=== PATIENT | female | born 1985 | race Caucasian/White ===

== ENCOUNTER 2019-11-09 12:15 | Emergency (ER) | payer OTHER, MEDICAID, SELFPAY ==
[2019-11-09 12:30] VITALS: BP 126/84; PULSE 75; RESP 14; TEMP 37.1; O2SAT 98; BMI 30.4
--- NOTE | 2019-11-09 12:49 | CT_ITS ---
WS: [id number] CT ABDOMEN AND PELVIS WITH CONTRAST HISTORY: RUQ pain TECHNIQUE: Imaging performed of the abdomen and pelvis with IV contrast. Single phase imaging of the abdomen. Coronal and sagittal reformats are submitted. All CT scans at [facility] use at least one of these dose optimization techniques: automated exposure control; mA and/or kV adjustment per patient size (includes targeted exams where dose is matched to clinical indication); or iterativ e reconstruction. IV CONTRAST: Omnipaque 300; 95 mL IV. Oral contrast: No DLP: 1150.49 mGy.cm COMPARISON: None available. Lower thorax: Lung bases are clear. Heart is normal size. No hiatal hernia. Liver/biliary system: Normal size with no intrahepatic dilatation. Gallbladder: Normal. No gallstones or wall thickening. No pericholecystic fluid. Pancreas: Normal. Spleen: Normal. Adrenal glands: Normal. Right kidney: Normal. Left kidney: Normal. Aorta: Normal. Lymphadenopathy: None. Free fluid: None. GI tract: Normal appendix. No GI tract obstruction. No mucosal thickening. Abdominal wall: Fat-containing umbilical hernia. Pelvis: Injection granulomas or soft tissue nodules posteriorly in the pelvis. Bones: Degenerative disc disease at L5-S1. CT/CT abdomen pelvis w con* [id number] IMPRESSION: 1. No acute abdominal or pelvic abnormalities. 2. Normal appendix.
--- NOTE | 2019-11-09 12:50 | ED_ITS ---
HPI - Abdominal Pain General: Chief Complaint: Abdominal Pain Stated Complaint: abd pain Time Seen by Provider: 11/09/19 12:46 History of Present Illness: HPI narrative: Patient complains about pain that started up right upper quadrant earlier today a significant other said that she had pain and swelling yesterday also right upper quadrant denies any nausea and vomiting has had some diarrhea denies fever chills MD elicited complaint: abdominal pain Pertinent past history: other (Epileptic) Onset (ago): hour(s) Pain Consistency: constant Location: RUQ Severity: mild Quality: cramping Radiation: none Exacerbating factors: eating Relieving factors: nothing Associated Symptoms: Reports diarrhea; Denies chills and fever(s) Review of Systems Const: Denies: fever(s), chills or body aches Eyes: Denies: change in vision or blurry vision ENMT: Denies: throat pain or nasal congestion Card: Denies: chest pain or dyspnea on exertion Resp: Denies: dyspnea, productive cough or non-productive cough GI: Reports: abdominal pain and diarrhea Musc: Denies: extremity pain Skin/Breast: Denies: rash Neuro: Denies: headache(s) Psych: Denies: anxiety or depression Caleb/Lymph: Denies: easy bruising PFSH ED PFSH: Social History (Updated 11/09/19 @ 11:55 by Dilia Saeed LPN) Smoking and tobacco status: current every day smoker smokeless tobacco Alcohol intake: never Physical Exam Const: COMMON NORMALS: no acute distress, average body habitus and patient oriented x3 HENMT: COMMON NORMALS: normocephalic HEAD & SCALP: normal to inspection and normocephalic FACE & SINUS: normal facial exam Eye: COMMON NORMALS: conjunctivae normal GENERAL EYE: appearance normal, both eyes and all related structures CONJUNCTIVA: Yes conjunctivae normal Neck/C-Spine: COMMON NORMALS: no JVD Chest: COMMONS NORMALS: normal inspection of the chest Resp: COMMON NORMALS: normal respiratory effort and clear to auscultation bilaterally AUSCULTATION: clear to auscultation bilaterally Cardio: COMMON NORMALS: no JVD, regular rate and regular rhythm RATE: regular rate RHYTHM: regular rhythm GI: COMMON NORMALS: Normal to inspection, nondistended, normoactive bowel sounds present PALPATION: Yes Tenderness to palpation present (GI) Details: RUQ Extremity: COMMON NORMALS: normal to inspection and full ROM Neuro: COMMON NORMALS: patient oriented x3 Course Vital Signs: Vital signs: Vital Signs Temperature 98.8 F 11/09/19 12:30 Pulse Rate 75 11/09/19 12:30 Respiratory Rate 14 11/09/19 12:30 Blood Pressure 126/84 11/09/19 12:30 Pulse Oximetry 98 11/09/19 12:30 Discharge Plan Discharge Condition: Good Prescriptions: No Action testosterone cypionate 200 mg/mL kit IM RF: 0 aripiprazole 9.75 mg/1.3 mL solution IM RF: 0 Vivitrol 380 mg suspension,extended rel recon IM RF: 0 Coding Level of Care Code ED Assurance Senior Manager for Taylor Saul
[2019-11-09 13:09] LABS: Add Urine Microscopic? YES; Bilirubin Urine Neg (NEGATIVE); Blood Urine Neg (Negative); Glucose Urine UA Norm (Normal); HCG Qualitative Urine. Negative (Negative); Ketones Urine Negative (Negative); Leukocyte Esterase Urine 2+ (Negative); Nitrate Urine Negative (Negative); Protein Urine Neg (Negative); Urine Appearance SL Hazy (CLEAR); Urine Color Yellow (Yellow); Urobilinogen Urine Norm (Negative)
[2019-11-09 13:13] LABS: Basophils % 0.4 %; Eosinophils # 0.1 10^3/uL (0.0-0.8); Eosinophils % 2.4 %; Hematocrit 44.3 % (37.0-47.0); Hemoglobin 14.4 g/dL (11.5-15.3); Lymphocytes # 1.5 10^3/uL (0.8-4.8); Lymphocytes % 28.1 %; Mean Corpuscular HGB Conc 32.5 g/dL (30.0-36.0); Mean Corpuscular Hemoglobin 31.6 pg (28.0-34.0); Mean Corpuscular Volume 97.1 fL (81-99); Mean Platelet Volume 10.6 fL (7.4-10.4); Monocytes # 0.3 10^3/uL (0.2-0.9); Monocytes % 5.8 %; Neutrophils # 3.37 10^3/uL (1.8-7.7); Neutrophils % 63.1 %; Nucleated Red Blood Cells % 0 %; Platelet Count 201 10^3/cmm (130-400); Red Blood Count 4.56 10^6/uL (4.1-5.3); Red Cell Distribution Width 12.6 % (12.1-15.1); White Blood Count 5.3 10^3/uL (4.0-10.0)
[2019-11-09 13:14] VITALS: BP 128/76; PULSE 77; RESP 18; O2SAT 99
[2019-11-09 13:35] LABS: Bacteria Urine 3+; RBC Urine 0-4 /hpf (0-2); Squamous Epithelial Cell Urine 0-4 (0-5); WBC Urine 40-55 /hpf (0-5)
[2019-11-09 13:36] LABS: Add Urine Culture? Yes
[2019-11-09 13:37] LABS: Alanine Aminotransferase 15 U/L (0-33); Albumin Level 4.5 g/dL (3.5-5.2); Alkaline Phosphatase 66 IU/L (35-105); Anion Gap 14.4 (5-19); Aspartate Amino Transferase 20 U/L (0-32); Blood Urea Nitrogen 13 mg/dL (6-20); Calcium 9.3 mg/dL (8.5-10.5); Carbon Dioxide 28 mmol/L (22-29); Chloride 102 mmol/L (98-107); Globulin 2.9 g/dL (1.3-4.6); Glomerular Filtration Rate 63.5 mL/min (90-130); Glucose 93 mg/dL (65-115); Lipase 44 U/L (13-60); Osmolality Calculated 286 mOsm/kg (285-295); Potassium 4.4 mmol/L (3.5-5.1); Sodium 140 mmol/L (136-145); Total Bilirubin 0.2 mg/dL (0.15-1.2); Total Protein 7.4 g/dL (6.6-8.7)
[2019-11-09] MEDS: ondansetron 2 mg/ML SDV 2 mL 4 MG IVP (13:42)
[2019-11-09] MEDS: ketorolac 30 mg/mL INJ IVP (13:49)
[2019-11-09] MEDS: cefTRIAXone 1,000 MG in sodium chloride 0.9% (plus) 50 ML 100 MG IV (14:15)
[2019-11-09 14:16] VITALS: BP 112/68; PULSE 61; RESP 18; O2SAT 98
[2019-11-09] MEDS: TRAMadol 50 mg Tablet PO (14:39)
[2019-11-09 14:52] VITALS: BP 111/81; PULSE 61; RESP 18; TEMP 36.9; O2SAT 96
== END 2019-11-09 14:52 | disposition home or self-care (01) ==
PROVIDERS: Emergency Medicine; Emergency Provider Nurse Practitioner Family
DX: R10.9 Unspecified abdominal pain (principal); F17.290 Nicotine dependence, other tobacco product, uncomplicated
CPT/HCPCS: 12345; 36415; 74177; 80053; 81001; 81003; 81025; 83690; 85025; 87086; 96365; 96375; 99283; 99284; J0696; J1885; J2405; Q9967

== ENCOUNTER 2020-01-05 20:18 | Emergency (ER) | payer OTHER, MEDICAID, SELFPAY ==
[2020-01-05 20:33] VITALS: BP 119/77; PULSE 100; RESP 18; TEMP 36.9; O2SAT 100; BMI 31.8
--- NOTE | 2020-01-05 20:50 | ED_ITS ---
HPI - Animal Bite General: Chief Complaint: Animal Bite Stated Complaint: faby silva bite Time Seen by Provider: 01/05/20 20:50 History of Present Illness: HPI narrative: Patient is a 34-year-old female that is transgender and prefers to be called male presents to the ED after having a snake bite on right foot. Patient has a history of anxiety and states that they are probably overreacting about snakebite but wanted to get it evaluated. Patient says the snake was black with some red stripe. the bite did not break the skin and there was no bleeding. Patient rates pain in right foot and 8 out of 10 currently. Associated symptoms: Deny chills, fever(s) or headache(s) Review of Systems Const: Denies: fever(s), chills or fatigue Eyes: Denies: change in vision or eye discomfort ENMT: Denies: throat pain, odynophagia, nasal discharge or nasal congestion Card: Denies: chest pain, palpitations, edema, swelling of feet/ankles, dys pnea on exertion or orthopnea Resp: Denies: dyspnea, productive cough or non-productive cough GI: Denies: abdominal pain, nausea, vomiting, diarrhea, constipation or hematochezia : Denies: flank pain, dysuria or hematuria Musc: Reports: extremity pain (Right foot pain); Denies: neck pain, back pain or extremity swelling Skin/Breast: Denies: rash or new lesions Neuro: Denies: headache(s), numbness in extremities or weakness in extremities PFS ED PFSH: Social History Smoking and tobacco status: current every day smoker smokeless tobacco Alcohol intake: never Physical Exam Const: COMMON NORMALS: no acute distress, patient oriented x3 and alert GENERAL APPEARANCE: cooperative, comfortable and anxious HENMT: COMMON NORMALS: normocephalic HEAD & SCALP: normocephalic MOUTH: Normal oral and palatal mucosa present THROAT: posterior oropharynx normal and uvula midline Neck/C-Spine: COMMON NORMALS: supple GENERAL: Yes normal visual inspection Resp: COMMON NORMALS: normal respiratory effort, No retractions, No use of accessory muscles and clear to auscultation bilaterally AUSCULTATION: clear to auscultation bilaterally Cardio: COMMON NORMALS: regular rate, regular rhythm, S1 normal heart sound present, S2 normal heart sound present, No gallops present (Cardio), No clicks present (Cardio), No murmurs present (Cardio) and Peripheral pulses 2+ throughout RATE: regular rate RHYTHM: regular rhythm HEART SOUNDS: S1 normal heart sound present and S2 normal heart sound present PERIPHERAL PULSES: Peripheral pulses 2+ throughout GI: COMMON NORMALS: Normal to inspection, nondistended, normoactive bowel sounds present, Soft to palpation, non-tender and no masses PALPATION: Yes Soft to palpation : COMMON NORMALS: Yes no CVA tenderness BLADDER/KIDNEY EXAM: Yes no CVA tenderness Back/Pelvis: COMMON NORMALS: no CVA tenderness Extremity: COMMON NORMALS: normal to inspection and no pedal edema NARRATIVE EXTREMITY EXAM: Patient's right foot showed no signs of any puncture wounds, erythema, warmth. Right foot appeared completely normal. Patient has some mild tenderness upon palpation of lateral aspect of right foot. Neuro: COMMON NORMALS: patient oriented x3 and moves all extremities SENSORIUM/ORIENTATION: Yes alert Skin: COMMON NORMALS: no rashes or lesions noted NARRATIVE SKIN EXAM: The skin on the lateral aspect of right foot where snake bite occurred showed no visible signs of any edema, abrasion, puncture wound, bleeding, erythema, warmth. Skin appeared completely normal. GENERAL SKIN EXAM: no rashes or lesions noted and dry skin Course Vital Signs: Vital signs: Vital Signs Temperature 98.5 F 01/05/20 20:33 Pulse Rate 100 01/05/20 20:33 Respiratory Rate 18 01/05/20 20:33 Blood Pressure 119/77 01/05/20 20:33 Pulse Oximetry 100 01/05/20 20:33 MDM - Animal Bite MDM Narrative: Medical decision making narrative: Patient is a 34-year-old female comes to the ED with right foot pain after a snakebite. Physical exam of right foot showed no visible signs of a bite, bleeding, puncture wound, erythema, warmth or edema. Right foot appeared completely normal. Patient was discharged and told to watch area where snake bit to see if it starts showing any signs of infection. Follow-up with PCP in 7 to 10 days for reevaluation. Patient understood and agreed with plan. Discharge Plan Discharge Patient Disposition: Home Clinical Impression: Snake bite Qualifiers: Encounter type: initial encounter Qualified Code(s): W59.11XA - Bitten by nonvenomous snake, initial encounter Condition: Stable Prescriptions: No Action Vivitrol 380 mg suspension,extended rel recon 380 mg IM Q30D RF: 0 sulfamethoxazole-trimethoprim [Bactrim DS] 800-160 mg tablet 1 tab PO Q12H 7 Days Qty: 14 RF: 0 mupirocin 2 % ointment 1 applic TOPICAL BID Qty: 22 RF: 0 ondansetron HCl [Zofran] 4 mg tablet 4 mg PO Q8H PRN (Reason: nausea and vomiting) Qty: 20 RF: 0 lisinopril 20 mg tablet 20 mg PO DAILY RF: 0 amlodipine 10 mg tablet 10 mg PO DAILY RF: 0 paroxetine HCl 30 mg tablet 30 mg PO DAILY RF: 0 tizanidine 2 mg capsule 2 mg PO BID PRN (Reason: Muscle Pain) RF: 0 Aristada 882 mg/3.2 mL suspension,extended rel syring 882 mg IM Q30D RF: 0 tramadol 50 mg tablet 50 mg PO Q8H PRN (Reason: pain) Qty: 7 RF: 0 Discharge Orders: Discharge Order (Routine); Ordered 01/05/20 Ordered By: Benedicto Childs Discharge Diet: Regular Discharge Activity: Resume usual activity Patient Instructions: Snake Bite (ED) Activity Restrictions/Additional Instructions: Follow-up with medical provider as directed in 7-10 days. Watch bite area for signs of infection such as redness, increased tenderness or warmth of the skin. If you have any signs of infection return to ED or urgent care for reevaluation. Take Tylenol or ibuprofen for any pain or fevers. Return to the ER or your medical provider if condition worsens. Please read and understand discharge instructions. If any questions, please ask. Discharge Date/Time: 01/05/20 21:24 Coding Level of Care Code ED Real Estate Administrative Assistant for Taylor Fwcatherine 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
[2020-01-05] MEDS: ondansetron 4 MG Tablet PO (21:17)
[2020-01-05] MEDS: HYDROcodone-acetaminophen 5-325 mg Tablet 1 TAB PO (21:17)
== END 2020-01-05 21:24 | disposition home or self-care (01) ==
LOC: ER 21:23
PROVIDERS: Emergency Provider Physician Assistant
DX: T63.001A Toxic effect of unspecified snake venom, accidental (unintentional), initial encounter (principal); W59.11XA Bitten by nonvenomous snake, initial encounter; F17.210 Nicotine dependence, cigarettes, uncomplicated
CPT/HCPCS: 12345; 99281; 99283; Q0162

== ENCOUNTER 2020-01-16 23:35 | Emergency (ER) | payer OTHER, BC, MEDICAID, SELFPAY ==
[2020-01-16 23:43] VITALS: BP 124/85; PULSE 113; RESP 18; TEMP 37.3; O2SAT 95; BMI 32.3
--- NOTE | 2020-01-16 23:51 | XRR_ITS ---
PROCEDURE INFORMATION: Exam: XR Chest, 1 View Exam date and time: 01/17/2020 12:49 AM Age: 34 years old Clinical indication: Cough and fever; Prior surgery; Surgery type: Mastectomy TECHNIQUE: Imaging protocol: XR of the chest Views: 1 view. COMPARISON: No relevant prior studies available. FINDINGS: Lungs: COPD and interstitial prominence. Pleural space: No pleural effusion. Heart/Mediastinum: Epicardial fat, without cardiomegaly. Bones/joints: Unremarkable. Other: Left-sided surgical clips. XR/XR chest 1V portable [id number] IMPRESSION: COPD and interstitial prominence.
--- NOTE | 2020-01-17 00:04 | ED_ITS ---
HPI - SOB/Dyspnea General: Chief Complaint: Shortness of Breath/Dyspnea Stated Complaint: not feeling well,covid exposure Time Seen by Provider: 01/16/20 23:51 History of Present Illness: HPI Narrative: Patient is a 34-year-old male who comes to the ED with cough, sore throat, fever, nasal drainage and congestion and ear pain. Patient says symptoms started today. She admits to having contact with known positive COVID patient. She states that her cough is productive and she mostly gets up clear phlegm. Denies any chest pain, wheezing or shortness of breath. Patient says she developed some nausea today and had one episode of emesis. Associated symptoms: Reports diaphoresis and fever(s); Deny abdominal pain, chest pain, nausea, orthopnea, palpitations or vomiting Review of Systems Const: Reports: fever(s) and diaphoresis; Denies: chills or fatigue Eyes: Denies: change in vision or eye discomfort ENMT: Reports: throat pain, ear or mastoid pain, nasal discharge and nasal congestion; Denies: odynophagia Card: Denies: chest pain, palpitations, edema, swelling of feet/ankles, dyspnea on exertion or orthopnea Resp: Reports: productive cough and change in phlegm color (Clear); Denies: dyspnea, non-productive cough or wheezing GI: Denies: abdominal pain, nausea, vomiting, diarrhea, constipation or hematochezia : Denies: flank pain, dysuria or hematuria Musc: Denies: neck pain, back pain or extremity swelling Skin/Breast: Denies: rash or new lesions Neuro: Reports: headache(s); Denies: numbness in extremities or weakness in extremities [facility] ED PFSH: Social History Smoking and tobacco status: current every day smoker smokeless tobacco Alcohol intake: never Physical Exam Const: COMMON NORMALS: no acute distress, patient oriented x3 and alert GENERAL APPEARANCE: cooperative, comfortable and diaphoretic (Diaphoresis on face and head.) HENMT: COMMON NORMALS: normocephalic, external ears normal and EAC's normal HEAD & SCALP: normocephalic EXTERNAL EAR: Yes external ears normal EXTERNAL AUDITORY CANAL: EAC's normal TYMPANIC MEMBRANE: TM abnormal TM laterality: bilateral erythematous (right ear has some mild erythema) and with fluid behind the TM ( behind both right and left); not perforated MOUTH: Normal oral and palatal mucosa present THROAT: uvula midline and posterior oropharynx abnormal cobblestoning and erythema Eye: COMMON NORMALS: Equal, round and reactive pupils present PUPIL: Yes Equal, round and reactive pupils present Neck/C-Spine: COMMON NORMALS: supple GENERAL: Yes normal visual inspection Resp: COMMON NORMALS: normal respiratory effort, No retractions, No use of accessory muscles and clear to auscultation bilaterally EFFORT & INSPECTION: Yes able to speak in complete sentences, No tachypneic, No respiratory distress and Yes Actively coughing moist AUSCULTATION: clear to auscultation bilaterally Cardio: COMMON NORMALS: regular rhythm, S1 normal heart sound present, S2 normal heart sound present, No gallops present (Cardio), No clicks present (Cardio), No murmurs present (Cardio) and Peripheral pulses 2+ throughout RATE: tachycardic RHYTHM: regular rhythm HEART SOUNDS: S1 normal heart sound present and S2 normal heart sound present PERIPHERAL PULSES: Peripheral pulses 2+ throughout GI: COMMON NORMALS: Normal to inspection, nondistended, normoactive bowel sounds present, Soft to palpation, non-tender and no masses PALPATION: Yes Soft to palpation : COMMON NORMALS: Yes no CVA tenderness BLADDER/KIDNEY EXAM: Yes no CVA tenderness Back/Pelvis: COMMON NORMALS: no CVA tenderness Extremity: COMMON NORMALS: normal to inspection Neuro: COMMON NORMALS: patient oriented x3 and moves all extremities SENSORIUM/ORIENTATION: Yes alert Skin: COMMON NORMALS: no rashes or lesions noted GENERAL SKIN EXAM: no rashes or lesions noted and dry skin Course Vital Signs: Vital signs: Vital Signs Temperature 99.2 F 01/16/20 23:43 Pulse Rate 72 01/17/20 01:49 Respiratory Rate 16 01/17/20 01:49 Blood Pressure 136/84 01/17/20 01:49 Pulse Oximetry 99 01/17/20 01:49 MDM - SOB/Dyspnea MDM Narrative: Medical decision making narrative: Patient is a 34-year-old female who comes to the ED with fever, cough, nasal congestion, sore throat and ear pain. Patient has known COVID-19 positive patient contact. Patient has some nausea as well. Patient appears in no acute respiratory distress. Physical exam did show some erythema of posterior oropharynx. TMs bilaterally had some fluid behind them with some erythema. O2 saturation 99% on room air. Temp 99.2, pulse 72 and respirations 16. Strep negative and chest x-ray showed no acute findings or infiltrates. COVID 19 testing performed and pending. Patient discharged with upper respiratory infection and told to self quarantine for the next 3 or up to 12 days pending on COVID 19 testing results. She was given a prescription for amoxicillin-clavulanate to treat otitis media. Patient was also sent home with a prescription for Zofran to help with any nausea. Patient told to drink plenty of fluids and stay hydrated. Take Tylenol or ibuprofen for fevers. Return to ED precautions given. Follow-up with PCP in 7 to 10 days. Patient understood and agreed with plan. Lab Data: Attestation: I reviewed the patient's lab results. Labs: Lab Results 01/17/20 Range/Units 00:35 Group A Strep Rapi d Negative (Negative) Imaging Data^: CXR: Attestation: I personally reviewed and interpreted this imaging study as follows: My impression: Chest x-ray showed no acute findings or lung infiltrates seen. Pending final radiology report. Discharge Plan Discharge Patient Disposition: Home Clinical Impression: Upper respiratory infection with cough and congestion, Encounter for screening laboratory testing for COVID-19 virus Otitis media Qualifiers: Otitis media type: serous Chronicity: acute Laterality: bilateral Recurrence: non-recurrent Qualified Code(s): H65.03 - Acute serous otitis media, bilateral Condition: Stable Prescriptions: New ondansetron 4 mg tablet,disintegrating 4 mg PO Q8H Qty: 15 RF: 0 amoxicillin-pot clavulanate 500-125 mg tablet 1 tab PO BID 10 Days Qty: 20 RF: 0 No Action Vivitrol 380 mg suspension,extended rel recon 380 mg IM Q30D RF: 0 sulfamethoxazole-trimethoprim [Bactrim DS] 800-160 mg tablet 1 tab PO Q12H 7 Days Qty: 14 RF: 0 mupirocin 2 % ointment 1 applic TOPICAL BID Qty: 22 RF: 0 ondansetron HCl [Zofran] 4 mg tablet 4 mg PO Q8H PRN (Reason: nausea and vomiting) Qty: 20 RF: 0 lisinopril 20 mg tablet 20 mg PO DAILY RF: 0 amlodipine 10 mg tablet 10 mg PO DAILY RF: 0 paroxetine HCl 30 mg tablet 30 mg PO DAILY RF: 0 tizanidine 2 mg capsule 2 mg PO BID PRN (Reason: Muscle Pain) RF: 0 Aristada 882 mg/3.2 mL suspension,extended rel syring 882 mg IM Q30D RF: 0 tramadol 50 mg tablet 50 mg PO Q8H PRN (Reason: pain) Qty: 7 RF: 0 Discharge Orders: Discharge Order (Routine); Ordered 01/17/20 Ordered By: Benedicto Childs Discharge Diet: Regular Discharge Activity: Limit activity as instructed Patient Instructions: Otitis Media - Adult, Upper Respiratory Infection (ED), Viral Syndrome (ED) Activity Restrictions/Additional Instructions: Follow-up with medical provider as directed in 7-10 days. COVID testing was performed and sent to lab and results will be back in 2 to 3 days. Self quarantine for the next 3 days or up to 12 days pending on COVID testing results. Take ibuprofen or Tylenol for fevers. Drink plenty of fluids and stay hydrated. Symptom management with [id number] cough and nasal decongestant meds. Return to the ER or your medical provider if condition worsens. Please read and understand discharge instructions. If any questions, please ask. Stand Alone Forms: Work/School Release Discharge Date/Time: 01/17/20 01:50 Coding Level of Care Code ED Hr Director for Taylor Saul 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
[2020-01-17] MEDS: ondansetron 4 MG Tablet PO (00:40)
[2020-01-17] MEDS: ondansetron 2 mg/ML SDV 2 mL 4 MG IM (00:41)
[2020-01-17 01:26] LABS: Rapid Strep A Test Negative (Negative)
[2020-01-17] MEDS: promethazine 25 mg/mL SDV 1 mL IM (01:26)
[2020-01-17 01:49] VITALS: BP 136/84; PULSE 72; RESP 16; O2SAT 99
[2020-01-18 16:32] LABS: Quest SARS-CoV-2 RNA DETECTED (NOT DETECTED)
== END 2020-01-17 01:50 | disposition home or self-care (01) ==
PROVIDERS: Emergency Provider Physician Assistant
DX: U07.1 COVID-19 (principal); H65.03 Acute serous otitis media, bilateral; F17.220 Nicotine dependence, chewing tobacco, uncomplicated
CPT/HCPCS: 12345; 71045; 87081; 87635; 87880; 96372; 99281; 99283; J2405; J2550; Q0162

== ENCOUNTER 2020-01-20 14:27 | Emergency (ER) | payer OTHER, MEDICAID, SELFPAY ==
--- NOTE | 2020-01-20 14:33 | XRR_ITS ---
PROCEDURE INFORMATION: Exam: XR Chest, 1 View Exam date and time: 01/20/2020 3:29 PM Age: 34 years old Clinical indication: Shortness of breath; Additional info: SOB TECHNIQUE: Imaging protocol: XR of the chest Views: 1 view. COMPARISON: CR XR chest 1V portable [id number] 01/17/2020 12:31 AM FINDINGS: Lungs: Unremarkable. No consolidation. Pleural space: Unremarkable. No pleural effusion. No pneumothorax. Heart/Mediastinum: Unremarkable. No cardiomegaly. Bones/joints: Unremarkable. Soft tissues: Bilateral mastectomies. Bilateral surgical clips. XR/XR chest 1V portable [id number] IMPRESSION: No acute findings.
--- NOTE | 2020-01-20 14:41 | PC.NURSE ---
provider temitope vo to hold until evaluated by him and then begin interventions. provider temitope in room.
--- NOTE | 2020-01-20 14:46 | ED_ITS ---
HPI - SOB/Dyspnea General: Chief Complaint: Shortness of Breath/Dyspnea Stated Complaint: sob/covid+ Time Seen by Provider: 01/20/20 14:30 History of Present Illness: HPI Narrative: Patient is a 34-year-old female that comes to the ED with shortness of breath and chest tightness. Patient was seen here for upper respiratory symptoms on January 15 and COVID testing was performed. COVID tests came back positive. Patient says she is now developing chest tightness and shortness of breath. She also has some fever, nausea and vomiting, and cough. Patient describes chest pain as pressure tightness on chest and feels like cannot get a good good deep breath. Associated symptoms: Reports chest pain, fever(s), nausea and vomiting; Deny abdominal pain, orthopnea or palpitations Review of Systems Const: Reports: fever(s); Denies: chills or fatigue Eyes: Denies: change in vision or eye discomfort ENMT: Denies: throat pain, odynophagia, nasal discharge or nasal congestion Card: Reports: chest pain; Denies: palpitations, edema, swelling of feet/ankles, dyspnea on exertion or orthopnea Resp: Reports: dyspnea and non-productive cough; Denies: productive cough GI: Reports: nausea, vomiting and diarrhea; Denies: abdominal pain, constipation or hematochezia : Denies: flank pain, dysuria or hematuria Musc: Denies: neck pain, back pain or extremity swelling Skin/Breast: Denies: rash or new lesions Neuro: Denies: headache(s), numbness in extremities or weakness in extremities PFS ED PFSH: Social History Smoking and tobacco status: current every day smoker smokeless tobacco Alcohol intake: never Physical Exam Const: COMMON NORMALS: patient oriented x3 and alert GENERAL APPEARANCE: cooperative and comfortable HENMT: COMMON NORMALS: normocephalic HEAD & SCALP: normocephalic MOUTH: Normal oral and palatal mucosa present THROAT: posterior oropharynx normal and uvula midline Eye: COMMON NORMALS: Equal, round and reactive pupils present PUPIL: Yes Equal, round and reactive pupils present Neck/C-Spine: COMMON NORMALS: supple GENERAL: Yes normal visual inspection Resp: COMMON NORMALS: normal respiratory effort, No retractions, No use of accessory muscles and clear to auscultation bilaterally AUSCULTATION: clear to auscultation bilaterally Cardio: COMMON NORMALS: regular rate, regular rhythm, S1 normal heart sound present, S2 normal heart sound present, No gallops present (Cardio), No clicks present (Cardio), No murmurs present (Cardio) and Peripheral pulses 2+ throughout RATE: regular rate RHYTHM: regular rhythm HEART SOUNDS: S1 normal heart sound present and S2 normal heart sound present PERIPHERAL PULSES: Peripheral pulses 2+ throughout GI: COMMON NORMALS: Normal to inspection, nondistended, normoactive bowel sounds present, Soft to palpation, non-tender and no masses PALPATION: Yes Soft to palpation : COMMON NORMALS: Yes no CVA tenderness BLADDER/KIDNEY EXAM: Yes no CVA tenderness Back/Pelvis: COMMON NORMALS: no CVA tenderness Extremity: COMMON NORMALS: normal to inspection and no pedal edema Neuro: COMMON NORMALS: patient oriented x3 and moves all extremities SENSORIUM/ORIENTATION: Yes alert Skin: COMMON NORMALS: no rashes or lesions noted GENERAL SKIN EXAM: no rashes or lesions noted and dry skin Course Reevaluation(s): Reevaluation #1: Patient says her shortness of breath did improve after albuterol inhaler. Patient sitting comfortably on the bed and says she is ready to be discharged. Time: 16:25 Vital Signs: Vital signs: Vital Signs Temperature 99.3 F 01/20/20 15:08 Pulse Rate 101 H 01/20/20 16:57 Respiratory Rate 20 H 01/20/20 16:57 Blood Pressure 122/75 01/20/20 16:57 Pulse Oximetry 94 01/20/20 16:57 MDM - SOB/Dyspnea MDM Narrative: Medical decision making narrative: Patient is a 34-year-old female that was tested for COVID-19 on January 15 results came back positive. Patient says her symptoms are about the same and she feels like her shortness of breath is increasing. She described having some chest tightness as well. Physical exam showed a patient sitting up on exam bed in no acute distress or pain. Vitals blood pressure 130/79, pulse 99, respirations 20, temp 99.3, O2 sat 99 on room air. Lungs were clear to auscultation bilaterally. CBC and CMP were unremarkable. Patient's creatinine was slightly elevated at 1.1. She was given IV fluids and IV Zofran to help with nausea. Patient was also given an albuterol breathing treatment and she says her shortness of breath symptoms did improve. EKG showed normal sinus rhythm with no ST segment elevation or depression seen. Troponins were negative ruling out cardiac cause. Chest x-ray showed no acute findings or infiltrates seen. Patient was discharged with upper respiratory infection and COVID-19 virus detected. She was told to continue self quarantine and to take ibuprofen or Tylenol for any fevers. I sent her home with a prescription for an albuterol inhaler to help with any shortness of breath and wheezing symptoms. Told her to drink plenty of fluids and to return here to the ED if symptoms worsen. Follow-up with PCP in 7 to 10 days for reevaluation. Patient understood agree with plan. Lab Data: Attestation: I reviewed the patient's lab results. Labs: Lab Results 01/20/20 01/20/20 01/20/20 Range/Units 14:53 15:05 15:05 WBC 5.2 (4.0-10.0) 10^3/ uL RBC 4.29 (4.1-5.3) 10^6/u L Hgb 13.7 (11.5-15.3) g/dL Hct 41.1 (37.0-47.0) % MCV 95.8 (81-99) fL MCH 31.9 (28.0-34.0) pg MCHC 33.3 (30.0-36.0) g/dL RDW 12.9 (12.1-15.1) % Plt Count 128 L (130-400) 10^3/c mm MPV 10.8 H (7.4-10.4) fL Neut % (Auto) 66.6 % Lymph % (Auto) 25.2 % Bennett % (Auto) 6.8 % Eos % (Auto) 1.2 % Baso % (Auto) 0.2 % Neut # (Auto) 3.44 (1.8-7.7) 10^3/u L Lymph # (Auto) 1.3 (0.8-4.8) 10^3/u L Bennett # (Auto) 0.4 (0.2-0.9) 10^3/u L Eos # (Auto) 0.1 (0.0-0.8) 10^3/u L Baso # (Auto) 0.0 (0.0-0.1) 10^3/u L Nucleated RBC % (a uto) 0 % Nucleated RBCs # 0.0 /100WBC Sodium 137 (136-145) mmol/L Potassium 4.1 (3.5-5.1) mmol/L Chloride 102 (98-107) mmol/L Carbon Dioxide 24 (22-29) mmol/L Anion Gap 15.1 (5-19) BUN 7 (6-20) mg/dL Creatinine 1.1 H (0.5-0.9) mg/dL GFR Calculation 56.5 L (90-130) mL/min Glucose 92 (65-115) mg/dL Calculated Osmolal ity 282 L (285-295) mOsm/k g Calcium 8.5 (8.5-10.5) mg/dL Total Bilirubin 0.2 (0.15-1.2) mg/dL AST 24 (0-32) U/L ALT 19 (0-33) U/L Alkaline Phosphata se 67 (35-105) IU/L Troponin T Baselin e (0-10) ng/L Total Protein 6.4 L (6.6-8.7) g/dL Albumin 3.7 (3.5-5.2) g/dL Globulin 2.7 (1.3-4.6) g/dL HCG, Qual (Negative) Urine Color Yellow (Yellow) Urine Appearance Clear (CLEAR) Urine pH 8 H (5-7) Ur Specific Gravit y 1.005 (1.005-1.030) Urine Protein Neg (Negative) Urine Glucose (UA) Norm (Normal) Urine Ketones Negative (Negative) Urine Blood Neg (Negative) Urine Nitrate Negative (Negative) Urine Bilirubin Neg (Negative) Prot Sulfosalicyli c Acd Negative (Negative) Urine Urobilinogen Norm (Negative) mg/dL Ur Leukocyte Dolores ase Negative (Negative) Urine RBC None (0-2) /hpf Urine WBC 0-4 H (0-5) /hpf Ur Squamous Epith Cells Rare (0-5) /hpf Amorphous Sediment Not Reportable Urine Bacteria Trace (NONE) /hpf 01/20/20 01/20/20 Range/Units 15:05 15:05 WBC (4.0-10.0) 10^3/ uL RBC (4.1-5.3) 10^6/u L Hgb (11.5-15.3) g/dL Hct (37.0-47.0) % MCV (81-99) fL MCH (28.0-34.0) pg MCHC (30.0-36.0) g/dL RDW (12.1-15.1) % Plt Count (130-400) 10^3/c mm MPV (7.4-10.4) fL Neut % (Auto) % Lymph % (Auto) % Bennett % (Auto) % Eos % (Auto) % Baso % (Auto) % Neut # (Auto) (1.8-7.7) 10^3/u L Lymph # (Auto) (0.8-4.8) 10^3/u L Bennett # (Auto) (0.2-0.9) 10^3/u L Eos # (Auto) (0.0-0.8) 10^3/u L Baso # (Auto) (0.0-0.1) 10^3/u L Nucleated RBC % (a uto) % Nucleated RBCs # /100WBC Sodium (136-145) mmol/L Potassium (3.5-5.1) mmol/L Chloride (98-107) mmol/L Carbon Dioxide (22-29) mmol/L Anion Gap (5-19) BUN (6-20) mg/dL Creatinine (0.5-0.9) mg/dL GFR Calculation (90-130) mL/min Glucose (65-115) mg/dL Calculated Osmolal ity (285-295) mOsm/k g Calcium (8.5-10.5) mg/dL Total Bilirubin (0.15-1.2) mg/dL AST (0-32) U/L ALT (0-33) U/L Alkaline Phosphata se (35-105) IU/L Troponin T Baselin e 6 (0-10) ng/L Total Protein (6.6-8.7) g/dL Albumin (3.5-5.2) g/dL Globulin (1.3-4.6) g/dL HCG, Qual Negative (Negative) Urine Color (Yellow) Urine Appearance (CLEAR) Urine pH (5-7) Ur Specific Gravit y (1.005-1.030) Urine Protein (Negative) Urine Glucose (UA) (Normal) Urine Ketones (Negative) Urine Blood (Negative) Urine Nitrate (Negative) Urine Bilirubin (Negative) Prot Sulfosalicyli c Acd (Negative) Urine Urobilinogen (Negative) mg/dL Ur Leukocyte Dolores ase (Negative) Urine RBC (0-2) /hpf Urine WBC (0-5) /hpf Ur Squamous Epith Cells (0-5) /hpf Amorphous Sediment Urine Bacteria (NONE) /hpf Imaging Data^: CXR: Attestation: I personally reviewed and interpreted this imaging study as follows: Radiologist's impression: [address] [address] XRay Report Signed Patient: Dorothy Jurado Unit #: [id number] : 1985 Age/Sex: 34 / F ADM Date: 01/20/20 Loc: ER Room/Bed: Attending Dr: Ordering Provider/Ordering MD: Benedicto Childs Date of Service: 01/20/20 Procedure(s): XR chest 1V portable [id number] Accession Number(s): [id number] Report Number: [id number] PROCEDURE INFORMATION: Exam: XR Chest, 1 View Exam date and time: 01/20/2020 3:29 PM Age: 34 years old Clinical indication: Shortness of breath; Additional info: SOB TECHNIQUE: Imaging protocol: XR of the chest Views: 1 view. COMPARISON: CR XR chest 1V portable [id number] 01/17/2020 12:31 AM FINDINGS: Lungs: Unremarkable. No consolidation. Pleural space: Unremarkable. No pleural effusion. No pneumothorax. Heart/Mediastinum: Unremarkable. No cardiomegaly. Bones/joints: Unremarkable. Soft tissues: Bilateral mastectomies. Bilateral surgical clips. XR/XR chest 1V portable [id number] IMPRESSION: No acute findings. Dictated By: Myles Haines Signed By: Myles Haines Signed Date/Time: 01/20/20 1601 DD/ 1600 EKG Data^: EKG 1: Attestation: I personally reviewed and interpreted this EKG as follows: EKG Interpretation Date: 01/20/20 Interpretation: Sinus rhythm, 77 bpm, no ST segment elevation or depression seen. Discharge Plan Discharge Patient Disposition: Home Clinical Impression: Upper respiratory infection with cough and congestion, COVID-19 virus detected Condition: Stable Prescriptions: New albuterol sulfate 90 mcg/actuation aerosol powdr breath activated 2 inh INHALATION Q6H PRN (Reason: shortness of breath or wheezing) Qty: 1 RF: 0 No Action Vivitrol 380 mg suspension,extended rel recon 380 mg IM Q30D RF: 0 ondansetron HCl [Zofran] 4 mg tablet 4 mg PO Q8H PRN (Reason: nausea and vomiting) Qty: 20 RF: 0 lisinopril 20 mg tablet 20 mg PO QPM RF: 0 amlodipine 10 mg tablet 10 mg PO DAILY RF: 0 paroxetine HCl 30 mg tablet 30 mg PO DAILY RF: 0 Aristada 882 mg/3.2 mL suspension,extended rel syring 882 mg IM Q30D RF: 0 tramadol 50 mg tablet 50 mg PO Q8H PRN (Reason: pain) Qty: 7 RF: 0 amoxicillin-pot clavulanate 500-125 mg tablet 1 tab PO BID 10 Days Qty: 20 RF: 0 Keflex 500 mg Capsule 500 mg PO QID RF: 0 buspirone 30 mg Tablet 30 mg PO BID RF: 0 gabapentin 300 mg Capsule 300 - 600 mg PO BEDTIME RF: 0 Trileptal 600 mg tablet 600 mg PO BID RF: 0 testosterone cypionate 200 mg/mL oil See Rx Instructions .ROUTE .COMPLEX RF: 0 Discharge Orders: Discharge Order (Routine); Ordered 01/20/20 Ordered By: Benedicto Childs Discharge Diet: Regular Discharge Activity: Increase activity as tolerated Patient Instructions: Viral Syndrome (ED), Upper Respiratory Infection - Adult Activity Restrictions/Additional Instructions: Follow-up with medical provider as directed in 7-10 days. Continue self quarantine for 12 to 14 days. Take medications as prescribed. Use inhaler as needed for any shortness of breath or wheezing. Continue taking Zofran and d rink plenty of fluids and stay hydrated. Tylenol or ibuprofen for fevers. Return to the ER or your medical provider if condition worsens. Please read and understand discharge instructions. If any questions, please ask. Discharge Date/Time: 01/20/20 16:58 Coding Level of Care Code ED Income Tax Consultant for Chg 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
--- NOTE | 2020-01-20 14:47 | ECG_ITS ---
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 Measurements Intervals [place] Rate: 77 P: 53 CA: 111 QRS: 60 QRSD: 86 T: 63 QT: 322 QTc: 365 Interpretive Statements SINUS RHYTHM WITH SHORT CA INTERVAL No previous ECG available for comparison Electronically Signed On 01-21-2020 19:11:44 CDT by Ranjeet Nowak M.D. [email or web address].[employer]/store/[id number] f
[2020-01-20 15:08] VITALS: BP 130/79; PULSE 99; RESP 20; TEMP 37.4; O2SAT 99; BMI 32.3
[2020-01-20 15:15] VITALS: PULSE 78; RESP 16; O2SAT 97
[2020-01-20] MEDS: sodium chloride 0.9% 1,000 ML 999 ML IV (15:19)
[2020-01-20] MEDS: ondansetron 2 mg/ML SDV 2 mL 4 MG IVP (15:19)
[2020-01-20 15:21] LABS: Basophils % 0.2 %; Eosinophils # 0.1 10^3/uL (0.0-0.8); Eosinophils % 1.2 %; Hematocrit 41.1 % (37.0-47.0); Hemoglobin 13.7 g/dL (11.5-15.3); Lymphocytes # 1.3 10^3/uL (0.8-4.8); Lymphocytes % 25.2 %; Mean Corpuscular HGB Conc 33.3 g/dL (30.0-36.0); Mean Corpuscular Hemoglobin 31.9 pg (28.0-34.0); Mean Corpuscular Volume 95.8 fL (81-99); Mean Platelet Volume 10.8 fL (7.4-10.4); Monocytes # 0.4 10^3/uL (0.2-0.9); Monocytes % 6.8 %; Neutrophils # 3.44 10^3/uL (1.8-7.7); Neutrophils % 66.6 %; Nucleated Red Blood Cells % 0 %; Platelet Count 128 10^3/cmm (130-400); Red Blood Count 4.29 10^6/uL (4.1-5.3); Red Cell Distribution Width 12.9 % (12.1-15.1); White Blood Count 5.2 10^3/uL (4.0-10.0)
[2020-01-20 15:32] LABS: Bacteria Urine TRACE /hpf; Bilirubin Urine Neg (Negative); Blood Urine Neg (Negative); Glucose Urine UA Norm (Normal); Ketones Urine Negative (Negative); Leukocyte Esterase Urine Negative (Negative); Nitrate Urine Negative (Negative); Protein Urine Neg (Negative); Specific Gravity, Urine 1.005 (1.005-1.030); Squamous Epithelial Cell Urine RARE /hpf (0-5); Urine Appearance Clear (CLEAR); Urine Color Yellow (Yellow); Urobilinogen Urine Norm (Negative); WBC Urine 0-4 /hpf (0-5); pH Urine 8 (5-7)
[2020-01-20 15:33] LABS: Add Urine Culture? No; Sulfosalicylic Acid Urine Negative (Negative)
[2020-01-20 15:42] LABS: HCG, Serum Qual Negative (Negative)
[2020-01-20 15:50] LABS: Troponin(5th) Baseline 6 ng/L (0-10)
[2020-01-20] MEDS: albuterol 8 gm MDI 2 PUFF INHALATION (16:10)
[2020-01-20 16:13] VITALS: PULSE 78; RESP 16; O2SAT 97
[2020-01-20 16:30] LABS: Alanine Aminotransferase 19 U/L (0-33); Albumin Level 3.7 g/dL (3.5-5.2); Alkaline Phosphatase 67 IU/L (35-105); Anion Gap 15.1 (5-19); Aspartate Amino Transferase 24 U/L (0-32); Blood Urea Nitrogen 7 mg/dL (6-20); Calcium 8.5 mg/dL (8.5-10.5); Carbon Dioxide 24 mmol/L (22-29); Chloride 102 mmol/L (98-107); Globulin 2.7 g/dL (1.3-4.6); Glomerular Filtration Rate 56.5 mL/min (90-130); Glucose 92 mg/dL (65-115); Osmolality Calculated 282 mOsm/kg (285-295); Potassium 4.1 mmol/L (3.5-5.1); Sodium 137 mmol/L (136-145); Total Bilirubin 0.2 mg/dL (0.15-1.2); Total Protein 6.4 g/dL (6.6-8.7)
[2020-01-20 16:57] VITALS: BP 122/75; PULSE 101; RESP 20; O2SAT 94
== END 2020-01-20 16:58 | disposition home or self-care (01) ==
PROVIDERS: Emergency Provider Physician Assistant
DX: U07.1 COVID-19 (principal); F17.210 Nicotine dependence, cigarettes, uncomplicated
CPT/HCPCS: 12345; 71045; 80053; 81001; 84484; 84703; 85025; 87040; 87205; 93005; 94640; 96360; 96375; 99283; 99284; J2405; J7030

== ENCOUNTER 2020-02-20 12:00 | Outpatient (CLI) | payer OTHER, MEDICAID, SELFPAY | END 2020-02-20 12:01 | disposition home or self-care (01) | LOC: SLEEP 02-21 11:34 | PROVIDERS: Visit Provider Nurse Practitioner Family | DX: G47.10 Hypersomnia, unspecified (principal) | CPT/HCPCS: G0399 ==

== ENCOUNTER 2020-03-13 11:07 | Emergency (ER) | payer OTHER, MEDICAID, SELFPAY ==
[2020-03-13 11:25] VITALS: BP 119/80; PULSE 97; RESP 18; TEMP 36.2; O2SAT 95; BMI 32.3
--- NOTE | 2020-03-13 11:37 | XR_ITS ---
WS: [id number] Portable AP upright chest, 03/13/2020 Clinical Data: cp Comparison: Portable chest, 01/20/2020. Findings: No nodules, masses or effusions are seen. The heart is normal. The pulmonary vascularity is not increased. No pneumonia or pneumothorax is seen. Bilateral axillary surgical clips are seen. Mon itor leads are on the chest wall. XR/XR chest 1V portable [id number] Impression: Negative chest.
--- NOTE | 2020-03-13 11:44 | ED_ITS ---
HPI - Chest Pain General: Chief Complaint: Chest Pain Stated Complaint: Chest Pain/Pain in Left arm Time Seen by Provider: 03/13/20 11:33 Source: patient Mode of arrival: ambulatory Limitations: no limitations History of Present Illness: HPI narrative: 34-year-old female states she started having sharp chest pain in the left side of her chest 1 to 2 hours ago. Patient states the pain is much worse with palpation. States that it seems to radiate down her left arm. She has no history of heart disease. She denies any shortness of breath. Denies any vomiting or diarrhea. Denies any recent injuries. She did have Covid back in December. MD complaint: chest pain Associated symptoms: Deny abdominal pain, dyspnea, fever(s), nausea or vomiting Review of Systems Const: Denies: fever(s), chills, body aches or change in appetite Eyes: Denies: blurry vision or eye discomfort ENMT: Denies: throat pain or dental pain Card: Reports: chest pain Resp: Denies: dyspnea GI: Denies: abdominal pain, nausea, vomiting or diarrhea : Denies: dysuria Musc: Denies: neck pain or back pain Skin/Breast: Denies: rash Neuro: Denies: headache(s) Psych: Denies: depression Caleb/Lymph: Denies: easy bruising All/Imm: Denies: urticaria PFSH ED PFSH: Medical History ADHD Bipolar 1 disorder Decreased glomerular filtration rate (GFR) Degenerative arthritis of spine Epilepsy Obesity (BMI 30.0-34.9) Pneumonitis PTSD (post-traumatic stress disorder) Pyloric stenosis Surgical History History of adenectomy Hx of tonsillectomy Family History Other Cancer Social History Smoking and tobacco status: current every day smoker smokeless tobacco Smokeless tobacco user: chewing tobacco Alcohol intake: current Alcohol intake frequency: 0-2 Drinks per Day Alcohol type: hard liquor Current occupational status: unemployed Current gender identity: Male Female Reproductive History: Date of last menstrual period: 05/02/12 Physical Exam Const: COMMON NORMALS: no acute distress, patient oriented x3 and healthy appearing HENMT: COMMON NORMALS: normocephalic and atraumatic HEAD & SCALP: normocephalic and atraumatic Eye: COMMON NORMALS: Equal, round and reactive pupils present and EOMs intact bilaterally PUPIL: Yes Equal, round and reactive pupils present Neck/C-Spine: COMMON NORMALS: full ROM and supple Chest: COMMONS NORMALS: normal inspection of the chest and normal palpation of entire chest wall Resp: COMMON NORMALS: normal respiratory effort, No retractions, No use of accessory muscles and clear to auscultation bilaterally AUSCULTATION: clear to auscultation bilaterally Cardio: COMMON NORMALS: regular rate, regular rhythm and No murmurs present (Cardio) RATE: regular rate RHYTHM: regular rhythm GI: COMMON NORMALS: Normal to inspection, nondistended, normoactive bowel sounds present, Soft to palpation, non-tender and no masses PALPATION: Yes Soft to palpation Extremity: COMMON NORMALS: normal to inspection and full ROM Neuro: COMMON NORMALS: patient oriented x3, moves all extremities and no focal motor deficits Psych: COMMON NORMALS: mental status grossly normal, Normal thought process present and cooperative THOUGHT PROCESS: Normal thought process present Skin: COMMON NORMALS: no rashes or lesions noted and no wounds GENERAL SKIN EXAM: no rashes or lesions noted Course Vital Signs: Vital signs: Vital Signs Temperature 97.2 F L 03/13/20 11:25 Pulse Rate 80 03/13/20 13:03 Respiratory Rate 17 03/13/20 13:03 Blood Pressure 106/68 03/13/20 13:03 Pulse Oximetry 93 03/13/20 13:03 MDM - Chest Pain MDM Narrative: Medical decision making narrative: Patient presents with chest pain is atypical in nature. She is point tender on exam and is likely muscular. Patient's blood work here is normal. She is stable for discharge is to follow- up PCP in 3 to 5 days return if worsening. She has no signs of pulmonary embolism or acute coronary syndrome Lab Data: Labs: Lab Results 03/13/20 03/13/20 03/13/20 Range/Units 11:55 11:55 11:55 WBC 4.9 (4.0-10.0) 10^3/ uL RBC 4.48 (4.1-5.3) 10^6/u L Hgb 14.5 (11.5-15.3) g/dL Hct 43.6 (37.0-47.0) % MCV 97.3 (81-99) fL MCH 32.4 (28.0-34.0) pg MCHC 33.3 (30.0-36.0) g/dL RDW 13.8 (12.1-15.1) % Plt Count 200 (130-400) 10^3/c mm MPV 10.4 (7.4-10.4) fL Neut % (Auto) 55.7 % Lymph % (Auto) 27.0 % [place] % (Auto) 5.7 % Eos % (Auto) 10.8 % Baso % (Auto) 0.4 % Neut # (Auto) 2.74 (1.8-7.7) 10^3/u L Lymph # (Auto) 1.3 (0.8-4.8) 10^3/u L [place] # (Auto) 0.3 (0.2-0.9) 10^3/u L Eos # (Auto) 0.5 (0.0-0.8) 10^3/u L Baso # (Auto) 0.0 (0.0-0.1) 10^3/u L Nucleated RBC % (a uto) 0 % Nucleated RBCs # 0.0 /100WBC D-Dimer 0.54 (0-0.59) ug/mIFE U Sodium 141 (136-145) mmol/L Potassium 4.2 (3.5-5.1) mmol/L Chloride 103 (98-107) mmol/L Carbon Dioxide 29 (22-29) mmol/L Anion Gap 13.2 (5-19) BUN 16 (6-20) mg/dL Creatinine 1.2 H (0.5-0.9) mg/dL GFR Calculation 51.1 L (90-130) mL/min Glucose 89 (65-115) mg/dL Calculated Osmolal ity 293 (285-295) mOsm/k g Calcium 9.4 (8.5-10.5) mg/dL Total Bilirubin 0.2 (0.15-1.2) mg/dL AST 21 (0-32) U/L ALT 16 (0-33) U/L Alkaline Phosphata se 80 (35-105) IU/L Troponin T Baselin e (0-10) ng/L Troponin T 120 Min [place] (0-10) ng/L Delta Troponin T (0-10) ABS# Total Protein 6.6 (6.6-8.7) g/dL Albumin 4.5 (3.5-5.2) g/dL Globulin 2.1 (1.3-4.6) g/dL 03/13/20 03/13/20 Range/Units 11:55 13:48 WBC (4.0-10.0) 10^3/ uL RBC (4.1-5.3) 10^6/u L Hgb (11.5-15.3) g/dL Hct (37.0-47.0) % MCV (81-99) fL MCH (28.0-34.0) pg MCHC (30.0-36.0) g/dL RDW (12.1-15.1) % Plt Count (130-400) 10^3/c mm MPV (7.4-10.4) fL Neut % (Auto) % Lymph % (Auto) % [place] % (Auto) % Eos % (Auto) % Baso % (Auto) % Neut # (Auto) (1.8-7.7) 10^3/u L Lymph # (Auto) (0.8-4.8) 10^3/u L [place] # (Auto) (0.2-0.9) 10^3/u L Eos # (Auto) (0.0-0.8) 10^3/u L Baso # (Auto) (0.0-0.1) 10^3/u L Nucleated RBC % (a uto) % Nucleated RBCs # /100WBC D-Dimer (0-0.59) ug/mIFE U Sodium (136-145) mmol/L Potassium (3.5-5.1) mmol/L Chloride (98-107) mmol/L Carbon Dioxide (22-29) mmol/L Anion Gap (5-19) BUN (6-20) mg/dL Creatinine (0.5-0.9) mg/dL GFR Calculation (90-130) mL/min Glucose (65-115) mg/dL Calculated Osmolal ity (285-295) mOsm/k g Calcium (8.5-10.5) mg/dL Total Bilirubin (0.15-1.2) mg/dL AST (0-32) U/L ALT (0-33) U/L Alkaline Phosphata se (35-105) IU/L Troponin T Baselin e 6 (0-10) ng/L Troponin T 120 Min [place] 6.00 (0-10) ng/L Delta Troponin T 0 (0-10) ABS# Total Protein (6.6-8.7) g/dL Albumin (3.5-5.2) g/dL Globulin (1.3-4.6) g/dL Imaging Data^: CXR: Radiologist's impression: Reason: [place] [address] XRay Report Signed Patient: Dorothy Jurado Unit #: [id number] : 1985 Age/Sex: 34 / F ADM Date: 03/13/20 Loc: ER Room/Bed: Attending Dr: Ordering Provider/Ordering MD: Josie Houser MD Date of Service: 03/13/20 Procedure(s): XR chest 1V portable [id number] Accession Number(s): [id number] Report Number: [id number] WS: [id number] Portable AP upright chest, 03/13/2020 Clinical Data: cp Comparison: Portable chest, 01/20/2020. Findings: No nodules, masses or effusions are seen. The heart is normal. The pulmonary vascularity is not increased. No pneumonia or pneumothorax is seen. Bilateral axillary surgical clips are seen. Monitor leads are on the chest wall. XR/XR chest 1V portable [id number] Impression: Negative chest. EKG Data^: EKG 1: Attestation: I personally reviewed and interpreted this EKG as follows: EKG interpretation date: 03/13/20 Interpretation: nsr hr [address] or t wave abnormalities qrs 121 qtc 365 Discharge Plan Discharge Patient Disposition: Home Clinical Impression: Chest pain Qualifiers: Chest pain type: unspecified Qualified Code(s): R07.9 - Chest pain, unspecified Condition: Stable Prescriptions: New Naprosyn 500 mg tablet 500 mg PO BID PRN (Reason: pain) Qty: 20 RF: 0 No Action Vivitrol 380 mg suspension,extended rel recon 380 mg IM Q30D RF: 0 ondansetron HCl [Zofran] 4 mg tablet 4 mg PO Q8H PRN (Reason: nausea and vomiting) Qty: 20 RF: 0 gabapentin 600 mg Tablet 600 - 1,200 mg PO BEDTIME RF: 0 quetiapine 100 mg tablet 100 - 200 mg PO BEDTIME RF: 0 lisinopril 20 mg tablet 10 mg PO BID RF: 0 amlodipine 10 mg tablet 10 mg PO DAILY RF: 0 paroxetine HCl 30 mg tablet 30 mg PO DAILY RF: 0 Aristada 882 mg/3.2 mL suspension,extended rel syring 882 mg IM Q30D RF: 0 buspirone 30 mg Tablet 30 mg PO BID RF: 0 oxcarbazepine [Trileptal] 600 mg tablet 600 mg PO BID RF: 0 testosterone cypionate 200 mg/mL oil See Rx Instructions .ROUTE .COMPLEX RF: 0 albuterol sulfate 90 mcg/actuation aerosol powdr breath activated 2 inh INHALATION Q6H PRN (Reason: shortness of breath or wheezing) Qty: 1 RF: 0 Discharge Orders: Discharge Order (Routine); Ordered 03/13/20 Ordered By: Josie Houser Discharge Diet: Advance as tolerated Discharge Activity: Resume usual activity Patient Instructions: Chest Pain (ED) Coding Level of Care Code ED Patcher Wood Welder for Taylor 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
[2020-03-13 11:56] VITALS: PULSE 88
[2020-03-13 12:02] VITALS: RESP 17
[2020-03-13] MEDS: morphine 4 mg/mL SDV 1 mL IVP ×2 (12:02→13:02)
[2020-03-13] MEDS: ondansetron 2 mg/ML SDV 2 mL 4 MG IVP (12:02)
[2020-03-13 12:08] LABS: Basophils % 0.4 %; Eosinophils # 0.5 10^3/uL (0.0-0.8); Eosinophils % 10.8 %; Hematocrit 43.6 % (37.0-47.0); Hemoglobin 14.5 g/dL (11.5-15.3); Lymphocytes # 1.3 10^3/uL (0.8-4.8); Mean Corpuscular HGB Conc 33.3 g/dL (30.0-36.0); Mean Corpuscular Hemoglobin 32.4 pg (28.0-34.0); Mean Corpuscular Volume 97.3 fL (81-99); Mean Platelet Volume 10.4 fL (7.4-10.4); Monocytes # 0.3 10^3/uL (0.2-0.9); Monocytes % 5.7 %; Neutrophils # 2.74 10^3/uL (1.8-7.7); Neutrophils % 55.7 %; Nucleated Red Blood Cells % 0 %; Platelet Count 200 10^3/cmm (130-400); Red Blood Count 4.48 10^6/uL (4.1-5.3); Red Cell Distribution Width 13.8 % (12.1-15.1); White Blood Count 4.9 10^3/uL (4.0-10.0)
[2020-03-13 12:23] LABS: D Dimer 0.54 ug/mIFEU (0-0.59)
[2020-03-13 12:28] LABS: Alanine Aminotransferase 16 U/L (0-33); Albumin Level 4.5 g/dL (3.5-5.2); Alkaline Phosphatase 80 IU/L (35-105); Anion Gap 13.2 (5-19); Aspartate Amino Transferase 21 U/L (0-32); Blood Urea Nitrogen 16 mg/dL (6-20); Calcium 9.4 mg/dL (8.5-10.5); Carbon Dioxide 29 mmol/L (22-29); Chloride 103 mmol/L (98-107); Globulin 2.1 g/dL (1.3-4.6); Glomerular Filtration Rate 51.1 mL/min (90-130); Glucose 89 mg/dL (65-115); Osmolality Calculated 293 mOsm/kg (285-295); Potassium 4.2 mmol/L (3.5-5.1); Sodium 141 mmol/L (136-145); Total Bilirubin 0.2 mg/dL (0.15-1.2); Total Protein 6.6 g/dL (6.6-8.7); Troponin(5th) Baseline 6 ng/L (0-10)
[2020-03-13 12:31] LABS: Creatinine Clr Calc Pharmacy 74.2378
[2020-03-13] MEDS: ketorolac 30 mg/mL INJ 15 MG IVP (12:59)
[2020-03-13 13:02] VITALS: RESP 17
[2020-03-13 13:03] VITALS: BP 106/68; PULSE 80; RESP 17; O2SAT 93
--- NOTE | 2020-03-13 13:37 | ECG_ITS ---
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 Measurements Intervals [place] Rate: 72 P: 63 VA: 121 QRS: 58 QRSD: 91 T: 59 QT: 341 QTc: 373 Interpretive Statements SINUS RHYTHM Compared to ECG 03/13/2020 11:22:25 Short VA interval no longer present Electronically Signed On 03-14-2020 20:21:41 MANAGER BEHAVIORAL by Ranjeet Nowak M.D. [email or web address] memorial hospitalBrightDoor Systemsohiohealth o'bleness hospital.[employer]/store/OM/[id number]
[2020-03-13 14:19] LABS: Troponin 5 2HR Delta 0 ABS# (0-10)
[2020-03-13 14:33] VITALS: BP 104/64; PULSE 84; RESP 16; O2SAT 95
--- NOTE | 2020-03-13 17:37 | ECG_ITS ---
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 Measurements Intervals [place] Rate: 91 P: 71 KS: 117 QRS: 81 QRSD: 86 T: 62 QT: 299 QTc: 369 Interpretive Statements SINUS RHYTHM WITH SHORT [place] INTERVAL Compared to ECG 01/20/2020 15:02:40 No significant changes Electronically Signed On 03-14-2020 20:22:19 SUPERINTENDENT [employer]CH[employer] by Ranjeet Nowak M.D. [email or web address] Mediafirelands regional medical centerHaute App/store/OM/[id number]
== END 2020-03-13 14:34 | disposition home or self-care (01) ==
PROVIDERS: Emergency Provider Emergency Medicine
DX: R07.9 Chest pain, unspecified (principal); F17.220 Nicotine dependence, chewing tobacco, uncomplicated
CPT/HCPCS: 12345; 36415; 71045; 80053; 84484; 85025; 85378; 93005; 96374; 96375; 96376; 99283; J1885; J2270; J2405

== ENCOUNTER 2020-05-07 06:00 | Outpatient (RCR) | payer OTHER, BC, MEDICAID, SELFPAY | END 2020-05-21 10:40 | disposition home or self-care (01) | LOC: TPT 06:00 | PROVIDERS: PCP Nurse Practitioner Family; Referring Provider Nurse Practitioner Family; Visit Provider Nurse Practitioner Family | DX: M54.9 Dorsalgia, unspecified (principal) | CPT/HCPCS: 97161 ==

== ENCOUNTER 2020-07-13 12:38 | Emergency (ER) | payer OTHER, BC, MEDICAID, SELFPAY ==
[2020-07-13 12:47] VITALS: BP 120/80; PULSE 103; RESP 18; TEMP 36.8; O2SAT 96; BMI 32.5
--- NOTE | 2020-07-13 13:10 | ED_ITS ---
HPI - Headache General: Chief Complaint: Headache Stated Complaint: Migraine 3days, urgent care 07/12 Time Seen by Provider: 07/13/20 13:05 History of Present Illness: HPI Narrative: This pleasant young lady complains about a migraine is been going on for 3 days. She received IM injections at the urgent care yesterday was better for a little bit that a migraine come back now she complains about photo and phonophobia. And also some vomiting. She has a history of migraines denies any other illnesses going on at this time MD elicited complaint: migraine Pertinent past history: migraines Onset (ago): day(s) Onset description: gradually Location: frontal, temporal and occipital Severity: moderate Quality & Timing: aching and throbbing Associated symptoms: Reports vomiting; Deny chest pain, fever(s) or rash Review of Systems Const: Denies: fever(s), chills or body aches Eyes: Denies: change in vision or blurry vision ENMT: Denies: throat pain or nasal congestion Card: Denies: chest pain or dyspnea on exertion Resp: Denies: dyspnea, productive cough or non-productive cough GI: Reports: vomiting Musc: Denies: extremity pain Skin/Breast: Denies: rash Neuro: Reports: headache(s) Psych: Denies: anxiety or depression Caleb/Lymph: Denies: easy bruising PFSH ED PFSH: Medical History ADHD Bipolar 1 disorder Decreased glomerular filtration rate (GFR) Degenerative arthritis of spine Epilepsy Obesity (BMI 30.0-34.9) Pneumonitis PTSD (post-traumatic stress disorder) Pyloric stenosis Surgical History History of adenectomy Hx of tonsillectomy Family History Other Cancer Social History Smoking and tobacco status: current every day smoker smokeless tobacco Smokeless tobacco user: chewing tobacco Alcohol intake: current Alcohol intake frequency: 0-2 Drinks per Day Alcohol type: hard liquor Current occupational status: unemployed Current gender identity: Male Female Reproductive History: Date of last menstrual period: 01/01/13 Physical Exam Const: COMMON NORMALS: no acute distress, average body habitus and patient oriented x3 HENMT: COMMON NORMALS: normocephalic HEAD & SCALP: normal to inspection and normocephalic FACE & SINUS: normal facial exam Eye: COMMON NORMALS: conjunctivae normal GENERAL EYE: appearance normal, both eyes and all related structures CONJUNCTIVA: Yes conjunctivae normal Neck/C-Spine: COMMON NORMALS: no JVD Chest: COMMONS NORMALS: normal inspection of the chest Resp: COMMON NORMALS: normal respiratory effort Cardio: COMMON NORMALS: no JVD, regular rate and regular rhythm RATE: regular rate RHYTHM: regular rhythm GI: COMMON NORMALS: Normal to inspection, nondistended, normoactive bowel sounds present Extremity: COMMON NORMALS: normal to inspection and full ROM Neuro: COMMON NORMALS: patient oriented x3, moves all extremities, no focal motor deficits and no sensory deficits noted Course Vital Signs: Vital signs: Vital Signs Temperature 98.2 F 07/13/20 12:47 Pulse Rate 103 H 07/13/20 12:47 Respiratory Rate 18 07/13/20 12:47 Blood Pressure 120/80 07/13/20 12:47 Pulse Oximetry 96 07/13/20 12:47 MDM - Headache MDM Narrative: Medical decision making narrative: Good relief with sumatriptan subcu Discharge Plan Discharge Patient Disposition: Home Clinical Impression: Migraine Qualifiers: Migraine type: without aura Status migrainosus presence: with status migrainosus Intractability: intractable Qualified Code(s): G43.011 - Migraine without aura, intractable, with status migrainosus Condition: Stable Prescriptions: New Imitrex 50 mg tablet See Rx Instructions .ROUTE .COMPLEX Qty: 9 RF: 0 promethazine 12.5 mg tablet 6.25 mg PO TID PRN (Reason: nausea and vomiting) Qty: 10 RF: 0 No Action Vivitrol 380 mg suspension,extended rel recon 380 mg IM Q30D RF: 0 ondansetron HCl [Zofran] 4 mg tablet 4 mg PO Q8H PRN (Reason: nausea and vomiting) Qty: 20 RF: 0 gabapentin 600 mg Tablet 600 - 1,200 mg PO BEDTIME RF: 0 quetiapine 100 mg tablet 100 - 200 mg PO BEDTIME RF: 0 Naprosyn 500 mg tablet 500 mg PO BID PRN (Reason: pain) Qty: 20 RF: 0 lisinopril 20 mg tablet 10 mg PO BID RF: 0 amlodipine 10 mg tablet 10 mg PO DAILY RF: 0 paroxetine HCl 30 mg tablet 30 mg PO DAILY RF: 0 Aristada 882 mg/3.2 mL suspension,extended rel syring 882 mg IM Q30D RF: 0 buspirone 30 mg Tablet 30 mg PO BID RF: 0 oxcarbazepine [Trileptal] 600 mg tablet 600 mg PO BID RF: 0 testosterone cypionate 200 mg/mL oil See Rx Instructions .ROUTE .COMPLEX RF: 0 albuterol sulfate 90 mcg/actuation aerosol powdr breath activated 2 inh INHALATION Q6H PRN (Reason: shortness of breath or wheezing) Qty: 1 RF: 0 Discharge Orders: Discharge ED (Routine); Ordered 07/13/20 Ordered By: Andrea Vasques Referrals: Alissa Gallego FNP [Primary Care Provider] - Discharge Diet: Usual diet Discharge Activity: Increase activity as tolerated Patient Instructions: Migraine Headache (ED) Activity Restrictions/Additional Instructions: Follow-up with medical provider as directed. Take medications as prescribed. Return to the ER or your medical provider if condition worsens. Please read and understand discharge instructions. If any questions ask please. 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
[2020-07-13] MEDS: SUMAtriptan 6 mg/0.5 mL SDV SUBCUT (13:21)
[2020-07-13] MEDS: ondansetron 2 mg/ML SDV 2 mL 4 MG IM (13:21)
[2020-07-13 14:04] VITALS: BP 122/84; PULSE 82; RESP 16; O2SAT 94
== END 2020-07-13 14:07 | disposition home or self-care (01) ==
PROVIDERS: Emergency Provider Nurse Practitioner Family; PCP Nurse Practitioner Family
DX: G43.011 Migraine without aura, intractable, with status migrainosus (principal); F17.220 Nicotine dependence, chewing tobacco, uncomplicated
CPT/HCPCS: 96372; J2405; J3030

== ENCOUNTER 2020-08-14 20:17 | Emergency (ER) | payer OTHER, SELFPAY ==
--- NOTE | 2020-08-14 20:21 | XR_ITS ---
WS: [id number] Right hand, 3 views, 08/14/2020 Clinical Data: injury Comparison: None. Findings: No fractures or dislocations are seen. The soft tissues are unremarkable. The joint space s are normal The flexion of the middle and distal phalanges in the PA and oblique views could obscure small fractu res. XR/XR hand RT min 3V* [id number] Impression: Negative right hand.
[2020-08-14 20:31] VITALS: BP 131/85; PULSE 95; RESP 18; TEMP 36.5; O2SAT 98; BMI 31.9
--- NOTE | 2020-08-14 20:45 | XR_ITS ---
WS: [id number] Left elbow, 3 views, 08/14/2020 Clinical Data: contusion, left elbow pain Comparison: None. Findings: No fractures or dislocations are seen. The radial head is normal. The soft tissues are unremarkable. XR/XR elbow LT min 3V* [id number] Impression: Negative left elbow.
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
[2020-08-14] MEDS: amoxicillin-clav 875-125 mg Tablet 1 TAB PO (21:01)
[2020-08-14] MEDS: ibuprofen 600 mg Tablet PO (21:01)
== END 2020-08-14 21:34 | disposition home or self-care (01) ==
PROVIDERS: Emergency Provider Nurse Practitioner Family; PCP Nurse Practitioner Family
DX: S50.02XA Contusion of left elbow, initial encounter (principal); S01.85XA Open bite of other part of head, initial encounter; S21.159A Open bite of unspecified front wall of thorax without penetration into thoracic cavity, initial encounter; S61.551A Open bite of right wrist, initial encounter; S66.911A Strain of unspecified muscle, fascia and tendon at wrist and hand level, right hand, initial encounter; Y04.1XXA Assault by human bite, initial encounter; Y99.0 Civilian activity done for income or pay; F17.220 Nicotine dependence, chewing tobacco, uncomplicated
CPT/HCPCS: 29125; 73080; 73130; 99283

== ENCOUNTER → 2020-10-01 09:32 | Outpatient (BNVA) | payer OTHER, BC, MEDICAID, SELFPAY | PROVIDERS: PCP Nurse Practitioner Family; Visit Provider Nurse Practitioner | DX: G40.909 Epilepsy, unspecified, not intractable, without status epilepticus (principal); F17.220 Nicotine dependence, chewing tobacco, uncomplicated | CPT/HCPCS: 99204 ==

== ENCOUNTER 2020-10-19 03:07 | Emergency (ER) | payer OTHER, BC, MEDICAID, SELFPAY ==
[2020-10-19] VITALS (8 sets, daily range): BP systolic 100–128; BP diastolic 62–75; PULSE 74–108; RESP 15–20; TEMP 36.6; O2SAT 94–99; BMI 33.9
--- NOTE | 2020-10-19 03:28 | CTR_ITS ---
PROCEDURE INFORMATION: Exam: CT Abdomen And Pelvis With Contrast Exam date and time: 10/19/2020 3:28 AM Age: 34 years old Clinical indication: Abdominal pain; Localized; Right; Additional info: Ruq pain TECHNIQUE: Imaging protocol: Computed tomography of the abdomen and pelvis with contrast. Radiation optimization: All CT scans at this facility use at least one of these dose optimization techniques: automated exposure control; mA and/or kV adjustment per patient size (includes targeted exams where dose is matched to clinical indication); or iterative reconstruction. Contrast material: OMNI 300; Contrast volume: 95 ml; Contrast route: INTRAVENOUS (IV); COMPARISON: CT abdomen pelvis w con* [id number] 11/09/2019 1:06 PM RADIATION DOSE METRICS: Total DLP (mGy-cm): 1638.18 FINDINGS: Lungs: The lung bases appear essentially clear. Mediastinal space: There may be some mucosal/wall thickening involving the lower esophagus. This is nonspecific, but could represent evidence for esophagitis. Liver: There is a very small 5 mm low attenuation area in the left lobe of the liver, unchanged. The appearance is nonspecific, but statistically this most likely represents a small cyst or cavernous hemangioma. Gallbladder and bile ducts: The gallbladder appears partially contracted. No visible gallstones or other definite gallbladder abnormality by CT. Ultrasound would be more sensitive for detecting gallstones, if clinically needed. No biliary tree dilation. Pancreas: Unremarkable. Spleen: Unremarkable. Adrenal glands: Unremarkable. Kidneys and ureters: Several small intrarenal calculi bilaterally. No hydronephrosis of either kidney. No visible ureteral calculus. No perinephric fluid. The kidneys enhance homogeneously. Stomach and bowel: There are no CT findings to strongly suggest diverticulitis. Appendix: The appendix is visualized and appears normal. Intraperitoneal space: No free air, ascites, or bowel distention. Vasculature: No evidence for abdominal aortic aneurysm. Lymph nodes: No retroperitoneal adenopathy. Urinary bladder: Unremarkable as visualized. Reproductive: Essentially unremarkable for age. Bones/joints: Moderate degenerative disc changes at L5-S1, similar to the prior exam. Soft tissues: Very small umbilical hernia, containing only fat. CT/CT abdomen pelvis w con* [id number] IMPRESSION: 1. Normal appendix. 2. Small bilateral intrarenal calculi. No hydronephrosis of either kidney. No visible ureteral calculus. 3. No visible gallstones by CT. 4. No free air or bowel distention. 5. Possibly some thickening of the lower esophagus, see above discussion. 6. Other findings discussed above. Radiation Dose CTDIVOL = (mGy): DLP = 1638.18 (mGy-cm)
[2020-10-19] MEDS: HYDROmorphone 1 mg/mL INJ 1 mL IVP ×2 (03:47→04:55)
[2020-10-19] MEDS: ondansetron 2 mg/ML SDV 2 mL 4 MG IVP (03:47)
[2020-10-19] MEDS: sodium chloride 0.9% 1,000 ML 999 ML IV ×2 (03:48→07:04)
[2020-10-19 03:55] LABS: Basophils % 0.4 %; Eosinophils # 0.1 10^3/uL (0.0-0.8); Eosinophils % 0.6 %; Hemoglobin 15.4 g/dL (11.5-15.3); Lymphocytes # 1.9 10^3/uL (0.8-4.8); Mean Corpuscular HGB Conc 34.2 g/dL (30.0-36.0); Mean Corpuscular Hemoglobin 32.8 pg (28.0-34.0); Mean Corpuscular Volume 95.9 fL (81-99); Monocytes # 0.9 10^3/uL (0.2-0.9); Monocytes % 9.9 %; Neutrophils # 6.35 10^3/uL (1.8-7.7); Neutrophils % 68.8 %; Nucleated Red Blood Cells % 0 %; Platelet Count 178 10^3/cmm (130-400); Red Blood Count 4.69 10^6/uL (4.1-5.3); Red Cell Distribution Width 12.8 % (12.1-15.1); White Blood Count 9.3 10^3/uL (4.0-10.0)
[2020-10-19 04:01] LABS: Bilirubin Urine 1+ (Negative); Blood Urine 2+ (Negative); Glucose Urine UA Norm (Normal); Ketones Urine 1+ (Negative); Nitrate Urine Negative (Negative); Protein Urine Trace (Negative); Urine Color Yellow (Yellow); pH Urine 5 (5-7)
[2020-10-19 04:02] LABS: Add Urine Microscopic? YES; Leukocyte Esterase Urine 2+ (Negative); Urobilinogen Urine Norm (Negative)
[2020-10-19 04:06] LABS: Squamous Epithelial Cell Urine 0-4 /hpf (0-5); WBC Urine >100 /hpf (0-5)
[2020-10-19 04:07] LABS: HCG, Serum Qual Negative (Negative)
[2020-10-19 04:07] LABS: Add Urine Culture? Yes; Bacteria Urine 2+ /hpf
[2020-10-19 04:15] LABS: Alanine Aminotransferase 16 U/L (0-33); Albumin Level 4.2 g/dL (3.5-5.2); Alkaline Phosphatase 68 IU/L (35-105); Anion Gap 18.1 (5-19); Aspartate Amino Transferase 17 U/L (0-32); Blood Urea Nitrogen 23 mg/dL (6-20); C Reactive Protein 1.4 mg/L (0.0-4.9); Calcium 8.9 mg/dL (8.5-10.5); Carbon Dioxide 24 mmol/L (22-29); Chloride 100 mmol/L (98-107); Globulin 2.6 g/dL (1.3-4.6); Glomerular Filtration Rate 26.8 mL/min (90-130); Glucose 103 mg/dL (65-115); Lipase 38 U/L (13-60); Osmolality Calculated 290 mOsm/kg (285-295); Potassium 4.1 mmol/L (3.5-5.1); Sodium 138 mmol/L (136-145); Total Bilirubin 0.3 mg/dL (0.15-1.2); Total Protein 6.8 g/dL (6.6-8.7)
--- NOTE | 2020-10-19 04:21 | ED_ITS ---
Documented by User: Gallo Michelle DO 10/19/20 06:07 HPI - Abdominal Pain General: Chief Complaint: Abdominal Pain Stated Complaint: RUQ ABD PAIN Time Seen by Provider: 10/19/20 03:17 History of Present Illness: HPI narrative: 34-year-old female identifying is a male. She presents with right upper quadrant pain for the past 2 days to 3 days. She is vomited several times. No fever. No diarrhea. She notes eating makes it worse. Movement also makes it worse. MD elicited complaint: abdominal pain Pertinent past history: none Onset (ago): day(s) Pain Consistency: constant Location: RUQ Severity: severe Quality: stabbing Radiation: none Migration to: no migration Exacerbating factors: movement Relieving factors: nothing Associated Symptoms: Reports chills and vomiting; Denies diarrhea, dysuria and fever(s) Related Data: Date of Last Menstrual Period: 05/02/12 Review of Systems Const: Reports: chills; Denies: fever(s) Eyes: Denies: change in vision ENMT: Denies: odynophagia or sinus pain Card: Denies: chest pain or palpitations Resp: Denies: dyspnea, productive cough, non-productive cough or wheezing GI: Reports: vomiting; Denies: diarrhea : Denies: dysuria Musc: Denies: neck pain, back pain, joint redness or joint warmth Skin/Breast: Denies: rash, pruritus or erythema Neuro: Denies: headache(s) or dizziness Psych: Denies: anxiety or auditory hallucinations PFSH ED PFSH: Medical History (Updated 10/19/20 @ 07:05 by Sandra Dias DO) ADHD Bipolar 1 disorder Decreased glomerular filtration rate (GFR) Degenerative arthritis of spine Epilepsy Obesity (BMI 30.0-34.9) Pneumonitis PTSD (post-traumatic stress disorder) Pyloric stenosis Seizure disorder Surgical History History of adenectomy Hx of tonsillectomy Family History Other Cancer Social History (Updated 10/01/20 @ 09:33 by Anneliese Murray LPN) Smoking and tobacco status: current every day smoker smokeless tobacco Smokeless tobacco user: chewing tobacco Alcohol intake: current Alcohol intake frequency: 0-2 Drinks per Day Alcohol type: hard liquor Current occupational status: unemployed History of recent travel: No Current gender identity: Male Female Reproductive History: Date of last menstrual period: 05/02/12 Physical Exam Const: GENERAL APPEARANCE: cooperative, well developed and ill appearing ORIENTATION/CONSCIOUSNESS: Yes oriented to person, Yes oriented to place and Yes oriented to time HENMT: COMMON NORMALS: normocephalic, external ears normal and Normal external nose present HEAD & SCALP: normocephalic FACE & SINUS: normal facial exam NOSE: Normal external nose present and No nasal discharge present EXTERNAL EAR: Yes external ears normal Eye: COMMON NORMALS: Equal, round and reactive pupils present, EOMs intact bilaterally and conjunctivae normal EYELID: eyelids normal CONJUNCTIVA: Yes conjunctivae normal PUPIL: Yes Equal, round and reactive pupils present Neck/C-Spine: COMMON NORMALS: full ROM GENERAL: No tracheal deviation CERVICAL SPINE: Yes normal cervical lordosis and No Cervical spine tenderness Chest: COMMONS NORMALS: normal inspection of the chest CHEST: No tenderness Resp: COMMON NORMALS: clear to auscultation bilaterally EFFORT & INSPECTION: No tachypneic, No respiratory distress, No retractions, No uses accessory muscles and No tracheal deviation AUSCULTATION: clear to auscultation bilaterally, no rhonchi, no wheezes and lung sounds not diminished Cardio: COMMON NORMALS: regular rate and regular rhythm RATE: regular rate RHYTHM: regular rhythm HEART SOUNDS: no murmurs PERIPHERAL PULSES: radial pulses present GI: COMMON NORMALS: Normal to inspection, nondistended, normoactive bowel sounds present INSPECTION: No abdominal distension AUSCULTATION: No Hyperactive bowel sounds present and No Hypoactive bowel sounds present PALPATION: Yes Tenderness to palpation present (GI) Details: RUQ, Yes Guarding due to palpation present (GI) and No Rigid due to palpation PERCUSSION: no dullness to percussion and no tympanic to percussion Neuro: SENSORIUM/ORIENTATION: Yes oriented to person, Yes oriented to place and Yes oriented to time Psych: COMMON NORMALS: mental status grossly normal Skin: COMMON NORMALS: no rashes or lesions noted GENERAL SKIN EXAM: no rashes or lesions noted Course Vital Signs: Vital signs: Vital Signs Temperature 97.9 F 10/19/20 05:54 Pulse Rate 74 10/19/20 08:28 Respiratory Rate 15 10/19/20 08:28 Blood Pressure 107/66 10/19/20 08:28 Pulse Oximetry 94 10/19/20 08:28 MDM - Abdominal Pain MDM Narrative: Medical decision making narrative: 34-year-old female with right-sided flank pain. Creatinine is elevated. No leukocytosis. She does look dehydrated. She is getting IV fluids, symptomatic treatment, urinalysis shows hematuria with urinary tract infection. Awaiting CT scan. She will be checked out to Dr. Dias at shift change Lab Data: Labs: Lab Results 10/19/20 10/19/20 10/19/20 Range/Units 03:45 03:45 03:45 WBC 9.3 (4.0-10.0) 10^3/ uL RBC 4.69 (4.1-5.3) 10^6/u L Hgb 15.4 H (11.5-15.3) g/dL Hct 45.0 (37.0-47.0) % MCV 95.9 (81-99) fL MCH 32.8 (28.0-34.0) pg MCHC 34.2 (30.0-36.0) g/dL RDW 12.8 (12.1-15.1) % Plt Count 178 (130-400) 10^3/c mm MPV 11.0 H (7.4-10.4) fL Neut % (Auto) 68.8 % Lymph % (Auto) 20.0 % [place] % (Auto) 9.9 % Eos % (Auto) 0.6 % Baso % (Auto) 0.4 % Neut # (Auto) 6.35 (1.8-7.7) 10^3/u L Lymph # (Auto) 1.9 (0.8-4.8) 10^3/u L [place] # (Auto) 0.9 (0.2-0.9) 10^3/u L Eos # (Auto) 0.1 (0.0-0.8) 10^3/u L Baso # (Auto) 0.0 (0.0-0.1) 10^3/u L Nucleated RBC % (a uto) 0 % Nucleated RBCs # 0.0 /100WBC Sodium 138 (136-145) mmol/L Potassium 4.1 (3.5-5.1) mmol/L Chloride 100 (98-107) mmol/L Carbon Dioxide 24 (22-29) mmol/L Anion Gap 18.1 (5-19) BUN 23 H (6-20) mg/dL Creatinine 2.1 H (0.5-0.9) mg/dL GFR Calculation 26.8 L (90-130) mL/min Glucose 103 (65-115) mg/dL Calculated Osmolal ity 290 (285-295) mOsm/k g Calcium 8.9 (8.5-10.5) mg/dL Total Bilirubin 0.3 (0.15-1.2) mg/dL AST 17 (0-32) U/L ALT 16 (0-33) U/L Alkaline Phosphata se 68 (35-105) IU/L C-Reactive Protein 1.4 (0.0-4.9) mg/L Total Protein 6.8 (6.6-8.7) g/dL Albumin 4.2 (3.5-5.2) g/dL Globulin 2.6 (1.3-4.6) g/dL Lipase 38 (13-60) U/L HCG, Qual Negative (Negative) Urine Color (Yellow) Urine Appearance (CLEAR) Urine pH (5-7) Ur Specific Gravit y (1.005-1.030) Urine Protein (Negative) Urine Glucose (UA) (Normal) Urine Ketones (Negative) Urine Blood (Negative) Urine Nitrate (Negative) Urine Bilirubin (Negative) Urine Urobilinogen (Negative) mg/dL Ur Leukocyte Dolores ase (Negative) Urine RBC (0-2) /hpf Urine WBC (0-5) /hpf Ur Squamous Epith Cells (0-5) /hpf Amorphous Sediment Urine Bacteria (NONE) /hpf 10/19/20 Range/Units 03:55 WBC (4.0-10.0) 10^3/ uL RBC (4.1-5.3) 10^6/u L Hgb (11.5-15.3) g/dL Hct (37.0-47.0) % MCV (81-99) fL MCH (28.0-34.0) pg MCHC (30.0-36.0) g/dL RDW (12.1-15.1) % Plt Count (130-400) 10^3/c mm MPV (7.4-10.4) fL Neut % (Auto) % Lymph % (Auto) % [place] % (Auto) % Eos % (Auto) % Baso % (Auto) % Neut # (Auto) (1.8-7.7) 10^3/u L Lymph # (Auto) (0.8-4.8) 10^3/u L [place] # (Auto) (0.2-0.9) 10^3/u L Eos # (Auto) (0.0-0.8) 10^3/u L Baso # (Auto) (0.0-0.1) 10^3/u L Nucleated RBC % (a uto) % Nucleated RBCs # /100WBC Sodium (136-145) mmol/L Potassium (3.5-5.1) mmol/L Chloride (98-107) mmol/L Carbon Dioxide (22-29) mmol/L Anion Gap (5-19) BUN (6-20) mg/dL Creatinine (0.5-0.9) mg/dL GFR Calculation (90-130) mL/min Glucose (65-115) mg/dL Calculated Osmolal ity (285-295) mOsm/k g Calcium (8.5-10.5) mg/dL Total Bilirubin (0.15-1.2) mg/dL AST (0-32) U/L ALT (0-33) U/L Alkaline Phosphata se (35-105) IU/L C-Reactive Protein (0.0-4.9) mg/L Total Protein (6.6-8.7) g/dL Albumin (3.5-5.2) g/dL Globulin (1.3-4.6) g/dL Lipase (13-60) U/L HCG, Qual (Negative) Urine Color Yellow (Yellow) Urine Appearance Sl cloudy A (CLEAR) Urine pH 5 (5-7) Ur Specific Gravit y 1.020 (1.005-1.030) Urine Protein Trace (Negative) Urine Glucose (UA) Norm (Normal) Urine Ketones 1+ H (Negative) Urine Blood 2+ H (Negative) Urine Nitrate Negative (Negative) Urine Bilirubin 1+ H (Negative) Urine Urobilinogen Norm (Negative) mg/dL Ur Leukocyte Dolores ase 2+ H (Negative) Urine RBC 10-15 H (0-2) /hpf Urine WBC >100 H (0-5) /hpf Ur Squamous Epith Cells 0-4 H (0-5) /hpf Amorphous Sediment Not Reportable Urine Bacteria 2+ H (NONE) /hpf Discharge Plan Discharge Patient Disposition: Home Clinical Impression: Acute renal insufficiency Urinary tract infection Qualifiers: Urinary tract infection type: site unspecified Hematuria presence: without hematuria Qualified Code(s): N39.0 - Urinary tract infection, site not specified Abdominal pain Qualifiers: Abdominal location: unspecified location Qualified Code(s): R10.9 - Unspecified abdominal pain Condition: Stable Prescriptions: New promethazine 25 mg tablet 25 mg PO Q6H Qty: 12 RF: 0 ciprofloxacin HCl 500 mg tablet 500 mg PO BID Qty: 14 RF: 0 dicyclomine 20 mg tablet 20 mg PO QID Qty: 10 RF: 0 No Action Vivitrol 380 mg suspension,extended rel recon 380 mg IM Q30D RF: 0 ondansetron HCl [Zofran] 4 mg tablet 4 mg PO Q8H PRN (Reason: nausea and vomiting) Qty: 20 RF: 0 divalproex [Depakote ER] 500 mg tablet extended release 24 hr 500 mg PO DAILY Qty: 60 RF: 2 gabapentin 600 mg Tablet 600 - 1,200 mg PO BEDTIME RF: 0 quetiapine 100 mg tablet 100 - 200 mg PO BEDTIME RF: 0 Naprosyn 500 mg tablet 500 mg PO BID PRN (Reason: pain) Qty: 20 RF: 0 Imitrex 50 mg tablet See Rx Instructions .ROUTE .COMPLEX Qty: 9 RF: 0 promethazine 12.5 mg tablet 6.25 mg PO TID PRN (Reason: nausea and vomiting) Qty: 10 RF: 0 Augmentin 875-125 mg tablet 1 tab PO BID Qty: 20 RF: 0 IBU 600 mg tablet 600 mg PO TID PRN (Reason: pain) Qty: 20 RF: 0 lisinopril 20 mg tablet 10 mg PO BID RF: 0 amlodipine 10 mg tablet 10 mg PO DAILY RF: 0 paroxetine HCl 30 mg tablet 30 mg PO DAILY RF: 0 Aristada 882 mg/3.2 mL suspension,extended rel syring 882 mg IM Q30D RF: 0 buspirone 30 mg Tablet 30 mg PO BID RF: 0 oxcarbazepine [Trileptal] 600 mg tablet 600 mg PO BID RF: 0 testosterone cypionate 200 mg/mL oil See Rx Instructions .ROUTE .COMPLEX RF: 0 albuterol sulfate 90 mcg/actuation aerosol powdr breath activated 2 inh INHALATION Q6H PRN (Reason: shortness of breath or wheezing) Qty: 1 RF: 0 Discharge Orders: Discharge ED (Routine); Ordered 10/19/20 Ordered By: Sandra Dias Referrals: Corin Solano FNP [Primary Care Provider] - Discharge Diet: Advance as tolerated and Clear Liquid Discharge Activity: Increase activity as tolerated Patient Instructions: Abdominal Pain (ED), Urinary Tract Infection - Women Activity Restrictions/Additional Instructions: Clear liquid diet for the next 12 to 24 hours. Monitor yourself closely if you have increased pain fevers worsening of symptoms or any further signs of dehydration or fevers return to the emergency department the next 24 hours for recheck. Increase your fluid intake you were a little dehydrated here in the ER. Use the nausea medication as needed as well as the dicyclomine may help with abdominal cramping. Start Cipro 500 mg twice a day for a week. Recommend you do follow-up and have your labs repeated to make sure everything is improving and resolving there is a urine culture pending and staff will notify you if we need to change her antibiotics. Thank you for choosing [facility] for your healthcare needs today. Please realize this is an emergency room and that we are providing you with a medical screening exam and this may not be complete and all inclusive of all the testing and or work up that you may need to determine your ailment or severity of your illness. It is very important that you follow up as instructed or that you return to the Emergency Department should you have concerns or if your condition changes or worsens in any way. Coding Level of Care Code ED Auto Carrier Driver for Chg 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 Documented by User: Sandra Dias DO 10/19/20 08:36 HPI - Abdominal Pain General: Chief Complaint: Abdominal Pain Stated Complaint: RUQ ABD PAIN Time Seen by Provider: 10/19/20 03:17 [facility] ED PFSH: Medical History (Updated 10/19/20 @ 07:05 by Sandra Dias DO) ADHD Bipolar 1 disorder Decreased glomerular filtration rate (GFR) Degenerative arthritis of spine Epilepsy Obesity (BMI 30.0-34.9) Pneumonitis PTSD (post-traumatic stress disorder) Pyloric stenosis Seizure disorder Surgical History History of adenectomy Hx of tonsillectomy Family History Other Cancer Social History (Updated 10/01/20 @ 09:33 by Anneliese Murray LPN) Smoking and tobacco status: current every day smoker smokeless tobacco Smokeless tobacco user: chewing tobacco Alcohol intake: current Alcohol intake frequency: 0-2 Drinks per Day Alcohol type: hard liquor Current occupational status: unemployed History of recent travel: No Current gender identity: Male Course Vital Signs: Vital signs: Vital Signs Temperature 97.9 F 10/19/20 05:54 Pulse Rate 74 10/19/20 08:28 Respiratory Rate 15 10/19/20 08:28 Blood Pressure 107/66 10/19/20 08:28 Pulse Oximetry 94 10/19/20 08:28 MDM - Abdominal Pain MDM Narrative: Medical decision making narrative: Patient renal insufficiency with a creatinine of 2.1 a second liter fluids was given there is a normal white count she does still have her ovaries she is transitioning to a man she denies any discharge she was given IV Rocephin and then we will go ahead and place her on Cipro 500 mg twice a day discussed with her CT was negative and the appendix was visualized and it was normal-appearing although she is tender in this area. Discussed with her to have low tolerance to return to the emergency department to monitor closely for the next 24 hours she has been having vomiting and diarrhea questionable whether she could have early mesenteric adenitis as well. She is a recovering addict therefore no other pain medicine will be prescribed we will try some dicyclomine and some Phenergan as well consider Toradol but her creatinine is elevated today Lab Data: Labs: Lab Results 10/19/20 10/19/20 10/19/20 Range/Units 03:45 03:45 03:45 WBC 9.3 (4.0-10.0) 10^3/ uL RBC 4.69 (4.1-5.3) 10^6/u L Hgb 15.4 H (11.5-15.3) g/dL Hct 45.0 (37.0-47.0) % MCV 95.9 (81-99) fL MCH 32.8 (28.0-34.0) pg MCHC 34.2 (30.0-36.0) g/dL RDW 12.8 (12.1-15.1) % Plt Count 178 (130-400) 10^3/c mm MPV 11.0 H (7.4-10.4) fL Neut % (Auto) 68.8 % Lymph % (Auto) 20.0 % [place] % (Auto) 9.9 % Eos % (Auto) 0.6 % Baso % (Auto) 0.4 % Neut # (Auto) 6.35 (1.8-7.7) 10^3/u L Lymph # (Auto) 1.9 (0.8-4.8) 10^3/u L [place] # (Auto) 0.9 (0.2-0.9) 10^3/u L Eos # (Auto) 0.1 (0.0-0.8) 10^3/u L Baso # (Auto) 0.0 (0.0-0.1) 10^3/u L Nucleated RBC % (a uto) 0 % Nucleated RBCs # 0.0 /100WBC Sodium 138 (136-145) mmol/L Potassium 4.1 (3.5-5.1) mmol/L Chloride 100 (98-107) mmol/L Carbon Dioxide 24 (22-29) mmol/L Anion Gap 18.1 (5-19) BUN 23 H (6-20) mg/dL Creatinine 2.1 H (0.5-0.9) mg/dL GFR Calculation 26.8 L (90-130) mL/min Glucose 103 (65-115) mg/dL Calculated Osmolal ity 290 (285-295) mOsm/k g Calcium 8.9 (8.5-10.5) mg/dL Total Bilirubin 0.3 (0.15-1.2) mg/dL AST 17 (0-32) U/L ALT 16 (0-33) U/L Alkaline Phosphata se 68 (35-105) IU/L C-Reactive Protein 1.4 (0.0-4.9) mg/L Total Protein 6.8 (6.6-8.7) g/dL Albumin 4.2 (3.5-5.2) g/dL Globulin 2.6 (1.3-4.6) g/dL Lipase 38 (13-60) U/L HCG, Qual Negative (Negative) Urine Color (Yellow) Urine Appearance (CLEAR) Urine pH (5-7) Ur Specific Gravit y (1.005-1.030) Urine Protein (Negative) Urine Glucose (UA) (Normal) Urine Ketones (Negative) Urine Blood (Negative) Urine Nitrate (Negative) Urine Bilirubin (Negative) Urine Urobilinogen (Negative) mg/dL Ur Leukocyte Dolores ase (Negative) Urine RBC (0-2) /hpf Urine WBC (0-5) /hpf Ur Squamous Epith Cells (0-5) /hpf Amorphous Sediment Urine Bacteria (NONE) /hpf 10/19/20 Range/Units 03:55 WBC (4.0-10.0) 10^3/ uL RBC (4.1-5.3) 10^6/u L Hgb (11.5-15.3) g/dL Hct (37.0-47.0) % MCV (81-99) fL MCH (28.0-34.0) pg MCHC (30.0-36.0) g/dL RDW (12.1-15.1) % Plt Count (130-400) 10^3/c mm MPV (7.4-10.4) fL Neut % (Auto) % Lymph % (Auto) % [place] % (Auto) % Eos % (Auto) % Baso % (Auto) % Neut # (Auto) (1.8-7.7) 10^3/u L Lymph # (Auto) (0.8-4.8) 10^3/u L [place] # (Auto) (0.2-0.9) 10^3/u L Eos # (Auto) (0.0-0.8) 10^3/u L Baso # (Auto) (0.0-0.1) 10^3/u L Nucleated RBC % (a uto) % Nucleated RBCs # /100WBC Sodium (136-145) mmol/L Potassium (3.5-5.1) mmol/L Chloride (98-107) mmol/L Carbon Dioxide (22-29) mmol/L Anion Gap (5-19) BUN (6-20) mg/dL Creatinine (0.5-0.9) mg/dL GFR Calculation (90-130) mL/min Glucose (65-115) mg/dL Calculated Osmolal ity (285-295) mOsm/k g Calcium (8.5-10.5) mg/dL Total Bilirubin (0.15-1.2) mg/dL AST (0-32) U/L ALT (0-33) U/L Alkaline Phosphata se (35-105) IU/L C-Reactive Protein (0.0-4.9) mg/L Total Protein (6.6-8.7) g/dL Albumin (3.5-5.2) g/dL Globulin (1.3-4.6) g/dL Lipase (13-60) U/L HCG, Qual (Negative) Urine Color Yellow (Yellow) Urine Appearance Sl cloudy A (CLEAR) Urine pH 5 (5-7) Ur Specific Gravit y 1.020 (1.005-1.030) Urine Protein Trace (Negative) Urine Glucose (UA) Norm (Normal) Urine Ketones 1+ H (Negative) Urine Blood 2+ H (Negative) Urine Nitrate Negative (Negative) Urine Bilirubin 1+ H (Negative) Urine Urobilinogen Norm (Negative) mg/dL Ur Leukocyte Dolores ase 2+ H (Negative) Urine RBC 10-15 H (0-2) /hpf Urine WBC >100 H (0-5) /hpf Ur Squamous Epith Cells 0-4 H (0-5) /hpf Amorphous Sediment Not Reportable Urine Bacteria 2+ H (NONE) /hpf Discharge Plan Discharge Patient Disposition: Home Clinical Impression: Acute renal insufficiency Urinary tract infection Qualifiers: Urinary tract infection type: site unspecified Hematuria presence: without hematuria Qualified Code(s): N39.0 - Urinary tract infection, site not specified Abdominal pain Qualifiers: Abdominal location: unspecified location Qualified Code(s): R10.9 - Unspecified abdominal pain Condition: Stable Prescriptions: New promethazine 25 mg tablet 25 mg PO Q6H Qty: 12 RF: 0 ciprofloxacin HCl 500 mg tablet 500 mg PO BID Qty: 14 RF: 0 dicyclomine 20 mg tablet 20 mg PO QID Qty: 10 RF: 0 No Action Vivitrol 380 mg suspension,extended rel recon 380 mg IM Q30D RF: 0 ondansetron HCl [Zofran] 4 mg tablet 4 mg PO Q8H PRN (Reason: nausea and vomiting) Qty: 20 RF: 0 divalproex [Depakote ER] 500 mg tablet extended release 24 hr 500 mg PO DAILY Qty: 60 RF: 2 gabapentin 600 mg Tablet 600 - 1,200 mg PO BEDTIME RF: 0 quetiapine 100 mg tablet 100 - 200 mg PO BEDTIME RF: 0 Naprosyn 500 mg tablet 500 mg PO BID PRN (Reason: pain) Qty: 20 RF: 0 Imitrex 50 mg tablet See Rx Instructions .ROUTE .COMPLEX Qty: 9 RF: 0 promethazine 12.5 mg tablet 6.25 mg PO TID PRN (Reason: nausea and vomiting) Qty: 10 RF: 0 Augmentin 875-125 mg tablet 1 tab PO BID Qty: 20 RF: 0 IBU 600 mg tablet 600 mg PO TID PRN (Reason: pain) Qty: 20 RF: 0 lisinopril 20 mg tablet 10 mg PO BID RF: 0 amlodipine 10 mg tablet 10 mg PO DAILY RF: 0 paroxetine HCl 30 mg tablet 30 mg PO DAILY RF: 0 Aristada 882 mg/3.2 mL suspension,extended rel syring 882 mg IM Q30D RF: 0 buspirone 30 mg Tablet 30 mg PO BID RF: 0 oxcarbazepine [Trileptal] 600 mg tablet 600 mg PO BID RF: 0 testosterone cypionate 200 mg/mL oil See Rx Instructions .ROUTE .COMPLEX RF: 0 albuterol sulfate 90 mcg/actuation aerosol powdr breath activated 2 inh INHALATION Q6H PRN (Reason: shortness of breath or wheezing) Qty: 1 RF: 0 Discharge Orders: Discharge ED (Routine); Ordered 10/19/20 Ordered By: Sandra Dias Referrals: Corin Solano, [employer] S[employer] MACHINE OPERATOR [Primary Care Provider] - Discharge Diet: Advance as tolerated and Clear Liquid Discharge Activity: Increase activity as tolerated Patient Instructions: Abdominal Pain (ED), Urinary Tract Infection - Women Activity Restrictions/Additional Instructions: Clear liquid diet for the next 12 to 24 hours. Monitor yourself closely if you have increased pain fevers worsening of symptoms or any further signs of dehydration or fevers return to the emergency department the next 24 hours for recheck. Increase your fluid intake you were a little dehydrated here in the ER. Use the nausea medication as needed as well as the dicyclomine may help with abdominal cramping. Start Cipro 500 mg twice a day for a week. Recommend you do follow-up and have your labs repeated to make sure everything is improving and resolving there is a urine culture pending and staff will notify you if we need to change her antibiotics. Thank you for choosing [facility] for your healthcare needs today. Please realize this is an emergency room and that we are providing you with a medical screening exam and this may not be complete and all inclusive of all the testing and or work up that you may need to determine your ailment or severity of your illness. It is very important that you follow up as instructed or that you return to the Emergency Department should you have concerns or if your condition changes or worsens in any way. Coding Level of Care Code ED Auto Carrier Driver for Taylor Saul 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
[2020-10-19] MEDS: ketorolac 30 mg/mL INJ IVP (04:54)
[2020-10-19] MEDS: iohexol 300 mg/mL 100 mL Btl IV (05:19)
[2020-10-19] MEDS: cefTRIAXone 1,000 MG in sodium chloride 0.9% (plus) 50 ML 100 MG IV (06:13)
[2020-10-19] MEDS: promethazine 25 mg Tablet PO (07:04)
[2020-10-19] MEDS: dicyclomine 10 mg Capsule 20 MG PO (07:50)
== END 2020-10-19 08:29 | disposition home or self-care (01) ==
PROVIDERS: Emergency Provider Emergency Medicine; PCP Nurse Practitioner Family
DX: N28.9 Disorder of kidney and ureter, unspecified (principal); N39.0 Urinary tract infection, site not specified; F17.220 Nicotine dependence, chewing tobacco, uncomplicated
CPT/HCPCS: 74177; 80053; 81001; 83690; 84703; 85025; 86140; 87086; 96361; 96365; 96375; 96376; 99284; J0696; J1170; J1885; J2405; J7030; Q0169; Q9967

== ENCOUNTER → 2020-10-20 09:45 | Outpatient (BNVA) | payer OTHER, BC, MEDICAID, SELFPAY | PROVIDERS: PCP Nurse Practitioner Family; Visit Provider Specialist | DX: G40.309 Generalized idiopathic epilepsy and epileptic syndromes, not intractable, without status epilepticus (principal); F17.220 Nicotine dependence, chewing tobacco, uncomplicated | CPT/HCPCS: 95816 ==

== ENCOUNTER 2020-10-20 23:30 | Emergency (ER) | payer OTHER, BC, MEDICAID, SELFPAY ==
[2020-10-20 23:44] VITALS: BP 115/79; PULSE 94; RESP 16; TEMP 36.7; O2SAT 94; BMI 34.2
--- NOTE | 2020-10-21 00:08 | ED_ITS ---
HPI - Abdominal Pain General: Chief Complaint: Abdominal Pain Stated Complaint: SAME STABBING PAIN IN STOMACH/HERE SAT Time Seen by Provider: 10/20/20 23:36 History of Present Illness: HPI narrative: Patient is a 34-year-old female that is a transgender male and prefers to be called Van. His main complaint is abdominal pain on the right side with nausea and vomiting. Patient was seen here in the ED for same complaint on October [address] was performed and it showed no acute findings and diagnosed with abdominal pain and a UTI. Patient is still having abdominal pain, nausea vomiting and says that the abdominal pain is gotten worse. She reports that she has not been doing a clear liquid diet as directed by ED doc at discharge 2 days ago. Pain of the abdomen is located on the right upper quadrant and pain and diarrhea worsens with greasy/fatty foods. Patient says she ate some Oreos some milk tonight and symptoms worsened. Denies any fever, chills, chest pain, shortness of breath, dysuria or hematuria. Associated Symptoms: Reports diarrhea, nausea and vomiting; Denies chills, constipation, dysuria, fever(s), hematochezia and hematuria Related Data: Date of Last Menstrual Period: 05/02/12 Review of Systems Const: Denies: fever(s), chills or fatigue Eyes: Denies: change in vision or eye discomfort ENMT: Denies: throat pain, odynophagia, nasal discharge or nasal congestion Card: Denies: chest pain, palpitations, edema, swelling of feet/ankles, dyspnea on exertion or orthopnea Resp: Denies: dyspnea, productive cough or non-productive cough GI: Reports: abdominal pain, nausea, vomiting and diarrhea; Denies: constipation or hematochezia : Denies: flank pain, dysuria or hematuria Musc: Denies: neck pain, back pain or extremity swelling Skin/Breast: Denies: rash or new lesions Neuro: Denies: headache(s), numbness in extremities or weakness in extremities [facility] ED PFSH: Medical History ADHD Bipolar 1 disorder Decreased glomerular filtration rate (GFR) Degenerative arthritis of spine Epilepsy Obesity (BMI 30.0-34.9) Pneumonitis PTSD (post-traumatic stress disorder) Pyloric stenosis Seizure disorder Surgical History History of adenectomy Hx of tonsillectomy Family History Other Cancer Social History Smoking and tobacco status: current every day smoker smokeless tobacco Smokeless tobacco user: chewing tobacco Alcohol intake: current Alcohol intake frequency: 0-2 Drinks per Day Alcohol type: hard liquor Current occupational status: unemployed History of recent travel: No Current gender identity: Male Female Reproductive History: Date of last menstrual period: 05/02/12 Physical Exam Const: COMMON NORMALS: no acute distress, patient oriented x3 and alert GENERAL APPEARANCE: cooperative and comfortable HENMT: COMMON NORMALS: normocephalic HEAD & SCALP: normocephalic MOUTH: Normal oral and palatal mucosa present THROAT: posterior oropharynx normal and uvula midline Eye: COMMON NORMALS: Equal, round and reactive pupils present PUPIL: Yes Equal, round and reactive pupils present Neck/C-Spine: COMMON NORMALS: supple GENERAL: Yes normal visual inspection Resp: COMMON NORMALS: normal respiratory effort, No retractions, No use of accessory muscles and clear to auscultation bilaterally AUSCULTATION: clear to auscultation bilaterally Cardio: COMMON NORMALS: regular rate, regular rhythm, S1 normal heart sound p resent, S2 normal heart sound present, No gallops present (Cardio), No clicks present (Cardio), No murmurs present (Cardio) and Peripheral pulses 2+ throughout RATE: regular rate RHYTHM: regular rhythm HEART SOUNDS: S1 normal heart sound present and S2 normal heart sound present PERIPHERAL PULSES: Peripheral pulses 2+ throughout GI: COMMON NORMALS: Normal to inspection, nondistended, normoactive bowel sounds present, Soft to palpation and no masses PALPATION: Yes Soft to palpation and Yes Tenderness to palpation present (GI) Details: RUQ : COMMON NORMALS: Yes no CVA tenderness BLADDER/KIDNEY EXAM: Yes no CVA tenderness Back/Pelvis: COMMON NORMALS: no CVA tenderness Extremity: COMMON NORMALS: normal to inspection Neuro: COMMON NORMALS: patient oriented x3 SENSORIUM/ORIENTATION: Yes alert Skin: GENERAL SKIN EXAM: dry skin Course Vital Signs: Vital signs: Vital Signs Temperature 98.0 F 10/20/20 23:44 Pulse Rate 94 10/20/20 23:44 Respiratory Rate 14 10/21/20 01:09 Blood Pressure 115/79 10/20/20 23:44 Pulse Oximetry 94 10/21/20 01:09 MDM - Abdominal Pain MDM Narrative: Medical decision making narrative: Patient is a 34-year-old female comes to the ED with abdominal pain nausea vomiting. She was seen here in the ED for same symptoms 2 days ago on October 19. They did a full work-up and did a CT of the abdomen pelvis showed no acute findings. Patient was diagnosed with abdominal pain and a UTI and discharged home with some dicyclomine, nausea meds. Patient was told to do a clear liquid diet and advance as tolerated but says that she has not been following the diet restrictions. She is having same symptoms of nausea and vomiting says any greasy fatty foods cause worsening symptoms. Here in the ED patient appears nontoxic in no acute distress. Vitals are stable she has some right upper quadrant tenderness. All her labs were unremarkable. Ultrasound gallbladder showed no acute findings. Patient was given IV fluids, Zofran and some Dilaudid and her symptoms improved. Patient was diagnosed with abdominal pain and discharged home. She was told to follow a strict clear liquid diet for the next 48 hours and slowly advance as tolerated. Follow-up with PCP in 5 to 7 days for reevaluation. Return to ED precautions given. Patient understood with plan. Lab Data: Attestation: I reviewed the patient's lab results. Labs: Lab Results 10/20/20 10/20/20 10/20/20 Range/Units 23:59 23:59 23:59 WBC 9.7 (4.0-10.0) 10^3/ uL RBC 4.19 (4.1-5.3) 10^6/u L Hgb 13.6 (11.5-15.3) g/dL Hct 40.6 (37.0-47.0) % MCV 96.9 (81-99) fL MCH 32.5 (28.0-34.0) pg MCHC 33.5 (30.0-36.0) g/dL RDW 12.5 (12.1-15.1) % Plt Count 149 (130-400) 10^3/c mm MPV 11.0 H (7.4-10.4) fL Neut % (Auto) 69.0 % Lymph % (Auto) 21.5 % [place] % (Auto) 7.0 % Eos % (Auto) 1.7 % Baso % (Auto) 0.5 % Neut # (Auto) 6.66 (1.8-7.7) 10^3/u L Lymph # (Auto) 2.1 (0.8-4.8) 10^3/u L [place] # (Auto) 0.7 (0.2-0.9) 10^3/u L Eos # (Auto) 0.2 (0.0-0.8) 10^3/u L Baso # (Auto) 0.1 (0.0-0.1) 10^3/u L Nucleated RBC % (a uto) 0 % Nucleated RBCs # 0.0 /100WBC Sodium 138 (136-145) mmol/L Potassium 4.2 (3.5-5.1) mmol/L Chloride 101 (98-107) mmol/L Carbon Dioxide 26 (22-29) mmol/L Anion Gap 15.2 (5-19) BUN 17 (6-20) mg/dL Creatinine 1.4 H (0.5-0.9) mg/dL GFR Calculation 42.8 L (90-130) mL/min Glucose 111 (65-115) mg/dL Calculated Osmolal ity 288 (285-295) mOsm/k g Calcium 9.2 (8.5-10.5) mg/dL Total Bilirubin 0.2 (0.15-1.2) mg/dL AST 23 (0-32) U/L ALT 18 (0-33) U/L Alkaline Phosphata se 63 (35-105) IU/L Total Protein 6.4 L (6.6-8.7) g/dL Albumin 4.2 (3.5-5.2) g/dL Globulin 2.2 (1.3-4.6) g/dL Lipase 47 (13-60) U/L HCG, Qual Negative (Negative) Urine Color (Yellow) Urine Appearance (CLEAR) Urine pH (5-7) Ur Specific Gravit y (1.005-1.030) Urine Protein (Negative) Urine Glucose (UA) (Normal) Urine Ketones (Negative) Urine Blood (Negative) Urine Nitrate (Negative) Urine Bilirubin (Negative) Urine Urobilinogen (Negative) mg/dL Ur Leukocyte Dolores ase (Negative) 10/21/20 Range/Units 00:15 WBC (4.0-10.0) 10^3/ uL RBC (4.1-5.3) 10^6/u L Hgb (11.5-15.3) g/dL Hct (37.0-47.0) % MCV (81-99) fL MCH (28.0-34.0) pg MCHC (30.0-36.0) g/dL RDW (12.1-15.1) % Plt Count (130-400) 10^3/c mm MPV (7.4-10.4) fL Neut % (Auto) % Lymph % (Auto) % [place] % (Auto) % Eos % (Auto) % Baso % (Auto) % Neut # (Auto) (1.8-7.7) 10^3/u L Lymph # (Auto) (0.8-4.8) 10^3/u L [place] # (Auto) (0.2-0.9) 10^3/u L Eos # (Auto) (0.0-0.8) 10^3/u L Baso # (Auto) (0.0-0.1) 10^3/u L Nucleated RBC % (a uto) % Nucleated RBCs # /100WBC Sodium (136-145) mmol/L Potassium (3.5-5.1) mmol/L Chloride (98-107) mmol/L Carbon Dioxide (22-29) mmol/L Anion Gap (5-19) BUN (6-20) mg/dL Creatinine (0.5-0.9) mg/dL GFR Calculation (90-130) mL/min Glucose (65-115) mg/dL Calculated Osmolal ity (285-295) mOsm/k g Calcium (8.5-10.5) mg/dL Total Bilirubin (0.15-1.2) mg/dL AST (0-32) U/L ALT (0-33) U/L Alkaline Phosphata se (35-105) IU/L Total Protein (6.6-8.7) g/dL Albumin (3.5-5.2) g/dL Globulin (1.3-4.6) g/dL Lipase (13-60) U/L HCG, Qual (Negative) Urine Color Yellow (Yellow) Urine Appearance Clear (CLEAR) Urine pH 7 (5-7) Ur Specific Gravit y 1.010 (1.005-1.030) Urine Protein Neg (Negative) Urine Glucose (UA) Norm (Normal) Urine Ketones Negative (Negative) Urine Blood Neg (Negative) Urine Nitrate Negative (Negative) Urine Bilirubin Neg (Negative) Urine Urobilinogen Norm (Negative) mg/dL Ur Leukocyte Dolores ase Negative (Negative) Imaging Data ^: US: Attestation: I personally reviewed and interpreted this imaging study as follows: Radiologist's impression: Ultrasound gallbladder?prelim report?no gallstones noted and CBD is normal. Gallbladder was contracted due to patient just eating some food prior to arrival. No acute findings. Discharge Plan Discharge Patient Disposition: Home Clinical Impression: Abdominal pain Qualifiers: Abdominal location: right upper quadrant Qualified Code(s): R10.11 - Right upper quadrant pain Condition: Stable Prescriptions: No Action Vivitrol 380 mg suspension,extended rel recon 380 mg IM Q30D RF: 0 ondansetron HCl [Zofran] 4 mg tablet 4 mg PO Q8H PRN (Reason: nausea and vomiting) Qty: 20 RF: 0 divalproex [Depakote ER] 500 mg tablet extended release 24 hr 500 mg PO DAILY Qty: 60 RF: 2 gabapentin 600 mg Tablet 600 - 1,200 mg PO BEDTIME RF: 0 quetiapine 100 mg tablet 100 - 200 mg PO BEDTIME RF: 0 Naprosyn 500 mg tablet 500 mg PO BID PRN (Reason: pain) Qty: 20 RF: 0 Imitrex 50 mg tablet See Rx Instructions .ROUTE .COMPLEX Qty: 9 RF: 0 promethazine 12.5 mg tablet 6.25 mg PO TID PRN (Reason: nausea and vomiting) Qty: 10 RF: 0 Augmentin 875-125 mg tablet 1 tab PO BID Qty: 20 RF: 0 IBU 600 mg tablet 600 mg PO TID PRN (Reason: pain) Qty: 20 RF: 0 promethazine 25 mg tablet 25 mg PO Q6H Qty: 12 RF: 0 ciprofloxacin HCl 500 mg tablet 500 mg PO BID Qty: 14 RF: 0 dicyclomine 20 mg tablet 20 mg PO QID Qty: 10 RF: 0 lisinopril 20 mg tablet 10 mg PO BID RF: 0 amlodipine 10 mg tablet 10 mg PO DAILY RF: 0 paroxetine HCl 30 mg tablet 30 mg PO DAILY RF: 0 Aristada 882 mg/3.2 mL suspension,extended rel syring 882 mg IM Q30D RF: 0 buspirone 30 mg Tablet 30 mg PO BID RF: 0 oxcarbazepine [Trileptal] 600 mg tablet 600 mg PO BID RF: 0 testosterone cypionate 200 mg/mL oil See Rx Instructions .ROUTE .COMPLEX RF: 0 albuterol sulfate 90 mcg/actuation aerosol powdr breath activated 2 inh INHALATION Q6H PRN (Reason: shortness of breath or wheezing) Qty: 1 RF: 0 Discharge Orders: Discharge ED (Routine); Ordered 10/21/20 Ordered By: Benedicto Childs Referrals: Corin Solano FNP [Primary Care Provider] - Discharge Diet: Advance as tolerated and Clear Liquid Discharge Activity: Increase activity as tolerated Patient Instructions: Clear Liquid Diet (ED), Abdominal Pain (ED) Activity Restrictions/Additional Instructions: Follow-up with medical provider as directed by the end of the week or early next week. only clear liquids for the next 48 hours then slowly advance diet as tolerated. Continue taking previously prescribed meds. Return to the ER or your medical provider if condition worsens. Please read and understand discharge instructions. Thank you for choosing [facility] for your healthcare needs today. Please realize this is an emergency room and that we are providing you with a medical screening exam and this may not be complete and all inclusive of all the testing and or work up that you may need to determine your ailment or severity of your illness. It is very important that you follow up as instructed or that you return to the Emergency Department should you have concerns or if your condition changes or worsens in any way. Coding Level of Care Code ED [employer] for Taylor Saul Exam Detailed
[2020-10-21 00:12] LABS: Basophils # 0.1 10^3/uL (0.0-0.1); Basophils % 0.5 %; Eosinophils # 0.2 10^3/uL (0.0-0.8); Eosinophils % 1.7 %; Hematocrit 40.6 % (37.0-47.0); Hemoglobin 13.6 g/dL (11.5-15.3); Lymphocytes # 2.1 10^3/uL (0.8-4.8); Lymphocytes % 21.5 %; Mean Corpuscular HGB Conc 33.5 g/dL (30.0-36.0); Mean Corpuscular Hemoglobin 32.5 pg (28.0-34.0); Mean Corpuscular Volume 96.9 fL (81-99); Monocytes # 0.7 10^3/uL (0.2-0.9); Neutrophils # 6.66 10^3/uL (1.8-7.7); Nucleated Red Blood Cells % 0 %; Platelet Count 149 10^3/cmm (130-400); Red Blood Count 4.19 10^6/uL (4.1-5.3); Red Cell Distribution Width 12.5 % (12.1-15.1); White Blood Count 9.7 10^3/uL (4.0-10.0)
[2020-10-21 00:15] LABS: HCG, Serum Qual Negative (Negative)
[2020-10-21 00:19] LABS: Alanine Aminotransferase 18 U/L (0-33); Albumin Level 4.2 g/dL (3.5-5.2); Alkaline Phosphatase 63 IU/L (35-105); Anion Gap 15.2 (5-19); Aspartate Amino Transferase 23 U/L (0-32); Blood Urea Nitrogen 17 mg/dL (6-20); Calcium 9.2 mg/dL (8.5-10.5); Carbon Dioxide 26 mmol/L (22-29); Chloride 101 mmol/L (98-107); Globulin 2.2 g/dL (1.3-4.6); Glomerular Filtration Rate 42.8 mL/min (90-130); Glucose 111 mg/dL (65-115); Lipase 47 U/L (13-60); Osmolality Calculated 288 mOsm/kg (285-295); Potassium 4.2 mmol/L (3.5-5.1); Sodium 138 mmol/L (136-145); Total Bilirubin 0.2 mg/dL (0.15-1.2); Total Protein 6.4 g/dL (6.6-8.7)
--- NOTE | 2020-10-21 00:21 | USR_ITS ---
PROCEDURE INFORMATION: Exam: US Abdomen, Limited; Right Upper Quadrant Exam date and time: 10/21/2020 12:21 AM Age: 34 years old Clinical indication: Abdominal pain; Additional info: Ruq tenderness with n/v TECHNIQUE: Imaging protocol: US abdomen. Real time ultrasound with image documentation. Limited exam focused on the right upper quadrant. COMPARISON: CT abdomen pelvis w con* [id number] 10/19/2020 5:15 AM FINDINGS: Liver: Slight increased echogenicity of the liver may indicate fatty infiltration. Otherwise unremarkable liver, no focal abnormality. Gallbladder: The gallbladder is almost completely contracted. No visible cholelithiasis. No definite gallbladder wall thickening or pericholecystic fluid. Common bile duct: No biliary dilation, common duct measures about 2 mm. Pancreas: Visible pancreas unremarkable. Some of the pancreas is likely obscured by bowel gas. Right kidney: Images of the right kidney show no hydronephrosis. A few very small echogenic areas in the right kidney may represent the intrarenal calculi visible on the recent CT scan. US/US gall bladder [id number] IMPRESSION: 1. Contracted gallbladder. 2. No cholelithiasis or biliary tree dilation. 3. Other findings discussed above.
[2020-10-21] MEDS: sodium chloride 0.9% 1,000 ML 999 ML IV (00:26)
[2020-10-21 00:27] LABS: Add Urine Microscopic? NO; Charge for UA Resulting for Rev
[2020-10-21] MEDS: ondansetron 2 mg/ML SDV 2 mL 4 MG IVP (00:27)
[2020-10-21 00:29] VITALS: RESP 16
[2020-10-21 00:29] LABS: Bilirubin Urine Neg (Negative); Blood Urine Neg (Negative); Glucose Urine UA Norm (Normal); Ketones Urine Negative (Negative); Leukocyte Esterase Urine Negative (Negative); Nitrate Urine Negative (Negative); Protein Urine Neg (Negative); Urine Appearance Clear (CLEAR); Urine Color Yellow (Yellow); Urobilinogen Urine Norm (Negative); pH Urine 7 (5-7)
[2020-10-21] MEDS: morphine 4 mg/mL SDV 1 mL IVP (00:29)
[2020-10-21 01:09] VITALS: RESP 14; O2SAT 94
[2020-10-21] MEDS: HYDROmorphone 1 mg/mL INJ 1 mL IVP (01:09)
[2020-10-21 02:01] VITALS: BP 117/73; PULSE 88; RESP 14; O2SAT 94
== END 2020-10-21 02:02 | disposition home or self-care (01) ==
PROVIDERS: Emergency Medicine; Emergency Provider Physician Assistant; PCP Nurse Practitioner Family
DX: R10.11 Right upper quadrant pain (principal); F17.220 Nicotine dependence, chewing tobacco, uncomplicated
CPT/HCPCS: 76705; 80053; 81003; 83690; 84703; 85025; 96361; 96374; 96375; 99284; J1170; J2270; J2405; J7030

== ENCOUNTER 2020-10-22 14:01 | Outpatient (CLI) | payer OTHER, BC, MEDICAID, SELFPAY ==
--- NOTE | 2020-10-22 14:13 | MR_ITS ---
WS: [id number] MRI HEAD WITH CONTRAST TECHNIQUE: Sagittal T1, T2 axial, T2 axial FLAIR, axial susceptibility weighted imaging, axial diffus ion weighted images, and coronal T2 images were obtained. Pre and post-T1 axial and post T1 coronal i mages. ADC and FSPGR images. CLINICAL INFORMATION: G40.909 - Epilepsy, unspecified, not intractable, without... COMPARISON: None. FINDINGS: No evidence of restricted diffusion to suggest acute ischemia. Ventricular system and basal cisterns are patent. No suspicious intracranial signal abnormalities. Normal saeed-white differentiation. Adri l posterior fossa. Normal vascular flow voids at the skull base. No extra-axial fluid collections. No evidence of mass or mass effect. Paranasal sinuses and mastoid air cells are well aerated. No hemosiderin on susceptibly weighted images. Normal optic chiasm and pituitary infundibulum. Tempor al lobes and hippocampal formations are normal in appearance. No evidence of mesial temporal sclerosi s. Normal cavernous sinuses and Meckel's cave. No abnormal intracranial enhancement. Normal dural venous sinuses. MR/MR head wo/w con [id number] IMPRESSION: 1. No evidence of restricted diffusion to suggest acute ischemia. 2. No suspicious intracranial signal abnormalities. Normal saeed-white differen tiation. 3. Temporal lobes and hippocampal formations are normal in appearance. No evid ence of mesial temporal sclerosis. 4. Normal optic chiasm and pituitary infundibulum. 5. No abnormal intracranial enhancement.
[2020-10-22] MEDS: gadobenate dimeglumine 20 mL vial IV (14:57)
== END 2020-10-22 14:02 | disposition home or self-care (01) ==
PROVIDERS: PCP Nurse Practitioner Family; Visit Provider Nurse Practitioner
DX: G40.909 Epilepsy, unspecified, not intractable, without status epilepticus (principal)
CPT/HCPCS: 70553; A9577

== ENCOUNTER 2020-11-28 09:29 | Outpatient (CLI) | payer BC, MEDICAID, SELFPAY ==
--- NOTE | 2020-11-28 09:40 | NM_ITS ---
WS: [id number] NUCLEAR MEDICINE HIDA SCAN CLINICAL INFORMATION: RUQ PAIN TECHNIQUE: Following intravenous administration of 4.2 mCi of technetium 99m mebrofenin, images of th e abdomen were obtained over the course of 60 minutes. Next, gallbladder ejection fraction was determ ined by obtaining preprandial and one-hour postprandial images of the gallbladder following oral jake stion of Ensure. COMPARISON: Ultrasound October 21, 2020 FINDINGS: Normal hepatic uptake at 5 minutes. No evidence of acute cholecystitis. Gallbladder is visualized by 15 minutes. Normal hepatic excretion. Normal small bowel activity. Gallbladder ejection fraction 94% within normal limits. No evidence of chronic cholecystitis. NM/NM hepatobiliary w phar* [id number] IMPRESSION: 1. No evidence of acute or chronic cholecystitis. 2. Gallbladder ejection fraction 94%.
== END 2020-11-28 09:30 | disposition home or self-care (01) ==
PROVIDERS: PCP Nurse Practitioner Family; Visit Provider Nurse Practitioner Family
DX: R10.11 Right upper quadrant pain (principal)
CPT/HCPCS: 78227; A9537

== ENCOUNTER 2021-01-18 13:43 | Emergency (ER) | payer BC, MEDICAID, SELFPAY ==
[2021-01-18 13:51] VITALS: BP 114/78; PULSE 77; RESP 16; TEMP 36.7; O2SAT 93
--- NOTE | 2021-01-18 14:07 | XRR_ITS ---
PROCEDURE INFORMATION: Exam: XR Left Knee Exam date and time: 01/18/2021 2:07 PM Age: 35 years old Clinical indication: Pain; Knee; Left; Additional info: Left knee pain after injury TECHNIQUE: Imaging protocol: XR Left knee. Views: 3 views. COMPARISON: No relevant prior studies available. FINDINGS: Bones/joints: Negative for fracture. Joint spaces are preserved. Soft tissues: Normal. XR/XR knee LT 3V* [id number] IMPRESSION: No acute findings.
--- NOTE | 2021-01-18 14:39 | ED_ITS ---
HPI - Extremity Problem General: Chief complaint: Extremity Injury, Lower Stated complaint: Pain in Lft Knee Time Seen by Provider: 01/18/21 14:17 Source: patient Mode of arrival: ambulatory Limitations: no limitations History of Present Illness: HPI Narrative: 35-year-old female presents to the ER today for left knee pain after stepping in a hole outside about 1 hour ago. Patient reports when this stepped in a hole he felt a pop and had immediate pain in the knee. Patient reports pain with weightbearing, pain with flexion or extension, and mild swelling. Patient reports this is mostly in the posterior aspect of the knee. Does report prior injury to this knee. Patient does not specify what the injury was or that they have had an MRI in the past. Patient did not take anything at home for the pain. Denies headache, fever, chills, chest pain, shortness of breath, nausea, vomiting, diarrhea, constipation. MD Complaint: extremity pain Onset (ago): hour(s) (1) Pain Consistency: constant Location: left, lower extremity and knee Severity scale (1-10): 5 Quality: aching Relieving factors: nothing Exacerbating factors: range of motion, weight bearing and walking Associated symptoms: Deny chest pain, fever(s) or rash Review of Systems Const: Denies: fever(s) or chills ENMT: Denies: throat pain, nasal discharge or nasal congestion Card: Denies: chest pain or palpitations Resp: Denies: dyspnea or wheezing GI: Denies: abdominal pain, nausea, vomiting, diarrhea or constipation Musc: Reports: extremity pain, joint swelling and limited range of motion; Denies: back pain Skin/Breast: Denies: rash Neuro: Denies: headache(s) PFSH ED PFSH: Medical History ADHD Bipolar 1 disorder Decreased glomerular filtration rate (GFR) Degenerative arthritis of spine Epilepsy Obesity (BMI 30.0-34.9) Pneumonitis PTSD (post-traumatic stress disorder) Pyloric stenosis Seizure disorder Surgical History History of adenectomy Hx of tonsillectomy Family History Other Cancer Social History Smoking and tobacco status: current every day smoker smokeless tobacco Smokeless tobacco user: chewing tobacco Alcohol intake: current Alcohol intake frequency: 0-2 Drinks per Day Alcohol type: hard liquor Current occupational status: unemployed History of recent travel: No Current gender identity: Male Female Reproductive History: Date of last menstrual period: 05/02/12 Physical Exam Const: COMMON NORMALS: average body habitus, patient oriented x3, healthy appearing and alert; apparent distress GENERAL APPEARANCE: cooperative HENMT: COMMON NORMALS: normocephalic HEAD & SCALP: normocephalic Resp: COMMON NORMALS: normal respiratory effort and No retractions EFFORT & INSPECTION: Yes able to speak in complete sentences Cardio: COMMON NORMALS: regular rate and regular rhythm RATE: regular rate RHYTHM: regular rhythm GI: COMMON NORMALS: Normal to inspection, nondistended, normoactive bowel sounds present, Soft to palpation and non-tender PALPATION: Yes Soft to palpation Back/Pelvis: COMMON NORMALS: thoracic and lumbar spine normal to inspection Extremity: GENERAL: Yes normal exam except as noted LEFT LOWER EXTREMITY: Yes knee joint Left knee: Yes inspection, Yes palpation (Patient does not have any medial joint line tenderness on exam.), No ROM (Pain with flexion or extension of the knee.), Yes neurovascular exam and Yes special tests Left knee special tests: Yu test: Negative (normal), Anterior drawer sign: Negative (normal), Valgus stress test: Negative (normal) and Varus stress test: Negative (normal) Neuro: COMMON NORMALS: patient oriented x3 and moves all extremities S ENSORIUM/ORIENTATION: Yes alert Psych: COMMON NORMALS: mental status grossly normal Skin: COMMON NORMALS: no rashes or lesions noted GENERAL SKIN EXAM: no rashes or lesions noted Course ED course: Normal normal normal we will get x-ray of the left knee given mechanism of injury. I do not suspect a fracture or bony injury, likely tendons versus ligament injury. Discussed with patient that this is something that likely needs conservative treatment including rest, ice, elevation, anti- inflammatories. If no improvement in 2 to 3 weeks would recommend follow-up with PCP discuss further imaging. Vital Signs: Vital signs: Vital Signs Temperature 98.0 F 01/18/21 13:51 Pulse Rate 77 01/18/21 13:51 Respiratory Rate 16 01/18/21 13:51 Blood Pressure 114/78 01/18/21 13:51 Pulse Oximetry 93 01/18/21 13:51 Critical Care Time Critical Care Time: Critical Care Time: No MDM - Extremity (Nontraumatic) MDM Narrative: Medical decision making narrative: Patient presents to the ER today for left knee pain that started after stepping in a hole this morning. Patient has a mostly normal exam other than some mild tenderness to palpation in the posterior knee and also pain with ambulation and range of motion. X-ray is normal as expected. Discussed conservative treatment with patient. We will give patient crutches to use until pain improves. Recommended anti-inflammatory x7 to 10 days. Rest, ice, elevation recommended. If pain persist beyond 2+ weeks follow-up with PCP to discuss further imaging. Return to the ER with any new or worsening symptoms. Patient verbalized understanding and is in agreement with this treatment plan Imaging Data^: Other Xray: Radiologist's impression: [address] [address] XRay Report Signed Patient: Dorothy Jurado Unit #: [id number] : 1985 Age/Sex: 35 / F ADM Date: 01/18/21 Loc: ER Room/Bed: Attending Dr: Ordering Provider/Ordering MD: Megha Bess Date of Service: 01/18/21 Procedure(s): XR knee LT 3V* [id number] Accession Number(s): [id number] Report Number: [id number] PROCEDURE INFORMATION: Exam: XR Left Knee Exam date and time: 01/18/2021 2:07 PM Age: 35 years old Clinical indication: Pain; Knee; Left; Additional info: Left knee pain after injury TECHNIQUE: Imaging protocol: XR Left knee. Views: 3 views. COMPARISON: No relevant prior studies available. FINDINGS: Bones/joints: Negative for fracture. Joint spaces are preserved. Soft tissues: Normal. XR/XR knee LT 3V* [id number] IMPRESSION: No acute findings. Dictated By: Tye Wagner DO Signed By: Tye Wagner DO Signed Date/Time: 01/18/21 1503 DD/ 1502 Discharge Plan Discharge Patient Disposition: Home Clinical Impression: Strain of left knee Qualifiers: Encounter type: initial encounter Qualified Code(s): S86.912A - Strain of unspecified muscle(s) and tendon(s) at lower leg level, left leg, initial encounter Condition: Stable Prescriptions: No Action Vivitrol 380 mg suspension,extended rel recon 380 mg IM Q30D RF: 0 ondansetron HCl [Zofran] 4 mg tablet 4 mg PO Q8H PRN (Reason: nausea and vomiting) Qty: 20 RF: 0 divalproex [Depakote ER] 500 mg tablet extended release 24 hr 500 mg PO DAILY Qty: 60 RF: 2 gabapentin 600 mg Tablet 600 - 1,200 mg PO BEDTIME RF: 0 quetiapine 100 mg tablet 100 - 200 mg PO BEDTIME RF: 0 Naprosyn 500 mg tablet 500 mg PO BID PRN (Reason: pain) Qty: 20 RF: 0 Imitrex 50 mg tablet See Rx Instructions .ROUTE .COMPLEX Qty: 9 RF: 0 promethazine 12.5 mg tablet 6.25 mg PO TID PRN (Reason: nausea and vomiting) Qty: 10 RF: 0 Augmentin 875-125 mg tablet 1 tab PO BID Qty: 20 RF: 0 IBU 600 mg tablet 600 mg PO TID PRN (Reason: pain) Qty: 20 RF: 0 promethazine 25 mg tablet 25 mg PO Q6H Qty: 12 RF: 0 ciprofloxacin HCl 500 mg tablet 500 mg PO BID Qty: 14 RF: 0 dicyclomine 20 mg tablet 20 mg PO QID Qty: 10 RF: 0 lisinopril 20 mg tablet 10 mg PO BID RF: 0 amlodipine 10 mg tablet 10 mg PO DAILY RF: 0 paroxetine HCl 30 mg tablet 30 mg PO DAILY RF: 0 Aristada 882 mg/3.2 mL suspension,extended rel syring 882 mg IM Q30D RF: 0 buspirone 30 mg Tablet 30 mg PO BID RF: 0 oxcarbazepine [Trileptal] 600 mg tablet 600 mg PO BID RF: 0 testosterone cypionate 200 mg/mL oil See Rx Instructions .ROUTE .COMPLEX RF: 0 albuterol sulfate 90 mcg/actuation aerosol powdr breath activated 2 inh INHALATION Q6H PRN (Reason: shortness of breath or wheezing) Qty: 1 RF: 0 Discharge Orders: Discharge ED (Routine); Ordered 01/18/21 Ordered By: Megha Bess Referrals: Corin Solano FNP [Primary Care Provider] - Discharge Diet: Usual diet Discharge Activity: Limit activity as instructed and Use walker/crutches as instructed Patient Instructions: Knee Pain (ED), Opioid Safety Activity Restrictions/Additional Instructions: Rest, ice, and elevation as discussed. Use crutches for ambulation with weightbearing as tolerated. Get an elastic knee brace as discussed. Take Aleve or naproxen x7 days. Ice 20 minutes on and 20 minutes off 3-4 times daily. Elevate need to reduce any swelling. Follow-up with PCP in 2 to 3 weeks if no improvement. Return to the ER with any new or worsening symptoms. Stand Alone Forms: Work/School Release Coding Level of Care Code ED Lodging Facilities Manager for [facility] 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
--- NOTE | 2021-01-18 15:15 | PC.NURSE ---
[pt discharge instructions given. pain remains at a 7 to the left knee. pain increases with activity. instructions given for crutch usage. discussed the discharge plan with the patient no question or concerns voice.
== END 2021-01-18 15:15 | disposition home or self-care (01) ==
PROVIDERS: Emergency Provider Physician Assistant; PCP Nurse Practitioner Family
DX: S86.912A Strain of unspecified muscle(s) and tendon(s) at lower leg level, left leg, initial encounter (principal); F17.220 Nicotine dependence, chewing tobacco, uncomplicated; X50.1XXA Overexertion from prolonged static or awkward postures, initial encounter
CPT/HCPCS: 73562; 99282; E0114

== ENCOUNTER 2021-02-05 23:10 | Emergency (ER) | payer BC, MEDICAID, SELFPAY ==
[2021-02-05 23:17] VITALS: BP 126/81; PULSE 92; RESP 19; TEMP 36.6; O2SAT 97; BMI 33.9
--- NOTE | 2021-02-05 23:33 | ED_ITS ---
HPI - Nausea/Vomiting/Diarrhea General: Chief complaint: Nausea/Vomiting/Diarrhea Stated complaint: N\V Diarheaa Time Seen by Provider: 02/05/21 23:18 History of Present Illness: HPI Narrative: Patient had diarrhea yesterday and states unable to keep anything down today has taken Zofran. Denies contact with any bites been sick denies fever chills bladder problems. Has taken Imodium. MD elicited complaint: nausea, vomiting and diarrhea Onset (ago): day(s) Description of diarrhea: semi-solid Associated nausea: Yes Associated abdominal pain: No Severity: moderate Associated symtoms: Reports no associated symptoms and nausea; Denies anxiety, change in vision, chest pain or headache(s) Review of Systems Const: Denies: fever(s), chills or body aches Eyes: Denies: change in vision or blurry vision ENMT: Denies: throat pain or nasal congestion Card: Denies: chest pain or dyspnea on exertion Resp: Denies: dyspnea, productive cough or non-productive cough GI: Reports: nausea, vomiting and diarrhea : Denies: difficulty urinating Musc: Denies: extremity pain Skin/Breast: Denies: rash Neuro: Denies: headache(s) Psych: Denies: anxiety or depression Caleb/Lymph: Denies: easy bruising PFSH ED PFSH: Medical History ADHD Bipolar 1 disorder Decreased glomerular filtration rate (GFR) Degenerative arthritis of spine Epilepsy Obesity (BMI 30.0-34.9) Pneumonitis PTSD (post-traumatic stress disorder) Pyloric stenosis Seizure disorder Surgical History History of adenectomy Hx of tonsillectomy Family History Other Cancer Social History Smoking and tobacco status: current every day smoker smokeless tobacco Smokeless tobacco user: chewing tobacco Alcohol intake: current Alcohol intake frequency: 0-2 Drinks per Day Alcohol type: hard liquor Current occupational status: unemployed History of recent travel: No Current gender identity: Male Physical Exam Narrative: EXAM NARRATIVE: Vital signs stable Const: COMMON NORMALS: no acute distress, average body habitus and patient oriented x3 HENMT: COMMON NORMALS: normocephalic HEAD & SCALP: normal to inspection and normocephalic FACE & SINUS: normal facial exam Eye: COMMON NORMALS: conjunctivae normal GENERAL EYE: appearance normal, both eyes and all related structures CONJUNCTIVA: Yes conjunctivae normal Neck/C-Spine: COMMON NORMALS: no JVD Chest: COMMONS NORMALS: normal inspection of the chest Resp: COMMON NORMALS: normal respiratory effort and clear to auscultation bilaterally AUSCULTATION: clear to auscultation bilaterally Cardio: COMMON NORMALS: no JVD, regular rate and regular rhythm RATE: regular rate RHYTHM: regular rhythm GI: COMMON NORMALS: Normal to inspection, nondistended, normoactive bowel sounds present Extremity: COMMON NORMALS: normal to inspection and full ROM Neuro: COMMON NORMALS: patient oriented x3 Course Vital Signs: Vital signs: Vital Signs Temperature 97.9 F 02/05/21 23:17 Pulse Rate 92 02/05/21 23:17 Respiratory Rate 19 H 02/05/21 23:17 Blood Pressure 126/81 02/05/21 23:17 Pulse Oximetry 97 02/05/21 23:17 MDM - Nausea/Vomiting/Diarrhea MDM Narrative: Medical decision making narrative: Patient responded to treatment very well. Tolerated oral challenge with Sprite and crackers without any more vomiting. Patient sent home with prescriptions did discuss possibility of hyperemesis cannabis syndrome. Patient will stop marijuana for next couple days. Follow-up family medical provider Discharge Plan Discharge Patient Disposition: Home Clinical Impression: Gastroenteritis, Medical marijuana use Condition: Stable Prescriptions: New promethazine 25 mg tablet 25 mg PO TID PRN (Reason: nausea and vomiting) Qty: 10 RF: 0 Lomotil 2.5-0.025 mg tablet 1 tab PO Q8H PRN (Reason: diarrhea) Qty: 6 RF: 0 No Action Vivitrol 380 mg suspension,extended rel recon 380 mg IM Q30D RF: 0 ondansetron HCl [Zofran] 4 mg tablet 4 mg PO Q8H PRN (Reason: nausea and vomiting) Qty: 20 RF: 0 divalproex [Depakote ER] 500 mg tablet extended release 24 hr 500 mg PO DAILY Qty: 60 RF: 2 gabapentin 600 mg Tablet 600 - 1,200 mg PO BEDTIME RF: 0 quetiapine 100 mg tablet 100 - 200 mg PO BEDTIME RF: 0 Naprosyn 500 mg tablet 500 mg PO BID PRN (Reason: pain) Qty: 20 RF: 0 Imitrex 50 mg tablet See Rx Instructions .ROUTE .COMPLEX Qty: 9 RF: 0 promethazine 12.5 mg tablet 6.25 mg PO TID PRN (Reason: nausea and vomiting) Qty: 10 RF: 0 Augmentin 875-125 mg tablet 1 tab PO BID Qty: 20 RF: 0 IBU 600 mg tablet 600 mg PO TID PRN (Reason: pain) Qty: 20 RF: 0 promethazine 25 mg tablet 25 mg PO Q6H Qty: 12 RF: 0 ciprofloxacin HCl 500 mg tablet 500 mg PO BID Qty: 14 RF: 0 dicyclomine 20 mg tablet 20 mg PO QID Qty: 10 RF: 0 lisinopril 20 mg tablet 10 mg PO BID RF: 0 amlodipine 10 mg tablet 10 mg PO DAILY RF: 0 paroxetine HCl 30 mg tablet 30 mg PO DAILY RF: 0 Aristada 882 mg/3.2 mL suspension,extended rel syring 882 mg IM Q30D RF: 0 buspirone 30 mg Tablet 30 mg PO BID RF: 0 oxcarbazepine [Trileptal] 600 mg tablet 600 mg PO BID RF: 0 testosterone cypionate 200 mg/mL oil See Rx Instructions .ROUTE .COMPLEX RF: 0 albuterol sulfate 90 mcg/actuation aerosol powdr breath activated 2 inh INHALATION Q6H PRN (Reason: shortness of breath or wheezing) Qty: 1 RF: 0 Discharge Orders: Discharge ED (Routine); Ordered 02/06/21 Ordered By: Andrea Vasques Referrals: Corin Solano FNP [Primary Care Provider] - Discharge Diet: Advance as tolerated Discharge Activity: Increase activity as tolerated Patient Instructions: Gastroenteritis (ED) Activity Restrictions/Additional Instructions: Follow-up with medical provider as directed. Take medications as prescribed. Return to the ER or your medical provider if condition worsens. Please read and understand discharge instructions. If any questions ask please. Coding Level of Care Code ED User Experience Analyst for 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
[2021-02-05] MEDS: sodium chloride 0.9% 1,000 ML 999 ML IV (23:42)
[2021-02-05] MEDS: promethazine 25 mg/mL SDV 1 mL IM (23:42)
--- NOTE | 2021-02-06 00:17 | PC.NURSE ---
sprite and crackers provided for PO challenge. will reevaluate pt for intake and no vomiting.
[2021-02-06] MEDS: diphenoxylate/atropine Tablet 2 TAB PO (00:34)
== END 2021-02-06 01:22 | disposition home or self-care (01) ==
PROVIDERS: Emergency Provider Nurse Practitioner Family; PCP Nurse Practitioner Family
DX: K52.9 Noninfective gastroenteritis and colitis, unspecified (principal); F12.90 Cannabis use, unspecified, uncomplicated; F17.220 Nicotine dependence, chewing tobacco, uncomplicated
CPT/HCPCS: 96360; 96372; 99283; J2550; J7030

== ENCOUNTER 2021-03-27 16:20 | Emergency (ER) | payer BC, MEDICAID, SELFPAY ==
[2021-03-27 16:22] VITALS: BP 110/75; PULSE 80; RESP 16; TEMP 36.6; O2SAT 96; BMI 32.9
--- NOTE | 2021-03-27 16:34 | ECG_ITS ---
[facility] Test Date: 2021-03-27 Pat Name: Van Mckinley Department: Room: Gender: Male Contact Centre Supervisor: : 1985 Requested By: Connie Reyes Order Number: [id number] Amado MD: JAX TURNER Measurements Intervals Weinert Rate: 76 P: 58 AZ: 111 QRS: 55 QRSD: 86 T: 68 QT: 333 QTc: 377 Interpretive Statements SINUS RHYTHM WITH SHORT [place] INTERVAL POSSIBLE LEFT ATRIAL ENLARGEMENT [-0.1mV P-WAVE IN V1/V2] No previous ECG available for comparison Electronically Signed On 03-30-2021 13:02:10 [employer] AUTOMOTIVE TECHNICIAN by JAX TURNER [id number]
== END 2021-03-27 18:04 ==
PROVIDERS: Emergency Provider Family Medicine; PCP Nurse Practitioner Family
DX: Z53.21 Procedure and treatment not carried out due to patient leaving prior to being seen by health care provider (principal)
CPT/HCPCS: 93005

== ENCOUNTER 2021-04-25 20:08 | Emergency (ER) | payer BC, MEDICAID, SELFPAY ==
[2021-04-25 20:36] VITALS: BP 113/79; PULSE 76; RESP 16; TEMP 36.7; O2SAT 98
--- NOTE | 2021-04-25 21:24 | ED_ITS ---
HPI - Male Genitourinary General: Chief complaint: Urogenital-Male Stated complaint: thinks Possible UTI Time Seen by Provider: 04/25/21 21:24 History of Present Illness: HPI Narrative: This is a transgender male with no corrective surgery only hormonal therapy. Patient comes in today with urinary difficulty. Denies any abnormal vaginal discharge. Patient reports no fever. Patient does occasionally get urinary tract infections. Associated symptoms: Reports dysuria Review of Systems General: Reports: 10 or more systems reviewed and unremarkable except in HPI and below : Reports: difficulty urinating and dysuria PFSH ED PFSH: Medical History ADHD Bipolar 1 disorder Decreased glomerular filtration rate (GFR) Degenerative arthritis of spine Epilepsy Obesity (BMI 30.0-34.9) Pneumonitis PTSD (post-traumatic stress disorder) Pyloric stenosis Seizure disorder Surgical History History of adenectomy Hx of tonsillectomy Family History Other Cancer Social History Smoking and tobacco status: current every day smoker smokeless tobacco Smokeless tobacco user: chewing tobacco Alcohol intake: current Alcohol intake frequency: 0-2 Drinks per Day Alcohol type: hard liquor Current occupational status: unemployed History of recent travel: No Current gender identity: Male Physical Exam Const: COMMON NORMALS: no acute distress and patient oriented x3 GENERAL APPEARANCE: cooperative HENMT: COMMON NORMALS: normocephalic and Normal external nose present HEAD & SCALP: normal to inspection and normocephalic NOSE: Normal external nose present Eye: GENERAL EYE: appearance normal, both eyes and all related structures Neck/C-Spine: COMMON NORMALS: full ROM Chest: COMMONS NORMALS: normal inspection of the chest Resp: COMMON NORMALS: normal respiratory effort EFFORT & INSPECTION: Yes able to speak in complete sentences Cardio: COMMON NORMALS: regular rate and regular rhythm RATE: regular rate RHYTHM: regular rhythm GI: COMMON NORMALS: Soft to palpation PALPATION: Yes Soft to palpation and Yes Tenderness to palpation present (GI) (Suprapubic) : COMMON NORMALS: Yes no CVA tenderness BLADDER/KIDNEY EXAM: Yes no CVA tenderness Back/Pelvis: COMMON NORMALS: no CVA tenderness and thoracic and lumbar spine normal to inspection Extremity: COMMON NORMALS: normal to inspection Neuro: COMMON NORMALS: patient oriented x3 and moves all extremities Psych: COMMON NORMALS: mental status grossly normal and cooperative Skin: COMMON NORMALS: no rashes or lesions noted GENERAL SKIN EXAM: no rashes or lesions noted Course Vital Signs: Vital signs: Vital Signs Temperature 98.1 F 04/25/21 20:36 Pulse Rate 76 04/25/21 20:36 Respiratory Rate 16 04/25/21 20:36 Blood Pressure 113/79 04/25/21 20:36 Pulse Oximetry 98 04/25/21 20:36 MDM - Male MDM Narrative: Medical decision making narrative: 35-year-old transgender male comes in today with complaints of painful urination. Patient denies any abnormal vaginal discharge. Patient reports no high fever. Patient denies any nausea or vomiting. On exam patient has no CVA tenderness. Some suprapubic tenderness is noted with palpation. Differential diagnosis includes but not limited to acute cystitis, renal calculi, STI. Urine showed red blood cells and white blood cells both. Patient was started on antibiotics for urinary tract infection, cystitis with hematuria. Was given 1 g of Rocephin and will be continued with Cipro 500 twice a day for 7 days. Patient reported understanding and agreed to plan. Lab Data: Labs: Lab Results 04/25/21 20:45 Urine Color Yellow (Yellow) Urine Appearance Sl hazy (CLEAR) Urine pH 5 (5-7) Ur Specific Gravit y 1.010 (1.005-1.030) Urine Protein Neg (Negative) Urine Glucose (UA) Norm (Normal) Urine Ketones Negative (Negative) Urine Blood 3+ H (Negative) Urine Nitrate Negative (Negative) Urine Bilirubin Neg (Negative) Urine Urobilinogen Norm mg/dL mg/dL (Negative) Ur Leukocyte Dolores ase 2+ H (Negative) Urine RBC 25-40 /hpf H /hpf (0-2) Urine WBC 10-15 /hpf H /hpf (0-5) Ur Squamous Epith Cells 0-4 /hpf H /hpf (0-5) Amorphous Sediment Not Reportable Urine Bacteria Trace /hpf /hpf (NONE) Urine Yeast Trace /hpf /hpf Discharge Plan Discharge Patient Disposition: Home Clinical Impression: Urinary tract infection Qualifiers: Urinary tract infection type: acute cystitis Hematuria presence: with hematuria Qualified Code(s): N30.01 - Acute cystitis with hematuria Condition: Stable Prescriptions: New Cipro 500 mg tablet 500 mg PO BID Qty: 14 RF: 0 No Action Vivitrol 380 mg suspension,extended rel recon 380 mg IM Q30D RF: 0 ondansetron HCl [Zofran] 4 mg tablet 4 mg PO Q8H PRN (Reason: nausea and vomiting) Qty: 20 RF: 0 divalproex 500 mg tablet extended release 24 hr See Rx Instructions .ROUTE .COMPLEX Qty: 60 RF: 0 gabapentin 600 mg Tablet 600 - 1,200 mg PO BEDTIME RF: 0 quetiapine 100 mg tablet 100 - 200 mg PO BEDTIME RF: 0 Naprosyn 500 mg tablet 500 mg PO BID PRN (Reason: pain) Qty: 20 RF: 0 Imitrex 50 mg tablet See Rx Instructions .ROUTE .COMPLEX Qty: 9 RF: 0 promethazine 12.5 mg tablet 6.25 mg PO TID PRN (Reason: nausea and vomiting) Qty: 10 RF: 0 Augmentin 875-125 mg tablet 1 tab PO BID Qty: 20 RF: 0 IBU 600 mg tablet 600 mg PO TID PRN (Reason: pain) Qty: 20 RF: 0 promethazine 25 mg tablet 25 mg PO Q6H Qty: 12 RF: 0 ciprofloxacin HCl 500 mg tablet 500 mg PO BID Qty: 14 RF: 0 dicyclomine 20 mg tablet 20 mg PO QID Qty: 10 RF: 0 lisinopril 20 mg tablet 10 mg PO BID RF: 0 amlodipine 10 mg tablet 10 mg PO DAILY RF: 0 paroxetine HCl 30 mg tablet 30 mg PO DAILY RF: 0 Aristada 882 mg/3.2 mL suspension,extended rel syring 882 mg IM Q30D RF: 0 buspirone 30 mg Tablet 30 mg PO BID RF: 0 oxcarbazepine [Trileptal] 600 mg tablet 600 mg PO BID RF: 0 testosterone cypionate 200 mg/mL oil See Rx Instructions .ROUTE .COMPLEX RF: 0 albuterol sulfate 90 mcg/actuation aerosol powdr breath activated 2 inh INHALATION Q6H PRN (Reason: shortness of breath or wheezing) Qty: 1 RF: 0 promethazine 25 mg tablet 25 mg PO TID PRN (Reason: nausea and vomiting) Qty: 10 RF: 0 Lomotil 2.5-0.025 mg tablet 1 tab PO Q8H PRN (Reason: diarrhea) Qty: 6 RF: 0 Discharge Orders: Discharge ED (Routine); Ordered 04/25/21 Ordered By: Angelo Kellogg Discharge Diet: Usual diet Discharge Activity: Increase activity as tolerated Patient Instructions: Dysuria (ED) Activity Restrictions/Additional Instructions: Drink plenty water. Take medication as directed. Follow-up with primary care for further instruction. Return to the ER for worsening symptoms nausea and vomiting, or fever greater than 100.4. Coding Level of Care Code ED Cleaning Manager for 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
[2021-04-25 21:56] LABS: Add Urine Microscopic? YES; Bilirubin Urine Neg (Negative); Blood Urine 3+ (Negative); Glucose Urine UA Norm (Normal); Ketones Urine Negative (Negative); Leukocyte Esterase Urine 2+ (Negative); Nitrate Urine Negative (Negative); Protein Urine Neg (Negative); Urine Appearance SL Hazy (CLEAR); Urine Color Yellow (Yellow); Urobilinogen Urine Norm (Negative); pH Urine 5 (5-7)
[2021-04-25 21:59] LABS: Add Urine Culture? Yes; Bacteria Urine TRACE /hpf; RBC Urine 25-40 /hpf (0-2); Squamous Epithelial Cell Urine 0-4 /hpf (0-5)
[2021-04-25] MEDS: cefTRIAXone 1,000 MG in lidocaine 1% 2.1 ML 999 MG IM (22:35)
== END 2021-04-25 22:43 | disposition home or self-care (01) ==
PROVIDERS: Emergency Provider Nurse Practitioner Family
DX: N30.01 Acute cystitis with hematuria (principal); F17.220 Nicotine dependence, chewing tobacco, uncomplicated
CPT/HCPCS: 81001; 87086; 96372; 99283; J0696

== ENCOUNTER 2021-07-22 17:58 | Emergency (ER) | payer BC, MEDICAID, SELFPAY ==
[2021-07-22 18:04] VITALS: BP 123/79; PULSE 82; RESP 16; TEMP 36.8; O2SAT 96; BMI 34.7
--- NOTE | 2021-07-22 18:18 | CTR_ITS ---
PROCEDURE INFORMATION: Exam: CT Abdomen And Pelvis With Contrast Exam date and time: 07/22/2021 7:05 PM Age: 35 years old Clinical indication: Abdominal pain; Localized; Right lower quadrant (rlq); Additional info: Abd pain TECHNIQUE: Imaging protocol: Computed tomography of the abdomen and pelvis with contrast. Radiation optimization: All CT scans at this facility use at least one of these dose optimization techniques: automated exposure control; mA and/or kV adjustment per patient size (includes targeted exams where dose is matched to clinical indication); or iterative reconstruction. Contrast material: OMNI; Contrast volume: 300 ml; Contrast route: INTRAVENOUS (IV); COMPARISON: CT abdomen pelvis w con* [id number] 10/19/2020 5:15 AM RADIATION DOSE METRICS: Total DLP (mGy-cm): 1765.49 FINDINGS: Liver: Normal. No mass. Gallbladder and bile ducts: Normal. No calcified stones. No ductal dilation. Pancreas: Normal. No ductal dilation. Spleen: Normal. No splenomegaly. Adrenal glands: Normal. No mass. Kidneys and ureters: Tiny renal stones are present in both kidneys. No ureteral stone or hydronephrosis. Stomach and bowel: Unremarkable. No obstruction. No mucosal thickening. Appendix: The appendix is normal. Intraperitoneal space: Unremarkable. No free air. No significant fluid collection. Vasculature: Unremarkable. No abdominal aortic aneurysm. Lymph nodes: Unremarkable. No enlarged lymph nodes. Urinary bladder: Unremarkable as visualized. Reproductive: The uterus and ovaries appear normal. Bones/joints: Unremarkable. No acute fracture. Soft tissues: Mild stranding and nodular foci and bilateral gluteal subcutaneous tissues are likely injection sites. CT/CT abdomen pelvis w con* [id number] IMPRESSION: 1. No acute abnormality is seen in the abdomen or pelvis. The appendix is normal. 2. Nephrolithiasis.
[2021-07-22 18:26] LABS: Basophils % 0.5 %; Eosinophils # 0.1 10^3/uL (0.0-0.8); Eosinophils % 1.8 %; Hematocrit 42.1 % (42.0-52.0); Hemoglobin 14.4 g/dL (11.7-16.6); Lymphocytes # 2.2 10^3/uL (0.8-4.8); Lymphocytes % 35.4 %; Mean Corpuscular HGB Conc 34.2 g/dL (30.0-36.0); Mean Corpuscular Hemoglobin 32.3 pg (28.0-34.0); Mean Corpuscular Volume 94.4 fl (80-94); Mean Platelet Volume 10.6 fL (7.4-10.4); Monocytes # 0.4 10^3/uL (0.2-0.9); Monocytes % 6.4 %; Neutrophils # 3.48 10^3/uL (1.8-7.7); Neutrophils % 55.4 %; Nucleated Red Blood Cells % 0 %; Platelet Count 207 10^3/cmm (130-400); Red Blood Count 4.46 10^6/uL (4.1-5.3); Red Cell Distribution Width 12.9 % (12.1-15.1); White Blood Count 6.3 10^3/uL (4.0-10.0)
--- NOTE | 2021-07-22 18:27 | W.ED.ABDPA2 ---
HPI - Abdominal Pain General: Chief Complaint: Abdominal Pain Stated Complaint: Lower Rt abd pain Time Seen by Provider: 07/22/21 18:17 Source: patient Mode of arrival: ambulatory Limitations: no limitations History of Present Illness: 35-year-old male states he been having diffuse abdominal pains for roughly 2 to 3 months. He states been trying to get into GI specialist but has not been able to. He states that last 1 to 2 days his pain is actually worsened. Pain is mainly in the lower abdomen today been having diarrhea vomiting rates his pain a 6 out of 10 denies any worsening proving factors. Associated Symptoms: Denies chills, diarrhea, dysuria, fever(s), nausea and vomiting Review of Systems Const: Denies: fever(s), chills, body aches or change in appetite Eyes: Denies: blurry vision or eye discomfort ENMT: Denies: throat pain or dental pain Card: Denies: chest pain Resp: Denies: dyspnea GI: Denies: abdominal pain, nausea, vomiting or diarrhea : Denies: dysuria Musc: Denies: neck pain or back pain Skin/Breast: Denies: rash Neuro: Denies: headache(s) Psych: Denies: depression Caleb/Lymph: Denies: easy bruising All/Imm: Denies: urticaria PFSH ED PFSH: Medical History ADHD Bipolar 1 disorder Decreased glomerular filtration rate (GFR) Degenerative arthritis of spine Epilepsy Obesity (BMI 30.0-34.9) Pneumonitis PTSD (post-traumatic stress disorder) Pyloric stenosis Seizure disorder Surgical History History of adenectomy Hx of tonsillectomy Family History Other Cancer Social History Smoking and tobacco status: current every day smoker smokeless tobacco Smokeless tobacco user: chewing tobacco Alcohol intake: current Alcohol intake frequency: 0-2 Drinks per Day Alcohol type: hard liquor Current occupational status: unemployed History of recent travel: No Current gender identity: Male Physical Exam Const: COMMON NORMALS: no acute distress, patient oriented x3 and healthy appearing HENMT: COMMON NORMALS: normocephalic and atraumatic HEAD & SCALP: normocephalic and atraumatic Eye: COMMON NORMALS: Equal, round and reactive pupils present and EOMs intact bilaterally PUPIL: Yes Equal, round and reactive pupils present Neck/C-Spine: COMMON NORMALS: full ROM and supple Chest: COMMONS NORMALS: normal inspection of the chest and normal palpation of entire chest wall Resp: COMMON NORMALS: normal respiratory effort, No retractions, No use of accessory muscles and clear to auscultation bilaterally AUSCULTATION: clear to auscultation bilaterally Cardio: COMMON NORMALS: regular rate, regular rhythm and No murmurs present (Cardio) RATE: regular rate RHYTHM: regular rhythm GI: COMMON NORMALS: Normal to inspection, nondistended, normoactive bowel sounds present, Soft to palpation and no masses PALPATION: Yes Soft to palpation OTHER: diffuse mild tenderness Extremity: COMMON NORMALS: normal to inspection and full ROM Neuro: COMMON NORMALS: patient oriented x3, moves all extremities and no focal motor deficits Psych: COMMON NORMALS: mental status grossly normal, Normal thought process present and cooperative THOUGHT PROCESS: Normal thought process present Skin: COMMON NORMALS: no rashes or lesions noted and no wounds GENERAL SKIN EXAM: no rashes or lesions noted Course Vital Signs: Vital signs: Vital Signs Temperature 98.3 F 07/22/21 18:04 Pulse Rate 71 07/22/21 19:49 Respiratory Rate 16 07/22/21 19:49 Blood Pressure 114/66 07/22/21 19:49 Pulse Oximetry 96 07/22/21 19:49 MDM - Abdominal Pain Medical Decision Making Patient presents with abdominal pain has been chronic in nature CT and blood work here is all normal his pain is improved. We will get him follow-up with surgery prescribe him [place] and Zofran for home he is to return if worsening. Lab Data : 07/22/21 18:14 07/22/21 18:14 Labs/Radiology: Radiology Impressions Abdomen/Pelvis CT 07/22/21 18:18 IMPRESSION: 1. No acute abnormality is seen in the abdomen or pelvis. The appendix is normal. 2. Nephrolithiasis. Laboratory Results WBC 6.3 10^3/uL (4.0-10.0) 07/22/21 18:14 RBC 4.46 10^6/uL (4.1-5.3) 07/22/21 18:14 Hgb 14.4 g/dL (11.7-16.6) 07/22/21 18:14 Hct 42.1 % (42.0-52.0) 07/22/21 18:14 MCV 94.4 fl (80-94) H 07/22/21 18:14 MCH 32.3 pg (28.0-34.0) 07/22/21 18:14 MCHC 34.2 g/dL (30.0-36.0) 07/22/21 18:14 RDW 12.9 % (12.1-15.1) 07/22/21 18:14 Plt Count 207 10^3/cmm (130-400) 07/22/21 18:14 MPV 10.6 fL (7.4-10.4) H 07/22/21 18:14 Neut % (Auto) 55.4 % 07/22/21 18:14 Lymph % (Auto) 35.4 % 07/22/21 18:14 [place] % (Auto) 6.4 % 07/22/21 18:14 Eos % (Auto) 1.8 % 07/22/21 18:14 Baso % (Auto) 0.5 % 07/22/21 18:14 Neut # (Auto) 3.48 10^3/uL (1.8-7.7) 07/22/21 18:14 Lymph # (Auto) 2.2 10^3/uL (0.8-4.8) 07/22/21 18:14 [place] # (Auto) 0.4 10^3/uL (0.2-0.9) 07/22/21 18:14 Eos # (Auto) 0.1 10^3/uL (0.0-0.8) 07/22/21 18:14 Baso # (Auto) 0.0 10^3/uL (0.0-0.1) 07/22/21 18:14 Nucleated RBC % (auto) 0 % 07/22/21 18:14 Nucleated RBCs # 0.0 /100WBC 07/22/21 18:14 Sodium 138 mmol/L (136-145) 07/22/21 18:14 Potassium 4.3 mmol/L (3.5-5.1) 07/22/21 18:14 Chloride 103 mmol/L (98-107) 07/22/21 18:14 Carbon Dioxide 26 mmol/L (22-29) 07/22/21 18:14 Anion Gap 13.3 (5-19) 07/22/21 18:14 BUN 12 mg/dL (6-20) 07/22/21 18:14 Creatinine 1.0 mg/dL (0.7-1.2) 07/22/21 18:14 GFR Calculation 84.5 mL/min (90-130) L 07/22/21 18:14 Glucose 97 mg/dL (65-115) 07/22/21 18:14 Calculated Osmolality 286 mOsm/kg (285-295) 07/22/21 18:14 Calcium 9.3 mg/dL (8.5-10.5) 07/22/21 18:14 Total Bilirubin 0.2 mg/dL (0.15-1.2) 07/22/21 18:14 AST 25 U/L (0-40) 07/22/21 18:14 ALT 25 U/L (0-41) 07/22/21 18:14 Alkaline Phosphatase 62 IU/L (40-130) 07/22/21 18:14 Total Protein 7.0 g/dL (6.6-8.7) 07/22/21 18:14 Albumin 4.2 g/dL (3.5-5.2) 07/22/21 18:14 Globulin 2.8 g/dL (1.3-4.6) 07/22/21 18:14 Lipase 52 U/L (13-60) 07/22/21 18:14 Urine Color Yellow (Yellow) 07/22/21 18:40 Urine Appearance Cloudy (CLEAR) 07/22/21 18:40 Urine pH 8 (5-7) H 07/22/21 18:40 Ur Specific [place] 1.030 (1.005-1.030) 07/22/21 18:40 Urine Protein Neg (Negative) 07/22/21 18:40 Urine Glucose (UA) Norm (Normal) 07/22/21 18:40 Urine Ketones Negative (Negative) 07/22/21 18:40 Urine Blood 2+ (Negative) H 07/22/21 18:40 Urine Nitrate Negative (Negative) 07/22/21 18:40 Urine Bilirubin Neg (Negative) 07/22/21 18:40 Urine Urobilinogen Norm mg/dL (Negative) 07/22/21 18:40 Ur Leukocyte Esterase 2+ (Negative) H 07/22/21 18:40 Urine RBC 0-4 /hpf (0-2) H 07/22/21 18:40 Urine WBC 10-15 /hpf (0-5) H 07/22/21 18:40 Ur Squamous Epith Cells 0-4 /hpf (0-5) H 07/22/21 18:40 Amorphous Sediment Not Reportable 07/22/21 18:40 Urine Bacteria Trace /hpf (NONE) 07/22/21 18:40 Discharge Plan Discharge Patient Disposition: Home Clinical Impression: Abdominal pain Qualifiers: Abdominal location: generalized Qualified Code(s): R10.84 - Generalized abdominal pain Condition: Stable Prescriptions: New hydrocodone-acetaminophen 5-325 mg tablet 1 tab PO Q6H PRN (Reason: pain) Qty: 14 0RF ondansetron 4 mg tablet,disintegrating 4 mg PO Q6H PRN (Reason: nausea and vomiting) Qty: 14 0RF No Action Vivitrol 380 mg suspension,extended rel recon 380 mg IM Q30D 0RF Rx Instructions: pt states due to get 03/25/2020 ondansetron HCl [Zofran] 4 mg tablet 4 mg PO Q8H PRN (Reason: nausea and vomiting) Qty: 20 0RF divalproex 500 mg tablet extended release 24 hr 500 mg PO BID Qty: 60 0RF Rx Instructions: Take one tablet twice daily. gabapentin 600 mg Tablet 600 - 1,200 mg PO BEDTIME 0RF quetiapine 100 mg tablet 100 - 200 mg PO BEDTIME 0RF Naprosyn 500 mg tablet 500 mg PO BID PRN (Reason: pain) Qty: 20 0RF Imitrex 50 mg tablet See Rx Instructions .ROUTE .COMPLEX Qty: 9 0RF Rx Instructions: take 1 tab at onset of headache; if no relief may repeat 1 tab after at least 2 hrs; max = 4 tabs/24 hr promethazine 12.5 mg tablet 6.25 mg PO TID PRN (Reason: nausea and vomiting) Qty: 10 0RF Rx Instructions: 3 doses during day; last dose no later than 4 hr before bedtime IBU 600 mg tablet 600 mg PO TID PRN (Reason: pain) Qty: 20 0RF Rx Instructions: take 1 PO TID PRN pain - take with food to avoid stomach upset promethazine 25 mg tablet 25 mg PO Q6H Qty: 12 0RF lisinopril 20 mg tablet 10 mg PO BID 0RF amlodipine 10 mg tablet 10 mg PO DAILY 0RF paroxetine HCl 30 mg tablet 30 mg PO DAILY 0RF Aristada 882 mg/3.2 mL suspension,extended rel syring 882 mg IM Q30D 0RF Rx Instructions: pt states due to get 03/25/2020 buspirone 30 mg Tablet 30 mg PO BID 0RF oxcarbazepine [Trileptal] 600 mg tablet 600 mg PO BID 0RF testosterone cypionate 200 mg/mL oil See Rx Instructions .ROUTE .COMPLEX 0RF Rx Instructions: 0.75ml im every other week pt states due to get tuesday03/16/2020 albuterol sulfate 90 mcg/actuation aerosol powdr breath activated 2 inh INHALATION Q6H PRN (Reason: shortness of breath or wheezing) Qty: 1 0RF promethazine 25 mg tablet 25 mg PO TID PRN (Reason: nausea and vomiting) Qty: 10 0RF Lomotil 2.5-0.025 mg tablet 1 tab PO Q8H PRN (Reason: diarrhea) Qty: 6 0RF Discharge Orders: Discharge ED (Routine); Ordered 07/22/21 Ordered By: Josie Houser Referrals: Aidan Maravilla MD [Physician] - 1-3 days Discharge Diet: Advance as tolerated Discharge Activity: Resume usual activity Patient Instructions: Abdominal Pain (ED) Coding Level of Care Code ED Chief Operator Lock Tender for Chg 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
[2021-07-22 18:35] VITALS: RESP 18
[2021-07-22] MEDS: HYDROmorphone 1 mg/mL INJ 1 mL 0.5 MG IVP (18:35)
[2021-07-22] MEDS: sodium chloride 0.9% 1,000 ML 999 ML IV (18:35)
[2021-07-22] MEDS: ondansetron 2 mg/ML SDV 2 mL 4 MG IVP (18:36)
[2021-07-22 18:53] LABS: Albumin Level 4.2 g/dL (3.5-5.2); Alkaline Phosphatase 62 IU/L (40-130); Anion Gap 13.3 (5-19); Blood Urea Nitrogen 12 mg/dL (6-20); Calcium 9.3 mg/dL (8.5-10.5); Carbon Dioxide 26 mmol/L (22-29); Chloride 103 mmol/L (98-107); Creatinine Clr Calc Pharmacy 111.6394; Globulin 2.8 g/dL (1.3-4.6); Glomerular Filtration Rate 84.5 mL/min (90-130); Glucose 97 mg/dL (65-115); Lipase 52 U/L (13-60); Osmolality Calculated 286 mOsm/kg (285-295); Potassium 4.3 mmol/L (3.5-5.1); Sodium 138 mmol/L (136-145); Total Bilirubin 0.2 mg/dL (0.15-1.2)
[2021-07-22] MEDS: iohexol 300 mg/mL 100 mL Btl IV (19:05)
[2021-07-22 19:06] LABS: Alanine Aminotransferase 25 U/L (0-41)
[2021-07-22 19:22] LABS: Aspartate Amino Transferase 25 U/L (0-40)
[2021-07-22 19:49] VITALS: BP 114/66; PULSE 71; RESP 16; O2SAT 96
[2021-07-22 19:55] LABS: Add Urine Microscopic? YES; Bilirubin Urine Neg (Negative); Blood Urine 2+ (Negative); Glucose Urine UA Norm (Normal); Ketones Urine Negative (Negative); Leukocyte Esterase Urine 2+ (Negative); Nitrate Urine Negative (Negative); Protein Urine Neg (Negative); Urine Appearance Cloudy (CLEAR); Urine Color Yellow (Yellow); Urobilinogen Urine Norm (Negative); pH Urine 8 (5-7)
[2021-07-22 19:56] LABS: Bacteria Urine TRACE /hpf; RBC Urine 0-4 /hpf (0-2); Squamous Epithelial Cell Urine 0-4 /hpf (0-5)
[2021-07-22 20:56] VITALS: BP 114/79; PULSE 71; O2SAT 96
--- NOTE | 2021-07-23 11:32 | DCPLANNER ---
Addendum entered by Ave Gilmore 08/05/21 15:22: concert manager called the office of Dr. Maravilla, spoke with Humaira, to confirm that a follow up appointment had been scheduled for patient. concert manager was told that clinic has called patient and left a voicemail for patient to call clinic to schedule a followup appointment if they would like to be seen. Clinic is waiting for patient to call clinic. Original Note: concert manager had message to schedule a follow up appointment for patient with Dr. Maravilla. concert manager faxed patients information to the office of Dr. Maravilla. Patients information will be printed and reviewed. Clinic will call patient with appointment information.
== END 2021-07-22 20:40 | disposition home or self-care (01) ==
PROVIDERS: Emergency Provider Emergency Medicine
DX: R10.84 Generalized abdominal pain (principal); F17.220 Nicotine dependence, chewing tobacco, uncomplicated
CPT/HCPCS: 74177; 80053; 81001; 83690; 85025; 96361; 96374; 96375; 99283; J1170; J2405; J7030; Q9967

== ENCOUNTER → 2021-08-17 15:35 | Outpatient (BNVA) | payer BC, MEDICAID, SELFPAY | PROVIDERS: Visit Provider Nurse Practitioner | DX: G40.309 Generalized idiopathic epilepsy and epileptic syndromes, not intractable, without status epilepticus (principal); G43.909 Migraine, unspecified, not intractable, without status migrainosus | CPT/HCPCS: 99213; 99214 ==

== ENCOUNTER 2021-08-28 15:47 | Outpatient (CLI) | payer BC, MEDICAID, SELFPAY ==
--- NOTE | 2021-08-28 16:03 | MR_ITS ---
WS: [id number] MRI HEAD WITH CONTRAST WITH ATTENTION TO THE INTERNAL AUDITORY CANALS TECHNIQUE: Sagittal T1, T2 axial, T2 axial flair, axial susceptibility weighted imaging, axial diffus ion weighted images, and coronal T2 images were obtained. Pre and post T1 axial and post T1 coronal i mages. ADC and FSPGR images. Post gadolinium images with attention to the internal auditory canals. A xial fiesta imaging. CLINICAL INFORMATION: SENSIORINEURAL HEARING LOSS, BILATERAL COMPARISON: MRI October 22, 2020 FINDINGS: No evidence of restricted diffusion to suggest acute ischemia. Ventricular system and basal cisterns are patent. Normal posterior fossa. Normal vascular flow voids at the skull base. No extra-axial flui d collections. No evidence of mass or mass effect. Paranasal sinuses and mastoid air cells are well aerated. No hemosiderin on susceptibly weighted imag es. Proximal 7th and 8th cranial nerves are normal in appearance. No evidence of enhancing IAC or CP angle mass. Normal optic chiasm and pituitary infundibulum. Normal trigeminal nerve root entry zones. Normal cavernous sinuses and Meckel's cave. Normal dural venous sinuses. No suspicious intracranial signal abnormalities. MR/MR iac's wo/w con* [id number] IMPRESSION: 1. No evidence of restricted diffusion to suggest acute ischemia. 2. No suspicious intracranial signal abnormalities. 3. Normal 7th and 8th cranial nerves. No evidence of enhancing IAC or CP angle mass. 4. Normal trigeminal nerve root entry zones. 5. No abnormal intracranial enhancement. 6. Normal optic chiasm and pituitary infundibulum. 7. No other significant findings.
[2021-08-28] MEDS: gadobenate dimeglumine 20 mL vial IV (17:07)
== END 2021-08-28 15:48 | disposition home or self-care (01) ==
LOC: RAD 15:49
PROVIDERS: Visit Provider Otolaryngology
DX: H90.3 Sensorineural hearing loss, bilateral (principal)
CPT/HCPCS: 70553

== ENCOUNTER → 2021-09-29 08:25 | Outpatient (BNVA) | payer BC, MEDICAID, SELFPAY | PROVIDERS: PCP Nurse Practitioner Family; Referring Provider Nurse Practitioner Family; Visit Provider Surgery | DX: R11.2 Nausea with vomiting, unspecified (principal); R10.11 Right upper quadrant pain | CPT/HCPCS: 99204 ==

== ENCOUNTER 2021-09-30 08:00 | Day surgery (SDC) | payer BC, MEDICAID, SELFPAY ==
[2021-09-29 14:08] VITALS: BMI 35.5
[2021-09-30 08:26] VITALS: BP 131/76; PULSE 77; RESP 18; TEMP 36.2; O2SAT 96
[2021-09-30] MEDS: sodium chloride 0.9% 1,000 ML 30 ML IV (08:38)
--- NOTE | 2021-09-30 08:45 | P.HP_ITS ---
Same Day Surgery H&P Indication for Procedure/HPI DATE OF PROCEDURE: September 30, 2021 CHIEF COMPLAINT/INDICATIONFOR SURGICAL PROCEDURE: egd PREOP DIAGNOSIS: upper gi symptoms PLANNED PROCEDURE: Operation Date: 09/30/21 09:15 Proposed Procedures p EGD 84101,R11.2(Not Applicable) - Ethan Retana MD Medications/Allergies* Home Medications Medication Instructions Recorded Confirmed Type aripiprazole lauroxil 882 mg/3.2 882 mg IM Q30D 11/09/19 09/30/21 History mL suspension, ext.rel. IM syringe ([place]) buspirone 30 mg tablet 15 mg PO TIDWMEAL tab 09/18/21 09/30/21 History diclofenac sodium 75 mg 75 mg PO BID 09/18/21 09/30/21 History tablet,delayed release divalproex 500 mg tablet,extended 750 mg .ROUTE BID tab 09/18/21 09/30/21 History release 24 hr lemborexant 10 mg tablet (Dayvigo) 10 mg PO .HS tab 09/18/21 09/30/21 History prazosin 1 mg capsule 1 mg PO .HS cap 09/18/21 09/30/21 History testosterone cypionate 200 mg/mL See Rx Instructions .ROUTE .COMPLEX 09/18/21 09/30/21 History intramuscular oil Allergies/Adverse Reactions Allergy/AdvReac Type Severity Reaction Status Date / Time carbamazepine [From Tegretol] Allergy RASH Verified 09/29/21 08:28 cyclobenzaprine Allergy RASH Verified 09/29/21 08:28 [From Flexeril] nalbuphine [From Nubain] Allergy RASH Verified 09/29/21 08:28 tizanidine Allergy Unknown Verified 09/29/21 08:28 zolpidem [From Ambien] Allergy RASH Verified 09/29/21 08:28 Current Medications: Generic Name Dose Route Start Last Admin Trade Name Freq PRN Reason Stop Dose Admin Sodium Chloride 1,000 mls @ 30 mls/hr 09/30/21 08:15 09/30/21 08:38 Sodium Chloride 0.9% IV 10/01/21 08:14 30 mls/hr .Q24H KRISHNA Administration Pertinent History/Comorbid Conditions* Medical History (Updated 09/29/21 @ 10:01 by Lore Castro) ADHD Bipolar 1 disorder Degenerative arthritis of spine Epilepsy Migraine headache Pneumonitis Psychiatric care PTSD (post-traumatic stress disorder) Pyloric stenosis Seizure disorder Surgical History (Updated 02/14/20 @ 13:33 by Eric Finch MD) History of adenectomy Hx of tonsillectomy Family History (Updated 02/14/20 @ 09:18 by Yenni Day LPN) Cancer Social History Smoking and tobacco status: current every day smoker smokeless tobacco Smokeless tobacco user: chewing tobacco Alcohol intake: current Alcohol intake frequency: 0-2 Drinks per Day Alcohol type: hard liquor Current occupational status: unemployed History of recent travel: No Current gender identity: Male Pertinent Exam Findings alert, oriented x 3 and regular rate & rhythm Recommendations Surgery/Procedure today Coding Level of Care Code Acute Regional Loss Prevention Manager for Taylor Saul
--- NOTE | 2021-09-30 08:53 | ANES.PREANE2 ---
Pre-Anesthetic Assessment Height/Weight: Height 1.68 m Weight 99.79 kg Temp Pulse Resp BP Pulse Ox 97.1 F L 77 18 131/76 96 09/30/21 08:26 09/30/21 08:26 09/30/21 08:26 09/30/21 08:26 09/30/21 08:26 Preop Diagnosis: upper gi symptoms Operation Date: 09/30/21 09:15 Proposed Procedures p EGD 67075,R11.2(Not Applicable) - Ethan Retana MD Last intake: Intake Last Liquid Date 09/29/21 Last Liquid Time 23:30 Last Solid Date 09/29/21 Last Solid Time 23:30 Social Tobacco and No alcohol Exam alert, oriented x 3, clear to auscultation bilaterally and regular rate & rhythm Airway Submandibular: within normal limits Cervical ROM: within normal limits Mallampati: Class II Dentition: chipped Comments: Comments: Front teeth ground down Pulmonary Sleep Apnea CV/HEM Hypertension and None reported reduced GFR Hepatic None reported GI Pyloric stenosis Metabolic None reported Musc/skel None reported Neuropsych Bipolar, Headache and Seizure Anesthetic Plan ASA status: 3 Anesthesia: Anesthesia Evaluation, General and MAC Other: I discussed with the patient risks, goals, and benefits of MAC and general anesthesia. We discussed spectrum of MAC anesthesia including conversion to general as well as possibility of recall of intraoperative stimuli including discomfort/pain. Patient agrees to proceed with MAC. Medications/Allergies Home Medications Medication Instructions Recorded Confirmed Last Taken Type aripiprazole lauroxil 882 mg/3.2 882 mg IM Q30D 11/09/19 09/30/21 08/31/21 History mL suspension, ext.rel. IM syringe ([place]) albuterol sulfate 90 mcg/actuation 2 inh INHALATION Q6H PRN #1 each 01/20/20 09/30/21 09/23/21 Rx breath activated powder inhaler sumatriptan succinate 50 mg tablet See Rx Instructions .ROUTE 07/13/20 09/30/21 08/31/21 Rx (Imitrex) .COMPLEX #9 tab ibuprofen 600 mg tablet (IBU) 600 mg PO TID PRN #20 tab 08/14/20 09/30/21 09/23/21 Rx amlodipine 10 mg tablet 10 mg PO DAILY 90 Days #90 tab 09/18/21 09/30/21 09/29/21 Rx buspirone 30 mg tablet 15 mg PO TIDWMEAL tab 09/18/21 09/30/21 09/29/21 History diclofenac sodium 75 mg 75 mg PO BID 09/18/21 09/30/21 09/23/21 History tablet,delayed release divalproex 500 mg tablet,extended 750 mg .ROUTE BID tab 09/18/21 09/30/21 09/29/21 History release 24 hr lemborexant 10 mg tablet (Dayvigo) 10 mg PO .HS tab 09/18/21 09/30/21 09/29/21 History lisinopril 10 mg tablet 10 mg PO DAILY 90 Days #90 tab 09/18/21 09/30/21 09/29/21 Rx paroxetine HCl 30 mg tablet 30 mg PO DAILY 90 Days #90 tab 09/18/21 09/30/21 09/29/21 Rx prazosin 1 mg capsule 1 mg PO .HS cap 09/18/21 09/30/21 09/29/21 History sertraline 25 mg tablet (Zoloft) 25 mg PO DAILY 90 Days #90 tab 09/18/21 09/30/21 09/29/21 Rx testosterone cypionate 200 mg/mL See Rx Instructions .ROUTE .COMPLEX 09/18/21 09/30/21 09/23/21 History intramuscular oil pantoprazole 40 mg tablet,delayed 40 mg PO BID #28 tab 09/30/21 Unknown Rx release (Protonix) pantoprazole 40 mg tablet,delayed 40 mg PO DAILY 42 Days #60 tab 09/30/21 Unknown Rx release (Protonix) sucralfate 1 gram tablet (Carafate) 1 gm PO Q6H 28 Days #112 tab 09/30/21 Unknown Rx Allergies Allergy/AdvReac Type Severity Reaction Status Date / Time carbamazepine [From Tegretol] Allergy RASH Verified 09/29/21 08:28 cyclobenzaprine Allergy RASH Verified 09/29/21 08:28 [From Flexeril] nalbuphine [From Nubain] Allergy RASH Verified 09/29/21 08:28 tizanidine Allergy Unknown Verified 09/29/21 08:28 zolpidem [From Ambien] Allergy RASH Verified 09/29/21 08:28 Current Medications Generic Name Dose Route Start Last Admin Trade Name Freq PRN Reason Stop Dose Admin Sodium Chloride 1,000 mls @ 30 mls/hr 09/30/21 08:15 09/30/21 08:38 Sodium Chloride 0.9% IV 10/01/21 08:14 30 mls/hr .Q24H KRISHNA Administration PFSH Anesthesia Medical History ADHD Bipolar 1 disorder Degenerative arthritis of spine Epilepsy Migraine headache Pneumonitis Psychiatric care PTSD (post-traumatic stress disorder) Pyloric stenosis Seizure disorder Surgical History (Updated 09/30/21 @ 09:43 by Ethan Retana MD) H/O esophagogastroduodenoscopy (09/30/21) History of adenectomy Hx of tonsillectomy Family History Other Cancer Social History Smoking and tobacco status: current every day smoker smokeless tobacco Smokeless tobacco user: chewing tobacco Alcohol intake: current Alcohol intake frequency: 0-2 Drinks per Day Alcohol type: hard liquor Current occupational status: unemployed History of recent travel: No Current gender identity: Male Data Anesthesia Cardiac Studies: No Data to Display
[2021-09-30 09:40] VITALS: BP 108/82; PULSE 83; RESP 14; TEMP 36.5; O2SAT 97
[2021-09-30 09:51] VITALS: BP 108/77; PULSE 89; RESP 16; O2SAT 99
--- NOTE | 2021-09-30 14:16 | ANE.PACU2 ---
Inpatient post-anesthesia follow up: Airway intact: Yes Vital signs: Temperature 97.7 F Pulse Rate 89 Respiratory Rate 16 Blood Pressure 108/77 Pulse Oximetry 99 Oxygen Delivery Me thod Room Air Oxygen Flow Rate 3 Fraction of Inspir ed Oxygen Hydration adequate: Yes Nausea and vomiting: No Pain level: 1 Mental status: Baseline
== END 2021-09-30 10:20 | disposition home or self-care (01) ==
PROVIDERS: PCP Nurse Practitioner Family; Visit Provider Surgery
PROC: 0DJ08ZZ Inspection of Upper Intestinal Tract, Via Natural or Artificial Opening Endoscopic (ICD-10-PCS; CPT 43235; principal; 2021-09-30 09:15)
DX: R11.2 Nausea with vomiting, unspecified (principal); F17.220 Nicotine dependence, chewing tobacco, uncomplicated; G47.30 Sleep apnea, unspecified; I10 Essential (primary) hypertension; K29.70 Gastritis, unspecified, without bleeding
CPT/HCPCS: 43239; 88305; 88342; J2704; J7030

== ENCOUNTER 2021-10-03 01:49 | Emergency (ER) | payer BC, MEDICAID, SELFPAY ==
[2021-10-03 02:16] VITALS: BP 117/80; PULSE 81; RESP 16; TEMP 36.6; O2SAT 97; BMI 36.1
== END 2021-10-03 05:06 | disposition left against medical advice (07) ==
PROVIDERS: Emergency Provider Family Medicine; PCP Nurse Practitioner Family
DX: Z53.21 Procedure and treatment not carried out due to patient leaving prior to being seen by health care provider (principal); M25.562 Pain in left knee

== ENCOUNTER → 2021-10-06 08:27 | Outpatient (BNVA) | payer BC, MEDICAID, SELFPAY | PROVIDERS: PCP Nurse Practitioner Family; Visit Provider Psychiatry & Neurology Psychiatry | DX: F64.9 Gender identity disorder, unspecified (principal); F60.3 Borderline personality disorder; F33.2 Major depressive disorder, recurrent severe without psychotic features; F43.12 Post-traumatic stress disorder, chronic; F12.21 Cannabis dependence, in remission | CPT/HCPCS: 99204 ==

== ENCOUNTER → 2021-10-07 07:55 | Outpatient (BNVA) | payer BC, MEDICAID, SELFPAY | PROVIDERS: PCP Nurse Practitioner Family; Visit Provider Counselor Professional | DX: F33.2 Major depressive disorder, recurrent severe without psychotic features (principal); F60.3 Borderline personality disorder | CPT/HCPCS: 90837; 90834 ==

== ENCOUNTER → 2021-10-08 11:49 | Outpatient (BNVA) | payer BC, MEDICAID, SELFPAY | PROVIDERS: PCP Nurse Practitioner Family; Visit Provider Psychiatry & Neurology Psychiatry | DX: F60.3 Borderline personality disorder (principal); F43.12 Post-traumatic stress disorder, chronic; F33.2 Major depressive disorder, recurrent severe without psychotic features; F64.9 Gender identity disorder, unspecified; F12.21 Cannabis dependence, in remission | CPT/HCPCS: 96372; 99213 ==

== ENCOUNTER → 2021-10-13 11:49 | Outpatient (BNVA) | payer BC, MEDICAID, SELFPAY | PROVIDERS: PCP Nurse Practitioner Family; Visit Provider Surgery | DX: Z09 Encounter for follow-up examination after completed treatment for conditions other than malignant neoplasm (principal) | CPT/HCPCS: 99212 ==

== ENCOUNTER → 2021-10-28 09:46 | Outpatient (BNVA) | payer BC, MEDICAID, SELFPAY | PROVIDERS: PCP Nurse Practitioner Family; Visit Provider Counselor Professional | DX: F60.3 Borderline personality disorder (principal); F33.2 Major depressive disorder, recurrent severe without psychotic features | CPT/HCPCS: 90834 ==

== ENCOUNTER → 2021-11-10 13:16 | Outpatient (BNVA) | payer BC, SELFPAY | PROVIDERS: PCP Nurse Practitioner Family; Visit Provider Surgery | DX: R10.9 Unspecified abdominal pain (principal) | CPT/HCPCS: 99214 ==

== ENCOUNTER 2021-11-11 03:50 | Emergency (ER) | payer BC, MEDICAID, SELFPAY ==
[2021-11-11 03:59] VITALS: BP 121/64; PULSE 82; RESP 18; TEMP 36.7; O2SAT 96; BMI 35.4
--- NOTE | 2021-11-11 04:00 | US_ITS ---
WS: [id number] RIGHT UPPER QUADRANT ULTRASOUND HISTORY: ruq pain COMPARISON: CT 07/22/2021 and ultrasound 10/21/2020 Liver: 16.5 cm in length. Normal size liver. No bile duct dilatation or mass. Portal Vein: Normal hepatopetal flow with monophasic waveform. Gallbladder: Diffuse contracted gallbladder with mild diffuse wall thickening measuring up to 5 mm. N o acute fluid. Similar findings were noted on the prior ultrasound and CT. No stones are identified i n the contracted gallbladder. CBD: 0.4 cm Pancreas: Partially obscured by gas. Right kidney: 10.2 cm in length. Normal size and echogenicity. No hydronephrosis or mass. Aorta and IVC: Unremarkable abdominal aorta and IVC. No ascites. US/US gall bladder [id number] IMPRESSION: 1. Diffuse contracted gallbladder with mild wall thickening. No adjacent fluid and no stones are identified within the gallbladder. Contracted gallbladder wa s noted on prior studies. Consider chronic cholecystitis as a possible etiology . Differential includes a recent meal with normal gallbladder contraction. 2. No bile duct dilatation.
--- NOTE | 2021-11-11 04:01 | ED_ITS ---
HPI - Abdominal Pain General: Chief Complaint: Abdominal Pain Stated Complaint: abd pain Time Seen by Provider: 11/11/21 03:56 Source: patient Mode of arrival: ambulatory Limitations: no limitations History of Present Illness: 35-year-old female who is transgender from male states that she has a history of gallbladder pain for quite some time she is actually scheduled to have her gallbladder removed next Tuesday states that over the last 2 days she had increasing pain especially through the night with vomiting states she is unable to sleep tonight due to the pain states her pain is currently a 8 out of 10 denies any fever denies any worsening improving factors. Associated Symptoms: Reports nausea and vomiting; Denies chills, dysuria and fever(s) Related Data: Date of Last Menstrual Period: 05/02/12 Review of Systems Const: Denies: fever(s), chills, body aches or change in appetite Eyes: Denies: blurry vision or eye discomfort ENMT: Denies: throat pain or dental pain Card: Denies: chest pain Resp: Denies: dyspnea GI: Reports: abdominal pain, nausea and vomiting : Denies: dysuria Musc: Denies: neck pain or back pain Skin/Breast: Denies: rash Neuro: Denies: headache(s) Psych: Denies: depression Caleb/Lymph: Denies: easy bruising All/Imm: Denies: urticaria PFSH ED PFSH: Medical History ADHD Bipolar 1 disorder Degenerative arthritis of spine Epilepsy History of Helicobacter pylori infection Migraine headache Pneumonitis Psychiatric care PTSD (post-traumatic stress disorder) Pyloric stenosis Seizure disorder Surgical History H/O esophagogastroduodenoscopy (09/30/21) History of adenectomy Hx of tonsillectomy Family History Other Cancer Social History Smoking and tobacco status: current every day smoker smokeless tobacco Smokeless tobacco user: chewing tobacco Smokeless tobacco details: one can in less than a day. Quit status (tobacco): has tried quititng Number of times tried to quit tobacco: 4 Second hand smoke exposure: No Alcohol intake: current Alcohol intake frequency: 0-2 Drinks per Day Alcohol type: hard liquor Current occupational status: unemployed History of recent travel: No Current gender identity: Male Female Reproductive History: Date of last menstrual period: 05/02/12 Physical Exam Const: COMMON NORMALS: no acute distress, patient oriented x3 and healthy appearing HENMT: COMMON NORMALS: normocephalic and atraumatic HEAD & SCALP: normocephalic and atraumatic Eye: COMMON NORMALS: Equal, round and reactive pupils present and EOMs intact bilaterally PUPIL: Yes Equal, round and reactive pupils present Neck/C-Spine: COMMON NORMALS: full ROM and supple Chest: COMMONS NORMALS: normal inspection of the chest and normal palpation of entire chest wall Resp: COMMON NORMALS: normal respiratory effort, No retractions, No use of accessory muscles and clear to auscultation bilaterally AUSCULTATION: clear to auscultation bilaterally Cardio: COMMON NORMALS: regular rate, regular rhythm and No murmurs present (Cardio) RATE: regular rate RHYTHM: regular rhythm GI: COMMON NORMALS: Normal to inspection, nondistended, normoactive bowel sounds present, Soft to palpation and no masses PALPATION: Yes Soft to palpation and Yes Tenderness to palpation present (GI) Extremity: COMMON NORMALS: normal to inspection and full ROM Neuro: COMMON NORMALS: patient oriented x3, moves all extremities and no focal motor deficits Psych: COMMON NORMALS: mental status grossly normal, Normal thought process present and cooperative THOUGHT PROCESS: Normal thought process present Skin: COMMON NORMALS: no rashes or lesions noted and no wounds GENERAL SKIN EXAM: no rashes or lesions noted Course Vital Signs: Vital signs: Vital Signs Temperature 98.0 F 11/11/21 03:59 Pulse Rate 72 11/11/21 04:34 Respiratory Rate 16 11/11/21 04:34 Blood Pressure 116/69 11/11/21 04:34 Pulse Oximetry 97 11/11/21 04:34 MDM - Abdominal Pain Medical Decision Making Patient presents with abdominal pain with a history of biliary colic likely causing her pain he has no signs of acute cholecystitis ultrasound blood work here are benign he has a scheduled cholecystectomy with Dr. Garcia I feel he is stable for discharge we will place him on pain meds he is return if worsening he understands agrees plan. Lab Data : 11/11/21 04:10 11/11/21 04:10 Labs/Radiology: Laboratory Results WBC 7.8 10^3/uL (4.0-10.0) 11/11/21 04:10 RBC 4.17 10^6/uL (4.1-5.3) 11/11/21 04:10 Hgb 13.5 g/dL (11.5-15.3) 11/11/21 04:10 Hct 37.8 % (37.0-47.0) 11/11/21 04:10 MCV 90.6 fl (81-99) 11/11/21 04:10 MCH 32.4 pg (28.0-34.0) 11/11/21 04:10 MCHC 35.7 g/dL (30.0-36.0) 11/11/21 04:10 RDW 13.1 % (12.1-15.1) 11/11/21 04:10 Plt Count 146 10^3/cmm (130-400) 11/11/21 04:10 MPV 10.6 fL (7.4-10.4) H 11/11/21 04:10 Neut % (Auto) 64.8 % 11/11/21 04:10 Lymph % (Auto) 26.3 % 11/11/21 04:10 [place] % (Auto) 6.6 % 11/11/21 04:10 Eos % (Auto) 1.5 % 11/11/21 04:10 Baso % (Auto) 0.4 % 11/11/21 04:10 Neut # (Auto) 5.07 10^3/uL (1.8-7.7) 11/11/21 04:10 Lymph # (Auto) 2.1 10^3/uL (0.8-4.8) 11/11/21 04:10 Gates # (Auto) 0.5 10^3/uL (0.2-0.9) 11/11/21 04:10 Eos # (Auto) 0.1 10^3/uL (0.0-0.8) 11/11/21 04:10 Baso # (Auto) 0.0 10^3/uL (0.0-0.1) 11/11/21 04:10 Nucleated RBC % (auto) 0 % 11/11/21 04:10 Nucleated RBCs # 0.0 /100WBC 11/11/21 04:10 Sodium 139 mmol/L (136-145) 11/11/21 04:10 Potassium 4.0 mmol/L (3.5-5.1) 11/11/21 04:10 Chloride 102 mmol/L (98-107) 11/11/21 04:10 Carbon Dioxide 28 mmol/L (22-29) 11/11/21 04:10 Anion Gap 13.0 (5-19) 11/11/21 04:10 BUN 25 mg/dL (6-20) H 11/11/21 04:10 Creatinine 1.1 mg/dL (0.5-0.9) H 11/11/21 04:10 GFR Calculation 56.2 mL/min (90-130) L 11/11/21 04:10 Glucose 110 mg/dL (65-115) 11/11/21 04:10 Calculated Osmolality 293 mOsm/kg (285-295) 11/11/21 04:10 Calcium 9.5 mg/dL (8.5-10.5) 11/11/21 04:10 Total Bilirubin 0.2 mg/dL (0.15-1.2) 11/11/21 04:10 AST 24 U/L (0-32) 11/11/21 04:10 ALT 28 U/L (0-33) 11/11/21 04:10 Alkaline Phosphatase 60 IU/L (35-105) 11/11/21 04:10 Total Protein 6.5 g/dL (6.6-8.7) L 11/11/21 04:10 Albumin 4.1 g/dL (3.5-5.2) 11/11/21 04:10 Globulin 2.4 g/dL (1.3-4.6) 11/11/21 04:10 Lipase 65 U/L (13-60) H 11/11/21 04:10 HCG, Qual Negative (Negative) 11/11/21 04:22 Urine Color Colorless (Yellow) 11/11/21 04:45 Urine Appearance Sl hazy (CLEAR) 11/11/21 04:45 Urine pH 6.5 (5-7) 11/11/21 04:45 Ur Specific [place] 1.010 (1.005-1.030) 11/11/21 04:45 Urine Protein Neg (Negative) 11/11/21 04:45 Urine Glucose (UA) Norm (Normal) 11/11/21 04:45 Urine Ketones Negative (Negative) 11/11/21 04:45 Urine Blood Neg (Negative) 11/11/21 04:45 Urine Nitrate Negative (Negative) 11/11/21 04:45 Urine Bilirubin Neg (Negative) 11/11/21 04:45 Urine Urobilinogen Norm mg/dL (Negative) 11/11/21 04:45 Ur Leukocyte Esterase 2+ (Negative) H 11/11/21 04:45 Urine RBC 0-4 /hpf (0-2) H 11/11/21 04:45 Urine WBC 5-10 /hpf (0-5) H 11/11/21 04:45 Ur Squamous Epith Cells 0-4 /hpf (0-5) H 11/11/21 04:45 Amorphous Sediment 1+ /hpf 11/11/21 04:45 Urine Bacteria Trace /hpf (NONE) 11/11/21 04:45 Discharge Plan Discharge Patient Disposition: Home Clinical Impression: Abdominal pain Qualifiers: Abdominal location: generalized Qualified Code(s): R10.84 - Generalized abdominal pain Condition: Stable Prescriptions: New hydrocodone-acetaminophen 5-325 mg tablet 1 tab PO Q6H PRN (Reason: pain) Qty: 14 0RF ondansetron 4 mg tablet,disintegrating 4 mg PO Q6H PRN (Reason: nausea and vomiting) Qty: 14 0RF No Action divalproex 500 mg tablet extended release 24 hr 750 mg .ROUTE BID 0RF Rx Instructions: 750 mg twice a day; diclofenac sodium 75 mg tablet,delayed release (DR/EC) 75 mg PO BID 0RF amlodipine 10 mg tablet 10 mg PO DAILY 90 Days Qty: 90 1RF lisinopril 10 mg tablet 10 mg PO DAILY 90 Days Qty: 90 1RF furosemide [Lasix] 20 mg tablet 10 mg PO QAM Qty: 7 0RF buspirone 15 mg tablet 15 mg PO TID Qty: 90 1RF sertraline [Zoloft] 100 mg tablet 100 mg PO DAILY Qty: 30 1RF aripiprazole lauroxil 662 mg/2.4 mL suspension,extended rel syring 662 mg IM PER PKG DIR Qty: 2.4 0RF sumatriptan succinate [Imitrex] 50 mg tablet See Rx Instructions .ROUTE .COMPLEX Qty: 9 0RF Rx Instructions: take 1 tab at onset of headache; if no relief may repeat 1 tab after at least 2 hrs; max = 4 tabs/24 hr ibuprofen [IBU] 600 mg tablet 600 mg PO TID PRN (Reason: pain) Qty: 20 0RF Rx Instructions: take 1 PO TID PRN pain - take with food to avoid stomach upset albuterol sulfate 90 mcg/actuation aerosol powdr breath activated 2 inh INHALATION Q6H PRN (Reason: shortness of breath or wheezing) Qty: 1 0RF testosterone cypionate 200 mg/mL oil See Rx Instructions .ROUTE .COMPLEX 0RF Rx Instructions: .5MG EVERY WEEK Protonix 40 mg tablet,delayed release (DR/EC) 40 mg PO BID Qty: 28 0RF Discharge Orders: Discharge ED (Routine); Ordered 11/11/21 Ordered By: Josie Houser Referrals: Dolly Sauceda NP [Primary Care Provider] - Discharge Diet: Advance as tolerated Discharge Activity: Resume usual activity Patient Instructions: Abdominal Pain (ED), Opioid Safety Coding Level of Care Code ED Admissions Consultant for Chg 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
[2021-11-11 04:10] VITALS: RESP 22
[2021-11-11] MEDS: HYDROmorphone 1 mg/mL INJ 1 mL IVP ×2 (04:10→04:56)
[2021-11-11] MEDS: ondansetron 2 mg/ML SDV 2 mL 4 MG IVP ×2 (04:10→04:57)
[2021-11-11] MEDS: sodium chloride 0.9% 1,000 ML 999 ML IV (04:13)
[2021-11-11 04:17] LABS: Basophils % 0.4 %; Eosinophils # 0.1 10^3/uL (0.0-0.8); Eosinophils % 1.5 %; Hematocrit 37.8 % (37.0-47.0); Hemoglobin 13.5 g/dL (11.5-15.3); Lymphocytes # 2.1 10^3/uL (0.8-4.8); Lymphocytes % 26.3 %; Mean Corpuscular HGB Conc 35.7 g/dL (30.0-36.0); Mean Corpuscular Hemoglobin 32.4 pg (28.0-34.0); Mean Corpuscular Volume 90.6 fl (81-99); Mean Platelet Volume 10.6 fL (7.4-10.4); Monocytes # 0.5 10^3/uL (0.2-0.9); Monocytes % 6.6 %; Neutrophils # 5.07 10^3/uL (1.8-7.7); Neutrophils % 64.8 %; Nucleated Red Blood Cells % 0 %; Platelet Count 146 10^3/cmm (130-400); Red Blood Count 4.17 10^6/uL (4.1-5.3); Red Cell Distribution Width 13.1 % (12.1-15.1); White Blood Count 7.8 10^3/uL (4.0-10.0)
[2021-11-11 04:34] VITALS: BP 116/69; PULSE 72; RESP 16; O2SAT 97
[2021-11-11 04:42] LABS: Albumin Level 4.1 g/dL (3.5-5.2); Alkaline Phosphatase 60 IU/L (35-105); Aspartate Amino Transferase 24 U/L (0-32); Blood Urea Nitrogen 25 mg/dL (6-20); Calcium 9.5 mg/dL (8.5-10.5); Carbon Dioxide 28 mmol/L (22-29); Chloride 102 mmol/L (98-107); Globulin 2.4 g/dL (1.3-4.6); Glomerular Filtration Rate 56.2 mL/min (90-130); Glucose 110 mg/dL (65-115); Lipase 65 U/L (13-60); Osmolality Calculated 293 mOsm/kg (285-295); Sodium 139 mmol/L (136-145); Total Bilirubin 0.2 mg/dL (0.15-1.2); Total Protein 6.5 g/dL (6.6-8.7)
[2021-11-11 04:52] LABS: Alanine Aminotransferase 28 U/L (0-33)
[2021-11-11 05:04] VITALS: BP 115/57; PULSE 88; RESP 16; O2SAT 95
[2021-11-11 05:09] LABS: Bilirubin Urine Neg (Negative); Blood Urine Neg (Negative); Glucose Urine UA Norm (Normal); Ketones Urine Negative (Negative); Leukocyte Esterase Urine 2+ (Negative); Nitrate Urine Negative (Negative); Protein Urine Neg (Negative); Urine Appearance SL Hazy (CLEAR); Urine Color Colorless (Yellow); Urobilinogen Urine Norm (Negative); pH Urine 6.5 (5-7)
[2021-11-11 05:10] LABS: HCG, Serum Qual Negative (Negative)
[2021-11-11 05:10] LABS: Add Urine Culture? No; Add Urine Microscopic? YES; Amorphous Sediment Urine 1+ /hpf; Bacteria Urine TRACE /hpf; RBC Urine 0-4 /hpf (0-2); Squamous Epithelial Cell Urine 0-4 /hpf (0-5)
[2021-11-11 05:28] VITALS: BP 115/57; PULSE 88; RESP 16; O2SAT 95
== END 2021-11-11 05:29 | disposition home or self-care (01) ==
PROVIDERS: Emergency Provider Emergency Medicine; PCP Nurse Practitioner Family
DX: R10.84 Generalized abdominal pain (principal); F17.220 Nicotine dependence, chewing tobacco, uncomplicated
CPT/HCPCS: 76705; 80053; 81001; 83690; 84703; 85025; 96374; 96375; 96376; 99284; J1170; J2405; J7030

== ENCOUNTER → 2021-11-13 11:11 | Outpatient (BNVA) | payer BC, MEDICAID, SELFPAY | PROVIDERS: PCP Nurse Practitioner Family; Visit Provider Family Medicine Adult Medicine | DX: J02.9 Acute pharyngitis, unspecified (principal); J06.9 Acute upper respiratory infection, unspecified | CPT/HCPCS: 87880 ==

== ENCOUNTER → 2021-11-16 09:15 | Outpatient (BNVA) | payer BC, MEDICAID, SELFPAY | PROVIDERS: PCP Nurse Practitioner Family; Visit Provider Nurse Practitioner Family | DX: J06.9 Acute upper respiratory infection, unspecified (principal); F32.4 Major depressive disorder, single episode, in partial remission; N18.31 Chronic kidney disease, stage 3a; Z51.81 Encounter for therapeutic drug level monitoring; Z79.899 Other long term (current) drug therapy | CPT/HCPCS: 80053; 80164 ==

== ENCOUNTER 2021-11-18 07:19 | Day surgery (SDC) | payer BC, MEDICAID, SELFPAY ==
[2021-11-17 08:47] VITALS: BMI 35.7
[2021-11-18] VITALS (9 sets, daily range): BP systolic 108–159; BP diastolic 76–95; PULSE 71–94; RESP 15–21; TEMP 36.2–36.8; O2SAT 93–100
--- NOTE | 2021-11-18 07:51 | W.PM.OPSUD ---
Surgery/Procedure H&P Update DATE OF PROCEDURE: November 18, 2021 DATE H&P PERFORMED: 11/10/21 CHANGES TO PREVIOUS DOCUMENTATION: none PREOP DIAGNOSIS: Right upper quadrant syndrome PLANNED PROCEDURE: Operation Date: 11/18/21 09:00 Proposed Procedures p Laparoscopic Cholecystectomy 06102,R10.9(Not Applicable) - Ignacio Patel DO
[2021-11-18] MEDS: sodium chloride 0.9% 1,000 ML 30 ML IV (08:03)
--- NOTE | 2021-11-18 08:09 | ANES.PREANE2 ---
Pre-Anesthetic Assessment Height/Weight: Height 1.65 m Weight 97.522 kg Temp Pulse Resp BP Pulse Ox 97.5 F L 75 18 108/79 100 11/18/21 07:42 11/18/21 07:42 11/18/21 07:42 11/18/21 07:42 11/18/21 07:42 Preop Diagnosis: Right upper quadrant syndrome Operation Date: 11/18/21 09:00 Proposed Procedures p Laparoscopic Cholecystectomy 45933,R10.9(Not Applicable) - Ignacio Patel DO Familial anesthetic complications: None Was Beta Candis taken within 24 hours: N/A Was Clonidine taken within 24 hours: N/A Last intake: Intake Last Liquid Date 11/17/21 Last Liquid Time 23:00 Last Solid Date 11/17/21 Last Solid Time 23:00 Social Tobacco (chews) Exam alert, oriented x 3, clear to auscultation bilaterally and regular rate & rhythm Airway Mallampati: Class III Dentition: full Pulmonary Sleep Apnea CV/HEM Hypertension Metabolic Morbid Obesity Neuropsych Seizure (did not take his depakote this morning - will give pre-op versed for anxiety and seizure ppx) Anesthetic Plan ASA status: 3 Anesthesia: General Risk of > 500 ml blood loss (7ml/kg in children): No Medications/Allergies Home Medications Medication Instructions Recorded Confirmed Last Taken Type albuterol sulfate 90 mcg/actuation 2 inh INHALATION Q6H PRN #1 each 01/20/20 11/18/21 11/17/21 Rx breath activated powder inhaler amlodipine 10 mg tablet 10 mg PO DAILY 90 Days #90 tab 09/18/21 11/17/21 09/29/21 Rx divalproex 500 mg tablet,extended 750 mg PO BID tab 09/18/21 11/18/21 11/17/21 History release 24 hr lisinopril 10 mg tablet 10 mg PO DAILY 90 Days #90 tab 09/18/21 11/18/21 11/17/21 Rx testosterone cypionate 200 mg/mL 200 mg IM DIRECTED 09/18/21 11/17/21 09/23/21 History intramuscular oil pantoprazole 40 mg tablet,delayed 40 mg PO BID #28 tab 09/30/21 11/18/21 11/17/21 Rx release (Protonix) furosemide 20 mg tablet (Lasix) 10 mg PO QAM #7 tab 10/03/21 11/17/21 Unknown Rx buspirone 15 mg tablet 15 mg PO TID #90 tab 10/06/21 11/18/21 11/17/21 Rx sertraline 100 mg tablet (Zoloft) 100 mg PO DAILY #30 tab 10/06/21 11/18/21 11/17/21 Rx aripiprazole lauroxil 662 mg/2.4 662 mg (2.4 mL) IM PER PKG DIR 10/08/21 11/17/21 Unknown Rx mL suspension, ext.rel. IM syringe #2.4 ml hydrocodone 5 mg-acetaminophen 325 1 tab PO Q6H PRN #14 tab 11/11/21 11/18/21 11/17/21 Rx mg tablet ondansetron 4 mg disintegrating 4 mg PO Q6H PRN #14 tab 11/11/21 11/17/21 Unknown Rx tablet amoxicillin 875 mg tablet 875 mg PO BID #14 tab 11/13/21 11/18/21 11/17/21 Rx fluticasone propionate 50 2 spray INTRANASAL BID PRN #16 g 11/13/21 11/18/21 Unknown Rx mcg/actuation nasal spray,suspension paroxetine HCl 30 mg tablet 30 mg PO DAILY #30 tab 11/16/21 11/17/21 Unknown Rx sumatriptan succinate 50 mg tablet 50 mg PO PRN PRN 11/17/21 11/17/21 Unknown History (Imitrex) Allergies Allergy/AdvReac Type Severity Reaction Status Date / Time carbamazepine [From Tegretol] Allergy RASH Verified 11/16/21 08:18 cyclobenzaprine Allergy RASH Verified 11/16/21 08:18 [From Flexeril] nalbuphine [From Nubain] Allergy RASH Verified 11/16/21 08:18 tizanidine Allergy Unknown Verified 11/16/21 08:18 zolpidem [From Ambien] Allergy RASH Verified 11/16/21 08:18 Current Medications Generic Name Dose Route Start Last Admin Trade Name Freq PRN Reason Stop Dose Admin Sodium Chloride 1,000 mls @ 30 mls/hr 11/18/21 07:30 11/18/21 08:03 Sodium Chloride 0.9% IV 11/19/21 07:29 30 mls/hr .Q24H KRISHNA Administration PFSH Anesthesia Medical History ADHD Bipolar 1 disorder Degenerative arthritis of spine Epilepsy History of Helicobacter pylori infection Migraine headache Pneumonitis Psychiatric care PTSD (post-traumatic stress disorder) Pyloric stenosis Seizure disorder URI with cough and congestion Surgical History H/O esophagogastroduodenoscopy (09/30/21) History of adenectomy Hx of tonsillectomy Family History Other Cancer Social History Smoking and tobacco status: current some day smoker smokeless tobacco Smokeless tobacco user: chewing tobacco Smokeless tobacco details: one can in less than a day. Quit status (tobacco): has tried quititng Number of times tried to quit tobacco: 4 Second hand smoke exposure: No Alcohol intake: current Alcohol intake frequency: 0-2 Drinks per Day Alcohol type: hard liquor Current occupational status: unemployed History of recent travel: No Current gender identity: Male Female Reproductive History Date of last menstrual period: 05/02/12 Data Anesthesia Cardiac Studies: No Data to Display
[2021-11-18] MEDS: midazolam 1 mg/mL INJ 2 mL 2 MG IVP (08:24)
[2021-11-18 08:37] LABS: OR HCG Qualitative Urine Negative (Negative)
[2021-11-18] MEDS: ceFAZolin 2,000 MG in sodium chloride 0.9% (plus) 50 ML 100 MG IV (08:59)
[2021-11-18] MEDS: ondansetron 2 mg/ML SDV 2 mL 4 MG IVP (10:12)
[2021-11-18] MEDS: fentaNYL 50 mcg/mL INJ 2mL IVP (10:17)
--- NOTE | 2021-11-18 10:46 | PC.NURSE ---
1037 patient declined iv pain management.
[2021-11-18] MEDS: HYDROcodone-acetaminophen 5-325 mg Tablet 1 TAB PO (11:04)
--- NOTE | 2021-11-18 12:55 | ANE.PACU2 ---
Inpatient post-anesthesia follow up: Airway intact: Yes Vital signs: Temperature 98.2 F Pulse Rate 71 Respiratory Rate 20 Blood Pressure 121/76 Pulse Oximetry 96 Oxygen Delivery Me thod Room Air Oxygen Flow Rate Fraction of Inspir ed Oxygen Hydration adequate: Yes Nausea and vomiting: No Pain level: 1 Mental status: Baseline
--- NOTE | 2021-11-25 06:34 | P.OP_ITS ---
Operative Report Date of procedure: November 18, 2021 Pre-op diagnosis: Preop Diagnosis Right upper quadrant syndrome Post-op diagnosis: same Procedure done: Laparoscopic cholecystectomy Specimens removed/disposition: Gallbladder Surgeon: Dr. Ignacio Patel DO Estimated blood loss: 10 Complications: None apparent Brief History: This is a 35-year-old female, who has transitioned to male, who presents the office with symptoms classic of gallbladder disease. A complete work-up including ultrasound, HIDA scan and EGD was performed and the diagnosis of right upper quadrant syndrome was made. Cholecystectomy was indicated. I explained to the patient that there was a 30% chance removing the gallbladder would not improve symptoms, however the patient symptoms were so severe they want to proceed. Risks and benefits were explained and documented. Procedure: Patient was wheeled into the operative room and placed on the OR table in a supine position. Abdomen was inspected prepped and draped in usual sterile fashion. Time-out was performed and all present were in agreement. A 15 blade scalp was used to make a stab incision in the left upper quadrant and intra- abdominal insufflation was achieved using a Veress needle. After localizing the tissue incisions were made and a 5 millimeter trocar was placed into the umbilicus as well as 2 in the right upper quadrant. A 12 millimeter trocar was placed in the epigastrium. Gallbladder was grasped and elevated. The triangle of Calot was carefully dissected using blunt dissection and electrocautery until the triangle of [place]ot clearly identified. The cystic duct was clipped proximally and double clipped distally. The duct was then ligated proximally. The cystic artery was doubly clipped and ligated. The gallbladder was then removed from the liver bed using electrocautery. The gallbladder was removed from the abdomen using an Endo-Catch bag through the epigastric incision. The liver bed was inspected and no bleeding was seen. The abdomen was irrigated and suctioned. All ports removed. Skin was washed and dried. Incisions were closed with 3-0 and 4-O Vicryl in a subcuticular interrupted fashion. Skin glue was applied. Patient tolerated the procedure well.
== END 2021-11-18 11:35 | disposition home or self-care (01) ==
PROVIDERS: Anesthesiology; PCP Nurse Practitioner Family; Visit Provider Surgery
PROC: 0FT44ZZ Resection of Gallbladder, Percutaneous Endoscopic Approach (ICD-10-PCS; CPT 47562; principal; 2021-11-18 09:00)
DX: K81.1 Chronic cholecystitis (principal); G47.30 Sleep apnea, unspecified; I10 Essential (primary) hypertension; E66.01 Morbid (severe) obesity due to excess calories; Z68.33 Body mass index [BMI] 33.0-33.9, adult; F90.9 Attention-deficit hyperactivity disorder, unspecified type; F17.220 Nicotine dependence, chewing tobacco, uncomplicated
CPT/HCPCS: 47562; 84703; 88304; J1100; J2250; J2405; J2704; J2710; J3010; J3490; J7030

== ENCOUNTER → 2021-11-26 12:57 | Outpatient (BNVA) | payer BC, MEDICAID, SELFPAY | PROVIDERS: PCP Nurse Practitioner Family; Visit Provider Surgery | DX: Z98.890 Other specified postprocedural states (principal); Z90.49 Acquired absence of other specified parts of digestive tract | CPT/HCPCS: 99024 ==

== ENCOUNTER 2021-12-06 22:08 | Emergency (ER) | payer OTHER, SELFPAY ==
[2021-12-06 22:24] VITALS: BP 127/85; PULSE 74; RESP 18; TEMP 36.6; O2SAT 98; BMI 34.3
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
[2021-12-06 23:09] VITALS: BP 133/74; PULSE 74; RESP 18; TEMP 36.6; O2SAT 99
== END 2021-12-06 23:12 | disposition home or self-care (01) ==
PROVIDERS: Emergency Provider Emergency Medicine; PCP Nurse Practitioner Family
DX: Z48.01 Encounter for change or removal of surgical wound dressing (principal); F17.220 Nicotine dependence, chewing tobacco, uncomplicated
CPT/HCPCS: 99282

== ENCOUNTER → 2022-02-03 10:15 | Outpatient (BNVA) | payer BC, SELFPAY | PROVIDERS: PCP Nurse Practitioner Family; Visit Provider Nurse Practitioner Family | DX: F32.4 Major depressive disorder, single episode, in partial remission (principal); N18.31 Chronic kidney disease, stage 3a; F33.2 Major depressive disorder, recurrent severe without psychotic features; I10 Essential (primary) hypertension; R94.4 Abnormal results of kidney function studies; U07.1 COVID-19 | CPT/HCPCS: 80053; 80061 ==

== ENCOUNTER 2022-03-31 15:06 | Emergency (ER) | payer BC, MEDICAID, SELFPAY ==
[2022-03-31 15:18] VITALS: BP 111/82; PULSE 98; RESP 14; TEMP 36.9; O2SAT 97; BMI 33.5
--- NOTE | 2022-03-31 15:30 | XRR_ITS ---
PROCEDURE INFORMATION: Exam: XR Chest Exam date and time: 03/31/2022 3:36 PM Age: 36 years old Clinical indication: Cough TECHNIQUE: Imaging protocol: Radiologic exam of the chest. Views: 1 view. COMPARISON: CR XR chest 1V portable [id number] 03/13/2020 11:35 AM FINDINGS: Lungs: Unremarkable. No consolidation. Pleural spaces: Unremarkable. No pleural effusion. No pneumothorax. Heart/Mediastinum: Unremarkable. No cardiomegaly. Bones/joints: Unremarkable. XR/XR chest 1V portable [id number] IMPRESSION: No acute findings.
--- NOTE | 2022-03-31 15:31 | ED_ITS ---
HPI - URI/Sore Throat General: Chief Complaint: Headache Stated Complaint: cough, headache Time Seen by Provider: 03/31/22 15:22 History of Present Illness: Patient is a 36-year-old female comes to the ED with upper respiratory symptoms. Patient says about 3 days ago she started deve loping cough and nasal congestion and drainage, chills, body aches. Denies any fevers. She saw her PCP 3 days ago and they gave her a shot of an antibiotic and a steroid and discharged home with a prescription for an antibiotic. She has been taking the antibiotic now for approximately 3 days and says her cough has not gotten any better. Endorses having a bad headache as well. She has had a couple episodes of posttussive emesis. Associated symptoms: Reports chills, headache(s) and nasal congestion; Deny abdominal pain, chest pain, diarrhea, fever(s), nausea or vomiting Review of Systems Const: Reports: chills and body aches; Denies: fever(s) or fatigue Eyes: Denies: change in vision or eye discomfort ENMT: Reports: nasal discharge and nasal congestion; Denies: throat pain or odynophagia Card: Denies: chest pain, palpitations, edema, swelling of feet/ankles, dyspnea on exertion or orthopnea Resp: Reports: non-productive cough; Denies: dyspnea or productive cough GI: Denies: abdominal pain, nausea, vomiting, diarrhea, constipation or hematochezia : Denies: flank pain, dysuria or hematuria Musc: Denies: neck pain, back pain or extremity swelling Skin/Breast: Denies: rash or new lesions Neuro: Reports: headache(s); Denies: numbness in extremities or weakness in extremities PFSH ED PFSH: Medical History Abdominal pain ADHD Bipolar 1 disorder Cough COVID-19 Degenerative arthritis of spine Epilepsy History of Helicobacter pylori infection Maxillary sinusitis Migraine headache Personal history of pyloric stenosis Pneumonitis Psychiatric care PTSD (post-traumatic stress disorder) Pyloric stenosis Seizure disorder URI with cough and congestion Surgical History H/O esophagogastroduodenoscopy (09/30/21) History of adenectomy Hx of tonsillectomy S/P cholecystectomy Family History Other Cancer Social History Smoking and tobacco status: current every day smoker smokeless tobacco Smokeless tobacco user: chewing tobacco Smokeless tobacco details: one can/day. Quit status (tobacco): has tried quititng Number of times tried to quit tobacco: 4 Second hand smoke exposure: No Smoking risk assessment/counseling performed?: No Alcohol intake: current Alcohol intake frequency: few times a week Alcohol type: beer and hard liquor Desire information about alcohol rehabilitation?: No Counseling given: No Desire information about substance/drug rehabilitation?: No Counseling given: No Current occupational status: unemployed History of recent travel: No Current gender identity: Male Female Reproductive History: Date of last menstrual period: 05/02/12 Physical Exam Const: COMMON NORMALS: patient oriented x3 HENMT: COMMON NORMALS: normocephalic HEAD & SCALP: normocephalic MOUTH: Normal oral and palatal mucosa present THROAT: posterior oropharynx normal and uvula midline Neck/C-Spine: COMMON NORMALS: supple GENERAL: Yes normal visual inspection Resp: COMMON NORMALS: normal respiratory effort, No retractions, No use of accessory muscles and clear to auscultation bilaterally EFFORT & INSPECTION: Yes Actively coughing dry AUSCULTATION: clear to auscultation bilaterally Cardio: COMMON NORMALS: regular rate, regular rhythm, S1 normal heart sound present, S2 normal heart sound present, No gallops present (Cardio), No clicks present (Cardio), No murmurs present (Cardio) and Peripheral pulses 2+ throughout RATE: regular rate RHYTHM: regular rhythm HEART SOUNDS: S1 normal heart sound present and S2 normal heart sound present PERIPHERAL PULSES: Peripheral pulses 2+ throughout GI: COMMON NORMALS: Normal to inspection, nondistended, normoactive bowel sounds present, Soft to palpation, non-tender and no masses PALPATION: Yes Soft to palpation : COMMON NORMALS: Yes no CVA tenderness BLADDER/KIDNEY EXAM: Yes no CVA tenderness Back/Pelvis: COMMON NORMALS: no CVA tenderness Extremity: COMMON NORMALS: normal to inspection Neuro: COMMON NORMALS: patient oriented x3 GAIT: Yes Normal gait present Skin: GENERAL SKIN EXAM: dry skin Course Vital Signs: Vital signs: Vital Signs Temperature 98.5 F 03/31/22 15:18 Pulse Rate 98 03/31/22 15:18 Respiratory Rate 14 03/31/22 15:18 Blood Pressure 111/82 03/31/22 15:18 Pulse Oximetry 97 03/31/22 15:18 Oxygen Delivery Me thod 03/31/22 15:18 MDM - URI/Sore Throat Medical Decision Making Patient is a 36-year-old female comes to the ED with upper respiratory symptoms. Patient says about 3 days ago she started developing cough and nasal congestion and drainage, chills, body aches. Denies any fevers. She saw her PCP 3 days ago and they gave her a shot of an antibiotic and a steroid and discharged home with a prescription for an antibiotic. She has been taking the antibiotic now for approximately 3 days and says her cough has not gotten any better. Endorses having a bad headache as well. She has had a couple episodes of posttussive emesis. Vitals are stable. Patient is actively coughing upon exam but lungs are clear to auscultation bilaterally. Rest of exam is benign. Chest x-ray shows no acute findings. Patient was given a dose of Toradol here in the ED to help with headache and body aches. Patient stable for discharge home and diagnosed with upper respiratory infection and told to continue taking previously prescribed antibiotic. I sent patient home with a prescription for Medrol Dosepak and Tessalon Perles to help with symptoms as well. Follow-up with PCP in the next week for reevaluation. Return to ED precautions given. Patient understood and agreed with plan. Lab Data Radiology Impressions Chest X-Ray 03/31/22 15:30 IMPRESSION: No acute findings. Discharge Plan Discharge Patient Disposition: Home Clinical Impression: Upper respiratory infection with cough and congestion Condition: Stable Prescriptions: New Medrol (Dre) 4 mg tablets,dose pack See Rx Instructions .ROUTE .COMPLEX Qty: 21 0RF Rx Instructions: orally per package directions benzonatate 100 mg capsule 100 mg PO TID PRN (Reason: cough) Qty: 15 0RF No Action promethazine-DM 6.25-15 mg/5 mL syrup 5 - 10 ml PO Q6H PRN (Reason: cough) Qty: 200 1RF doxycycline hyclate 100 mg tablet 100 mg PO BID 10 Days Qty: 20 0RF fluticasone propionate 50 mcg/actuation spray,suspension 2 spray intranasal BID PRN (Reason: nasal congestion) Qty: 16 0RF Rx Instructions: administer into each nostril amlodipine 10 mg tablet 10 mg PO DAILY 90 Days Qty: 90 1RF budesonide-formoterol [Symbicort] 160-4.5 mcg/actuation HFA aerosol inhaler 2 puff inhalation BID Qty: 10.2 3RF lisinopril 10 mg tablet 10 mg PO DAILY 90 Days Qty: 90 1RF albuterol sulfate [ProAir HFA] 90 mcg/actuation HFA aerosol inhaler 2 puff inhalation QID PRN (Reason: shortness of breath or wheezing) Qty: 8.5 6RF sertraline [Zoloft] 100 mg tablet 200 mg PO DAILY Qty: 60 2RF buspirone 15 mg tablet 15 mg PO TID Qty: 90 2RF aripiprazole [Abilify] 5 mg tablet 5 mg PO DAILY Qty: 30 2RF atorvastatin 20 mg tablet 20 mg PO DAILY 30 Days Qty: 30 6RF divalproex 500 mg tablet extended release 24 hr See Rx Instructions .ROUTE .COMPLEX Qty: 60 0RF Dose Instruction: Take 1 tablet by mouth twice daily Rx Instructions: Take 1 tablet by mouth twice daily testosterone cypionate 200 mg/mL oil 200 mg IM DIRECTED Rx Instructions: .5MG EVERY WEEK Imitrex 50 mg tablet 50 mg PO PRN PRN (Reason: Headache) Rx Instructions: take 1 tab at onset of headache; if no relief may repeat 1 tab after at least 2 hrs; max = 4 tabs/24 hr Discharge Orders: Discharge ED (Routine); Ordered 03/31/22 Ordered By: Benedicto Childs Referrals: Dolly Sauceda NP [Primary Care Provider] - Discharge Diet: Regular Discharge Activity: Increase activity as tolerated Patient Instructions: Upper Respiratory Infection - Adult Activity Restrictions/Additional Instructions: Follow-up with medical provider as directed in the next 5 to 7 days reevaluation. Continue taking your previously prescribed antibiotic. Take medications as prescribed. Return to the ER or your medical provider if condition worsens. Please read and understand discharge instructions. Thank you for choosing [facility] for your healthcare needs today. Lolis bernard realize this is an emergency room and that we are providing you with a medical screening exam and this may not be complete and all inclusive of all the testing and or work up that you may need to determine your ailment or severity of your illness. It is very important that you follow up as instructed or that you return to the Emergency Department should you have concerns or if your condition changes or worsens in any way. Coding Level of Care Code ED [employer] Supervisor for Taylor Saul 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
[2022-03-31] MEDS: ketorolac 60 mg/2 mL INJ IM (16:03)
== END 2022-03-31 16:45 | disposition home or self-care (01) ==
PROVIDERS: Emergency Provider Physician Assistant; PCP Nurse Practitioner Family
DX: J06.9 Acute upper respiratory infection, unspecified (principal); F17.220 Nicotine dependence, chewing tobacco, uncomplicated
CPT/HCPCS: 71045; 96372; 99284; J1885

== ENCOUNTER 2022-04-14 07:09 | Emergency (ER) | payer BC, MEDICAID, SELFPAY ==
[2022-04-14 07:17] VITALS: BP 119/83; PULSE 98; RESP 14; TEMP 36.9; O2SAT 91; BMI 33.2
--- NOTE | 2022-04-14 07:29 | XRR_ITS ---
PROCEDURE INFORMATION: Exam: XR Chest Exam date and time: 04/14/2022 7:43 AM Age: 36 years old Clinical indication: Cough and dyspnea; Additional info: Dyspnea/cough TECHNIQUE: Imaging protocol: Radiologic exam of the chest. Views: 1 view. Total images: 1 COMPARISON: CR XR chest 1V portable [id number] 03/31/2022 3:36 PM FINDINGS: Lungs: Unremarkable. No consolidation. Pleural spaces: Unremarkable. No pleural effusion. No pneumothorax. Heart/Mediastinum: Unremarkable. No cardiomegaly. Bones/joints: Unremarkable. Other findings: Stable postsurgical changes. XR/XR chest 1V portable [id number] IMPRESSION: No acute cardiopulmonary process.
--- NOTE | 2022-04-14 07:42 | ED_ITS ---
HPI - SOB/Dyspnea General: Chief Complaint: Shortness of Breath/Dyspnea Stated Complaint: cough, sob Time Seen by Provider: 04/14/22 07:11 History of Present Illness: HPI Narrative: Patient is a 36-year-old female who comes to the ED with cough and shortness of breath. past medical history of asthma. Patient was seen here in the ED back on March 31 and took a course of steroids and antibiotic at that time. Patient has been having upper respiratory symptoms of cough nasal congestion and drainage has been going on now for over 3 weeks. Symptoms have not improved. Cough is gotten worse and now with has some shortness of breath and left side pleuritic pain. Denies any fevers, nausea/vomiting, abdominal pain, bladder, bowel symptoms or Chest pain. Patient is a daily tobacco smoker. Associated symptoms: Deny abdominal pain, chest pain, fever(s), nausea, orthopnea, palpitations or vomiting Review of Systems Const: Denies: fever(s), chills or fatigue Eyes: Denies: change in vision or eye discomfort ENMT: Reports: nasal discharge and nasal congestion; Denies: throat pain or odynophagia Card: Denies: chest pain, palpitations, edema, swelling of feet/ankles, dyspnea on exertion or orthopnea Resp: Reports: dyspnea, non-productive cough, wheezing and pain on inspiration; Denies: productive cough GI: Denies: abdominal pain, nausea, vomiting, diarrhea, constipation or hematochezia : Denies: flank pain, dysuria or hematuria Musc: Denies: neck pain, back pain or extremity swelling Skin/Breast: Denies: rash or new lesions Neuro: Denies: headache(s), numbness in extremities or weakness in extremities PFSH ED PFSH: Medical History Abdominal pain ADHD Allergic rhinitis due to allergen Bipolar 1 disorder Cough COVID-19 Degenerative arthritis of spine Epilepsy History of Helicobacter pylori infection Maxillary sinusitis Migraine headache Personal history of pyloric stenosis Pneumonitis Psychiatric care PTSD (post-traumatic stress disorder) Pyloric stenosis Seizure disorder URI with cough and congestion Surgical History H/O esophagogastroduodenoscopy (09/30/21) History of adenectomy Hx of tonsillectomy S/P cholecystectomy Family History Other Cancer Social History Smoking and tobacco status: current every day smoker smokeless tobacco Smokeless tobacco user: chewing tobacco Smokeless tobacco details: one can/day. Quit status (tobacco): has tried quititng Number of times tried to quit tobacco: 4 Second hand smoke exposure: No Smoking risk assessment/counseling performed?: No Alcohol intake: current Alcohol intake frequency: few times a week Alcohol type: beer and hard liquor Desire information about alcohol rehabilitation?: No Counseling given: No Desire information about substance/drug rehabilitation?: No Counseling given: No Current occupational status: unemployed History of recent travel: No Current gender identity: Male Female Reproductive History: Date of last menstrual period: 05/02/12 Physical Exam Const: COMMON NORMALS: no acute distress, patient oriented x3 and alert HENMT: COMMON NORMALS: normocephalic HEAD & SCALP: normocephalic MOUTH: Normal oral and palatal mucosa present THROAT: posterior oropharynx normal and uvula midline Neck/C-Spine: COMMON NORMALS: supple GENERAL: Yes normal visual inspection Resp: COMMON NORMALS: normal respiratory effort, No retractions and No use of accessory muscles AUSCULTATION: wheezes expiratory wheezes and upper bilaterally and diminished lung sounds on the left in the lower lung abdullahi Cardio: COMMON NORMALS: regular rate, regular rhythm, S1 normal heart sound present, S2 normal heart sound present, No gallops present (Cardio), No clicks present (Cardio), No murmurs present (Cardio) and Peripheral pulses 2+ throughout RATE: regular rate RHYTHM: regular rhythm HEART SOUNDS: S1 normal heart sound present and S2 normal heart sound present PERIPHERAL PULSES: Peripheral pulses 2+ throughout GI: COMMON NORMALS: Normal to inspection, nondistended, normoactive bowel sounds present, Soft to palpation, non-tender and no masses PALPATION: Yes Soft to palpation : COMMON NORMALS: Yes no CVA tenderness BLADDER/KIDNEY EXAM: Yes no CVA tenderness Back/Pelvis: COMMON NORMALS: no CVA tenderness Extremity: COMMON NORMALS: normal to inspection Neuro: COMMON NORMALS: patient oriented x3 SENSORIUM/ORIENTATION: Yes alert GAIT: Yes Normal gait present Skin: GENERAL SKIN EXAM: dry skin Course Vital Signs: Vital signs: Vital Signs Temperature 98.4 F 04/14/22 07:17 Pulse Rate 82 04/14/22 08:39 Respiratory Rate 16 04/14/22 08:10 Blood Pressure 119/83 04/14/22 07:17 Pulse Oximetry 98 04/14/22 08:10 Oxygen Delivery Me thod 04/14/22 08:10 MDM - SOB/Dyspnea Medical Decision Making Patient is a 36-year-old female comes to the ED with cough and congestion. Patient's been having the symptoms for over 3 weeks. Denies any fevers or chest pain. Patient is a daily tobacco smoker. Vitals are stable. Exam shows some expiratory wheezing in the upper lungs. Rest of exam is benign and patient appears in no acute distress or pain. Chest x-ray shows no acute findings. Patient was given DuoNeb breathing treatment and lung sounds and wheezing improved. She was given a shot of Solu-Medrol. She is diagnosed with bronchitis. She is stable for discharge home and sent home with a prescription for azithromycin and prednisone. Told to follow-up with her PCP in the next week for reevaluation. Return to ED precautions given. Patient understood and agreed with plan. Lab Data Labs/Radiology: Radiology Impressions Chest X-Ray 04/14/22 07:29 IMPRESSION: No acute cardiopulmonary process. Discharge Plan Discharge Patient Disposition: Home Clinical Impression: Bronchitis Condition: Stable Prescriptions: New azithromycin 250 mg tablet See Rx Instructions .ROUTE .COMPLEX Qty: 6 0RF Rx Instructions: For 250 mg dose pack: take 500 mg today (day 1), then 250 mg for 4 days (days 2-5) prednisone 20 mg tablet 20 mg PO BID 5 Days Qty: 10 0RF benzonatate 100 mg capsule 100 mg PO Q6H PRN (Reason: cough) Qty: 20 0RF No Action aripiprazole [Abilify] 15 mg tablet 15 mg PO DAILY Qty: 30 2RF buspirone 15 mg tablet 15 mg PO TID Qty: 90 2RF sertraline [Zoloft] 100 mg tablet 200 mg PO DAILY Qty: 60 2RF trazodone 50 mg tablet 100 mg PO .HS PRN (Reason: insomnia) Qty: 60 2RF amlodipine 10 mg tablet 10 mg PO DAILY 90 Days Qty: 90 1RF budesonide-formoterol [Symbicort] 160-4.5 mcg/actuation HFA aerosol inhaler 2 puff inhalation BID Qty: 10.2 3RF lisinopril 10 mg tablet 10 mg PO DAILY 90 Days Qty: 90 1RF albuterol sulfate [ProAir HFA] 90 mcg/actuation HFA aerosol inhaler 2 puff inhalation QID PRN (Reason: shortness of breath or wheezing) Qty: 8.5 6RF fluticasone propionate 50 mcg/actuation spray,suspension 2 spray intranasal BID PRN (Reason: nasal congestion) Qty: 16 0RF Rx Instructions: administer into each nostril loratadine 10 mg tablet 10 mg PO DAILY Qty: 90 0RF montelukast [Singulair] 10 mg tablet 10 mg PO DAILY Qty: 30 3RF atorvastatin 20 mg tablet 20 mg PO DAILY 30 Days Qty: 30 6RF divalproex 500 mg tablet extended release 24 hr See Rx Instructions .ROUTE .COMPLEX Qty: 60 0RF Dose Instruction: Take 1 tablet by mouth twice daily Rx Instructions: Take 1 tablet by mouth twice daily testosterone cypionate 200 mg/mL oil 200 mg IM DIRECTED Rx Instructions: .5MG EVERY WEEK Imitrex 50 mg tablet 50 mg PO PRN PRN (Reason: Headache) Rx Instructions: take 1 tab at onset of headache; if no relief may repeat 1 tab after at least 2 hrs; max = 4 tabs/24 hr Discharge Orders: Discharge ED (Routine); Ordered 04/14/22 Ordered By: Benedicto Childs Referrals: Dolly Sauceda NP [Primary Care Provider] - Discharge Diet: Regular Discharge Activity: Increase activity as tolerated Patient Instructions: Bronchitis (Acute) - Adult Activity Restrictions/Additional Instructions: Follow-up with medical provider as directed in the next 7 to 10 days for reevaluation. Take medications as prescribed. You were given a dose of steroid here in the ED so you can start your prescription of prednisone tomorrow. The rest of year prescriptions you can start today. Return to the ER or your medical provider if condition worsens. Please read and understand discharge instructions. Thank you for choosing [facility] for your healthcare needs today. Please realize this is an emergency room and that we are providing you with a medical screening exam and this may not be complete and all inclusive of all the testing and or work up that you may need to determine your ailment or severity of your illness. It is very important that you follow up as instructed or that you return to the Emergency Department should you have concerns or if your condition changes or worsens in any way. Coding Level of Care Code ED Restaurant Service Manager for Taylor Saul 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
[2022-04-14] MEDS: ipratropium-albuterol 3 mL Neb 6 ML INHALATION (08:08)
[2022-04-14 08:10] VITALS: PULSE 83; RESP 16; O2SAT 98
[2022-04-14 08:11] VITALS: PULSE 82
[2022-04-14 08:39] VITALS: PULSE 82
== END 2022-04-14 08:38 | disposition home or self-care (01) ==
PROVIDERS: Emergency Provider Physician Assistant; PCP Nurse Practitioner Family
DX: J40 Bronchitis, not specified as acute or chronic (principal); F17.220 Nicotine dependence, chewing tobacco, uncomplicated
CPT/HCPCS: 71045; 94640; 96372; 99284; J2930

== ENCOUNTER 2022-04-24 20:22 | Emergency (ER) | payer BC, MEDICAID, SELFPAY ==
[2022-04-24 20:26] VITALS: BP 106/72; PULSE 85; RESP 20; TEMP 36.7; O2SAT 93; BMI 32.9
--- NOTE | 2022-04-24 20:33 | XRR_ITS ---
PROCEDURE INFORMATION: Exam: XR Left Ribs with PA Chest Exam date and time: 04/24/2022 8:42 PM Age: 36 years old Clinical indication: Injury or trauma; Fall; Chest wall; Blunt trauma; Additional info: Fall injury TECHNIQUE: Imaging protocol: Radiologic exam of the Left ribs with PA chest. Views: 3 views COMPARISON: CR XR chest 1V portable [id number] 04/14/2022 7:43 AM FINDINGS: Lungs: Unremarkable. No consolidation. Pleural spaces: Unremarkable. No pleural effusion. No pneumothorax. Heart/Mediastinum: Unremarkable. No cardiomegaly. Bones/joints: Unremarkable. XR/XR ribs LT mn 3V w CXR1V [id number] IMPRESSION: No acute findings.
--- NOTE | 2022-04-24 20:33 | W.ED.TRAUMA ---
HPI - Trauma General: Chief Complaint: Fall Stated Complaint: fall on bumper of car Time Seen by Provider: 04/24/22 20:30 History of Present Illness: 36-year-old transgender male comes in today for complaints of injury to the left ribs. Patient was brought in by EMS. Patient was given 200 mg of fentanyl in route for pain. Patient has a history of hypertension, and seizure disorder. Review of Systems Musc: Reports: other (Left rib pain) [facility] ED PFSH: Medical History (Updated 04/24/22 @ 21:38 by GINETET Dominguez) Abdominal pain ADHD Allergic rhinitis due to allergen Borderline personality disorder Cough COVID-19 Degenerative arthritis of spine Gender dysphoria Generalized epilepsy History of Helicobacter pylori infection Major depressive disorder, recurrent severe without psychotic features Maxillary sinusitis Migraine headache Personal history of pyloric stenosis Pneumonitis Psychiatric care PTSD (post-traumatic stress disorder) Pyloric stenosis URI with cough and congestion Surgical History H/O esophagogastroduodenoscopy (09/30/21) History of adenectomy Hx of tonsillectomy S/P cholecystectomy Family History Other Cancer Social History Smoking and tobacco status: current every day smoker smokeless tobacco Smokeless tobacco user: chewing tobacco Smokeless tobacco details: one can/day. Quit status (tobacco): has tried quititng Number of times tried to quit tobacco: 4 Second hand smoke exposure: No Smoking risk assessment/counseling performed?: No Alcohol intake: current Alcohol intake frequency: few times a week Alcohol type: beer and hard liquor Desire information about alcohol rehabilitation?: No Counseling given: No Desire information about substance/drug rehabilitation?: No Counseling given: No Current occupational status: unemployed History of recent travel: No Current gender identity: Male Female Reproductive History: Date of last menstrual period: 05/02/12 Physical Exam Const: COMMON NORMALS: alert HENMT: COMMON NORMALS: atraumatic HEAD & SCALP: atraumatic Neck/C-Spine: COMMON NORMALS: full ROM Chest: CHEST: Yes tenderness (Left anterior rib) Resp: COMMON NORMALS: normal respiratory effort Cardio: COMMON NORMALS: regular rate RATE: regular rate Extremity: COMMON NORMALS: normal to inspection Neuro: SENSORIUM/ORIENTATION: Yes alert Skin: COMMON NORMALS: turgor normal GENERAL SKIN EXAM: turgor normal Course Vital Signs: Vital signs: Vital Signs Temperature 98.1 F 04/24/22 20:26 Pulse Rate 85 04/24/22 20:26 Respiratory Rate 20 H 04/24/22 20:26 Blood Pressure 106/72 04/24/22 20:26 Pulse Oximetry 93 04/24/22 20:26 MDM - Trauma Medical Decision Making Patient comes in for evaluation of injury to the left anterior ribs. Patient slipped and fell striking the body against the bumper of the car. Patient has tenderness to palpation and significant pain. Patient was given 200 mcg of fentanyl for pain. On exam patient has left anterior rib tenderness no crepitus or subcu emphysema is noted. Differential diagnosis includes fracture, contusion, sprain. X-ray of the chest and ribs showed no signs of fracture, pneumothorax, or other abnormality. Reviewed exam with patient with recommendations for further treatment and follow-up. Patient reported understanding agreed to plan. Lab Data Radiology Impressions Ribs X-Ray 04/24/22 20:33 IMPRESSION: No acute findings. Discharge Plan Discharge Patient Disposition: Home Clinical Impression: Contusion of rib on left side Qualifiers: Encounter type: initial encounter Qualified Code(s): S20.212A - Contusion of left front wall of thorax, initial encounter Condition: Stable Prescriptions: New hydrocodone-acetaminophen 5-325 mg tablet 1 tab PO Q8H PRN (Reason: pain (scale score 7-10)) Qty: 10 0RF No Action aripiprazole [Abilify] 15 mg tablet 15 mg PO DAILY Qty: 30 2RF buspirone 15 mg tablet 15 mg PO TID Qty: 90 2RF sertraline [Zoloft] 100 mg tablet 200 mg PO DAILY Qty: 60 2RF trazodone 50 mg tablet 100 mg PO .HS PRN (Reason: insomnia) Qty: 60 2RF amlodipine 10 mg tablet 10 mg PO DAILY 90 Days Qty: 90 1RF budesonide-formoterol [Symbicort] 160-4.5 mcg/actuation HFA aerosol inhaler 2 puff inhalation BID Qty: 10.2 3RF lisinopril 10 mg tablet 10 mg PO DAILY 90 Days Qty: 90 1RF albuterol sulfate [ProAir HFA] 90 mcg/actuation HFA aerosol inhaler 2 puff inhalation QID PRN (Reason: shortness of breath or wheezing) Qty: 8.5 6RF fluticasone propionate 50 mcg/actuation spray,suspension 2 spray intranasal BID PRN (Reason: nasal congestion) Qty: 16 0RF Rx Instructions: administer into each nostril loratadine 10 mg tablet 10 mg PO DAILY Qty: 90 0RF montelukast [Singulair] 10 mg tablet 10 mg PO DAILY Qty: 30 3RF atorvastatin 20 mg tablet 20 mg PO DAILY 30 Days Qty: 30 6RF divalproex 500 mg tablet extended release 24 hr See Rx Instructions .ROUTE .COMPLEX Qty: 60 0RF Dose Instruction: Take 1 tablet by mouth twice daily Rx Instructions: Take 1 tablet by mouth twice daily testosterone cypionate 200 mg/mL oil 200 mg IM DIRECTED Rx Instructions: .5MG EVERY WEEK azithromycin 250 mg tablet See Rx Instructions .ROUTE .COMPLEX Qty: 6 0RF Rx Instructions: For 250 mg dose pack: take 500 mg today (day 1), then 250 mg for 4 days (days 2-5) benzonatate 100 mg capsule 100 mg PO Q6H PRN (Reason: cough) Qty: 20 0RF Imitrex 50 mg tablet 50 mg PO PRN PRN (Reason: Headache) Rx Instructions: take 1 tab at onset of headache; if no relief may repeat 1 tab after at least 2 hrs; max = 4 tabs/24 hr Discharge Orders: Discharge ED (Routine); Ordered 04/24/22 Ordered By: Angelo Kellogg Referrals: Dolly Sauceda NP [Primary Care Provider] - Discharge Diet: Usual diet Discharge Activity: Increase activity as tolerated Patient Instructions: Rib Contusion (ED) Activity Restrictions/Additional Instructions: Home and rest. Activity as tolerated. Use acetaminophen and ibuprofen to control pain. Use ice and heat for further pain control. Use hydrocodone for severe pain. Follow-up with primary care for further instruction. Return to ED for new concerns. 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
[2022-04-24] MEDS: ketorolac 30 mg/mL INJ 15 MG IVP (21:05)
== END 2022-04-24 21:51 | disposition home or self-care (01) ==
PROVIDERS: Emergency Provider Nurse Practitioner Family; PCP Nurse Practitioner Family
DX: S20.212A Contusion of left front wall of thorax, initial encounter (principal); F17.220 Nicotine dependence, chewing tobacco, uncomplicated; W18.39XA Other fall on same level, initial encounter
CPT/HCPCS: 71101; 96374; 99284; J1885

== ENCOUNTER → 2022-05-07 10:12 | Outpatient (BNVA) | payer BC, MEDICAID, SELFPAY | PROVIDERS: PCP Nurse Practitioner Family; Visit Provider Family Medicine | DX: J06.9 Acute upper respiratory infection, unspecified (principal) | CPT/HCPCS: 71046; 80053; 85025 ==

== ENCOUNTER 2022-05-17 01:30 | Inpatient (IN) | payer BC, SELFPAY ==
[2022-05-17] VITALS (19 sets, daily range): BP systolic 101–119; BP diastolic 57–86; PULSE 58–92; RESP 16–20; TEMP 36.4–37.1; O2SAT 90–95; BMI 32.4
--- NOTE | 2022-05-17 01:44 | ECG_ITS ---
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 Measurements Intervals [place] Rate: 67 P: 74 SC: 114 QRS: 79 QRSD: 90 T: 70 QT: 360 QTc: 380 Interpretive Statements SINUS RHYTHM WITH SHORT SC INTERVAL Compared to ECG 03/27/2021 16:26:36 No significant changes Electronically Signed On 05-17-2022 7:12:27 [employer]BESTOS ABATEMENT WORKER by Gigi Wade M.D. [email or web address] [email or web address] baptist medical centerPrimavistalake county memorial hospital - [id number] f
--- NOTE | 2022-05-17 01:49 | XRR_ITS ---
PROCEDURE INFORMATION: Exam: XR Chest Exam date and time: 05/17/2022 2:04 AM Age: 36 years old Clinical indication: Shortness of breath; Additional info: SOB TECHNIQUE: Imaging protocol: Radiologic exam of the chest. Views: 1 view. COMPARISON: CR XR chest 2V* [id number] 05/07/2022 10:18 AM FINDINGS: Lungs: Interval improvement of the previously seen streaky bilateral opacities. Minimal residual bibasilar opacities may represent atelectasis, residual inflammation or residual infection. No consolidation. Pleural spaces: Unremarkable. No pleural effusion. No pneumothorax. Heart/Mediastinum: The cardiomediastinal silhouette is stable in appearance. Bones/joints: Redemonstration of surgical clips, scattered throughout the lower chest bilaterally. XR/XR chest 1V portable [id number] IMPRESSION: No significant acute radiographic findings in the chest.
--- NOTE | 2022-05-17 01:51 | ED_ITS ---
HPI - SOB/Dyspnea General: Chief Complaint: Shortness of Breath/Dyspnea Stated Complaint: SOB Time Seen by Provider: 05/17/22 01:40 Source: patient Mode of arrival: ambulatory Limitations: no limitations History of Present Illness: HPI Narrative: 36-year-old with a history of asthma also history of vaping states that at 10:00 last night started having some shortness of breath along with wheezing patient has had a slight cough was diagnosed with pneumonia on the sixth finished Levaquin patient denies any fever currently does have audible wheezing denies any chest pain denies any worsening improving factors. Associated symptoms: Deny abdominal pain, chest pain, fever(s), nausea or vomiting Review of Systems Const: Denies: fever(s), chills, body aches or change in appetite Eyes: Denies: blurry vision or eye discomfort ENMT: Denies: throat pain or dental pain Card: Denies: chest pain Resp: Reports: dyspnea, non-productive cough and wheezing GI: Denies: abdominal pain, nausea, vomiting or diarrhea Musc: Denies: neck pain or back pain Skin/Breast: Denies: rash Neuro: Denies: headache(s) Psych: Denies: depression Caleb/Lymph: Denies: easy bruising All/Imm: Denies: urticaria PFSH ED PFSH: Medical History Abdominal pain ADHD Allergic rhinitis due to allergen Borderline personality disorder Cough COVID-19 Degenerative arthritis of spine Gender dysphoria Generalized epilepsy History of Helicobacter pylori infection Major depressive disorder, recurrent severe without psychotic features Maxillary sinusitis Migraine headache Personal history of pyloric stenosis Pneumonitis Psychiatric care PTSD (post-traumatic stress disorder) Pyloric stenosis URI with cough and congestion Surgical History H/O esophagogastroduodenoscopy (09/30/21) History of adenectomy Hx of tonsillectomy S/P cholecystectomy Family History Other Cancer Social History Smoking and tobacco status: current every day smoker smokeless tobacco Smokeless tobacco user: chewing tobacco Smokeless tobacco details: one can/day. Quit status (tobacco): has tried quititng Number of times tried to quit tobacco: 4 Second hand smoke exposure: No Smoking risk assessment/counseling performed?: No Alcohol intake: current Alcohol intake frequency: few times a week Alcohol type: beer and hard liquor Desire information about alcohol rehabilitation?: No Counseling given: No Desire information about substance/drug rehabilitation?: No Counseling given: No Current occupational status: unemployed History of recent travel: No Current gender identity: Male Physical Exam Const: COMMON NORMALS: patient oriented x3 HENMT: COMMON NORMALS: normocephalic and atraumatic HEAD & SCALP: normocephalic and atraumatic Eye: COMMON NORMALS: Equal, round and reactive pupils present and EOMs intact bilaterally PUPIL: Yes Equal, round and reactive pupils present Neck/C-Spine: COMMON NORMALS: full ROM and supple Chest: COMMONS NORMALS: normal inspection of the chest and normal palpation of entire chest wall Resp: COMMON NORMALS: normal respiratory effort, No retractions and No use of accessory muscles AUSCULTATION: wheezes Cardio: COMMON NORMALS: regular rate, regular rhythm and No murmurs present (Cardio) RATE: regular rate RHYTHM: regular rhythm GI: COMMON NORMALS: Normal to inspection, nondistended, normoactive bowel sounds present, Soft to palpation, non-tender and no masses PALPATION: Yes Soft to palpation Extremity: COMMON NORMALS: normal to inspection and full ROM Neuro: COMMON NORMALS: patient oriented x3, moves all extremities and no focal motor deficits Psych: COMMON NORMALS: mental status grossly normal, Normal thought process present and cooperative THOUGHT PROCESS: Normal thought process present Skin: COMMON NORMALS: no rashes or lesions noted and no wounds GENERAL SKIN EXAM: no rashes or lesions noted Course Vital Signs: Vital signs: Vital Signs Temperature 98.8 F 05/17/22 01:39 Pulse Rate 66 05/17/22 03:15 Respiratory Rate 18 05/17/22 03:15 Blood Pressure 119/74 05/17/22 01:39 Pulse Oximetry 92 05/17/22 03:15 Oxygen Delivery Me thod 05/17/22 03:15 MDM - SOB/Dyspnea Medical Decision Making Patient presents here with wheezing shortness of breath with asthma exacerbation patient given multiple breathing treatments here patient's continue to be hypoxic is requiring 2 to 3 L of oxygen at this time D-dimer is negative no signs of PE no signs ammonia spoke to hospitalist will admit. Lab Data 05/17/22 01:50 05/17/22 01:50 Labs/Radiology: Radiology Impressions Chest X-Ray 05/17/22 01:49 IMPRESSION: No significant acute radiographic findings in the chest. Laboratory Results WBC 7.6 10^3/uL (4.0-10.0) 05/17/22 01:50 RBC 4.43 10^6/uL (4.1-5.3) 05/17/22 01:50 Hgb 14.3 g/dL (11.5-15.3) 05/17/22 01:50 Hct 41.5 % (37.0-47.0) 05/17/22 01:50 MCV 93.7 fl (81-99) 05/17/22 01:50 MCH 32.3 pg (28.0-34.0) 05/17/22 01:50 MCHC 34.5 g/dL (30.0-36.0) 05/17/22 01:50 RDW 12.6 % (12.1-15.1) 05/17/22 01:50 Plt Count 184 10^3/cmm (130-400) 05/17/22 01:50 MPV 10.6 fL (7.4-10.4) H 05/17/22 01:50 Neut % (Auto) 55.9 % 05/17/22 01:50 Lymph % (Auto) 29.0 % 05/17/22 01:50 [place] % (Auto) 7.1 % 05/17/22 01:50 Eos % (Auto) 7.0 % 05/17/22 01:50 Baso % (Auto) 0.7 % 05/17/22 01:50 Neut # (Auto) 4.25 10^3/uL (1.8-7.7) 05/17/22 01:50 Lymph # (Auto) 2.2 10^3/uL (0.8-4.8) 05/17/22 01:50 [place] # (Auto) 0.5 10^3/uL (0.2-0.9) 05/17/22 01:50 Eos # (Auto) 0.5 10^3/uL (0.0-0.8) 05/17/22 01:50 Baso # (Auto) 0.1 10^3/uL (0.0-0.1) 05/17/22 01:50 Nucleated RBC % (auto) 0 % 05/17/22 01:50 Nucleated RBCs # 0.0 /100WBC 05/17/22 01:50 D-Dimer 0.29 ug/mIFEU (0-0.59) 05/17/22 01:50 Specimen Type Arterial 05/17/22 02:40 Sample Site Brachial, left 05/17/22 02:40 ABG pH 7.40 (7.35-7.45) 05/17/22 02:40 ABG pCO2 40.6 mmHg (35-45) 05/17/22 02:40 ABG pO2 61.0 mmHg (80.0-100.0) L 05/17/22 02:40 ABG HCO3 24.9 mmol/L (22-26) 05/17/22 02:40 ABG Base Excess 0.0 mmol/L (-2.0-2.0) 05/17/22 02:40 [place]o Test Pos 05/17/22 02:40 Hematocrit 50.6 % (42-52) 05/17/22 02:40 O2 Delivery Device None 05/17/22 02:40 FiO2 21.0 % 05/17/22 02:40 Automobile Mechanic Radiator ID [email or web address] 05/17/22 02:40 Sodium 134 mmol/L (136-145) L 05/17/22 01:50 Potassium 3.9 mmol/L (3.5-5.1) 05/17/22 01:50 Chloride 101 mmol/L (98-107) 05/17/22 01:50 Carbon Dioxide 25 mmol/L (22-29) 05/17/22 01:50 Anion Gap 11.9 (5-19) 05/17/22 01:50 BUN 20 mg/dL (6-20) 05/17/22 01:50 Creatinine 1.0 mg/dL (0.7-1.2) 05/17/22 01:50 GFR Calculation 84.1 mL/min (90-130) L 05/17/22 01:50 Glucose 85 mg/dL (65-115) 05/17/22 01:50 Calculated Osmolality 280 mOsm/kg (285-295) L 05/17/22 01:50 Calcium 8.5 mg/dL (8.5-10.5) 05/17/22 01:50 Total Bilirubin 0.3 mg/dL (0.15-1.2) 05/17/22 01:50 AST 23 U/L (0-40) 05/17/22 01:50 ALT 19 U/L (0-41) 05/17/22 01:50 Alkaline Phosphatase 76 U/L (40-130) 05/17/22 01:50 NT-Pro-B Natriuret Pep 62 pg/mL (0-125) 05/17/22 01:50 Total Protein 6.5 g/dL (6.6-8.7) L 05/17/22 01:50 Albumin 4.1 g/dL (3.5-5.2) 05/17/22 01:50 Globulin 2.4 g/dL (1.3-4.6) 05/17/22 01:50 Influenza Type A Ag negative (Negative) 05/17/22 02:07 Influenza Type B Ag negative (Negative) 05/17/22 02:07 SARS-CoV-2 Ag (Rapid) negative (Negative) 05/17/22 02:07 Discharge Plan Discharge Patient Disposition: Admitted As Inpatient Clinical Impression: Asthma with exacerbation, Acute respiratory failure with hypoxemia Condition: Stable Prescriptions: No Action aripiprazole [Abilify] 15 mg tablet 15 mg PO DAILY Qty: 30 2RF buspirone 15 mg tablet 15 mg PO TID Qty: 90 2RF sertraline [Zoloft] 100 mg tablet 200 mg PO DAILY Qty: 60 2RF trazodone 50 mg tablet 100 mg PO .HS PRN (Reason: insomnia) Qty: 60 2RF amlodipine 10 mg tablet 10 mg PO DAILY 90 Days Qty: 90 1RF budesonide-formoterol [Symbicort] 160-4.5 mcg/actuation HFA aerosol inhaler 2 puff inhalation BID Qty: 10.2 3RF lisinopril 10 mg tablet 10 mg PO DAILY 90 Days Qty: 90 1RF albuterol sulfate [ProAir HFA] 90 mcg/actuation HFA aerosol inhaler 2 puff inhalation QID PRN (Reason: shortness of breath or wheezing) Qty: 8.5 6RF fluticasone propionate 50 mcg/actuation spray,suspension 2 spray intranasal BID PRN (Reason: nasal congestion) Qty: 16 0RF Rx Instructions: administer into each nostril loratadine 10 mg tablet 10 mg PO DAILY Qty: 90 0RF montelukast [Singulair] 10 mg tablet 10 mg PO DAILY Qty: 30 3RF benzonatate 100 mg capsule 100 mg PO Q6H PRN (Reason: cough) Qty: 90 1RF levofloxacin 500 mg tablet 500 mg PO DAILY 7 Days Qty: 7 0RF atorvastatin 20 mg tablet 20 mg PO DAILY 30 Days Qty: 30 6RF divalproex 500 mg tablet extended release 24 hr See Rx Instructions .ROUTE .COMPLEX Qty: 60 3RF Dose Instruction: Take 1 tablet by mouth twice daily Rx Instructions: Take 1 tablet by mouth twice daily testosterone cypionate 200 mg/mL oil 200 mg IM DIRECTED Rx Instructions: .5MG EVERY WEEK hydrocodone-acetaminophen 5-325 mg tablet 1 tab PO Q8H PRN (Reason: pain (scale score 7-10)) Qty: 10 0RF Imitrex 50 mg tablet 50 mg PO PRN PRN (Reason: Headache) Rx Instructions: take 1 tab at onset of headache; if no relief may repeat 1 tab after at least 2 hrs; max = 4 tabs/24 hr Referrals: Dolly Sauceda NP [Primary Care Provider] - Coding Level of Care Code 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
[2022-05-17 02:06] LABS: Basophils # 0.1 10^3/uL (0.0-0.1); Basophils % 0.7 %; Eosinophils # 0.5 10^3/uL (0.0-0.8); Hematocrit 41.5 % (37.0-47.0); Hemoglobin 14.3 g/dL (11.5-15.3); Lymphocytes # 2.2 10^3/uL (0.8-4.8); Mean Corpuscular HGB Conc 34.5 g/dL (30.0-36.0); Mean Corpuscular Hemoglobin 32.3 pg (28.0-34.0); Mean Corpuscular Volume 93.7 fl (81-99); Mean Platelet Volume 10.6 fL (7.4-10.4); Monocytes # 0.5 10^3/uL (0.2-0.9); Monocytes % 7.1 %; Neutrophils # 4.25 10^3/uL (1.8-7.7); Neutrophils % 55.9 %; Nucleated Red Blood Cells % 0 %; Platelet Count 184 10^3/cmm (130-400); Red Blood Count 4.43 10^6/uL (4.1-5.3); Red Cell Distribution Width 12.6 % (12.1-15.1); White Blood Count 7.6 10^3/uL (4.0-10.0)
[2022-05-17] MEDS: albuterol 2.5 mg/3 mL Neb 5 MG INHALATION (02:17)
[2022-05-17 02:33] LABS: Influenza A by IFA negative (Negative); Influenza B by IFA negative (Negative); SARS Covid-2 Antigen negative (Negative)
[2022-05-17 02:43] LABS: Alanine Aminotransferase 19 U/L (0-41); Albumin Level 4.1 g/dL (3.5-5.2); Alkaline Phosphatase 76 U/L (40-130); Anion Gap 11.9 (5-19); Aspartate Amino Transferase 23 U/L (0-40); Blood Urea Nitrogen 20 mg/dL (6-20); Calcium 8.5 mg/dL (8.5-10.5); Carbon Dioxide 25 mmol/L (22-29); Chloride 101 mmol/L (98-107); Globulin 2.4 g/dL (1.3-4.6); Glomerular Filtration Rate 84.1 mL/min (90-130); Glucose 85 mg/dL (65-115); NT Pro B Type Natriuretic Pept 62 pg/mL (0-125); Osmolality Calculated 280 mOsm/kg (285-295); Potassium 3.9 mmol/L (3.5-5.1); Sodium 134 mmol/L (136-145); Total Bilirubin 0.3 mg/dL (0.15-1.2); Total Protein 6.5 g/dL (6.6-8.7)
[2022-05-17 02:52] LABS: ABG PCO2 40.6 mmHg (35-45); Arterial Blood Gas Hematocrit 50.6 % (42-52); Blood Gas Allen Test Pos; Blood Gas Sample Site Brachial, left; Blood Gas Sample Type Arterial; HCO3 ABG 24.9 mmol/L (22-26)
[2022-05-17] MEDS: albuterol 2.5 mg/3 mL Neb INHALATION ×5 (03:09→23:27)
[2022-05-17] MEDS: ipratropium 0.5 mg/2.5 mL Neb INHALATION (03:11)
[2022-05-17 03:33] LABS: D Dimer 0.29 ug/mIFEU (0-0.59)
[2022-05-17 03:52] LABS: Troponin(5th) Baseline 6 ng/L (0-15)
--- NOTE | 2022-05-17 04:13 | P.HP_ITS ---
Providers/Chief Complaint Admitting Physician: Don Guo MD Primary Care Provider: Dolly Sauceda NP Chief Complaint: SOB History of Present Illness Van Mckinley is a 36 year old male biological male, on hormonal replacement therapy, testosterone, hypertension, depression, history of asthma who presents to [facility] due to acute onset shortness of breath and wheezing this evening at roughly 9:40 PM p.m. he does note that he started of shortness of breath and wheezing recently diagnosed with pneumonia placed on Levaquin, no fevers, no chills, no chest pain. He does report vaping, no history of smoking Review of Systems Const: Denies: fever(s) or chills Eyes: Denies: change in vision Card: Denies: chest pain Resp: Reports: dyspnea; Denies: non-productive cough GI: Denies: abdominal pain : Denies: difficulty urinating Musc: Denies: back pain Skin/Breast: Denies: rash Medications/Allergies Home Medications Medication Instructions Recorded Confirmed Last Taken Type testosterone cypionate 200 mg/mL 200 mg IM DIRECTED 09/18/21 05/13/22 09/23/21 History intramuscular oil sumatriptan succinate 50 mg tablet 50 mg PO PRN PRN Headache 11/17/21 05/13/22 Unknown History (Imitrex) albuterol sulfate 90 mcg/actuation 2 puff inhalation QID PRN 02/03/22 05/13/22 Unknown Rx aerosol inhaler (ProAir HFA) shortness of breath or wheezing #8.5 grams amlodipine 10 mg tablet 10 mg PO DAILY 90 days #90 tabs 02/03/22 05/13/22 Unknown Rx budesonide-formoterol HFA 160 2 puff inhalation BID #10.2 grams 02/03/22 05/13/22 Unknown Rx mcg-4.5 mcg/actuation aerosol inhaler (Symbicort) lisinopril 10 mg tablet 10 mg PO DAILY 90 days #90 tabs 02/03/22 05/13/22 Unkno wn Rx atorvastatin 20 mg tablet 20 mg PO DAILY 30 days #30 tabs 02/04/22 05/13/22 Unknown Rx aripiprazole 15 mg tablet (Abilify) 15 mg PO DAILY #30 tabs 04/13/22 05/13/22 Unknown Rx buspirone 15 mg tablet 15 mg PO TID #90 tabs 04/13/22 05/13/22 Unknown Rx fluticasone propionate 50 2 spray intranasal BID PRN nasal 04/13/22 05/13/22 Unknown Rx mcg/actuation nasal congestion #16 grams spray,suspension loratadine 10 mg tablet 10 mg PO DAILY allergic symptoms 04/13/22 05/13/22 Un known Rx #90 tabs montelukast 10 mg tablet 10 mg PO DAILY cough #30 tabs 04/13/22 05/13/22 Unknown Rx (Singulair) sertraline 100 mg tablet (Zoloft) 200 mg PO DAILY #60 tabs 04/13/22 05/13/22 Unknown Rx trazodone 50 mg tablet 100 mg PO .HS PRN insomnia #60 tabs 04/13/22 05/13/22 Unk nown Rx hydrocodone 5 mg-acetaminophen 325 1 tab PO Q8H PRN pain (scale score 04/24/22 05/13/22 Unknown Rx mg tablet 7-10) #10 tabs divalproex 500 mg tablet,extended See Rx Instructions .Route 04/27/22 05/13/22 Unknown Rx release 24 hr .COMPLEX #60 tabs benzonatate 100 mg capsule 100 mg PO Q6H PRN cough #90 caps 05/07/22 05/13/22 Unknown Rx levofloxacin 500 mg tablet 500 mg PO DAILY 7 days #7 tabs 05/07/22 05/13/22 Unknown Rx Allergies Allergy/AdvReac Type Severity Reaction Status Date / Time carbamazepine [From Tegretol] Allergy RASH Verified 05/13/22 08:45 cyclobenzaprine Allergy RASH Verified 05/13/22 08:45 [From Flexeril] nalbuphine [From Nubain] Allergy RASH Verified 05/13/22 08:45 tizanidine Allergy Unknown Verified 05/13/22 08:45 zolpidem [From Ambien] Allergy RASH Verified 05/13/22 08:45 PFSH Acute PFSH: Medical History Abdominal pain ADHD Allergic rhinitis due to allergen Borderline personality disorder Cough COVID-19 Degenerative arthritis of spine Gender dysphoria Generalized epilepsy History of Helicobacter pylori infection Major depressive disorder, recurrent severe without psychotic features Maxillary sinusitis Migraine headache Personal history of pyloric stenosis Pneumonitis Psychiatric care PTSD (post-traumatic stress disorder) Pyloric stenosis URI with cough and congestion Surgical History H/O esophagogastroduodenoscopy (09/30/21) History of adenectomy Hx of tonsillectomy S/P cholecystectomy Family History Other Cancer Social History Smoking and tobacco status: current every day smoker smokeless tobacco Smokeless tobacco user: chewing tobacco Smokeless tobacco details: one can/day. Quit status (tobacco): has tried quititng Number of times tried to quit tobacc o: 4 Second hand smoke exposure: No Smoking risk assessment/counseling performed?: No Alcohol intake: current Alcohol intake frequency: few times a week Alcohol type: beer and hard liquor Desire information about alcohol rehabilitation?: No Counseling given: No Desire information about substance/drug rehabilitation?: No Counseling given: No Current occupational status: unemployed History of recent travel: No Current gender identity: Male Vitals/I&O/Wt Last Vital Signs Temp 98.8 F 05/17/22 01:39 Pulse 66 05/17/22 03:15 Resp 18 05/17/22 03:15 BP 119/74 05/17/22 01:39 Pulse Ox 92 05/17/22 03:15 O2 Del Method 05/17/22 03:15 Weight last 48 hrs Weight 91.172 kg Physical Exam Const: COMMON NORMALS: no acute distress and patient oriented x3 Eye: COMMON NORMALS: Equal, round and reactive pupils present Neck/C-Spine: COMMON NORMALS: full ROM and no lymphadenopathy Resp: COMMON NORMALS: normal respiratory effort, No retractions, No use of accessory muscles and clear to auscultation bilaterally AUSCULTATION: wheezes Cardio: COMMON NORMALS: regular rate, regular rhythm, S1 normal heart sound present and S2 normal heart sound present RATE: regular rate RHYTHM: regu lar rhythm HEART SOUNDS: S1 normal heart sound present and S2 normal heart sound present GI: COMMON NORMALS: Normal to inspection, nondistended, normoactive bowel sounds present, Soft to palpation and non-tender Extremity: COMMON NORMALS: no pedal edema Neuro: COMMON NORMALS: patient oriented x3, CN's II-XII intact bilaterally, moves all extremities and no focal motor deficits Psych: COMMON NORMALS: mental status grossly normal Data 05/17/22 01:50 05/17/22 01:50 A&P Assessment and plan (1) Asthma with exacerbation: (2) Chronic kidney disease, stage 3a: (3) Current every day vaping: (4) HTN (hypertension): (5) 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: (6) BRENDEN (obstructive sleep apnea): (7) Major depression in partial remission: Plan Acute asthma exacerbation -Currently he has clinically improved, has after treatment in the emergency room, still requiring 2 L lungs still sound tight to me Plan -Admit to general medical floors -Continue albuterol -Continue Solu-Medrol -Continue doxycycline -Certainly vape induced lung injury is a possibility, however his chest x-ray does show streaky bilateral lung opacities, will hold off on CT of the chest for now -Monitor respiratory status closely -Respiratory therapy -Full code -Lovenox for DVT prophylaxis Attestations Medical Necessity Statement*: Patient requires hospitalization, outpatient for observation, for asthma exacerbation Coding Level of Care Code Acute Code for [facility] Diagnoses Asthma with exacerbation J45.901 Chronic kidney disease, stage 3a N18.31 Current every day vaping Z72.89 HTN (hypertension) I10 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 F64.0; Z79.899 BRENDEN (obstructive sleep apnea) G47.33 Major depression in partial remission F32.4
[2022-05-17 04:48] LABS: Procalcitonin 0.03 ng/mL (0-0.5)
[2022-05-17 04:51] LABS: Troponin 5 2HR Delta 0 ABS# (0-10)
--- NOTE | 2022-05-17 05:11 | ECG_ITS ---
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 Measurements Intervals [place] Rate: 59 P: 57 NH: 119 QRS: 60 QRSD: 88 T: 70 QT: 387 QTc: 386 Interpretive Statements SINUS BRADYCARDIA WITH SINUS ARRHYTHMIA WITH SHORT NH INTERVAL Compared to ECG 05/17/2022 01:44:13 Sinus rhythm no longer present Electronically Signed On 05-17-2022 7:18:27 RETORT OPERATOR by Gigi Wade M.D. [email or web address]
[2022-05-17] MEDS: enoxaparin 40 mg/0.4 mL Syringe SUBCUT (05:12)
[2022-05-17] MEDS: doxycycline 100 MG in sodium chloride 0.9% (plus) 100 ML IV ×2 (05:12→17:33)
[2022-05-17 05:19] LABS: Thyroid Stimulating Hormone 0.55 uIU/mL (0.27-4.20)
[2022-05-17] MEDS: budesonide 0.5 mg/2 mL Neb INHALATION ×2 (07:43→20:07)
[2022-05-17 07:59] LABS: Troponin 5 6HR Delta 0 ng/L (0-12)
[2022-05-17] MEDS: ARIPiprazole 2 mg Tablet 15 MG PO (08:21)
[2022-05-17] MEDS: montelukast sodium 10 mg Tablet PO (08:22)
[2022-05-17] MEDS: sertraline 100 mg Tablet 200 MG PO (08:22)
[2022-05-17] MEDS: BuSPIRONE 10 mg Tablet 15 MG PO ×3 (08:23→20:13)
[2022-05-17] MEDS: pantoprazole DR 40 mg Tablet PO (08:30)
[2022-05-17] MEDS: atorvastatin 40 mg Tablet 20 MG PO (08:31)
[2022-05-17] MEDS: divalproex ER 500 mg Tablet (24H) PO ×2 (08:33→17:33)
--- NOTE | 2022-05-17 09:11 | ECG_ITS ---
[facility] Test Date: 2022-05-17 Pat Name: Van Mckinley Department: Room: 253 Gender: Male Behavioral Specialist: : 1985 Requested By: Josie Houser Order Number: [id number] Fischer MD: Ranjeet Nowak M.D. Measurements Intervals [place] Rate: 66 P: 32 IA: 101 QRS: 58 QRSD: 92 T: 65 QT: 384 QTc: 404 Interpretive Statements SINUS RHYTHM WITH SHORT IA INTERVAL Compared to ECG 05/17/2022 05:38:19 Sinus bradycardia no longer present Sinus arrhythmia no longer present Electronically Signed On 05-17-2022 9:58:23 MOLECULAR PATHOLOGIST by Ranjeet Nowak M.D. [email or web address]
[2022-05-17] MEDS: ondansetron 2 mg/ML SDV 2 mL 4 MG IVP (10:36)
--- NOTE | 2022-05-17 12:14 | PM.PN ---
Subjective Subjective: Seen this morning. Patient is on 2 L nasal cannula. Still feels short of breath on exertion. States his asthma is pretty well controlled on Symbicort daily and albuterol as needed. His asthma wakes him up 1-2 times a night to use his inhaler otherwise he is stable. He has not had an exacerbation before. He was diagnosed 1 year ago with this by his primary care doctor. He has not seen a health and wellness advisor and has not had any formal PFTs done. Patient does vape daily. Vitals/I&O/Wt Last Vital Signs Temp 97.5 F L 05/17/22 07:37 Pulse 71 05/17/22 07:49 Resp 16 05/17/22 07:45 BP 108/57 05/17/22 07:37 Pulse Ox 91 05/17/22 07:46 O2 Del Method 05/17/22 07:46 O2 Flow Rate 2 05/17/22 08:00 05/16/22 05/17/22 05/17/22 22:59 06:59 14:59 Intake Total 460 / 460 Balance 460 / 460 Weight last 48 hrs Weight 91.172 kg Physical Exam Narrative: General: Alert oriented x3, patient seen laying in bed at this time. at bedside. On 2 L nasal cannula. HEENT: Normocephalic, atraumatic, EOMI, breathing comfortably on 2 L nasal cannula. No acute respiratory distress present. Cardio: Regular rate rhythm, normal S1-S2 Respiratory: Decreased bilateral air entry. Mild wheezing present at bases. No rhonchi. Chest sounds a little bit tight. GI: Abdomen soft, nontender, nondistended, bowel sounds + Extremities: No bilateral lower extremity edema. 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: (9) Obesity (BMI 30.0-34.9): Plan #Acute asthma exacerbation -Currently he has clinically improved, has after treatment in the emergency room, still requiring 2 L lungs still sound tight to me Plan -Admit to general medical floors -Continue albuterol -Continue Solu-Medrol -Continue doxycycline -Certainly vape induced lung injury is a possibility, however his chest x-ray does show streaky bilateral lung opacities, will hold off on CT of the chest for now -Monitor respiratory status closely -Respiratory therapy -Full code -Lovenox for DVT prophylaxis Attestations Medical Necessity Statement*: Chest sounds quite tight today. Will need continued IV steroids at this time. We will need to stay in the hospital for another 24 to 48 hours. Still requiring 2 L nasal cannula oxygen. Not medically clear for discharge. 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
[2022-05-17] MEDS: nicotine 21 mg Patch 1 PATCH TRANSDERMA (12:42)
--- NOTE | 2022-05-17 14:10 | ECG_ITS ---
[facility] Test Date: 2022-05-17 Pat Name: Van Mckinley Department: Room: 253 Gender: Male Process Architect: : 1985 Requested By: Mckenna Ramirez Order Number: [id number] Fischer MD: Ranjeet Nowak M.D. Measurements Intervals [place] Rate: 96 P: 69 DE: 110 QRS: 67 QRSD: 91 T: 82 QT: 326 QTc: 413 Interpretive Statements SINUS RHYTHM WITH SHORT DE INTERVAL MODERATE ST DEPRESSION [0.05+ mV ST DEPRESSION] Compared to ECG 05/17/2022 09:16:48 ST (T wave) deviation now present Electronically Signed On 05-17-2022 18:42:11 CHROME PLATER by Ranjeet Nowak M.D. [id number]
[2022-05-17] MEDS: ipratropium-albuterol 3 mL Neb INHALATION (14:14)
[2022-05-17] MEDS: acetaminophen 325 mg Tablet 650 MG PO (14:44)
[2022-05-17 14:57] LABS: Troponin T (5th) Once 6 ng/L (0-15)
[2022-05-18] VITALS (11 sets, daily range): BP systolic 99–110; BP diastolic 56–71; PULSE 55–81; RESP 14–17; TEMP 36.6–36.9; O2SAT 90–97
[2022-05-18] MEDS: HYDROcodone-acetaminophen 5-325 mg Tablet 1 TAB PO ×2 (01:43→12:41)
[2022-05-18] MEDS: enoxaparin 40 mg/0.4 mL Syringe SUBCUT (04:11)
[2022-05-18] MEDS: benzonatate 100 mg Capsule PO ×2 (04:11→11:19)
[2022-05-18] MEDS: doxycycline 100 MG in sodium chloride 0.9% (plus) 100 ML IV ×2 (04:12→18:18)
[2022-05-18] MEDS: pantoprazole DR 40 mg Tablet PO (09:41)
[2022-05-18] MEDS: atorvastatin 40 mg Tablet 20 MG PO (09:41)
[2022-05-18] MEDS: nicotine 21 mg Patch 1 PATCH TRANSDERMA (09:42)
[2022-05-18] MEDS: sertraline 100 mg Tablet 200 MG PO (09:42)
[2022-05-18] MEDS: divalproex ER 500 mg Tablet (24H) PO ×2 (09:42→18:18)
[2022-05-18] MEDS: montelukast sodium 10 mg Tablet PO (09:42)
[2022-05-18] MEDS: amlodipine 10 mg Tablet PO (09:42)
[2022-05-18] MEDS: lisinopril 10 mg Tablet PO (09:42)
[2022-05-18] MEDS: ARIPiprazole 10 mg Tablet 15 MG PO (11:19)
--- NOTE | 2022-05-18 11:54 | PC.CHAP ---
Pastoral Care Encounter/Spiritual Assessment Type of Contact [] Declined disability examiner visit [] Patient/Family/Request visit [] Outpatient visit [] Follow-up visit [] Physician referral [] Code/Alert [x] Routine visit [] Staff referral [] Actively dying [] Patient sleeping [] Family support [] [] Out of room [] Palliative care [] [] Receiving care in room [] Pre-surgical visit [] Trauma [] Long length of stay [] ICU visit [] Other: Relational/Emotional Strength [x] Patient feels connected with others/family/visitors/staff [] Distress [] Loneliness/isolation [] Abandonment Spirituality of Patient [x Person of Cherri [] Attends Religion of their Cherri [x] Believes in Prayer [] Reads Bible or Gnosticist materials [x] There are Spiritual issues to be addressed Physician Office Nurse Interventions [x] Prayer [x] Active listening [x] Non-anxious presence [] Spiritual/emotional support [] Crisis/trauma care [] Spiritual counseling [] Bereavement support [] Provided bereavement packet [] Provided Bible/devotional materials [] Provided toy/stuffed animal, coloring book to patient or family member [] Provided Communion [] Anointing/[place] [] Salvation [x] Completed spiritual assessment [] Other: Impact on Illness or Injury [] Angry [] Fearful [] Anxious [] Often cries [] Exhaustion [] Unable to work [] Unable to attend pentecostal [] Unable to walk/stand [] Unable to read [] Unable to drive [] Unable to eat/drink [] Unable to sleep [] Unable to be with family [] Patient intubated [] Other: Summary Time spent with patient 10 min
--- NOTE | 2022-05-18 15:09 | PM.PN ---
Subjective Subjective: Seen this morning. Patient did not qualify for home oxygen however when he got up to go to the bathroom he got really short of breath and started wheezing. Vitals/I&O/Wt Last Vital Signs Temp 98.1 F 05/18/22 12:00 Pulse 62 05/18/22 15:07 Resp 16 05/18/22 15:07 BP 110/71 05/18/22 12:00 Pulse Ox 93 05/18/22 15:07 O2 Del Method 05/18/22 15:07 O2 Flow Rate 2 05/18/22 00:00 05/18/22 05/18/22 05/18/22 06:59 14:59 22:59 Intake Total 580 / 580 Balance 580 / 580 Weight last 48 hrs Weight 91.172 kg Physical Exam Narrative: General: Alert oriented x3, patient seen laying in bed at this time. at bedside. On room air HEENT: Normocephalic, atraumatic, EOMI, cannula. No acute respiratory distress present. Cardio: Regular rate rhythm, normal S1-S2 Respiratory: Decreased bilateral air entry. Mild wheezing present at bases. No rhonchi. Improved since yesterday. GI: Abdomen soft, nontender, nondistended, bowel sounds + Extremities: No bilateral lower extremity edema. 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 -Continue doxycycline -Certainly vape induced lung injury is a possibility, however his chest x-ray does show streaky bilateral lung opacities, check chest CT today. Patient does get very short of breath once he mobilizes. -Monitor respiratory status closely -Respiratory therapy -Full code -Lovenox for DVT prophylaxis Attestations Medical Necessity Statement*: Will need continued hospital stay today due to active shortness of breath on exertion. 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
--- NOTE | 2022-05-18 15:10 | CTR_ITS ---
PROCEDURE INFORMATION: Exam: CT Chest Without Contrast; Diagnostic Exam date and time: 05/18/2022 4:47 PM Age: 36 years old Clinical indication: Cough and shortness of breath; Prior surgery; Surgery type: Bilateral mastectomy; Additional info: Asthma flare, SOB on exertion TECHNIQUE: Imaging protocol: Diagnostic computed tomography of the chest without contrast. Radiation optimization: All CT scans at this facility use at least one of these dose optimization techniques: automated exposure control; mA and/or kV adjustment per patient size (includes targeted exams where dose is matched to clinical indication); or iterative reconstruction. COMPARISON: CR (CHEST, ) 05/17/2022 2:04 AM RADIATION DOSE METRICS: Total DLP (mGy-cm): 457.23 FINDINGS: Lungs: Bibasilar atelectasis versus minimal infiltrate. Pleural spaces: Unremarkable. No pneumothorax. No pleural effusion. Heart: Unremarkable. No cardiomegaly. No pericardial effusion. Negative for coronary artery atherosclerotic calcifications. Lymph nodes: Unremarkable. No enlarged lymph nodes. Vasculature: Unremarkable. No aortic aneurysm. Gallbladder and bile ducts: Cholecystectomy. Kidneys and ureters: Bilateral punctate nonobstructing renal calyceal stones incompletely visualized. Bones/joints: Unremarkable. No acute fracture. Soft tissues: Unremarkable. CT/CT chest wo con [id number] IMPRESSION: 1. Bibasilar atelectasis versus minimal infiltrate. 2. Cholecystectomy. 3. Bilateral punctate nonobstructing renal calyceal stones incompletely visualized.
[2022-05-18] MEDS: budesonide 0.5 mg/2 mL Neb INHALATION (19:42)
[2022-05-18] MEDS: albuterol 2.5 mg/3 mL Neb INHALATION (19:42)
[2022-05-18] MEDS: BuSPIRONE 10 mg Tablet 15 MG PO (20:11)
[2022-05-18] MEDS: trazodone 100 mg Tablet PO (20:19)
[2022-05-19] VITALS: BP 105/64; PULSE 67; RESP 14; TEMP 36.8; O2SAT 90
[2022-05-19 04:00] VITALS: BP 117/72; PULSE 57; RESP 14; TEMP 36.4; O2SAT 91
[2022-05-19] MEDS: doxycycline 100 MG in sodium chloride 0.9% (plus) 100 ML IV (04:21)
[2022-05-19] MEDS: benzonatate 100 mg Capsule PO (05:42)
[2022-05-19 07:46] VITALS: BP 100/64; PULSE 51; RESP 16; TEMP 36.3; O2SAT 91
--- NOTE | 2022-05-19 08:34 | P.DS_ITS ---
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 he does note that he started of shortness of breath and wheezing recently diagnosed with pneumonia placed on Levaquin, no fevers, no chills, no chest pain.? He does report vaping, no history of smoking Hospital Course Hospital Course Admitted for asthma exacerbation. D-dimer negative. He required higher doses of IV steroids x48 hours. Doing better today on day of discharge. Off oxygen and on room air now. Sent home on prednisone taper along with his usual inhalers. He is to follow-up with pulmonology after discharge. He already has an appointment on June 02. I asked him to return to the hospital if he worsens. Patient will be discharged home in stable condition at this time. Physical Exam Narrative: General: Alert oriented x3, patient seen laying in bed at this time. HEENT: Normocephalic, atraumatic, EOMI, cannula. No acute respiratory distress present. Cardio: Regular rate rhythm, normal S1-S2 Respiratory: Clear to auscultation bilaterally no wheezes no rhonchi. GI: Abdomen soft, nontender, nondistended, bowel sounds + Extremities: No bilateral lower extremity edema. Discharge Data Studies Completed and Pending Completed Studies During Hospitalization Category Date Time Status CT chest wo con [id number] Urgent Cat Scan 05/18/22 15:10 Completed XR chest 1V portable [id number] Stat Exams 05/17/22 01:49 Completed Radiology Impressions Chest X-Ray 05/17/22 01:49 IMPRESSION: No significant acute radiographic findings in the chest. Chest CT 05/18/22 15:10 IMPRESSION: 1. Bibasilar atelectasis versus minimal infiltrate. 2. Cholecystectomy. 3. Bilateral punctate nonobstructing renal calyceal stones incompletely visualized. Laboratory Results WBC 7.6 10^3/uL (4.0-10.0) 05/17/22 01:50 RBC 4.43 10^6/uL (4.1-5.3) 05/17/22 01:50 Hgb 14.3 g/dL (11.5-15.3) 05/17/22 01:50 Hct 41.5 % (37.0-47.0) 05/17/22 01:50 MCV 93.7 fl (81-99) 05/17/22 01:50 MCH 32.3 pg (28.0-34.0) 05/17/22 01:50 MCHC 34.5 g/dL (30.0-36.0) 05/17/22 01:50 RDW 12.6 % (12.1-15.1) 05/17/22 01:50 Plt Count 184 10^3/cmm (130-400) 05/17/22 01:50 MPV 10.6 fL (7.4-10.4) H 05/17/22 01:50 Neut % (Auto) 55.9 % 05/17/22 01:50 Lymph % (Auto) 29.0 % 05/17/22 01:50 [place] % (Auto) 7.1 % 05/17/22 01:50 Eos % (Auto) 7.0 % 05/17/22 01:50 Baso % (Auto) 0.7 % 05/17/22 01:50 Neut # (Auto) 4.25 10^3/uL (1.8-7.7) 05/17/22 01:50 Lymph # (Auto) 2.2 10^3/uL (0.8-4.8) 05/17/22 01:50 [place] # (Auto) 0.5 10^3/uL (0.2-0.9) 05/17/22 01:50 Eos # (Auto) 0.5 10^3/uL (0.0-0.8) 05/17/22 01:50 Baso # (Auto) 0.1 10^3/uL (0.0-0.1) 05/17/22 01:50 Nucleated RBC % (auto) 0 % 05/17/22 01:50 Nucleated RBCs # 0.0 /100WBC 05/17/22 01:50 D-Dimer 0.29 ug/mIFEU (0-0.59) 05/17/22 01:50 Specimen Type Arterial 05/17/22 02:40 Sample Site Brachial, left 05/17/22 02:40 ABG pH 7.40 (7.35-7.45) 05/17/22 02:40 ABG pCO2 40.6 mmHg (35-45) 05/17/22 02:40 ABG pO2 61.0 mmHg (80.0-100.0) L 05/17/22 02:40 ABG HCO3 24.9 mmol/L (22-26) 05/17/22 02:40 ABG Base Excess 0.0 mmol/L (-2.0-2.0) 05/17/22 02:40 Marcello Test Pos 05/17/22 02:40 Hematocrit 50.6 % (42-52) 05/17/22 02:40 O2 Delivery Device None 05/17/22 02:40 FiO2 21.0 % 05/17/22 02:40 Quality Process Lead ID [email or web address] 05/17/22 02:40 Sodium 134 mmol/L (136-145) L 05/17/22 01:50 Potassium 3.9 mmol/L (3.5-5.1) 05/17/22 01:50 Chloride 101 mmol/L (98-107) 05/17/22 01:50 Carbon Dioxide 25 mmol/L (22-29) 05/17/22 01:50 Anion Gap 11.9 (5-19) 05/17/22 01:50 BUN 20 mg/dL (6-20) 05/17/22 01:50 Creatinine 1.0 mg/dL (0.7-1.2) 05/17/22 01:50 GFR Calculation 84.1 mL/min (90-130) L 05/17/22 01:50 Glucose 85 mg/dL (65-115) 05/17/22 01:50 Calculated Osmolality 280 mOsm/kg (285-295) L 05/17/22 01:50 Calcium 8.5 mg/dL (8.5-10.5) 05/17/22 01:50 Total Bilirubin 0.3 mg/dL (0.15-1.2) 05/17/22 01:50 AST 23 U/L (0-40) 05/17/22 01:50 ALT 19 U/L (0-41) 05/17/22 01:50 Alkaline Phosphatase 76 U/L (40-130) 05/17/22 01:50 Troponin T Gen 5 ng/L 6 ng/L (0-15) 05/17/22 14:20 Troponin T Baseline 6 ng/L (0-15) 05/17/22 01:50 Troponin T 120 Minute 6.00 ng/L (0-15) 05/17/22 04:03 Delta Troponin T 0 ABS# (0-10) 05/17/22 04:03 Troponin T Hi Sens 6Hr 6.00 ng/L (0-15) 05/17/22 07:12 Troponin T Hi Sens 6Hr Delta 0 ng/L (0-12) 05/17/22 07:12 NT-Pro-B Natriuret Pep 62 pg/mL (0-125) 05/17/22 01:50 Total Protein 6.5 g/dL (6.6-8.7) L 05/17/22 01:50 Albumin 4.1 g/dL (3.5-5.2) 05/17/22 01:50 Globulin 2.4 g/dL (1.3-4.6) 05/17/22 01:50 Procalcitonin 0.03 ng/mL (0-0.5) 05/17/22 01:50 TSH 0.55 uIU/mL (0.27-4.20) 05/17/22 01:50 Influenza Type A Ag negative (Negative) 05/17/22 02:07 Influenza Type B Ag negative (Negative) 05/17/22 02:07 SARS-CoV-2 Ag (Rapid) negative (Negative) 05/17/22 02:07 Vitals Last Vital Signs Temp 97.3 F L 05/19/22 07:46 Pulse 51 L 05/19/22 07:46 Resp 16 05/19/22 07:46 BP 100/64 05/19/22 07:46 Pulse Ox 91 05/19/22 07:46 O2 Del Method 05/19/22 07:46 O2 Flow Rate 2 05/18/22 00:00 Discharge Plan Discharge Patient Disposition: Home Condition: Stable Prescriptions: New prednisone 10 mg tablet See Rx Instructions .ROUTE .COMPLEX Qty: 20 0RF Rx Instructions: 60 mg x1d 40 mg x2d 20 mg x2d 10 mg x2d Continued aripiprazole [Abilify] 15 mg tablet 15 mg PO DAILY Qty: 30 2RF sertraline [Zoloft] 100 mg tablet 200 mg PO DAILY Qty: 60 2RF trazodone 50 mg tablet 100 mg PO .HS PRN (Reason: insomnia) Qty: 60 2RF amlodipine 10 mg tablet 10 mg PO DAILY 90 Days Qty: 90 1RF budesonide-formoterol [Symbicort] 160-4.5 mcg/actuation HFA aerosol inhaler 2 puff inhalation BID Qty: 10.2 3RF lisinopril 10 mg tablet 10 mg PO DAILY 90 Days Qty: 90 1RF albuterol sulfate [ProAir HFA] 90 mcg/actuation HFA aerosol inhaler 2 puff inhalation QID PRN (Reason: shortness of breath or wheezing) Qty: 8.5 6RF fluticasone propionate 50 mcg/actuation spray,suspension 2 spray intranasal BID PRN (Reason: nasal congestion) Qty: 16 0RF Rx Instructions: administer into each nostril loratadine 10 mg tablet 10 mg PO DAILY Qty: 90 0RF montelukast [Singulair] 10 mg tablet 10 mg PO DAILY Qty: 30 3RF benzonatate 100 mg capsule 100 mg PO Q6H PRN (Reason: cough) Qty: 90 1RF atorvastatin 20 mg tablet 20 mg PO DAILY 30 Days Qty: 30 6RF testosterone cypionate 200 mg/mL oil 200 mg IM DIRECTED hydrocodone-acetaminophen 5-325 mg tablet 1 tab PO Q8H PRN (Reason: pain (scale score 7-10)) Qty: 10 0RF divalproex 500 mg tablet extended release 24 hr 750 mg PO BID paroxetine HCl 40 mg PO DAILY sumatriptan succinate [Imitrex] 50 mg tablet 50 mg PO PRN PRN (Reason: Headache) Rx Instructions: take 1 tab at onset of headache; if no relief may repeat 1 tab after at least 2 hrs; max = 4 tabs/24 hr Discharge Orders: Discharge Order (Routine); Ordered 05/19/22 Ordered By: Mckenna Ramirez Referrals: Dolly Sauceda NP [Primary Care Provider] - 05/26/22 9:00 am Discharge Diet: Cardiac Discharge Activity: Increase activity as tolerated Patient Instructions: Asthma - Adult, Asthma Exacerbation - Adult, Prednisone (By mouth) Activity Restrictions/Additional Instructions: Please return to ER if you have any worsening of symptoms or any new symptoms develop Discharge Attestations Time Spent in Discharge Care*: other Quality Metrics Clinical Quality Measures [ No reported AMI, CVA or VTE this stay] Coding Level of Care Code Acute Chg FW DC note Diagnoses Current every day vaping Z72.89 Asthma with exacerbation J45.901 Acute respiratory failure with hypoxemia J96.01 Chronic kidney disease, stage 3a N18.31 Generalized epilepsy G40.309 BRENDEN (obstructive sleep apnea) G47.33 HTN (hypertension) I10 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
[2022-05-19] MEDS: albuterol 2.5 mg/3 mL Neb INHALATION (08:36)
[2022-05-19] MEDS: budesonide 0.5 mg/2 mL Neb INHALATION (08:36)
[2022-05-19 08:37] VITALS: PULSE 68; RESP 16; O2SAT 92
[2022-05-19 08:42] VITALS: PULSE 53
[2022-05-19] MEDS: sertraline 100 mg Tablet 200 MG PO (09:54)
[2022-05-19] MEDS: ARIPiprazole 10 mg Tablet 15 MG PO (09:54)
[2022-05-19] MEDS: pantoprazole DR 40 mg Tablet PO (09:54)
[2022-05-19] MEDS: atorvastatin 40 mg Tablet 20 MG PO (09:55)
[2022-05-19] MEDS: nicotine 21 mg Patch 1 PATCH TRANSDERMA (09:55)
[2022-05-19] MEDS: montelukast sodium 10 mg Tablet PO (09:55)
[2022-05-19] MEDS: amlodipine 10 mg Tablet PO (09:55)
[2022-05-19] MEDS: lisinopril 10 mg Tablet PO (09:55)
[2022-05-19] MEDS: divalproex ER 500 mg Tablet (24H) PO (09:57)
[2022-05-19 11:53] VITALS: PULSE 53
== END 2022-05-19 11:54 | disposition home or self-care (01) | DRG 203 ==
LOC: ER 03:52 → MEDSURG 04:06
PROVIDERS: Admitting Provider Family Medicine; Emergency Provider Emergency Medicine; PCP Nurse Practitioner Family; Visit Provider Internal Medicine
DX: J45.901 Unspecified asthma with (acute) exacerbation (principal); U07.0 Vaping-related disorder; I12.9 Hypertensive chronic kidney disease with stage 1 through stage 4 chronic kidney disease, or unspecified chronic kidney disease; N18.31 Chronic kidney disease, stage 3a; G40.409 Other generalized epilepsy and epileptic syndromes, not intractable, without status epilepticus; G47.33 Obstructive sleep apnea (adult) (pediatric); F64.0 Transsexualism; Z79.890 Hormone replacement therapy; E66.9 Obesity, unspecified; Z68.32 Body mass index [BMI] 32.0-32.9, adult; Z79.51 Long term (current) use of inhaled steroids; Z79.891 Long term (current) use of opiate analgesic; F90.9 Attention-deficit hyperactivity disorder, unspecified type; F60.3 Borderline personality disorder; Z86.16 Personal history of COVID-19; F32.4 Major depressive disorder, single episode, in partial remission; F17.220 Nicotine dependence, chewing tobacco, uncomplicated; F43.10 Post-traumatic stress disorder, unspecified
CPT/HCPCS: 36415; 36600; 71045; 71250; 80053; 82803; 83880; 84145; 84443; 84484; 85025; 85378; 87426; 87804; 93005; 94640; 94664; 94760; 96372; 96374; 99285; G0378; J1650; J2405; J2920; J2930; J3490; J7613; J7626; J7644

== ENCOUNTER 2022-05-23 21:17 | Observation (INO) | payer BC, MEDICAID, SELFPAY ==
[2022-05-23 22:03] VITALS: BP 96/66; PULSE 73; RESP 18; TEMP 37.2; O2SAT 98; BMI 32.3
--- NOTE | 2022-05-23 22:44 | XRR_ITS ---
PROCEDURE INFORMATION: Exam: XR Chest Exam date and time: 05/23/2022 11:14 PM Age: 36 years old Clinical indication: Other: Pneumonia; Additional info: Dizzy HX of pneumonia TECHNIQUE: Imaging protocol: Radiologic exam of the chest. Views: 1 view. COMPARISON: CT chest con [id number] 18/05/2022 16:47 FINDINGS: Lungs: Lung base atelectasis or scarring. No definite consolidation. Pleural spaces: Unremarkable. No pleural effusion. No pneumothorax. Heart/Mediastinum: Heart size is stable. Bones/joints: Unremarkable. Soft tissues: Left breast area clips. Right breast area clips. XR/XR chest 1V portable [id number] IMPRESSION: 1. No definite focal pneumonia. 2. Postop changes. Lung base minimal atelectasis or scarring.
--- NOTE | 2022-05-23 22:47 | ECG_ITS ---
[facility] Test Date: 2022-05-23 Pat Name: Van Mckinley Department: Room: Gender: Male Career Developer: : 1985 Requested By: Gallo Diane Order Number: [id number] Fischer MD: Ranjeet Nowak M.D. Measurements Intervals [place] Rate: 69 P: 52 [place]: 104 QRS: 38 QRSD: 93 T: 41 QT: 366 QTc: 392 Interpretive Statements SINUS RHYTHM WITH SHORT [place] INTERVAL MODERATE ST DEPRESSION [0.05+ mV ST DEPRESSION] Compared to ECG 05/17/2022 14:10:57 No significant changes Electronically Signed On 05-25-2022 7:42:48 ADMINISTRATIVE SUPPORT COORDINATOR by Ranjeet Nowak M.D. [email or web address]
[2022-05-23] MEDS: sodium chloride 0.9% 1,000 ML 999 ML IV ×2 (22:58→23:56)
[2022-05-23] MEDS: ondansetron 2 mg/ML SDV 2 mL 8 MG IVP (22:59)
[2022-05-23 23:16] LABS: Basophils % 0.2 %; Eosinophils # 0.1 10^3/uL (0.0-0.8); Eosinophils % 0.8 %; Hematocrit 42.5 % (42.0-52.0); Hemoglobin 14.4 g/dL (11.7-16.6); Lymphocytes # 2.9 10^3/uL (0.8-4.8); Lymphocytes % 47.8 %; Mean Corpuscular HGB Conc 33.9 g/dL (30.0-36.0); Mean Corpuscular Volume 94.4 fl (80-94); Mean Platelet Volume 10.9 fL (7.4-10.4); Monocytes # 0.3 10^3/uL (0.2-0.9); Monocytes % 5.6 %; Neutrophils # 2.74 10^3/uL (1.8-7.7); Neutrophils % 45.3 %; Nucleated Red Blood Cells % 0 %; Platelet Count 120 10^3/cmm (130-400); Red Cell Distribution Width 12.6 % (12.1-15.1); White Blood Count 6.1 10^3/uL (4.0-10.0)
[2022-05-23 23:35] LABS: Alanine Aminotransferase 25 U/L (0-41); Albumin Level 3.6 g/dL (3.5-5.2); Alkaline Phosphatase 63 U/L (40-130); Anion Gap 11.1 (5-19); Aspartate Amino Transferase 21 U/L (0-40); Blood Urea Nitrogen 22 mg/dL (6-20); Calcium 8.5 mg/dL (8.5-10.5); Carbon Dioxide 29 mmol/L (22-29); Chloride 103 mmol/L (98-107); Globulin 2.1 g/dL (1.3-4.6); Glomerular Filtration Rate 68.1 mL/min (90-130); Glucose 90 mg/dL (65-115); Osmolality Calculated 291 mOsm/kg (285-295); Potassium 4.1 mmol/L (3.5-5.1); Sodium 139 mmol/L (136-145); Total Bilirubin 0.2 mg/dL (0.15-1.2); Total Protein 5.7 g/dL (6.6-8.7)
[2022-05-23] MEDS: promethazine 25 mg/mL SDV 1 mL IM (23:54)
[2022-05-23 23:56] VITALS: PULSE 64; RESP 16; O2SAT 94
[2022-05-23] MEDS: ipratropium-albuterol 3 mL Neb INHALATION (23:56)
[2022-05-24] VITALS (18 sets, daily range): BP systolic 86–113; BP diastolic 56–78; PULSE 58–102; RESP 16; TEMP 36.6–36.9; O2SAT 89–99
[2022-05-24 00:28] LABS: Add Urine Microscopic? YES; Bilirubin Urine Neg (Negative); Blood Urine Neg (Negative); Glucose Urine UA Norm (Normal); Ketones Urine Negative (Negative); Leukocyte Esterase Urine 2+ (Negative); Nitrate Urine Negative (Negative); Protein Urine Neg (Negative); Specific Gravity, Urine 1.015 (1.005-1.030); Urine Appearance Hazy (CLEAR); Urine Color Yellow (Yellow); Urobilinogen Urine Neg (Negative); pH Urine 7 (5-7)
[2022-05-24 00:37] LABS: Add Urine Culture? No; Bacteria Urine TRACE /hpf; Mucus Urine TRACE /hpf; RBC Urine 0-4 /hpf (0-2); Squamous Epithelial Cell Urine 0-4 /hpf (0-5)
--- NOTE | 2022-05-24 01:25 | CTR_ITS ---
PROCEDURE INFORMATION: Exam: CTA Chest With Contrast Exam date and time: 05/24/2022 2:06 AM Age: 36 years old Clinical indication: Shortness of breath and other: Hypoxia; Additional info: SOB, hypoxia TECHNIQUE: Imaging protocol: Computed tomographic angiography of the chest with contrast. 3D rendering (Not supervised by radiologist): MIP and/or 3D reconstructed images were created by the technologist. Radiation optimization: All CT scans at this facility use at least one of these dose optimization techniques: automated exposure control; mA and/or kV adjustment per patient size (includes targeted exams where dose is matched to clinical indication); or iterative reconstruction. Contrast material: OMNI 350; Contrast volume: 100 ml; Contrast route: INTRAVENOUS (IV); COMPARISON: CT chest wo con [id number] 18/05/2022 16:47 RADIATION DOSE METRICS: Total DLP (mGy-cm): 433.22 FINDINGS: Pulmonary arteries: No main, lobar, or segmental PE identified. Aorta: Unremarkable. No aortic aneurysm. No aortic dissection. Lungs: Bilateral perihilar and mid to lower lung atelectasis or pneumonitis. Diffuse interstitial haziness. No consolidation. No dominant lung mass or spiculated nodule. Pleural spaces: No effusion or pneumothorax. Heart: The heart is not enlarged. No pericardial effusion is noted. Small, new mediastinal fluid. This may be due to 3rd spacing of fluid. Lymph nodes: No bulky hilar or mediastinal lymphadenopathy noted. Diaphragm: Small hiatal hernia. Gallbladder and bile ducts: Absent gallbladder. Kidneys and ureters: Kidneys show contrast excretion. Bones/joints: Skeletal structures are age appropriate. No acute fracture is seen. Few nonacute left lower lateral rib deformities. Soft tissues: Soft tissue clips in the anterior chest. CT/CT angio chest PE protcl [id number] IMPRESSION: 1. No PE visualized. 2. Increasing areas of bilateral perihilar and mid to lower lung atelectasis, pneumonitis, edema, or developing airspace disease. Recommend three-month follow-up. 3. A few other chronic findings above.
[2022-05-24 02:12] LABS: Influenza A by IFA negative (Negative); Influenza B by IFA negative (Negative)
[2022-05-24 02:13] LABS: SARS Covid-2 Antigen negative (Negative)
[2022-05-24] MEDS: iohexol 350 mg/mL 500 mL Btl (per mL) IV (02:25)
[2022-05-24 03:38] LABS: ABG PH Result 7.39 (7.35-7.45); Arterial Blood Gas Hematocrit 47.2 % (42-52); Base Excess ABG 4.1 mmol/L (-2.0-2.0); Blood Gas Allen Test Pos; Blood Gas Sample Site Radial, left; Blood Gas Sample Type Arterial; HCO3 ABG 30.5 mmol/L (22-26); Oxygen Device ROOM AIR; PO2 ABG 64.4 mmHg (80.0-100.0)
--- NOTE | 2022-05-24 03:39 | P.HP_ITS ---
Providers/Chief Complaint Primary Care Provider: Dolly Sauceda NP Chief Complaint: low BP History of Present Illness Van Mckinley is a 36 year old on hormone replacement therapy, testosterone, asthma, borderline personality disorder, generalized epilepsy, major depressive disorder who presents [facility] for dizziness. 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 Denies any headache, no blurry vision, no nausea, no vomiting, abdominal pain, no chest pain, no palpitations. Denies any tinnitus,, no fevers, no chills Review of Systems Const: Denies: fever(s), chills, fatigue or malaise Resp: Denies: dyspnea, productive cough, non-productive cough or wheezing GI: Denies: abdominal pain, nausea, vomiting or melena : Denies: dysuria Musc: Denies: neck pain or back pain Neuro: Denies: headache(s) Endo: Denies: polyuria Medications/Allergies Home Medications Medication Instructions Recorded Confirmed Last Taken Type testosterone cypionate 200 mg/mL 200 mg IM DIRECTED 09/18/21 05/19/22 09/23/21 History intramuscular oil sumatriptan succinate 50 mg tablet 50 mg PO PRN PRN Headache 11/17/21 05/19/22 Unknown History (Imitrex) albuterol sulfate 90 mcg/actuation 2 puff inhalation QID PRN 02/03/22 05/19/22 Unknown Rx aerosol inhaler (ProAir HFA) shortness of breath or wheezing #8.5 grams amlodipine 10 mg tablet 10 mg PO DAILY 90 days #90 tabs 02/03/22 05/19/22 Unknown Rx budesonide-formoterol HFA 160 2 puff inhalation BID #10.2 grams 02/03/22 05/19/22 Unknown Rx mcg-4.5 mcg/actuation aerosol inhaler (Symbicort) lisinopril 10 mg tablet 10 mg PO DAILY 90 days #90 tabs 10/05/22 01/18/23 Unknown Rx atorvastatin 20 mg tablet 20 mg PO DAILY 30 days #30 tabs 02/04/22 05/19/22 Unknown Rx aripiprazole 15 mg tablet (Abilify) 15 mg PO DAILY #30 tabs 04/13/22 05/19/22 Unknown Rx fluticasone propionate 50 2 spray intranasal BID PRN nasal 04/13/22 05/19/22 Unknown Rx mcg/actuation nasal congestion #16 grams spray,suspension loratadine 10 mg tablet 10 mg PO DAILY allergic symptoms 04/13/22 05/19/22 Unknown Rx #90 tabs montelukast 10 mg tablet 10 mg PO DAILY cough #30 tabs 04/13/22 05/19/22 Unknown Rx (Singulair) sertraline 100 mg tablet (Zoloft) 200 mg PO DAILY #60 tabs 04/13/22 05/19/22 Unknown Rx trazodone 50 mg tablet 100 mg PO .HS PRN insomnia #60 tabs 04/13/22 05/19/22 Unknown Rx hydrocodone 5 mg-acetaminophen 325 1 tab PO Q8H PRN pain (scale score 04/24/22 05/19/22 Unknown Rx mg tablet 7-10) #10 tabs benzonatate 100 mg capsule 100 mg PO Q6H PRN cough #90 caps 05/07/22 05/19/22 Unknown Rx divalproex 500 mg tablet,extended 750 mg PO BID 05/17/22 05/19/22 Unknown History release 24 hr paroxetine HCl 40 mg PO DAILY 05/18/22 05/19/22 05/16/22 08:00 History prednisone 10 mg tablet See Rx Instructions .Route 05/19/22 05/19/22 Unknown Rx .COMPLEX #20 tabs Allergies Allergy/AdvReac Type Severity Reaction Status Date / Time carbamazepine [From Tegretol] Allergy RASH Verified 05/23/22 22:08 cyclobenzaprine Allergy RASH Verified 05/23/22 22:08 [From Flexeril] nalbuphine [From Nubain] Allergy RASH Verified 05/23/22 22:08 tizanidine Allergy Unknown Verified 05/23/22 22:08 zolpidem [From Ambien] Allergy RASH Verified 05/23/22 22:08 PFSH Acute PFSH: Medical History Abdominal pain ADHD Allergic rhinitis due to allergen Borderline personality disorder Cough COVID-19 Degenerative arthritis of spine Gender dysphoria Generalized epilepsy History of Helicobacter pylori infection Major depressive disorder, recurrent severe without psychotic features Maxillary sinusitis Migraine headache Personal history of pyloric stenosis Pneumonitis Psychiatric care PTSD (post-traumatic stress disorder) Pyloric stenosis URI with cough and congestion Surgical History H/O esophagogastroduodenoscopy (09/30/21) History of adenectomy Hx of tonsillectomy S/P cholecystectomy Family History Other Cancer Social History Smoking and tobacco status: current every day smoker smokeless tobacco Smokeless tobacco user: chewing tobacco Smokeless tobacco details: one can/day. Quit status (tobacco): has tried quititng Number of times tried to quit t obacco: 4 Second hand smoke exposure: No Smoking risk assessment/counseling performed?: No Alcohol intake: current Alcohol intake frequency: few times a week Alcohol type: beer and hard liquor Desire information about alcohol rehabilitation?: No Counseling given: No Desire information about substance/drug rehabilitation?: No Counseling given: No Current occupational status: unemployed History of recent travel: No Current gender identity: Male Vitals/I&O/Wt Last Vital Signs Temp 98.9 F 05/23/22 22:03 Pulse 60 05/24/22 03:05 Resp 16 05/24/22 00:53 BP 111/78 05/24/22 03:05 Pulse Ox 95 05/24/22 03:05 O2 Del Method 05/24/22 03:05 O2 Flow Rate 3 05/24/22 03:05 05/23/22 05/23/22 05/24/22 14:59 22:59 06:59 Intake Total 1000 / 1000 Balance 1000 / 1000 Weight last 48 hrs Weight 90.718 kg Physical Exam Const: COMMON NORMALS: no acute distress and patient oriented x3 HENMT: COMMON NORMALS: normocephalic HEAD & SCALP: normocephalic Eye: COMMON NORMALS: Equal, round and reactive pupils present and EOMs intact bilaterally Neck/C-Spine: COMMON NORMALS: no JVD Resp: COMMON NORMALS: normal respiratory effort, No retractions, No use of accessory muscles and clear to auscultation bilaterally AUSCULTATION: clear to auscultation bilaterally Cardio: COMMON NORMALS: regular rate, regular rhythm, S1 normal heart sound present and S2 normal heart sound present RATE: regular rate RHYTHM: regular rhythm HEART SOUNDS: S1 normal heart sound present and S2 normal heart sound present GI: COMMON NORMALS: Normal to inspection, nondistended, normoactive bowel sounds present and Soft to palpation Extremity: COMMON NORMALS: no pedal edema Neuro: COMMON NORMALS: patient oriented x3, CN's II-XII intact bilaterally, moves all extremities and no focal motor deficits Psych: COMMON NORMALS: mental status grossly normal Data 05/23/22 23:00 05/23/22 23:00 A&P Assessment and plan (1) Dizziness: (2) Current every day vaping: (3) Major depressive disorder, recurrent severe without psychotic features: (4) High triglycerides: (5) BRENDEN (obstructive sleep apnea): (6) 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 Patient is taking both sertraline 200 mg once daily, and Paxil, will hold for now -Monitor QT interval as he is on multiple psychotropic medication -Telemetry monitoring, serial EKGs serial troponins telemetry monitoring Asthma exacerbation, currently not in exacerbation continue prednisone CT showing bilateral perihilar and mid to lower lung atelectasis pneumonitis edema or developing airspace disease -Likely secondary from vaping Attestations Medical Necessity Statement*: Patient requires hospitalization for dizziness, outpatient with observation Coding Level of Care Code Acute Code for [facility] Fwd Diagnoses Dizziness R42 Current every day vaping Z72.89 Major depressive disorder, recurrent severe without psychotic features F33.2 High triglycerides E78.1 BRENDEN (obstructive sleep apnea) G47.33 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
[2022-05-24] MEDS: metoclopramide 5 mg/mL SDV 2 mL 10 MG IVP ×2 (04:25→18:27)
[2022-05-24] MEDS: pantoprazole 40 mg SDV IVP ×2 (04:28→22:06)
[2022-05-24] MEDS: enoxaparin 40 mg/0.4 mL Syringe SUBCUT (04:30)
[2022-05-24 04:53] LABS: Lactate (Lactic Acid level) 0.7 mmol/L (0.5-2.2)
[2022-05-24 04:53] LABS: Valproic Acid Level 33.7 ug/mL (50-100)
[2022-05-24] MEDS: piperacillin-tazobactam 4.5 GM in sodium chloride 0.9% (plus) 50 ML IV (04:53)
[2022-05-24] MEDS: sodium chloride 0.9% 1,000 ML 100 ML IV ×2 (04:54→22:54)
[2022-05-24 04:55] LABS: Erythrocyte Sedimentation Rate < 1 mm/hr (0-10)
[2022-05-24 04:57] LABS: Troponin(5th) Baseline 6 ng/L (0-15)
[2022-05-24 05:05] LABS: NT Pro B Type Natriuretic Pept 23 pg/mL (0-125); Procalcitonin 0.04 ng/mL (0-0.5); Thyroid Stimulating Hormone 1.64 uIU/mL (0.27-4.20)
[2022-05-24 05:19] LABS: Cholesterol 96 mg/dL (0-200); HDL Cholesterol 30 mg/dL (60-100); LDL Cholesterol Calculated 29 mg/dL (50-129); LDL HDL Ratio 0.97 RATIO (0.00-3.22); Magnesium 2.2 mg/dL (1.7-2.3); Triglycerides 184 mg/dL (0-150)
[2022-05-24] MEDS: vancomycin 1,250 MG/250 ML PIGGYBACK 250 MG IV (05:42)
[2022-05-24 06:15] LABS: Adenovirus Not Detected (NOT DETECT); Chlamydia Pneumoniae Not Detected (NOT DETECT); Coronavirus 229E,HKU1,NL63,OC4 Not Detected (NOT DETECT); Human Metapneumovirus Not Detected (NOT DETECT); Human Rhinovirus/Enterovirus Not Detected (NOT DETECT); Influenza A Not Detected (NOT DETECT); Influenza A H1 Not Detected (NOT DETECT); Influenza A H1-2009 Not Detected (NOT DETECT); Influenza A H3 Not Detected (NOT DETECT); Influenza B Not Detected (NOT DETECT); Mycoplasma Pneumoniae Not Detected (NOT DETECT); Parainfluenza Virus Type 1 Not Detected (NOT DETECT); Parainfluenza Virus Type 2 Not Detected (NOT DETECT); Parainfluenza Virus Type 3 Not Detected (NOT DETECT); Parainfluenza Virus Type 4 Not Detected (NOT DETECT); Respiratory Syncytial Virus A Not Detected (NOT DETECT); Respiratory Syncytial Virus B Not Detected (NOT DETECT); SARS-COV-2 Not Detected (NOT DETECT)
--- NOTE | 2022-05-24 07:02 | PC.NURSE ---
report given to CROW Mattson
[2022-05-24 07:37] LABS: Troponin 5 2HR Delta 0 ABS# (0-10)
--- NOTE | 2022-05-24 07:41 | PC.NURSE ---
WHILE AT DOORWAY PT IS RESTING QUIETLY IN BED ON LEFT SIDE WITH EYES CLOSED. PT HAS GOOD CHEST RISE AND FALL.
[2022-05-24 07:45] LABS: HIV 1 & 2 Antigen Non-Reactive (Non-Reactiv)
[2022-05-24 07:46] LABS: HIV 1 & 2 Antibody Non-Reactive (Non-Reactiv)
--- NOTE | 2022-05-24 08:41 | USCV_ITS ---
Elías Van Age: 36 Gender: M : 1985 Exam Date: 05/24/2022 13:28 Ordering Phys: Azar Vasquez MD Technologist: Julio Aragon Exam Location: [facility] [place] Indication: chest pain BP: 145 / 86 HR: 55 Rhythm: Sinus Technical Quality: Adequate MEASUREMENTS (Male / Female) Normal Values 2D ECHO LV Diastolic Diameter PLAX 3.9 cm 4.2 - 5.9 / 3.9 - 5.3 cm LV Systolic Diameter PLAX 2.5 cm IVS Diastolic Thickness 1.2 cm 0.6 - 1.0 / 0.6 - 0.9 cm IVS Systolic Thickness 1.5 cm LVPW Diastolic Thickness 1.0 cm 0.6 - 1.0 / 0.6 - 0.9 cm LVPW Systolic Thickness 1.3 cm LVOT Diameter 2.0 cm LV Ejection Fraction 2D Teich 65.3 % LV Ejection Fraction MOD 2C 53.7 % LV Ejection Fraction 2C AL 52.2 % LA Diameter 3.4 cm M-MODE Aortic Annulus Diameter 3.0 cm LA Ao Ratio MM 1.2 MV E Point Septal Separation 0.9 cm DOPPLER AV Peak Velocity 140.0 cm/s LVOT Peak Velocity 108.0 cm/s AV Area Cont Eq vti 1.3 cm squared AV Area Cont Eq pk 2.5 cm squared MV Area PHT 5.0 cm squared Mitral E to A Ratio 1.2 MV E' Velocity 46.5 cm/s Mitral E to MV E' Ratio 6.0 Mitral E to LV E' Lateral Ratio 6.3 Mitral E to LV E' Septal Ratio 5.8 TR Peak Velocity 161.0 cm/s TR Peak Gradient 10.4 mmHg TV Peak E Velocity 89.0 cm/s Right Atrial Pressure 3.0 mmHg Pulmonary Artery Systolic Pressu 13.4 mmHg FINDINGS Left Ventricle Left ventricle is normal in size. LV systolic function is normal with EF of 55 to 60%. No regional wall motion abnormalities are seen. Diastolic function is normal Right Ventricle Normal in size and function Right Atrium Normal in size Left Atrium Normal in size Mitral Valve Structurally normal mitral valve.Trace mitral regurgitation. Aortic Valve Structurally normal aortic valve. No significant stenosis or regurgitation is seen Tricuspid Valve Mild tricuspid regurgitation. Pulmonary artery systolic pressure is normal. Pulmonic Valve Not well-visualized. Trace pulmonic regurgitation. Pericardium Normal Aorta Normal in size IVC Appears to be normal CONCLUSIONS LV systolic function is normal with EF of 55 to 60%. Diastolic function is normal. Trace mitral regurgitation Mild tricuspid regurgitation Trace pulmonic regurgitation No comparison studies are available Ranjeet Nowak MD (Electronically Signed) Final Date: 25 May 2022 06:01 S
--- NOTE | 2022-05-24 08:42 | PM.PN ---
Subjective Subjective: History and physical reviewed. Patient reports she still feels somewhat dizzy. Blood pressure and oxygen level was still somewhat low in the ER. He denies any chest discomfort. Previous hospital course reviewed as well. He was finishing up his prednisone as instructed. Medications: Reviewed: Yes Vitals/I&O/Wt Last Vital Signs Temp 98.9 F 05/23/22 22:03 Pulse 70 05/24/22 06:39 Resp 16 05/24/22 06:39 BP 94/60 05/24/22 08:30 Pulse Ox 89 L 05/24/22 08:30 O2 Del Method 05/24/22 06:39 O2 Flow Rate 2 05/24/22 06:39 05/23/22 05/24/22 05/24/22 22:59 06:59 14:59 Intake Total 2049 Balance 2049 Weight last 48 hrs Weight 90.718 kg Physical Exam Narrative: General exam is no distress Neck is supple Cardiovascular regular rate and rhythm Lungs clear no wheezing or crackles Abdomen is soft, positive bowel sounds Extremities no cyanosis clubbing or edema Data 05/23/22 23:00 05/23/22 23:00 Micro: Microbiology 05/24/22 04:15 Blood Culture - Preliminary Blood SPECIMEN COLLECTED 05/24/22 04:15 Blood Culture - Preliminary Blood SPECIMEN COLLECTED A&P Assessment and plan (1) Dizziness: Patient presented with dizziness, and had some relative hypotension. Hold blood pressure medications Continue hydration Depakote level was checked and not elevated (2) Hypoxia: Patient presented with hypoxia ABG demonstrated some hypercarbia, compensated I do not believe he has underlying COPD/asthma exacerbation He is completing a steroid taper which I continued We will go ahead and continue DuoNeb, budesonide Encouraged no vaping or smoking COVID and influenza negative (3) Current every day vaping: This may cause some of his infiltrate on CT He did have an aunt with premature lung disease, pulmonary hypertension. Physical therapy intends to keep his follow-up with pulmonary in mid June (4) Major depressive disorder, recurrent severe without psychotic features: Discontinue Paxil. He is already on high-dose Zoloft Plan Other medical problems as outlined in past medical history Full code Lovenox for DVT prophylaxis Attestations Medical Necessity Statement*: Continue observation, this is appropriate. Hopefully discharge tomorrow. Coding Level of Care Code Acute Code for Chg Fwd Diagnoses Dizziness R42 Hypoxia R09.02 Current every day vaping Z72.89 Major depressive disorder, recurrent severe without psychotic features F33.2
[2022-05-24] MEDS: sertraline 100 mg Tablet 200 MG PO (08:54)
[2022-05-24] MEDS: montelukast sodium 10 mg Tablet PO (08:54)
[2022-05-24] MEDS: predniSONE 10 mg Tablet PO (08:54)
[2022-05-24] MEDS: divalproex ER 250 mg Tablet (24H) 750 MG PO ×2 (08:54→17:11)
[2022-05-24] MEDS: ARIPiprazole 10 mg Tablet 15 MG PO (08:54)
[2022-05-24] MEDS: atorvastatin 40 mg Tablet 20 MG PO (08:55)
[2022-05-24 11:37] LABS: Troponin 5 6HR Delta 0 ng/L (0-12)
[2022-05-24] MEDS: ondansetron 2 mg/ML SDV 2 mL 4 MG IVP (12:26)
--- NOTE | 2022-05-24 17:23 | ECG_ITS ---
[facility] Test Date: 2022-05-24 Pat Name: Van Mckinley Department: Room: 270 Gender: Male Mat Inspector: : 1985 Requested By: Don Guo Order Number: [id number] Fischer MD: Ranjeet Nowak M.D. Measurements Intervals [place] Rate: 67 P: 43 [place]: 108 QRS: 35 QRSD: 89 T: 49 QT: 347 QTc: 368 Interpretive Statements SINUS RHYTHM WITH SHORT [place] INTERVAL Compared to ECG 05/23/2022 23:05:10 ST (T wave) deviation no longer present Electronically Signed On 05-25-2022 7:48:45 INDUSTRIAL ENGINEERING MANAGER by Ranjeet Nowak M.D. [email or web address] INFRASTRUCTURE [id number]
[2022-05-24] MEDS: calcium carbonate 500 mg Chew Tablet 1000 MG PO (22:07)
--- NOTE | 2022-05-24 22:19 | ED_ITS ---
HPI - Dizziness General: Chief Complaint: ER Hold Stated Complaint: low BP Time Seen by Provider: 05/23/22 22:36 Source: patient History of Present Illness: HPI Narrative: 36 year old male admitted for pneumonia earlier this month period he presents with an episode of dizziness, generalized weakness while at work period he notes that he is nauseated and generally weak. He has continued to cough. He has a history of asthma. He checked his blood pressure at work at it was around 100 systolic MD elicited complaint: dizziness, lightheadedness and near syncope Pertinent past history: other Onset (ago): minute(s) Timing: gradual onset Context: recent illness History of similar symptoms: Yes Exacerbating factors: movement/ambulation Relieving factors: nothing Associated symptoms: Reports cough, nausea and nasal congestion; Denies fevers/chills, headache(s) or vomiting Review of Systems Const: Denies: fever(s) ENMT: Reports: nasal congestion GI: Reports: nausea; Denies: vomiting Neuro: Denies: headache(s) PFSH ED PFSH: Medical History Abdominal pain ADHD Allergic rhinitis due to allergen Borderline personality disorder Cough COVID-19 Degenerative arthritis of spine Gender dysphoria Generalized epilepsy History of Helicobacter pylori infection Major depressive disorder, recurrent severe without psychotic features Maxillary sinusitis Migraine headache Personal history of pyloric stenosis Pneumonitis Psychiatric care PTSD (post-traumatic stress disorder) Pyloric stenosis URI with cough and congestion Surgical History H/O esophagogastroduodenoscopy (09/30/21) History of adenectomy Hx of tonsillectomy S/P cholecystectomy Family History Other Cancer Social History Smoking and tobacco status: current every day smoker smokeless tobacco Smokeless tobacco user: chewing tobacco Smokeless tobacco details: one can/day. Quit status (tobacco): has tried quititng Number of times tried to quit tobacco: 4 Second hand smoke exposure: No Smoking risk assessment/counseling performed?: No Alcohol intake: current Alcohol intake frequency: few times a week Alcohol type: beer and hard liquor Desire information about alcohol rehabilitation?: No Counseling given: No Desire information about substance/drug rehabilitation?: No Counseling given: No Current occupational status: unemployed History of recent travel: No Current gender identity: Male Physical Exam Const: COMMON NORMALS: no acute distress GENERAL APPEARANCE: cooperative, well developed and ill appearing NUTRITIONAL APPEARANCE: overweight HENMT: COMMON NORMALS: normocephalic and Normal external nose present HEAD & SCALP: normocephalic FACE & SINUS: normal facial exam and face symmetric NOSE: Normal external nose present Eye: COMMON NORMALS: Equal, round and reactive pupils present and EOMs intact bilaterally PUPIL: Yes Equal, round and reactive pupils present Neck/C-Spine: GENERAL: Yes trachea midline Chest: CHEST: Yes Symmetrical chest wall rise Resp: COMMON NORMALS: clear to auscultation bilaterally EFFORT & INSPECTION: Yes tachypneic AUSCULTATION: clear to auscultation bilaterally and diminished lung sounds Cardio: COMMON NORMALS: regular rate and regular rhythm RATE: regular rate RHYTHM: regular rhythm GI: COMMON NORMALS: Normal to inspection, nondistended, normoactive bowel sounds present Extremity: COMMON NORMALS: no pedal edema Neuro: [place]ALTON COMA SCALE: document GCS findings [place] coma scale eye opening: Spontaneous [place] coma scale verbal response: Orientated [place] coma scale motor response: Obey commands [place] coma scale total score: 15 SENSORY EXAM: Yes extremities (intact) Psych: COMMON NORMALS: speech normal SPEECH: Yes normal speech Skin: COMMON NORMALS: no rashes or lesions noted GENERAL SKIN EXAM: no rashes or lesions noted Course Vital Signs: Vital signs: Vital Signs Temperature 98.3 F 05/24/22 20:00 Pulse Rate 74 05/24/22 22:00 Respiratory Rate 16 05/24/22 20:00 Blood Pressure 96/61 05/24/22 20:00 Pulse Oximetry 95 05/24/22 22:00 Oxygen Delivery Me thod 05/24/22 22:00 Oxygen Flow Rate 1.5 05/24/22 10:29 MDM - Dizziness Medical Decision Making 36 year old male who obviously does not feel well. His oxygen saturations are in the mid to high 80s on room air. His blood pressure is low. He's received fluid with some transient improvement in his blood pressure. Chest X-ray was negative, however CTA reveals bilateral perihilar infiltrates. Swabs for COVID-19 and influenza are negative. He's requiring about 3 liters of oxygen currently. Becau se of this, he'll be admitted. Lab Data 05/23/22 23:00 05/23/22 23:00 Radiology Impressions Chest X-Ray 05/23/22 22:44 IMPRESSION: 1. No definite focal pneumonia. 2. Postop changes. Lung base minimal atelectasis or scarring. Chest CTA 05/24/22 01:25 IMPRESSION: 1. No PE visualized. 2. Increasing areas of bilateral perihilar and mid to lower lung atelectasis, pneumonitis, edema, or developing airspace disease. Recommend three-month follow-up. 3. A few other chronic findings above. Laboratory Results WBC 6.1 10^3/uL (4.0-10.0) 05/23/22 23:00 RBC 4.50 10^6/uL (4.1-5.3) 05/23/22 23:00 Hgb 14.4 g/dL (11.7-16.6) 05/23/22 23:00 Hct 42.5 % (42.0-52.0) 05/23/22 23:00 MCV 94.4 fl (80-94) H 05/23/22 23:00 MCH 32.0 pg (28.0-34.0) 05/23/22 23:00 MCHC 33.9 g/dL (30.0-36.0) 05/23/22 23:00 RDW 12.6 % (12.1-15.1) 05/23/22 23:00 Plt Count 120 10^3/cmm (130-400) L 05/23/22 23:00 MPV 10.9 fL (7.4-10.4) H 05/23/22 23:00 Neut % (Auto) 45.3 % 05/23/22 23:00 Lymph % (Auto) 47.8 % 05/23/22 23:00 [place] % (Auto) 5.6 % 05/23/22 23:00 Eos % (Auto) 0.8 % 05/23/22 23:00 Baso % (Auto) 0.2 % 05/23/22 23:00 Neut # (Auto) 2.74 10^3/uL (1.8-7.7) 05/23/22 23:00 Lymph # (Auto) 2.9 10^3/uL (0.8-4.8) 05/23/22 23:00 [place] # (Auto) 0.3 10^3/uL (0.2-0.9) 05/23/22 23:00 Eos # (Auto) 0.1 10^3/uL (0.0-0.8) 05/23/22 23:00 Baso # (Auto) 0.0 10^3/uL (0.0-0.1) 05/23/22 23:00 Nucleated RBC % (auto) 0 % 05/23/22 23:00 Nucleated RBCs # 0.0 /100WBC 05/23/22 23:00 Specimen Type Arterial 05/24/22 03:17 Sample Site Radial, left 05/24/22 03:17 ABG pH 7.39 (7.35-7.45) 05/24/22 03:17 ABG pCO2 51.0 mmHg (35-45) H 05/24/22 03:17 ABG pO2 64.4 mmHg (80.0-100.0) L 05/24/22 03:17 ABG HCO3 30.5 mmol/L (22-26) H 05/24/22 03:17 ABG Base Excess 4.1 mmol/L (-2.0-2.0) H 05/24/22 03:17 Marcello Test Pos 05/24/22 03:17 Hematocrit 47.2 % (42-52) 05/24/22 03:17 O2 Delivery Device Room air 05/24/22 03:17 Coal Feeder Operator ID [email or web address] 05/24/22 03:17 Sodium 139 mmol/L (136-145) 05/23/22 23:00 Potassium 4.1 mmol/L (3.5-5.1) 05/23/22 23:00 Chloride 103 mmol/L (98-107) 05/23/22 23:00 Carbon Dioxide 29 mmol/L (22-29) 05/23/22 23:00 Anion Gap 11.1 (5-19) 05/23/22 23:00 BUN 22 mg/dL (6-20) H 05/23/22 23:00 Creatinine 1.2 mg/dL (0.7-1.2) 05/23/22 23:00 GFR Calculation 68.1 mL/min (90-130) L 05/23/22 23:00 Glucose 90 mg/dL (65-115) 05/23/22 23:00 Calculated Osmolality 291 mOsm/kg (285-295) 05/23/22 23:00 Lactate 0.7 mmol/L (0.5-2.2) 05/23/22 04:20 Calcium 8.5 mg/dL (8.5-10.5) 05/23/22 23:00 Total Bilirubin 0.2 mg/dL (0.15-1.2) 05/23/22 23:00 AST 21 U/L (0-40) 05/23/22 23:00 ALT 25 U/L (0-41) 05/23/22 23:00 Alkaline Phosphatase 63 U/L (40-130) 05/23/22 23:00 C-Reactive Protein 3.0 mg/L (0.0-4.9) 05/23/22 23:00 Total Protein 5.7 g/dL (6.6-8.7) L 05/23/22 23:00 Albumin 3.6 g/dL (3.5-5.2) 05/23/22 23:00 Globulin 2.1 g/dL (1.3-4.6) 05/23/22 23:00 Urine Color Yellow (Yellow) 05/23/22 23:53 Urine Appearance Hazy (CLEAR) A 05/23/22 23:53 Urine pH 7 (5-7) 05/23/22 23:53 Ur Specific [place] 1.015 (1.005-1.030) 05/23/22 23:53 Urine Protein Neg (Negative) 05/23/22 23:53 Urine Glucose (UA) Norm (Normal) 05/23/22 23:53 Urine Ketones Negative (Negative) 05/23/22 23:53 Urine Blood Neg (Negative) 05/23/22 23:53 Urine Nitrate Negative (Negative) 05/23/22 23:53 Urine Bilirubin Neg (Negative) 05/23/22 23:53 Urine Urobilinogen Neg mg/dL (Negative) 05/23/22 23:53 Ur Leukocyte Esterase 2+ (Negative) H 05/23/22 23:53 Urine RBC 0-4 /hpf (0-2) H 05/23/22 23:53 Urine WBC 5-10 /hpf (0-5) H 05/23/22 23:53 Ur Squamous Epith Cells 0-4 /hpf (0-5) H 05/23/22 23:53 Amorphous Sediment Not Reportable 05/23/22 23:53 Urine Bacteria Trace /hpf (NONE) 05/23/22 23:53 Urine Mucus Trace /hpf 05/23/22 23:53 Influenza Type A Ag negative (Negative) 05/24/22 01:42 Influenza Type B Ag negative (Negative) 05/24/22 01:42 SARS-CoV-2 Ag (Rapid) negative (Negative) 05/24/22 01:42 Discharge Plan Discharge Patient Disposition: Admitted As Inpatient Admit Provider: Don Guo Clinical Impression: Pneumonia, Hypoxia Condition: Stable Coding Level of Care Code ED Casing Grader for Taylor Saul
[2022-05-25] MEDS: ondansetron 2 mg/ML SDV 2 mL 4 MG IVP (00:01)
[2022-05-25 04:00] VITALS: BP 107/72; PULSE 62; RESP 17; TEMP 36.4; O2SAT 93
[2022-05-25] MEDS: pantoprazole 40 mg SDV IVP (04:54)
[2022-05-25] MEDS: enoxaparin 40 mg/0.4 mL Syringe SUBCUT (04:54)
[2022-05-25 05:47] LABS: Basophils % 0.2 %; Eosinophils % 0.5 %; Hematocrit 40.3 % (42.0-52.0); Hemoglobin 13.8 g/dL (11.7-16.6); Lymphocytes # 2.5 10^3/uL (0.8-4.8); Lymphocytes % 38.7 %; Mean Corpuscular HGB Conc 34.2 g/dL (30.0-36.0); Mean Corpuscular Hemoglobin 32.4 pg (28.0-34.0); Mean Corpuscular Volume 94.6 fl (80-94); Mean Platelet Volume 11.1 fL (7.4-10.4); Monocytes # 0.3 10^3/uL (0.2-0.9); Monocytes % 5.2 %; Neutrophils % 55.1 %; Nucleated Red Blood Cells % 0 %; Platelet Count 93 10^3/cmm (130-400); Red Blood Count 4.26 10^6/uL (4.1-5.3); Red Cell Distribution Width 12.6 % (12.1-15.1); White Blood Count 6.5 10^3/uL (4.0-10.0)
[2022-05-25 08:00] VITALS: BP 118/77; PULSE 57; PULSE 71; TEMP 36.4; O2SAT 95
[2022-05-25] MEDS: montelukast sodium 10 mg Tablet PO (08:42)
[2022-05-25] MEDS: sertraline 100 mg Tablet 200 MG PO (08:42)
[2022-05-25] MEDS: divalproex ER 250 mg Tablet (24H) 750 MG PO (08:42)
[2022-05-25] MEDS: atorvastatin 40 mg Tablet 20 MG PO (08:43)
[2022-05-25] MEDS: predniSONE 10 mg Tablet PO (08:43)
[2022-05-25] MEDS: famotidine 20 mg Tablet PO (10:08)
[2022-05-25] MEDS: sodium chloride 0.9% 1,000 ML 100 ML IV (10:09)
[2022-05-25 11:04] VITALS: BP 103/69; BP 109/67; BP 119/77
--- NOTE | 2022-05-25 11:13 | PM.DCS ---
Discharge Providers Date of Admission: 05/24/22 03:48 Date of Discharge: May 25, 2022 Attending Provider at Admission: Don Guo MD Attending Provider at Discharge: Azar Vasquez MD Primary Care Provider: Dolly Sauceda NP Diagnoses at Discharge Discharge Diagnosis (1) Dizziness: Status: Acute (2) Hypoxia: Status: Acute (3) Current every day vaping: Status: Acute (4) Major depressive disorder, recurrent severe without psychotic features: Status: Acute Reason for Visit Reason for Visit: low BP Hospital Course Hospital Course Van is a 36-year-old white male who presented to the hospital with low blood pressure, and borderline hypoxia. He had had no fevers. He had recently been in the hospital for concern of asthma exacerbation as well as vaping. On arrival he he was tested for COVID and flu which was negative. CTA of chest demonstrated no pulmonary embolism, and some bilateral perihilar changes that may have been secondary to vaping. Was also on multiple psychiatric medications, with Paxil and viloxazine recently added. He was hydrated, echocardiogram was obtained which was largely normal, and many of his medications were held. With these actions it was found by the next day he did not require oxygen. Blood pressure had improved. It was thought he could discharge to home, with significant changes in his medication. His lisinopril and amlodipine were discontinued. Paxil was discontinued as he was already on high-dose Zoloft. Viloxazine was discontinued. Abilify was decreased to 10 mg daily. Platelet count was slightly low on day of discharge and should be rechecked in 3 to 5 days. He already has follow-up with pulmonary regarding abnormal CT in mid June. He will not need to take anymore prednisone as he completed his taper here in the hospital. Trazodone was also discontinued as he was on many types of medications that could predispose to serotonin syndrome. At discharge both he and his were given the opportunity to ask questions, and agreed with the above plan. Depakote was continued, and levels of Depakote were not elevated. Besides following up with his primary care provider he will also follow-up with behavioral health care. Physical Exam Narrative: General exam is no distress Neck is supple Cardiovascular regular rate and rhythm without murmur Lungs clear Abdomen is soft, positive bowel sounds Extremities no cyanosis clubbing or edema Skin no rash Discharge Data Studies Completed and Pending Completed Studies During Hospitalization Category Date Time Status CTA chest [CT angio chest PE protcl [id number]] Stat Cat Scan 05/24/22 01:25 Completed XR chest 1V portable [id number] Stat Exams 05/23/22 22:44 Completed CV. echo complete* [id number] Routine Ultrasound 05/24/22 08:41 Completed Pending at discharge Category Date Time Status PADMINI Profile Rheumatology Stat Lab 05/24/22 06:37 Received Blood Culture Stat Lab 05/24/22 04:15 Results Urine Culture Stat Lab 05/24/22 03:47 Results Radiology Impressions Chest X-Ray 05/23/22 22:44 IMPRESSION: 1. No definite focal pneumonia. 2. Postop changes. Lung base minimal atelectasis or scarring. Chest CTA 05/24/22 01:25 IMPRESSION: 1. No PE visualized. 2. Increasing areas of bilateral perihilar and mid to lower lung atelectasis, pneumonitis, edema, or developing airspace disease. Recommend three-month follow-up. 3. A few other chronic findings above. Laboratory Results WBC 6.5 10^3/uL (4.0-10.0) 05/25/22 05:20 RBC 4.26 10^6/uL (4.1-5.3) 05/25/22 05:20 Hgb 13.8 g/dL (11.7-16.6) 05/25/22 05:20 Hct 40.3 % (42.0-52.0) L 05/25/22 05:20 MCV 94.6 fl (80-94) H 05/25/22 05:20 MCH 32.4 pg (28.0-34.0) 05/25/22 05:20 MCHC 34.2 g/dL (30.0-36.0) 05/25/22 05:20 RDW 12.6 % (12.1-15.1) 05/25/22 05:20 Plt Count 93 10^3/cmm (130-400) L 05/25/22 05:20 MPV 11.1 fL (7.4-10.4) H 05/25/22 05:20 Neut % (Auto) 55.1 % 05/25/22 05:20 Lymph % (Auto) 38.7 % 05/25/22 05:20 [place] % (Auto) 5.2 % 05/25/22 05:20 Eos % (Auto) 0.5 % 05/25/22 05:20 Baso % (Auto) 0.2 % 05/25/22 05:20 Neut # (Auto) 3.60 10^3/uL (1.8-7.7) 05/25/22 05:20 Lymph # (Auto) 2.5 10^3/uL (0.8-4.8) 05/25/22 05:20 [place] # (Auto) 0.3 10^3/uL (0.2-0.9) 05/25/22 05:20 Eos # (Auto) 0.0 10^3/uL (0.0-0.8) 05/25/22 05:20 Baso # (Auto) 0.0 10^3/uL (0.0-0.1) 05/25/22 05:20 Nucleated RBC % (auto) 0 % 05/25/22 05:20 Nucleated RBCs # 0.0 /100WBC 05/25/22 05:20 ESR < 1 mm/hr (0-10) 05/24/22 04:20 Specimen Type Arterial 05/24/22 03:17 Sample Site Radial, left 05/24/22 03:17 ABG pH 7.39 (7.35-7.45) 05/24/22 03:17 ABG pCO2 51.0 mmHg (35-45) H 05/24/22 03:17 ABG pO2 64.4 mmHg (80.0-100.0) L 05/24/22 03:17 ABG HCO3 30.5 mmol/L (22-26) H 05/24/22 03:17 ABG Base Excess 4.1 mmol/L (-2.0-2.0) H 05/24/22 03:17 Marcello Test Pos 05/24/22 03:17 Hematocrit 47.2 % (42-52) 05/24/22 03:17 O2 Delivery Device Room air 05/24/22 03:17 Telemarketer Supervisor ID [email or web address] 05/24/22 03:17 Sodium Cancelled 05/25/22 08:06 Potassium Cancelled 05/25/22 08:06 Chloride Cancelled 05/25/22 08:06 Carbon Dioxide Cancelled 05/25/22 08:06 Anion Gap Cancelled 05/25/22 08:06 BUN Cancelled 05/25/22 08:06 Creatinine Cancelled 05/25/22 08:06 GFR Calculation Cancelled 05/25/22 08:06 Glucose Cancelled 05/25/22 08:06 Calculated Osmolality Cancelled 05/25/22 08:06 Lactate 0.7 mmol/L (0.5-2.2) 05/23/22 04:20 Calcium Cancelled 05/25/22 08:06 Magnesium 2.2 mg/dL (1.7-2.3) 05/24/22 04:20 Total Bilirubin 0.2 mg/dL (0.15-1.2) 05/23/22 23:00 AST 21 U/L (0-40) 05/23/22 23:00 ALT 25 U/L (0-41) 05/23/22 23:00 Alkaline Phosphatase 63 U/L (40-130) 05/23/22 23:00 Troponin T Baseline 6 ng/L (0-15) 05/24/22 04:20 Troponin T 120 Minute 6.00 ng/L (0-15) 05/24/22 06:37 Delta Troponin T 0 ABS# (0-10) 05/24/22 06:37 Troponin T Hi Sens 6Hr 6.00 ng/L (0-15) 05/24/22 10:32 Troponin T Hi Sens 6Hr Delta 0 ng/L (0-12) 05/24/22 10:32 C-Reactive Protein 3.0 mg/L (0.0-4.9) 05/24/22 04:20 NT-Pro-B Natriuret Pep 23 pg/mL (0-125) 05/24/22 04:20 Total Protein 5.7 g/dL (6.6-8.7) L 05/23/22 23:00 Albumin 3.6 g/dL (3.5-5.2) 05/23/22 23:00 Globulin 2.1 g/dL (1.3-4.6) 05/23/22 23:00 Triglycerides 184 mg/dL (0-150) H 05/24/22 04:20 Cholesterol 96 mg/dL (0-200) 05/24/22 04:20 LDL Cholesterol, Calc 29 mg/dL (50-129) L 05/24/22 04:20 HDL Cholesterol 30 mg/dL (60-100) L 05/24/22 04:20 LDL/HDL Ratio 0.97 RATIO (0.00-3.22) 05/24/22 04:20 Cholesterol/HDL Ratio 3.20 mg/dL (1.0-5.00) 05/24/22 04:20 Procalcitonin 0.04 ng/mL (0-0.5) 05/24/22 04:20 TSH 1.64 uIU/mL (0.27-4.20) 05/24/22 04:20 Urine Color Yellow (Yellow) 05/23/22 23:53 Urine Appearance Hazy (CLEAR) A 05/23/22 23:53 Urine pH 7 (5-7) 05/23/22 23:53 Ur Specific [place] 1.015 (1.005-1.030) 05/23/22 23:53 Urine Protein Neg (Negative) 05/23/22 23:53 Urine Glucose (UA) Norm (Normal) 05/23/22 23:53 Urine Ketones Negative (Negative) 05/23/22 23:53 Urine Blood Neg (Negative) 05/23/22 23:53 Urine Nitrate Negative (Negative) 05/23/22 23:53 Urine Bilirubin Neg (Negative) 05/23/22 23:53 Urine Urobilinogen Neg mg/dL (Negative) 05/23/22 23:53 Ur Leukocyte Esterase 2+ (Negative) H 05/23/22 23:53 Urine RBC 0-4 /hpf (0-2) H 05/23/22 23:53 Urine WBC 5-10 /hpf (0-5) H 05/23/22 23:53 Ur Squamous Epith Cells 0-4 /hpf (0-5) H 05/23/22 23:53 Amorphous Sediment Not Reportable 05/23/22 23:53 Urine Bacteria Trace /hpf (NONE) 05/23/22 23:53 Urine Mucus Trace /hpf 05/23/22 23:53 Valproic Acid 33.7 ug/mL (50-100) L 05/24/22 04:20 Coronavirus 229E (PCR) Not detected (NOT DETECT) 05/24/22 04:20 HIV 1&2 Ab & HIV 1 Ag Non-reactive (Non-Reactiv) 05/24/22 06:37 HIV 1&2 Antibody Non-reactive (Non-Reactiv) 05/24/22 06:37 Influenza Type A Ag negative (Negative) 05/24/22 01:42 Influenza Type B Ag negative (Negative) 05/24/22 01:42 SARS-CoV-2 (PCR) Not detected (NOT DETECT) 05/24/22 04:20 SARS-CoV-2 Ag (Rapid) negative (Negative) 05/24/22 01:42 Vitals Last Vital Signs Temp 97.6 F 05/25/22 08:00 Pulse 71 05/25/22 08:00 Resp 17 05/25/22 04:00 BP 109/67 05/25/22 11:04 Pulse Ox 95 05/25/22 08:00 O2 Del Method 05/25/22 08:00 O2 Flow Rate 1.5 05/24/22 10:29 Discharge Plan Discharge Patient Disposition: Home Condition: Stable Prescriptions: New aripiprazole [Abilify] 10 mg tablet 10 mg PO DAILY Qty: 30 0RF famotidine [Pepcid] 20 mg tablet 20 mg PO BID Qty: 60 0RF Continued sertraline [Zoloft] 100 mg tablet 200 mg PO DAILY Qty: 60 2RF budesonide-formoterol [Symbicort] 160-4.5 mcg/actuation HFA aerosol inhaler 2 puff inhalation BID Qty: 10.2 3RF albuterol sulfate [ProAir HFA] 90 mcg/actuation HFA aerosol inhaler 2 puff inhalation QID PRN (Reason: shortness of breath or wheezing) Qty: 8.5 6RF fluticasone propionate 50 mcg/actuation spray,suspension 2 spray intranasal BID PRN (Reason: nasal congestion) Qty: 16 0RF Rx Instructions: administer into each nostril loratadine 10 mg tablet 10 mg PO DAILY Qty: 90 0RF montelukast [Singulair] 10 mg tablet 10 mg PO DAILY Qty: 30 3RF atorvastatin 20 mg tablet 20 mg PO DAILY 30 Days Qty: 30 6RF testosterone cypionate 200 mg/mL oil 200 mg IM Q7D Rx Instructions: on Fridays hydrocodone-acetaminophen 5-325 mg tablet 1 tab PO Q8H PRN (Reason: pain (scale score 7-10)) Qty: 10 0RF divalproex 500 mg tablet extended release 24 hr 750 mg PO BID sumatriptan succinate [Imitrex] 50 mg tablet 50 mg PO PRN PRN (Reason: Headache) Rx Instructions: take 1 tab at onset of headache; if no relief may repeat 1 tab after at least 2 hrs; max = 4 tabs/24 hr Discontinued aripiprazole [Abilify] 15 mg tablet 15 mg PO DAILY Qty: 30 2RF trazodone 50 mg tablet 100 mg PO .HS PRN (Reason: insomnia) Qty: 60 2RF amlodipine 10 mg tablet 10 mg PO DAILY 90 Days Qty: 90 1RF lisinopril 10 mg tablet 10 mg PO DAILY 90 Days Qty: 90 1RF benzonatate 100 mg capsule 100 mg PO Q6H PRN (Reason: cough) Qty: 90 1RF paroxetine HCl [Paxil] 40 mg Tablet 40 mg PO DAILY Qty: 0 prednisone 10 mg tablet See Rx Instructions .ROUTE .COMPLEX Qty: 20 0RF Rx Instructions: 60 mg x1d 40 mg x2d 20 mg x2d 10 mg x2d Discharge Orders: Discharge Order (Routine); Ordered 05/25/22 Ordered By: Azar Vasquez Referrals: [facility] [Provider Group] [facility] [Provider Group] Dolly Sauceda NP [Primary Care Provider] - 06/03/22 9:00 am (CBC on follow-up) Discharge Diet: Cardiac Discharge Activity: Increase activity as tolerated Patient Instructions: Opioid Safety Activity Restrictions/Additional Instructions: Take all medicine as prescribed. Do not resume your Paxil. Do not resume your Viloxazine Do not resume your Trazodone. Do not resume your blood pressure medication. Reduce Abilify to 10 mg daily. You have completed your course of prednisone, no further prednisone is needed at discharge. Follow-up with your primary care provider in 4 to 7 days with CBC Follow-up with your mental health provider Return for any concerns Keep follow-up with pulmonary which is already scheduled No vaping or smoking Patient's Health Concerns: Dizziness, low blood pressure Assessment: Low blood pressure noted Plan of Treatment: Discontinue antihypertensives Adjustment of medications for mental health Goals: No recurrent hypotension Discharge Attestations Time Spent in Discharge Care*: greater than 30 min Quality Metrics Clinical Quality Measures [ No reported AMI, CVA or VTE this stay] Coding Level of Care Code Acute Chg FW DC note Diagnoses Dizziness R42 Hypoxia R09.02 Current every day vaping Z72.89 Major depressive disorder, recurrent severe without psychotic features F33.2
[2022-05-25 11:46] VITALS: BP 118/77; PULSE 71; TEMP 36.4; O2SAT 95
[2022-05-25 13:04] LABS: COMPLEMENT COMPONENT C3C 94 mg/dL (82-185); COMPLEMENT COMPONENT C4C 13 mg/dL (15-53)
[2022-05-25 17:50] LABS: CENTROMERE B ANTIBODY <1.0 NEG AI (<1.0 NEG); JO-1 ANTIBODY <1.0 NEG AI (<1.0 NEG); RNP ANTIBODY <1.0 NEG AI (<1.0 NEG); SCL-70 ANTIBODY <1.0 NEG AI (<1.0 NEG); SJOGREN'S ANTIBODY (SS-A) <1.0 NEG AI (<1.0 NEG); SM ANTIBODY <1.0 NEG AI (<1.0 NEG); SS-B <1.0 NEG AI (<1.0 NEG)
[2022-05-25 18:09] LABS: THYROID PEROXIDASE ANTIBODIES 2 IU/mL (<9)
[2022-05-26 05:25] LABS: ANA SCREEN, IFA NEGATIVE (NEGATIVE)
[2022-05-26 13:45] LABS: COMPLEMENT, TOTAL (CH50) 47 U/mL (31-60)
[2022-05-27 11:05] LABS: DNA AB (DS) CRITHIDIA,IFA NEGATIVE (NEGATIVE)
== END 2022-05-25 11:45 | disposition home or self-care (01) ==
LOC: ER 22:36 → ER IP 05-24 04:01 → MEDSURG 05-24 12:10
PROVIDERS: Admitting Provider Family Medicine; Emergency Provider Emergency Medicine; PCP Nurse Practitioner Family; Visit Provider Internal Medicine
DX: R42 Dizziness and giddiness (principal); R09.02 Hypoxemia; Z72.89 Other problems related to lifestyle; F33.2 Major depressive disorder, recurrent severe without psychotic features; I10 Essential (primary) hypertension; F90.9 Attention-deficit hyperactivity disorder, unspecified type; Z86.16 Personal history of COVID-19; F17.220 Nicotine dependence, chewing tobacco, uncomplicated; E66.9 Obesity, unspecified; Z68.32 Body mass index [BMI] 32.0-32.9, adult; F64.0 Transsexualism; Z79.899 Other long term (current) drug therapy
CPT/HCPCS: 36415; 36600; 71045; 71275; 80053; 80061; 80164; 81001; 82803; 83605; 83735; 83880; 84145; 84443; 84484; 85025; 85651; 86140; 86160; 86162; 86235; 86255; 86376; 87040; 87086; 87426; 87635; 87804; 87806; 93005; 93306; 94640; 94664; 96365; 96367; 96372; 96375; 99285; C9113; G0378; J1650; J2405; J2543; J2550; J2765; J3370; J7030; J7512; Q9967

== ENCOUNTER 2022-06-05 12:04 | Emergency (ER) | payer BC, MEDICAID, SELFPAY ==
[2022-06-05 12:25] VITALS: BP 138/91; PULSE 100; RESP 18; TEMP 36.6; O2SAT 97; BMI 31.6
--- NOTE | 2022-06-05 12:59 | XRR_ITS ---
PROCEDURE INFORMATION: Exam: XR Chest Exam date and time: 06/05/2022 1:02 PM Age: 36 years old Clinical indication: Cough and shortness of breath TECHNIQUE: Imaging protocol: Radiologic exam of the chest. Views: 1 view. COMPARISON: CR (CHEST, ) 05/23/2022 11:14 PM FINDINGS: Lungs: Unremarkable. No consolidation. Pleural spaces: Unremarkable. No pleural effusion. No pneumothorax. Heart/Mediastinum: Unremarkable. No cardiomegaly. Bones/joints: Unremarkable. No interval changes seen comparing to prior examination XR/XR chest 1V portable [id number] IMPRESSION: No acute findings.
[2022-06-05 13:21] LABS: Basophils % 0.6 %; Eosinophils # 0.3 10^3/uL (0.0-0.8); Eosinophils % 5.4 %; Hematocrit 46.6 % (42.0-52.0); Hemoglobin 15.6 g/dL (11.7-16.6); Lymphocytes # 0.7 10^3/uL (0.8-4.8); Lymphocytes % 13.8 %; Mean Corpuscular HGB Conc 33.5 g/dL (30.0-36.0); Mean Corpuscular Hemoglobin 32.1 pg (28.0-34.0); Mean Corpuscular Volume 95.9 fl (80-94); Mean Platelet Volume 10.7 fL (7.4-10.4); Monocytes # 0.7 10^3/uL (0.2-0.9); Monocytes % 13.6 %; Neutrophils # 3.21 10^3/uL (1.8-7.7); Neutrophils % 66.4 %; Nucleated Red Blood Cells % 0 %; Platelet Count 146 10^3/cmm (130-400); Red Blood Count 4.86 10^6/uL (4.1-5.3); Red Cell Distribution Width 12.9 % (12.1-15.1); White Blood Count 4.8 10^3/uL (4.0-10.0)
--- NOTE | 2022-06-05 13:32 | ED_ITS ---
HPI - URI/Sore Throat General: Chief Complaint: Upper Respiratory Infection Stated Complaint: SOB, V/D not getting better Time Seen by Provider: 06/05/22 12:42 Source: patient Mode of arrival: ambulatory Limitations: no limitations History of Present Illness: This 36-year-old male presents to the ER with cough, congestion and intermittent shortness of breath. The shortness of breath has been going on for quite a while but the rest of the symptoms started 3 days ago. Patient also has headache and diarrhea. He denies fever but has nausea and vomiting. He believes the vomiting is due to her repeated coughing. He is clinically stable. Associated symptoms: Reports headache(s), nasal congestion, nausea and vomiting; Deny chills or chest pain Review of Systems Const: Denies: chills, body aches or change in appetite Eyes: Denies: change in vision or eye discharge ENMT: Reports: nasal congestion; Denies: throat pain or dental pain Card: Denies: chest pain or lightheadedness Resp: Reports: dyspnea (Intermittent) GI: Reports: nausea and vomiting : Denies: dysuria Musc: Denies: neck pain or back pain Neuro: Reports: headache(s); Denies: weakness in extremities Psych: Denies: depression Caleb/Lymph: Denies: easy bruising All/Imm: Denies: urticaria, tongue swelling or facial swelling PFSH ED PFSH: Medical History Abdominal pain ADHD Allergic rhinitis due to allergen Borderline personality disorder Cough COVID-19 Degenerative arthritis of spine Gender dysphoria Generalized epilepsy History of Helicobacter pylori infection Major depressive disorder, recurrent severe without psychotic features Maxillary sinusitis Migraine headache Personal history of pyloric stenosis Pneumonitis Psychiatric care PTSD (post-traumatic stress disorder) Pyloric stenosis URI with cough and congestion Surgical History H/O esophagogastroduodenoscopy (09/30/21) History of adenectomy Hx of tonsillectomy S/P cholecystectomy Family History Other Cancer Social History Smoking and tobacco status: current every day smoker smokeless tobacco Smokeless tobacco user: chewing tobacco Smokeless tobacco details: one can/day. Quit status (tobacco): has tried quititng Number of times tried to quit tobacco: 4 Second hand smoke exposure: No Smoking risk assessment/counseling performed?: No Alcohol intake: current Alcohol intake frequency: few times a week Alcohol type: beer and hard liquor Desire information about alcohol rehabilitation?: No Counseling given: No Desire information about substance/drug rehabilitation?: No Counseling given: No Current occupational status: unemployed History of recent travel: No Current gender identity: Male Physical Exam Const: COMMON NORMALS: no acute distress, patient oriented x3, no limitations and alert HENMT: COMMON NORMALS: normocephalic HEAD & SCALP: normocephalic Eye: COMMON NORMALS: EOMs intact bilaterally Neck/C-Spine: COMMON NORMALS: full ROM and supple Chest: COMMONS NORMALS: normal inspection of the chest Resp: COMMON NORMALS: normal respiratory effort, No retractions, No use of accessory muscles and clear to auscultation bilaterally AUSCULTATION: clear to auscultation bilaterally Cardio: COMMON NORMALS: regular rate, regular rhythm and No murmurs present (Cardio) RATE: regular rate RHYTHM: regular rhythm GI: COMMON NORMALS: Normal to inspection, nondistended, normoactive bowel sounds present and non-tender : COMMON NORMALS: Yes no CVA tenderness BLADDER/KIDNEY EXAM: Yes no CVA tenderness Back/Pelvis: COMMON NORMALS: no CVA tenderness and no thoracic nor lumbar tenderness Extremity: GENERAL: Yes normal exam except as noted Neuro: COMMON NORMALS: patient oriented x3 and no focal motor deficits SENSORIUM/ORIENTATION: Yes alert Psych: COMMON NORMALS: mental status grossly normal and cooperative Course Vital Signs: Vital signs: Vital Signs Temperature 97.9 F 06/05/22 12:25 Pulse Rate 60 06/05/22 14:54 Respiratory Rate 17 06/05/22 14:54 Blood Pressure 111/82 06/05/22 14:54 Pulse Oximetry 92 06/05/22 14:54 Oxygen Delivery Me thod 06/05/22 13:47 MDM - URI/Sore Throat Medical Decision Making Medical decision making: Patient's symptoms and findings are most consistent with viral upper respiratory tract infection. He will be treated symptomatically. He will follow-up with his primary care physician for reevaluation. Reasons to return were discussed. Lab Data 06/05/22 13:00 06/05/22 13:00 Radiology Impressions Chest X-Ray 06/05/22 12:59 IMPRESSION: No acute findings. Laboratory Results WBC 4.8 10^3/uL (4.0-10.0) 06/05/22 13:00 RBC 4.86 10^6/uL (4.1-5.3) 06/05/22 13:00 Hgb 15.6 g/dL (11.7-16.6) 06/05/22 13:00 Hct 46.6 % (42.0-52.0) 06/05/22 13:00 MCV 95.9 fl (80-94) H 06/05/22 13:00 MCH 32.1 pg (28.0-34.0) 06/05/22 13:00 MCHC 33.5 g/dL (30.0-36.0) 06/05/22 13:00 RDW 12.9 % (12.1-15.1) 06/05/22 13:00 Plt Count 146 10^3/cmm (130-400) 06/05/22 13:00 MPV 10.7 fL (7.4-10.4) H 06/05/22 13:00 Neut % (Auto) 66.4 % 06/05/22 13:00 Lymph % (Auto) 13.8 % 06/05/22 13:00 [place] % (Auto) 13.6 % 06/05/22 13:00 Eos % (Auto) 5.4 % 06/05/22 13:00 Baso % (Auto) 0.6 % 06/05/22 13:00 Neut # (Auto) 3.21 10^3/uL (1.8-7.7) 06/05/22 13:00 Lymph # (Auto) 0.7 10^3/uL (0.8-4.8) L 06/05/22 13:00 [place] # (Auto) 0.7 10^3/uL (0.2-0.9) 06/05/22 13:00 Eos # (Auto) 0.3 10^3/uL (0.0-0.8) 06/05/22 13:00 Baso # (Auto) 0.0 10^3/uL (0.0-0.1) 06/05/22 13:00 Nucleated RBC % (auto) 0 % 06/05/22 13:00 Nucleated RBCs # 0.0 /100WBC 06/05/22 13:00 Sodium 140 mmol/L (136-145) 06/05/22 13:00 Potassium 4.3 mmol/L (3.5-5.1) 06/05/22 13:00 Chloride 103 mmol/L (98-107) 06/05/22 13:00 Carbon Dioxide 27 mmol/L (22-29) 06/05/22 13:00 Anion Gap 14.3 (5-19) 06/05/22 13:00 BUN 15 mg/dL (6-20) 06/05/22 13:00 Creatinine 1.0 mg/dL (0.7-1.2) 06/05/22 13:00 GFR Calculation 84.1 mL/min (90-130) L 06/05/22 13:00 Glucose 99 mg/dL (65-115) 06/05/22 13:00 Calculated Osmolality 291 mOsm/kg (285-295) 06/05/22 13:00 Calcium 9.7 mg/dL (8.5-10.5) 06/05/22 13:00 Total Bilirubin 0.3 mg/dL (0.15-1.2) 06/05/22 13:00 AST 21 U/L (0-40) 06/05/22 13:00 ALT 27 U/L (0-41) 06/05/22 13:00 Alkaline Phosphatase 89 U/L (40-130) 06/05/22 13:00 Total Protein 7.0 g/dL (6.6-8.7) 06/05/22 13:00 Albumin 4.2 g/dL (3.5-5.2) 06/05/22 13:00 Globulin 2.8 g/dL (1.3-4.6) 06/05/22 13:00 Influenza Type A Ag Negative (Negative) 06/05/22 13:08 Influenza Type B Ag Negative (Negative) 06/05/22 13:08 SARS-CoV-2 Ag (Rapid) negative (Negative) 06/05/22 13:08 Discharge Plan Discharge Patient Disposition: Home Clinical Impression: Viral upper respiratory tract infection Condition: Stable Prescriptions: New benzonatate 100 mg capsule 100 mg PO TID Qty: 15 0RF No Action sertraline [Zoloft] 100 mg tablet 200 mg PO DAILY Qty: 60 2RF budesonide-formoterol [Symbicort] 160-4.5 mcg/actuation HFA aerosol inhaler 2 puff inhalation BID Qty: 10.2 3RF albuterol sulfate [ProAir HFA] 90 mcg/actuation HFA aerosol inhaler 2 puff inhalation QID PRN (Reason: shortness of breath or wheezing) Qty: 8.5 6RF fluticasone propionate 50 mcg/actuation spray,suspension 2 spray intranasal BID PRN (Reason: nasal congestion) Qty: 16 0RF Rx Instructions: administer into each nostril loratadine 10 mg tablet 10 mg PO DAILY Qty: 90 0RF montelukast [Singulair] 10 mg tablet 10 mg PO DAILY Qty: 30 3RF atorvastatin 20 mg tablet 20 mg PO DAILY 30 Days Qty: 30 6RF testosterone cypionate 200 mg/mL oil 200 mg IM Q7D Rx Instructions: on Fridays hydrocodone-acetaminophen 5-325 mg tablet 1 tab PO Q8H PRN (Reason: pain (scale score 7-10)) Qty: 10 0RF divalproex 500 mg tablet extended release 24 hr 750 mg PO BID sumatriptan succinate [Imitrex] 50 mg tablet 50 mg PO PRN PRN (Reason: Headache) Rx Instructions: take 1 tab at onset of headache; if no relief may repeat 1 tab after at least 2 hrs; max = 4 tabs/24 hr Abilify 10 mg tablet 10 mg PO DAILY Qty: 30 0RF Pepcid 20 mg tablet 20 mg PO BID Qty: 60 0RF Discharge Orders: Discharge ED (Routine); Ordered 06/05/22 Ordered By: Dallas Bowens Referrals: Dolly Sauceda NP [Primary Care Provider] - Discharge Diet: Usual diet Discharge Activity: Resume usual activity Patient Instructions: Opioid Safety, Pain Management Activity Restrictions/Additional Instructions: Take Tessalon Perles as prescribed. Continue taking your usual home medications. Maintain adequate fluid intake. Follow-up with your primary care physician in 3 to 5 days for reevaluation. Return with new or worsening symptoms. Coding Level of Care Code ED Community Program Assistant for Chg 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
[2022-06-05 13:39] LABS: Alanine Aminotransferase 27 U/L (0-41); Albumin Level 4.2 g/dL (3.5-5.2); Alkaline Phosphatase 89 U/L (40-130); Anion Gap 14.3 (5-19); Aspartate Amino Transferase 21 U/L (0-40); Blood Urea Nitrogen 15 mg/dL (6-20); Calcium 9.7 mg/dL (8.5-10.5); Carbon Dioxide 27 mmol/L (22-29); Chloride 103 mmol/L (98-107); Globulin 2.8 g/dL (1.3-4.6); Glomerular Filtration Rate 84.1 mL/min (90-130); Glucose 99 mg/dL (65-115); Osmolality Calculated 291 mOsm/kg (285-295); Potassium 4.3 mmol/L (3.5-5.1); Sodium 140 mmol/L (136-145); Total Bilirubin 0.3 mg/dL (0.15-1.2)
[2022-06-05 13:47] VITALS: BP 111/82; PULSE 60; RESP 17; O2SAT 92
[2022-06-05 14:04] LABS: SARS Covid-2 Antigen negative (Negative)
[2022-06-05 14:13] LABS: Influenza A by IFA Negative (Negative); Influenza B by IFA Negative (Negative)
[2022-06-05 14:54] VITALS: BP 111/82; PULSE 60; RESP 17; O2SAT 92
== END 2022-06-05 15:04 | disposition home or self-care (01) ==
PROVIDERS: Emergency Provider Family Medicine; PCP Nurse Practitioner Family
DX: J06.9 Acute upper respiratory infection, unspecified (principal); Z20.822 Contact with and (suspected) exposure to COVID-19; F17.220 Nicotine dependence, chewing tobacco, uncomplicated
CPT/HCPCS: 71045; 80053; 85025; 87426; 87804; 99284

== ENCOUNTER → 2022-06-09 11:34 | Outpatient (BNVA) | payer BC, MEDICAID, SELFPAY | PROVIDERS: PCP Nurse Practitioner Family; Visit Provider Nurse Practitioner Family | DX: J01.00 Acute maxillary sinusitis, unspecified (principal); J06.9 Acute upper respiratory infection, unspecified | CPT/HCPCS: 80053 ==

== ENCOUNTER 2022-08-04 21:12 | Emergency (ER) | payer BC, MEDICAID, SELFPAY ==
[2022-08-04] VITALS (7 sets, daily range): BP systolic 118–133; BP diastolic 55–73; PULSE 60–111; RESP 16–24; TEMP 36.6; O2SAT 92–99
--- NOTE | 2022-08-04 21:15 | XRR_ITS ---
PROCEDURE INFORMATION: Exam: XR Chest Exam date and time: 08/04/2022 9:18 PM Age: 36 years old Clinical indication: Pain; Chest pressure; Additional info: SOB TECHNIQUE: Imaging protocol: Radiologic exam of the chest. Views: 1 view. COMPARISON: CR XR chest 1V portable [id number] 06/05/2022 1:02 PM FINDINGS: Lungs: Unremarkable. No consolidation. Pleural spaces: Unremarkable. No pleural effusion. No pneumothorax. Heart/Mediastinum: Unremarkable. No cardiomegaly. Bones/joints: Unremarkable. XR/XR chest 1V portable [id number] IMPRESSION: No acute findings.
--- NOTE | 2022-08-04 21:20 | ECG_ITS ---
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 Measurements Intervals [place] Rate: 94 P: 77 [place]: 114 QRS: 71 QRSD: 88 T: 67 QT: 339 QTc: 425 Interpretive Statements SINUS RHYTHM WITH SHORT [place] INTERVAL MODERATE ST DEPRESSION [0.05+ mV ST DEPRESSION] Compared to ECG 05/24/2022 17:23:42 ST (T wave) deviation now present Electronically Signed On 08-05-2022 0:16:35 CDT by Angelica Campos M.D. [id number]
--- NOTE | 2022-08-04 22:04 | W.ED.CHESTPA ---
HPI - Chest Pain General: Chief Complaint: Chest Pain Stated Complaint: sob Time Seen by Provider: 08/04/22 21:54 History of Present Illness: Patient presents to the ER with complaints of left-sided chest pain radiating down his left arm. Patient states his pain is only there when he takes a big deep breath or pushes on his chest. Patient rates it an 8 out of 10. Patient appears to have labored respirations with obvious we have these wheezing with inspiration and expiration. Patient verbalizes he has asthma and has used inhalers but he does not think they are working. MD complaint: chest pain (Pain wheezing) Pertinent past history: asthma Onset (ago): hour(s) Timing of current episode: constant Prior episodes: Yes Pain location: left chest Pain radiation: left arm Severity: mild Quality: sharp and shooting Relieving factors: nothing Exacerbating factors: inspiration and palpation Associated symptoms: Reports dyspnea and other (Wheezing); Deny abdominal pain, fever(s), nausea or vomiting Review of Systems General: Reports: 10 or more systems reviewed and unremarkable except in HPI and below Const: Denies: fever(s) or chills Eyes: Denies: change in vision ENMT: Denies: throat pain or odynophagia Card: Reports: chest pain Resp: Reports: dyspnea and wheezing GI: Denies: abdominal pain, nausea, vomiting or diarrhea : Denies: flank pain Musc: Denies: neck pain or back pain Skin/Breast: Denies: rash or pruritus Neuro: Denies: headache(s), numbness in extremities or weakness in extremities Psych: Denies: anxiety or depression Endo: Denies: polyuria Caleb/Lymph: Denies: easy bruising or easy bleeding All/Imm: Denies: urticaria or throat swelling PFS ED PFSH: Medical History Abdominal pain ADHD Allergic rhinitis due to allergen Borderline personality disorder Cough COVID-19 Degenerative arthritis of spine Gender dysphoria Generalized epilepsy History of Helicobacter pylori infection Major depressive disorder, recurrent severe without psychotic features Maxillary sinusitis Migraine headache Personal history of pyloric stenosis Pneumonitis Psychiatric care PTSD (post-traumatic stress disorder) Pyloric stenosis URI with cough and congestion Surgical History H/O esophagogastroduodenoscopy (09/30/21) History of adenectomy Hx of tonsillectomy S/P cholecystectomy Family History Other Cancer Social History Smoking and tobacco status: current every day smoker smokeless tobacco Smokeless tobacco user: chewing tobacco Smokeless tobacco details: one can/day. Quit status (tobacco): has tried quititng Number of times tried to quit tobacco: 4 Second hand smoke exposure: No Smoking risk assessment/counseling performed?: No Alcohol intake: current Alcohol intake frequency: few times a week Alcohol type: beer and hard liquor Desire information about alcohol rehabilitation?: No Counseling given: No Desire information about substance/drug rehabilitation?: No Counseling given: No Current occupational status: unemployed Current gender identity: Male Physical Exam Const: COMMON NORMALS: average body habitus, patient oriented x3, no limitations, healthy appearing, alert and well nourished HENMT: COMMON NORMALS: normocephalic, atraumatic, hearing grossly normal bilaterally, external ears normal, Normal external nose present and moist oral mucous membranes HEAD & SCALP: normocephalic and atraumatic NOSE: Normal external nose present EXTERNAL EAR: Yes external ears normal Neck/C-Spine: COMMON NORMALS: full ROM, no lymphadenopathy, supple, no meningeal signs, no JVD and Thyroid normal THYROID: Thyroid normal Chest: CHEST: Yes tenderness rib (Left side) Resp: EFFORT & INSPECTION: Yes able to speak in complete sentences AUSCULTATION: wheezes expiratory wheezes, inspiratory wheezes and scattered wheezes and diminished lung sounds bilateral Cardio: COMMON NORMALS: no JVD, regular rate, regular rhythm, S1 normal heart sound present and S2 normal heart sound present RATE: regular rate RHYTHM: regular rhythm HEART SOUNDS: S1 normal heart sound present and S2 normal heart sound present GI: COMMON NORMALS: Normal to inspection, nondistended, normoactive bowel sounds present, Soft to palpation, non-tender, No hepatosplenomegaly present and no masses PALPATION: Yes Soft to palpation and Yes No hepatosplenomegaly present : COMMON NORMALS: Yes no CVA tenderness BLADDER/KIDNEY EXAM: Yes no CVA tenderness Back/Pelvis: COMMON NORMALS: no CVA tenderness Neuro: COMMON NORMALS: patient oriented x3, CN's II-XII intact bilaterally, moves all extremities, no focal motor deficits and no sensory deficits noted SENSORIUM/ORIENTATION: Yes alert MENINGEAL SIGNS: Yes no meningeal signs Psych: COMMON NORMALS: mental status grossly normal, Normal thought process present, cooperative, normal affect and speech normal SPEECH: Yes normal speech THOUGHT PROCESS: Normal thought process present Course Vital Signs: Vital signs: Vital Signs Temperature 97.8 F 08/04/22 21:16 Pulse Rate 77 08/04/22 22:25 Respiratory Rate 22 H 08/04/22 22:25 Blood Pressure 118/55 08/04/22 21:56 Pulse Oximetry 96 08/04/22 22:25 Oxygen Delivery Me thod 08/04/22 22:25 MDM - Chest Pain Medical Decision Making Patient presents to the ER with complaints of left-sided chest pain worse when takes a big deep breath it shoots down his arm. Patient was having labored respirations with decreased breath sounds and increased wheezing throughout. Patient uses inhalers at home but seem that they did not work. EKG lab work and chest x-ray was obtained. Patient was given a DuoNeb breathing treatment. Toradol and Decadron IM. These did help the patient move more air and become less wheezing. Patient was then given another dose of Xopenex nebulizer. This helped even further. Lab work was discussed with the patient as well as the ability for him to go home since his breathing has and pain had improved. Patient will be discharged home and is to continue with his nebulizer treatment and follow-up with his primary care provider within the next week as needed. Differential Diagnosis Unlikely acute massive pulmonary embolism, acute respiratory failure, acute myocardial infarction, cardiac arrest or sudden cardiac Lab Data 08/04/22 21:38 08/04/22 21:38 Radiology Impressions Chest X-Ray 08/04/22 21:15 IMPRESSION: No acute findings. Laboratory Results WBC 5.4 10^3/uL (4.0-10.0) 08/04/22 21:38 RBC 4.78 10^6/uL (4.1-5.3) 08/04/22 21:38 Hgb 15.2 g/dL (11.7-16.6) 08/04/22 21:38 Hct 43.9 % (42.0-52.0) 08/04/22 21:38 MCV 91.8 fl (80-94) 08/04/22 21:38 MCH 31.8 pg (28.0-34.0) 08/04/22 21:38 MCHC 34.6 g/dL (30.0-36.0) 08/04/22 21:38 RDW 12.7 % (12.1-15.1) 08/04/22 21:38 Plt Count 189 10^3/cmm (130-400) 08/04/22 21:38 MPV 11.2 fL (7.4-10.4) H 08/04/22 21:38 Neut % (Auto) 51.9 % 08/04/22 21:38 Lymph % (Auto) 30.6 % 08/04/22 21:38 [place] % (Auto) 6.8 % 08/04/22 21:38 Eos % (Auto) 9.8 % 08/04/22 21:38 Baso % (Auto) 0.7 % 08/04/22 21:38 Neut # (Auto) 2.82 10^3/uL (1.8-7.7) 08/04/22 21:38 Lymph # (Auto) 1.7 10^3/uL (0.8-4.8) 08/04/22 21:38 [place] # (Auto) 0.4 10^3/uL (0.2-0.9) 08/04/22 21:38 Eos # (Auto) 0.5 10^3/uL (0.0-0.8) 08/04/22 21:38 Baso # (Auto) 0.0 10^3/uL (0.0-0.1) 08/04/22 21:38 Nucleated RBC % (auto) 0 % 08/04/22 21: Nucleated RBCs # 0.0 /100WBC 08/04/22 21:38 D-Dimer 0.31 ug/mIFEU (0-0.59) 08/04/22 21:38 Sodium 140 mmol/L (136-145) 08/04/22 21:38 Potassium 3.9 mmol/L (3.5-5.1) 08/04/22 21:38 Chloride 107 mmol/L (98-107) 08/04/22 21: Carbon Dioxide 23 mmol/L (22-29) 08/04/22 21:38 Anion Gap 13.9 (5-19) 08/04/22 21:38 BUN 11 mg/dL (6-20) 08/04/22 21:38 Creatinine 1.0 mg/dL (0.7-1.2) 08/04/22 21:38 GFR Calculation 84.1 mL/min (90-130) L 08/04/22 21:38 Glucose 102 mg/dL (65-115) 08/04/22 21:38 Calculated Osmolality 290 mOsm/kg (285-295) 08/04/22 21:38 Calcium 9.1 mg/dL (8.5-10.5) 08/04/22 21:38 Total Bilirubin 0.3 mg/dL (0.15-1.2) 08/04/22 21:38 AST 23 U/L (0-40) 08/04/22 21:38 ALT 28 U/L (0-41) 08/04/22 21:38 Alkaline Phosphatase 79 U/L (40-130) 08/04/22 21:38 Troponin T Baseline 6 ng/L (0-15) 08/04/22 21:38 Total Protein 6.5 g/dL (6.6-8.7) L 08/04/22 21:38 Albumin 4.0 g/dL (3.5-5.2) 08/04/22 21:38 Globulin 2.5 g/dL (1.3-4.6) 08/04/22 21:38 Discharge Plan Discharge Patient Disposition: Home Clinical Impression: Asthma attack, Acute chest wall pain Condition: Stable Prescriptions: No Action sertraline [Zoloft] 100 mg tablet 200 mg PO DAILY Qty: 60 2RF budesonide-formoterol [Symbicort] 160-4.5 mcg/actuation HFA aerosol inhaler 2 puff inhalation BID Qty: 10.2 3RF albuterol sulfate [ProAir HFA] 90 mcg/actuation HFA aerosol inhaler 2 puff inhalation QID PRN (Reason: shortness of breath or wheezing) Qty: 8.5 6RF fluticasone propionate 50 mcg/actuation spray,suspension 2 spray intranasal BID PRN (Reason: nasal congestion) Qty: 16 0RF Rx Instructions: administer into each nostril loratadine 10 mg tablet 10 mg PO DAILY Qty: 90 0RF montelukast [Singulair] 10 mg tablet 10 mg PO DAILY Qty: 30 3RF Augmentin 875-125 mg tablet 1 tab PO BID Qty: 20 0RF Rx Instructions: take 1 PO BID promethazine 25 mg tablet 25 mg PO TID PRN (Reason: nausea and vomiting) Qty: 30 0RF promethazine-DM 6.25-15 mg/5 mL syrup 5 ml PO Q6H Qty: 200 1RF atorvastatin 20 mg tablet 20 mg PO DAILY 30 Days Qty: 30 6RF sumatriptan succinate [Imitrex] 50 mg tablet 50 mg PO PRN PRN (Reason: Headache) Qty: 10 0RF testosterone cypionate 200 mg/mL oil 200 mg IM Q7D Rx Instructions: on Fridays hydrocodone-acetaminophen 5-325 mg tablet 1 tab PO Q8H PRN (Reason: pain (scale score 7-10)) Qty: 10 0RF divalproex 500 mg tablet extended release 24 hr 750 mg PO BID Abilify 10 mg tablet 10 mg PO DAILY Qty: 30 0RF Pepcid 20 mg tablet 20 mg PO BID Qty: 60 0RF benzonatate 100 mg capsule 100 mg PO TID Qty: 15 0RF Discharge Orders: Discharge ED (Routine); Ordered 08/04/22 Ordered By: Raymundo Caputo Referrals: Dolly Sauceda NP [Primary Care Provider] - Patient Instructions: Asthma (ED), Chest Pain - Chest Wall Coding Level of Care Code 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
[2022-08-04 22:06] LABS: Troponin(5th) Baseline 6 ng/L (0-15)
[2022-08-04 22:07] LABS: Alanine Aminotransferase 28 U/L (0-41); Alkaline Phosphatase 79 U/L (40-130); Anion Gap 13.9 (5-19); Aspartate Amino Transferase 23 U/L (0-40); Blood Urea Nitrogen 11 mg/dL (6-20); Calcium 9.1 mg/dL (8.5-10.5); Carbon Dioxide 23 mmol/L (22-29); Chloride 107 mmol/L (98-107); Globulin 2.5 g/dL (1.3-4.6); Glomerular Filtration Rate 84.1 mL/min (90-130); Glucose 102 mg/dL (65-115); Osmolality Calculated 290 mOsm/kg (285-295); Potassium 3.9 mmol/L (3.5-5.1); Sodium 140 mmol/L (136-145); Total Bilirubin 0.3 mg/dL (0.15-1.2); Total Protein 6.5 g/dL (6.6-8.7)
[2022-08-04] MEDS: ketorolac 60 mg/2 mL INJ IM (22:08)
[2022-08-04] MEDS: dexamethasone 10 mg/mL INJ IM (22:08)
[2022-08-04 22:09] LABS: D Dimer 0.31 ug/mIFEU (0-0.59)
[2022-08-04 22:18] LABS: Hematocrit 43.9 % (42.0-52.0); Hemoglobin 15.2 g/dL (11.7-16.6); Mean Corpuscular HGB Conc 34.6 g/dL (30.0-36.0); Mean Corpuscular Hemoglobin 31.8 pg (28.0-34.0); Mean Corpuscular Volume 91.8 fl (80-94); Platelet Count 189 10^3/cmm (130-400); Red Blood Count 4.78 10^6/uL (4.1-5.3); Red Cell Distribution Width 12.7 % (12.1-15.1); White Blood Count 5.4 10^3/uL (4.0-10.0)
[2022-08-04] MEDS: ipratropium-albuterol 3 mL Neb INHALATION (22:18)
[2022-08-04 22:19] LABS: Basophils % 0.7 %; Eosinophils % 9.8 %; Lymphocytes # 1.7 10^3/uL (0.8-4.8); Lymphocytes % 30.6 %; Mean Platelet Volume 11.2 fL (7.4-10.4); Monocytes # 0.4 10^3/uL (0.2-0.9); Monocytes % 6.8 %; Neutrophils # 2.82 10^3/uL (1.8-7.7); Neutrophils % 51.9 %
[2022-08-04 22:20] LABS: Eosinophils # 0.5 10^3/uL (0.0-0.8); Nucleated Red Blood Cells % 0 %
[2022-08-04] MEDS: levalbuterol 1.25 mg/3 mL Neb INHALATION (22:57)
== END 2022-08-04 23:21 | disposition home or self-care (01) ==
PROVIDERS: Emergency Medicine; Emergency Provider Emergency Medicine; PCP Nurse Practitioner Family
DX: R07.89 Other chest pain (principal); J45.909 Unspecified asthma, uncomplicated; F17.220 Nicotine dependence, chewing tobacco, uncomplicated
CPT/HCPCS: 36415; 71045; 80053; 84484; 85025; 85378; 93005; 94640; 96372; 99285; J1100; J1885; J7614

== ENCOUNTER 2022-08-08 16:46 | Emergency (ER) | payer BC, MEDICAID, SELFPAY ==
[2022-08-08] VITALS (18 sets, daily range): BP systolic 92–116; BP diastolic 66–81; PULSE 51–86; RESP 9–19; TEMP 36.6; O2SAT 86–97; BMI 29.9
--- NOTE | 2022-08-08 16:52 | ECG_ITS ---
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 Measurements Intervals [place] Rate: 61 P: 113 [place]: 104 QRS: 75 QRSD: 89 T: 129 QT: 388 QTc: 392 Interpretive Statements SINUS RHYTHM WITH SHORT [place] INTERVAL INTERPRETATION BASED ON A DEFAULT AGE OF 40 YEARS Compared to ECG 08/04/2022 21:20:17 ST (T wave) deviation no longer present Electronically Signed On 08-08-2022 22:11:24 CDT by Angelica Campos M.D. [id number]
--- NOTE | 2022-08-08 17:10 | W.ED.CHESTPA ---
HPI - Chest Pain General: Chief Complaint: Chest Pain Stated Complaint: CHEST PAIN Time Seen by Provider: 08/08/22 16:59 History of Present Illness: Patient presents to the ER with complaints of right chest pain. 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 Patient said he work by itself yesterday. Patient not have any distinct incident yesterday however when he got home he began having this left spastic muscular type pain that was worse with big deep breaths and movement. MD complaint: chest pain (Musculoskeletal in nature) Onset (ago): day(s) Timing of current episode: episodic Pain location: right chest Pain radiation: back Severity: moderate Quality: aching and shooting Relieving factors: nothing Exacerbating factors: exertion, inspiration, palpation and movement Associated symptoms: Deny abdominal pain, dyspnea, fever(s), nausea, palpitations or vomiting Treatment prior to arrival: aspirin Review of Systems General: Reports: 10 or more systems reviewed and unremarkable except in HPI and below Const: Denies: fever(s) or chills Eyes: Denies: change in vision ENMT: Denies: throat pain or odynophagia Card: Reports: chest pain; Denies: palpitations or irregular heart rhythm Resp: Denies: dyspnea, productive cough or non-productive cough GI: Denies: abdominal pain, nausea, vomiting or diarrhea : Denies: flank pain or difficulty urinating Musc: Reports: other (Right chest wall pain) [facility] ED PFSH: Medical History Abdominal pain ADHD Allergic rhinitis due to allergen Borderline personality disorder Cough COVID-19 Degenerative arthritis of spine Gender dysphoria Generalized epilepsy History of Helicobacter pylori infection Major depressive disorder, recurrent severe without psychotic features Maxillary sinusitis Migraine headache Personal history of pyloric stenosis Pneumonitis Psychiatric care PTSD (post-traumatic stress disorder) Pyloric stenosis URI with cough and congestion Surgical History H/O esophagogastroduodenoscopy (09/30/21) History of adenectomy Hx of tonsillectomy S/P cholecystectomy Family History Other Cancer Social History Smoking and tobacco status: current every day smoker smokeless tobacco Smokeless tobacco user: chewing tobacco Smokeless tobacco details: one can/day. Quit status (tobacco): has tried quititng Number of times tried to quit tobacco: 4 Second hand smoke exposure: No Smoking risk assessment/counseling performed?: No Alcohol intake: current Alcohol intake frequency: few times a week Alcohol type: beer and hard liquor Desire information about alcohol rehabilitation?: No Counseling given: No Desire information about substance/drug rehabilitation?: No Counseling given: No Current occupational status: unemployed Current gender identity: Male Physical Exam Const: COMMON NORMALS: no acute distress, average body habitus, patient oriented x3, no limitations, healthy appearing, alert and well nourished HENMT: COMMON NORMALS: normocephalic, atraumatic, hearing grossly normal bilaterally, external ears normal, Normal external nose present and moist oral mucous membranes HEAD & SCALP: normocephalic and atraumatic NOSE: Normal external nose present EXTERNAL EAR: Yes external ears normal Neck/C-Spine: COMMON NORMALS: full ROM, no lymphadenopathy, supple, no meningeal signs, no JVD and Thyroid normal THYROID: Thyroid normal Chest: OTHER: Tender to palpate over right chest wall anterior Resp: COMMON NORMALS: normal respiratory effort, No retractions, No use of accessory muscles and clear to auscultation bilaterally AUSCULTATION: clear to auscultation bilaterally Cardio: COMMON NORMALS: no JVD, regular rate, regular rhythm, S1 normal heart sound present, S2 normal heart sound present, No gallops present (Cardio), No clicks present (Cardio) and No murmurs present (Cardio) RATE: regular rate RHYTHM: regular rhythm HEART SOUNDS: S1 normal heart sound present and S2 normal heart sound present GI: COMMON NORMALS: Normal to inspection, nondistended, normoactive bowel sounds present, Soft to palpation, non-tender, No hepatosplenomegaly present and no masses PALPATION: Yes Soft to palpation and Yes No hepatosplenomegaly present Neuro: COMMON NORMALS: patient oriented x3 SENSORIUM/ORIENTATION: Yes alert MENINGEAL SIGNS: Yes no meningeal signs Course Vital Signs: Vital signs: Vital Signs Temperature 97.9 F 08/08/22 16:53 Pulse Rate 55 L 08/08/22 18:35 Respiratory Rate 16 08/08/22 18:50 Blood Pressure 112/77 08/08/22 18:35 Pulse Oximetry 92 08/08/22 18:50 Oxygen Delivery Me thod 08/08/22 18:09 MDM - Chest Pain Medical Decision Making Patient presents to the ER with right chest wall pain that is reproducible with palpation. 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 Patient walked by himself yesterday even a there is no incident and can factor he reported worse pain last night that worsened until today. The pain is worse with palpation, movement, inspiration, EKG was obtained and due to it was benign. Due to this as well as a repeat production of pain with palpation and probable inciting factor of patient pulling and moving patients is thought this is anterior chest wall pain and not cardiac in nature. Patient will be given pain medicine discharged home and told to follow-up with his primary care physician as needed. Differential Diagnosis Unlikely acute massive pulmonary embolism, acute respiratory failure, acute myocardial infarction, cardiac arrest or sudden cardiac EKG Data EKG 1: I personally reviewed and interpreted this EKG as follows: EKG interpretation date: 08/08/22 EKG interpretation time: 16:52 Prior EKG tracings: not available for review Interpretation: EKG showed normal sinus rhythm with a short AZ interval ventricular rate of 61 bpm AZ interval of 104, QRS duration, 89, Qtc of 391, no ST-T wave changes Discharge Plan Discharge Patient Disposition: Home Clinical Impression: Anterior chest wall pain Condition: Stable Prescriptions: New hydrocodone-acetaminophen 5-325 mg tablet 1 tab PO Q8H PRN (Reason: pain) Qty: 10 0RF No Action Trelegy Ellipta 200-62.5-25 mcg blister with device 1 inh inhalation DAILY 30 Days Qty: 28 0RF pantoprazole [Protonix] 40 mg tablet,delayed release (DR/EC) 40 mg PO DAILY 30 Days Qty: 30 0RF Qulipta 10 mg tablet 10 mg PO DAILY 30 Days Qty: 30 6RF sertraline [Zoloft] 100 mg tablet 200 mg PO DAILY Qty: 60 2RF albuterol sulfate [ProAir HFA] 90 mcg/actuation HFA aerosol inhaler 2 puff inhalation QID PRN (Reason: shortness of breath or wheezing) Qty: 8.5 6RF fluticasone propionate 50 mcg/actuation spray,suspension 2 spray intranasal BID PRN (Reason: nasal congestion) Qty: 16 0RF Rx Instructions: administer into each nostril loratadine 10 mg tablet 10 mg PO DAILY Qty: 90 0RF montelukast [Singulair] 10 mg tablet 10 mg PO DAILY Qty: 30 3RF promethazine 25 mg tablet 25 mg PO TID PRN (Reason: nausea and vomiting) Qty: 30 0RF atorvastatin 20 mg tablet 20 mg PO DAILY 30 Days Qty: 30 6RF Hold Instructions: hold to see if nausa improves sumatriptan succinate [Imitrex] 50 mg tablet 50 mg PO PRN PRN (Reason: Headache) Qty: 10 0RF testosterone cypionate 200 mg/mL oil 200 mg IM Q7D Rx Instructions: on Fridays hydrocodone-acetaminophen 5-325 mg tablet 1 tab PO Q8H PRN (Reason: pain (scale score 7-10)) Qty: 10 0RF divalproex 500 mg tablet extended release 24 hr 750 mg PO BID Abilify 10 mg tablet 10 mg PO DAILY Qty: 30 0RF benzonatate 100 mg capsule 100 mg PO TID Qty: 15 0RF Discharge Orders: Discharge ED (Routine); Ordered 08/08/22 Ordered By: Raymundo Caputo Referrals: Dolly Sauceda NP [Primary Care Provider] - 1 week Patient Instructions: Chest Wall Pain (ED), Opioid Safety, Pain Management Coding Level of Care Code 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
[2022-08-08] MEDS: oxyCODONE 5 mg IR Tab/Cap PO (18:50)
== END 2022-08-08 18:54 | disposition home or self-care (01) ==
PROVIDERS: Emergency Provider Emergency Medicine; PCP Nurse Practitioner Family
DX: R07.89 Other chest pain (principal); F17.220 Nicotine dependence, chewing tobacco, uncomplicated
CPT/HCPCS: 93005; 99283

== ENCOUNTER → 2022-08-17 14:09 | Outpatient (BNVA) | payer BC, SELFPAY | PROVIDERS: PCP Nurse Practitioner Family; Visit Provider Surgery | DX: R19.7 Diarrhea, unspecified (principal); R11.15 Cyclical vomiting syndrome unrelated to migraine; R63.4 Abnormal weight loss | CPT/HCPCS: 99213 ==

== ENCOUNTER → 2022-08-30 09:52 | Outpatient (BNVA) | payer BC, MEDICAID, SELFPAY | PROVIDERS: PCP Nurse Practitioner Family; Visit Provider Nurse Practitioner Family | DX: Z20.822 Contact with and (suspected) exposure to COVID-19 (principal) | CPT/HCPCS: 87426 ==

== ENCOUNTER → 2022-10-25 16:37 | Outpatient (BNVA) | payer BC, MEDICAID, SELFPAY | PROVIDERS: PCP Nurse Practitioner Family; Visit Provider Internal Medicine Pulmonary Disease | DX: R06.02 Shortness of breath (principal); J30.2 Other seasonal allergic rhinitis | CPT/HCPCS: 36415; 82785; 85025; 86003 ==

== ENCOUNTER → 2023-01-11 15:57 | Outpatient (BNVA) | payer BC, SELFPAY | PROVIDERS: PCP Nurse Practitioner Family; Visit Provider Nurse Practitioner Family | DX: Z20.822 Contact with and (suspected) exposure to COVID-19 | CPT/HCPCS: 87486; 87581; 87633 ==

== ENCOUNTER 2023-01-28 12:49 | Inpatient (IN) | payer BC, SELFPAY ==
[2023-01-28 12:50] VITALS: BP 120/76; PULSE 74; RESP 18; TEMP 36.8; O2SAT 97; BMI 29.3
[2023-01-28 13:26] VITALS: PULSE 73; RESP 18; O2SAT 98
--- NOTE | 2023-01-28 13:44 | W.ED.PSYCHS ---
HPI - Psych General: Chief Complaint: Psychiatric Symptoms Stated Complaint: Si Time Seen by Provider: 01/28/23 13:13 Source: patient Mode of arrival: ambulatory History of Present Illness: 37-year-old male presents emergency room with complaints of depression and suicidal ideation. He is on Abilify and Zoloft he is seen at [facility] and he tells me those are recently increased despite this he feels like they are not working well and he has had suicidal thoughts for the last several weeks. He is plans of harming himself with a firearm. His is in the emergency room with him she states she has removed his access to firearms but is still concerned about his suicidal expressions. He denies any recent illness states he did not do anything to harm himself at this point. MD complaint: suicidal ideation and feels depressed Onset (ago): day(s) Duration: constant History of same: Yes Relieving factors: none Exacerbating factors: none Associated symptoms: Reports depression and suicidal ideation; Deny auditory hallucinations, visual hallucinations, delusions, homicidal ideation, racing thoughts or other If self harm: admits thoughts of self harm and has plan Review of Systems Const: Denies: fever(s), chills, fatigue or malaise ENMT: Denies: throat pain, ear or mastoid pain, nasal discharge or nasal congestion Card: Denies: chest pain, edema, dyspnea on exertion or orthopnea Resp: Denies: dyspnea, productive cough or non-productive cough GI: Denies: abdominal pain, nausea, vomiting, hematemesis, coffee ground emesis, diarrhea, constipation, bloating, hematochezia or melena : Denies: flank pain, dysuria, urinary frequency or urinary urgency Skin/Breast: Denies: rash or pruritus Psych: Reports: depression and suicidal ideation; Denies: visual hallucinations, auditory hallucinations or homicidal ideation [facility] PFSH: Medical History Abdominal pain ADHD Allergic rhinitis due to allergen Borderline personality disorder Cough COVID-19 Degenerative arthritis of spine Gender dysphoria Generalized epilepsy History of Helicobacter pylori infection Major depressive disorder, recurrent severe without psychotic features Maxillary sinusitis Migraine headache Personal history of pyloric stenosis Pneumonitis Psychiatric care PTSD (post-traumatic stress disorder) Pyloric stenosis URI with cough and congestion Surgical History H/O esophagogastroduodenoscopy (09/30/21) History of adenectomy Hx of tonsillectomy S/P cholecystectomy Family History Other Cancer Social History Smoking and tobacco status: current every day smoker smokeless tobacco Smokeless tobacco user: chewing tobacco Smokeless tobacco details: one can/day. Quit status (tobacco): has tried quititng Number of times tried to quit tobacco: 4 Second hand smoke exposure: No Smoking risk assessment/counseling performed?: No Alcohol intake: current Alcohol intake frequency: few times a week Alcohol type: beer and hard liquor Desire information about alcohol rehabilitation?: No Counseling given: No Substance/Drug Use: former Date of last use: September 2021. Desire information about substance/drug rehabilitation?: No Counseling given: No Current occupational status: unemployed Do you think of yourself as: Lesbian/Dos Santos/Homosexual Current gender identity: Male Physical Exam Const: COMMON NORMALS: no acute distress GENERAL APPEARANCE: cooperative and comfortable ORIENTATION/CONSCIOUSNESS: Yes awake, Yes oriented to person, Yes oriented to place and Yes oriented to time HENMT: COMMON NORMALS: normocephalic, atraumatic and hearing grossly normal bilaterally HEAD & SCALP: normocephalic and atraumatic Resp: COMMON NORMALS: normal respiratory effort, No retractions, No use of accessory muscles and clear to auscultation bilaterally AUSCULTATION: clear to auscultation bilaterally Cardio: COMMON NORMALS: regular rate, regular rhythm and No murmurs present (Cardio) RATE: regular rate RHYTHM: regular rhythm GI: COMMON NORMALS: Soft to palpation and No hepatosplenomegaly present AUSCULTATION: Yes normoactive bowel sounds PALPATION: Yes Soft to palpation, No Tenderness to palpation present (GI), No Guarding due to palpation present (GI) and Yes No hepatosplenomegaly present Extremity: COMMON NORMALS: normal to inspection, capillary refill normal, no clubbing, cyanosis or edema, no calf tenderness and no pedal edema Neuro: SENSORIUM/ORIENTATION: Yes oriented to person, Yes oriented to place and Yes oriented to time Psych: THOUGHT CONTENT: No delusions Skin: COMMON NORMALS: no rashes or lesions noted GENERAL SKIN EXAM: no rashes or lesions noted Course Vital Signs: Vital signs: Vital Signs Temperature 97.8 F 02/01/23 06:00 Pulse Rate 102 H 02/01/23 06:00 Respiratory Rate 18 02/01/23 06:00 Blood Pressure 92/60 02/01/23 06:00 Pulse Oximetry 93 02/01/23 06:00 Oxygen Delivery Me thod Room Air 02/01/23 06:00 MDM - Psych Medical Decision Making Admit for suicidal ideation. Medically cleared discussed with on-call psychiatry orders written Medical Records I reviewed the patient's medical records. Lab Data I reviewed the patient's lab results. 01/28/23 13:42 01/28/23 13:42 Laboratory Results WBC 5.99 10^3/uL (3.29-11.43) 01/28/23 13:42 RBC 4.17 10^6/uL (3.85-5.65) 01/28/23 13:42 Hgb 13.50 g/dL (11.27-16.99) 01/28/23 13:42 Hct 39.0 % (37-53) 01/28/23 13:42 MCV 93.5 fl (82-101) 01/28/23 13:42 MCH 32.4 pg (27-33) 01/28/23 13:42 MCHC 34.6 g/dL (30-55) 01/28/23 13:42 RDW 12.5 % (12.1-15.1) 01/28/23 13:42 Plt Count 189 10^3/cmm (157-399) 01/28/23 13:42 MPV 10.5 fL (7.4-10.4) H 01/28/23 13:42 Neut % (Auto) 53.9 % 01/28/23 13:42 Lymph % (Auto) 35.1 % 01/28/23 13:42 [place] % (Auto) 6.3 % 01/28/23 13:42 Eos % (Auto) 3.8 % 01/28/23 13:42 Baso % (Auto) 0.7 % 01/28/23 13:42 Neut # (Auto) 3.23 10^3/uL (1.8-7.7) 01/28/23 13:42 Lymph # (Auto) 2.1 10^3/uL (0.8-4.8) 01/28/23 13:42 [place] # (Auto) 0.4 10^3/uL (0.2-0.9) 01/28/23 13:42 Eos # (Auto) 0.2 10^3/uL (0.0-0.8) 01/28/23 13:42 Baso # (Auto) 0.0 10^3/uL (0.0-0.1) 01/28/23 13:42 Nucleated RBC % (auto) 0 % 01/28/23 13:42 Nucleated RBCs # 0.0 /100WBC 01/28/23 13:42 Sodium 141 mmol/L (136-145) 01/28/23 13:42 Potassium 4.2 mmol/L (3.5-5.1) 01/28/23 13:42 Chloride 107 mmol/L (98-107) 01/28/23 13:42 Carbon Dioxide 27 mmol/L (22-29) 01/28/23 13:42 Anion Gap 11.2 (5-19) 01/28/23 13:42 BUN 10 mg/dL (6-20) 01/28/23 13:42 Creatinine 0.9 mg/dL (0.7-1.2) 01/28/23 13:42 GFR Calculation 94.4 mL/min (90-130) 01/28/23 13:42 Glucose 86 mg/dL (65-115) 01/28/23 13:42 Calculated Osmolality 290 mOsm/kg (285-295) 01/28/23 13:42 Calcium 9.0 mg/dL (8.5-10.5) 01/28/23 13:42 Total Bilirubin 0.3 mg/dL (0.15-1.2) 01/28/23 13:42 AST 16 U/L (0-40) 01/28/23 13:42 ALT 11 U/L (0-41) 01/28/23 13:42 Alkaline Phosphatase 59 U/L (40-130) 01/28/23 13:42 Total Protein 6.4 g/dL (6.6-8.7) L 01/28/23 13:42 Albumin 4.2 g/dL (3.5-5.2) 01/28/23 13:42 Globulin 2.2 g/dL (1.3-4.6) 01/28/23 13:42 Salicylates < 0.3 mg/dL (3-10) L 01/28/23 13:42 Acetaminophen < 5.0 ug/mL (10-30) L 01/28/23 13:42 No radiology studies performed this visit Discharge Plan Discharge Patient Disposition: Admitted As Inpatient Admit Provider: Joni Acosta Clinical Impression: Suicidal ideation Condition: Stable Coding Level of Care Code ED Pheresis Nurse for Taylor Saul
[2023-01-28 13:49] LABS: Basophils % 0.7 %; Eosinophils # 0.2 10^3/uL (0.0-0.8); Eosinophils % 3.8 %; Lymphocytes # 2.1 10^3/uL (0.8-4.8); Lymphocytes % 35.1 %; Mean Corpuscular HGB Conc 34.6 g/dL (30-55); Mean Corpuscular Hemoglobin 32.4 pg (27-33); Mean Corpuscular Volume 93.5 fl (82-101); Mean Platelet Volume 10.5 fL (7.4-10.4); Monocytes # 0.4 10^3/uL (0.2-0.9); Monocytes % 6.3 %; Neutrophils # 3.23 10^3/uL (1.8-7.7); Neutrophils % 53.9 %; Nucleated Red Blood Cells % 0 %; Platelet Count 189 10^3/cmm (157-399); Red Blood Count 4.17 10^6/uL (3.85-5.65); Red Cell Distribution Width 12.5 % (12.1-15.1); White Blood Count 5.99 10^3/uL (3.29-11.43)
[2023-01-28 14:11] LABS: Alanine Aminotransferase 11 U/L (0-41); Albumin Level 4.2 g/dL (3.5-5.2); Alkaline Phosphatase 59 U/L (40-130); Anion Gap 11.2 (5-19); Aspartate Amino Transferase 16 U/L (0-40); Blood Urea Nitrogen 10 mg/dL (6-20); Carbon Dioxide 27 mmol/L (22-29); Chloride 107 mmol/L (98-107); Globulin 2.2 g/dL (1.3-4.6); Glomerular Filtration Rate 94.4 mL/min (90-130); Glucose 86 mg/dL (65-115); Osmolality Calculated 290 mOsm/kg (285-295); Potassium 4.2 mmol/L (3.5-5.1); Sodium 141 mmol/L (136-145); Total Bilirubin 0.3 mg/dL (0.15-1.2); Total Protein 6.4 g/dL (6.6-8.7)
[2023-01-28 14:15] LABS: Acetaminophen < 5.0 ug/mL (10-30); Salicylate < 0.3 mg/dL (3-10)
[2023-01-28 15:01] VITALS: BP 128/84; PULSE 84; RESP 15; TEMP 36.8; O2SAT 96
[2023-01-28] MEDS: hyDROXYzine 25 mg Capsule 50 MG PO (15:56)
[2023-01-28] MEDS: ibuprofen 600 mg Tablet PO (15:58)
--- NOTE | 2023-01-28 15:58 | PC.NURSE ---
Reviewed 96 hr rights with patient and with assistance of [employer] at 1430. No questions or needs were verbalized at this time. Patient copy left with patient @ bedside.
[2023-01-28] MEDS: OLANZapine 5 mg ODT PO (16:38)
--- NOTE | 2023-01-28 16:39 | PC.NURSE ---
Patient anxious, unable to tell me cause. Trembling. Administered 50mg Vistaril PO.
--- NOTE | 2023-01-28 16:39 | PC.NURSE ---
Patient reports that he feels like he is going to have a panic attack. Administered Zyprexa 5mg ODT. Will continue to monitor patient
[2023-01-28] MEDS: haloperidol 5 mg Tablet PO (17:55)
--- NOTE | 2023-01-28 18:05 | PC.NURSE ---
at window, stated that he is having urge to hurt himself, started digging into his arm in his room and decided to tell staff of this. administered 5mg haldol to patient. will continue to closely monitor
[2023-01-28] MEDS: propranolol 20 mg Tablet 10 MG PO (18:55)
--- NOTE | 2023-01-28 19:55 | PC.NURSE ---
Administered testosterone cypionate 200mg/mL to patient in right ventrogluteal. No adverse reactions. lot:[id number] EXP:08/2023
[2023-01-28] MEDS: prazosin 1 mg Capsule PO (20:05)
[2023-01-28 20:25] VITALS: BP 98/64; PULSE 54; RESP 16; TEMP 36.4; O2SAT 94
--- NOTE | 2023-01-28 20:32 | PC.NURSE ---
IN ROOM RESTING, CAME UP TO NURSES STATION TO TAKE PM MEDICATIONS WITHOUT DIFFICULTY. PT DENIES PAIN, SI/HI AND AVH AT THIS TIME. REPORTS HE IS TIRED AND WOULD LIKE TO SLEEP. ASSURED PT THAT WHEN HE WAS DONE WITH MEDICATIONS HE COULD REST. CALLED SHORTLY AFTER, SHE WAS NOTIFIED HE WAS SLEEPING BUT THIS RN WOULD LET HIM KNOW SHE CALLED WHEN HE GETS UP. SUPPORT VOICDED.
[2023-01-29 06:00] VITALS: BP 110/75; PULSE 124; RESP 18; TEMP 36.4; O2SAT 93
[2023-01-29] MEDS: propranolol 20 mg Tablet 10 MG PO ×2 (08:07→20:11)
[2023-01-29] MEDS: multivitamin therapeutic Tablet 1 TAB PO (08:07)
[2023-01-29] MEDS: ARIPiprazole 30 mg Tablet 15 MG PO (08:07)
[2023-01-29] MEDS: thiamine 100 mg Tablet PO (08:07)
[2023-01-29] MEDS: folic acid 1 mg Tablet PO (08:07)
[2023-01-29] MEDS: pantoprazole DR 40 mg Tablet PO (08:07)
[2023-01-29] MEDS: divalproex DR 250 mg Tablet 750 MG PO ×2 (08:07→17:50)
[2023-01-29] MEDS: sertraline 100 mg Tablet 200 MG PO (08:08)
[2023-01-29] MEDS: lisinopril 10 mg Tablet PO (08:08)
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
[2023-01-29 13:25] VITALS: BP 107/75; PULSE 79; RESP 17; TEMP 36.8; O2SAT 98
[2023-01-29] MEDS: montelukast sodium 10 mg Tablet PO (17:50)
[2023-01-29] MEDS: hyDROXYzine 25 mg Capsule 50 MG PO (18:02)
[2023-01-29] MEDS: prazosin 1 mg Capsule 2 MG PO (20:11)
[2023-01-29] MEDS: trazodone 50 mg Tablet PO (20:11)
[2023-01-29 20:15] VITALS: BP 110/65; PULSE 88; RESP 16; TEMP 36.7; O2SAT 96
--- NOTE | 2023-01-29 21:14 | PC.NURSE ---
Addendum entered and electronically signed by Radha Stubbs RN 01/30/23 06:43: PT HAS SLEPT ALL NIGHT SINCE 1999 UNTIL 600 AM MEDICATIONS DEEMED EFFECTIVE. Original Note: IN DAY ROOM COLORING. PT DENIES PAIN. DENIES SI/HI AND AVH AT THIS TIME. PT WAS GIVEN TRAZODONE 50 MG FOR SLEEP WITH HIS NIGHT TIME MEDICATIONS REQUESTED. SUPPORT WAS VOICED.
[2023-01-30] MEDS: ibuprofen 600 mg Tablet PO (04:11)
[2023-01-30 06:00] VITALS: BP 124/88; PULSE 94; RESP 14; TEMP 36.9; O2SAT 96; BMI 29.2
[2023-01-30] MEDS: acetaminophen 325 mg Tablet 650 MG PO (06:41)
[2023-01-30] MEDS: multivitamin therapeutic Tablet 1 TAB PO (08:08)
[2023-01-30] MEDS: sertraline 100 mg Tablet 150 MG PO (08:08)
[2023-01-30] MEDS: divalproex DR 250 mg Tablet 750 MG PO ×2 (08:08→17:26)
[2023-01-30] MEDS: ARIPiprazole 10 mg Tablet 5 MG PO (08:08)
[2023-01-30] MEDS: lisinopril 10 mg Tablet PO (08:09)
[2023-01-30] MEDS: pantoprazole DR 40 mg Tablet PO (08:09)
[2023-01-30] MEDS: folic acid 1 mg Tablet PO (08:09)
[2023-01-30] MEDS: thiamine 100 mg Tablet PO (08:09)
[2023-01-30] MEDS: propranolol 20 mg Tablet 10 MG PO ×2 (08:11→20:08)
[2023-01-30] MEDS: hyDROXYzine 25 mg Capsule 50 MG PO (09:55)
[2023-01-30] MEDS: haloperidol 5 mg Tablet PO (10:29)
[2023-01-30] MEDS: OLANZapine 5 mg ODT PO (12:10)
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
[2023-01-30 14:00] VITALS: BP 105/74; PULSE 88; RESP 18; TEMP 36.5; O2SAT 96
--- NOTE | 2023-01-30 17:12 | P.NPUPN_ITS ---
Subjective NPU Subjective: 37-year-old white male with a history of PTSD and depression admitted with suicidal ideation and worsening depression along with exacerbation of PTSD symptoms. The patient did not report any side effects from the reduction in Abilify. His Zoloft continued to remain at a lower dose and patient was agreeable to considering a new antidepressant. He had also reported frequent nightmares and was reporting having frequent reexperiencing phenomenon including triggers for his PTSD. He reported occasional feelings of hopelessness. He had reported multiple medical concerns. He had reported to good control of his seizures with Depakote. He had reported that he would like to continue psych otherapy. Mental Status Exam MSE Comments: Patient is a somewhat effeminate trans male who was friendly and cooperative on interview who appeared in moderate distress. His gait appeared normal. His hyg iene was fair. There was no evidence of any abnormal involuntary motor movements tics or tremors appreciated. There was evidence of mild to moderate psychomotor retardation. His speech was normal in regards to rate rhythm and prosody. His mood was depressed. His affect was flat. His thought process was linear logical and goal-directed. His thought content showed evidence of suicidal ideation with a plan to shoot himself with a gun. He denied any homicidal ideation. He did not appear to be responding to internal stimuli. There was no evidence of delusional thinking. His attention span appeared variable. His insight was poor. His judgment is poor. His impulse control appeared limited. Vitals/I&O/Wt Last Vital Signs Temp 97.7 F 01/30/23 14:00 Pulse 88 01/30/23 14:00 Resp 18 01/30/23 14:00 BP 105/74 01/30/23 14:00 Pulse Ox 96 01/30/23 14:00 O2 Del Method Room Air 01/30/23 14:00 Weight last 48 hrs Weight 82.1 kg Weight 82.1 kg Data NPU 01/28/23 13:42 01/28/23 13:42 A&P Assessment and plan (1) PTSD (post-traumatic stress disorder): (2) Major depressive disorder, recurrent severe without psychotic features: (3) Generalized epilepsy: Plan 37-year-old white male with PTSD, major depressive disorder and borderline personality traits admitted with suicidal ideation with a plan to use a firearm with worsening depression and increased stressors in the home environment. 1. ?Encourage individual, group and milieu therapy. 2. Recommend sober living treatment at the highest level of care to which the patient is willing to commit. 3. Decreased zoloft to 50mg in am with plan to discontinue and begin low dose of cymbalta at 30mg in am. Discontinue abilify due to lack of efficacy with patient and begin trial of seroquel at 100mg at night adjunctively to treat depression. Prazosin will be increased to 4mg to target nightmares associated with his PTSD. Involuntary Hold Information 96 Hour Hold: 96 Hour Involuntary Admission: Yes 96 Hour Hold Ending Date: 02/03/23 96 Hour Hold Ending Time: 13:59 Attestations NPU Medical Necessity Statement*: Inpatient hospitalization is medically necessary and deemed to be the ?clinically appropriate intervention ?at this time.? We will monitor/initiate medications and make changes as indicated.? The patient's likely length of stay 5-7 days. Coding Level of Care Code Acute Code for [facility] Diagnoses PTSD (post-traumatic stress disorder) F43.10 Major depressive disorder, recurrent severe without psychotic features F33.2 Generalized epilepsy G40.309
[2023-01-30] MEDS: montelukast sodium 10 mg Tablet PO (17:26)
[2023-01-30 19:47] VITALS: BP 113/79; PULSE 101; RESP 15; TEMP 36.9; O2SAT 94
[2023-01-30] MEDS: prazosin 1 mg Capsule 4 MG PO (20:06)
[2023-01-30] MEDS: quetiapine 100 mg Tablet PO (20:08)
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
[2023-01-31 06:00] VITALS: BP 100/67; PULSE 97; RESP 16; TEMP 36.8; O2SAT 95
[2023-01-31] MEDS: divalproex DR 250 mg Tablet 750 MG PO ×2 (08:06→17:54)
[2023-01-31] MEDS: duloxetine 30 mg Capsule PO (08:07)
[2023-01-31] MEDS: sertraline 50 mg Tablet PO (08:07)
[2023-01-31] MEDS: multivitamin therapeutic Tablet 1 TAB PO (08:07)
[2023-01-31] MEDS: folic acid 1 mg Tablet PO (08:07)
[2023-01-31] MEDS: pantoprazole DR 40 mg Tablet PO (08:07)
[2023-01-31] MEDS: thiamine 100 mg Tablet PO (08:07)
[2023-01-31] MEDS: propranolol 20 mg Tablet 10 MG PO ×2 (08:07→20:04)
[2023-01-31] MEDS: nicotine 2 mg Gum BUCCAL (09:06)
[2023-01-31] MEDS: hyDROXYzine 25 mg Capsule 50 MG PO ×2 (09:37→15:37)
[2023-01-31] MEDS: OLANZapine 5 mg ODT PO (12:22)
[2023-01-31] MEDS: acetaminophen 325 mg Tablet 650 MG PO ×2 (12:40→20:04)
[2023-01-31 13:42] VITALS: BP 106/73; PULSE 74; RESP 16; TEMP 36.5; O2SAT 98
[2023-01-31] MEDS: montelukast sodium 10 mg Tablet PO (17:54)
--- NOTE | 2023-01-31 18:40 | W.PM.NPUPNS ---
Subjective NPU Subjective: 37-year-old white male with a history of PTSD and depression admitted with suicidal ideation and worsening depression along with exacerbation of PTSD symptoms. the patient reported improved sleep with the Seroquel. He had reported that he was feeling better. He had been more anxious about needing to go home as he states that his son had recently been charged with possession of an illicit substance and he needed to get help. He had reported that his suicidal thoughts were less frequent. He had reported no feelings of hopelessness. He had reported improved motivation and reported a decrease in anhedonia. He reported no side effects from the reduction in Zoloft and the initiation of side Cymbalta. Mental Status Exam MSE Comments: Patient is a somewhat effeminate trans male who was friendly and cooperative on interview who appeared in mild distress. His gait appeared normal. His hygiene was fair. There was no evidence of any abnormal involuntary motor movements tics or tremors appreciated. There was mild psychomotor retardation appreciated. His speech was normal in regards to rate rhythm and prosody. His mood was better. His affect was slightly restricted. His thought process was linear logical and goal-directed. His thought content showed no evidence of suicidal ideation with no plan. He denied any homicidal ideation. He did not appear to be responding to internal stimuli. There was no evidence of delusional thinking. His attention span appeared better. His insight was improving. His judgment is fair. His impulse control appeared to be improving as well. Vitals/I&O/Wt Last Vital Signs Temp 97.7 F 01/31/23 13:42 Pulse 74 01/31/23 13:42 Resp 16 01/31/23 13:42 BP 106/73 01/31/23 13:42 Pulse Ox 98 01/31/23 13:42 O2 Del Method Room Air 01/31/23 06:00 Weight last 48 hrs Weight 82.1 kg Weight 82.1 kg Data NPU 01/28/23 13:42 01/28/23 13:42 A&P Assessment and plan (1) PTSD (post-traumatic stress disorder): (2) Major depressive disorder, recurrent severe without psychotic features: (3) Generalized epilepsy: Plan 37-year-old white male with PTSD, major depressive disorder and borderline personality traits admitted with suicidal ideation with a plan to use a firearm with worsening depression and increased stressors in the home environment. 1. ?Encourage individual, group and milieu therapy. 2. Recommend sober living treatment at the highest level of care to which the patient is willing to commit. 3. Decreased zoloft to 25mg in am with plan to discontinue and increase cymbalta to 60mg at discharge.. Continue seroquel 100mg at night. Continue Prazosin at 4mg at night. Involuntary Hold Information 96 Hour Hold: 96 Hour Involuntary Admission: Yes 96 Hour Hold Ending Date: 02/03/23 96 Hour Hold Ending Time: 13:59 Attestations NPU Medical Necessity Statement*: Inpatient hospitalization is medically necessary and deemed to be the ?clinically appropriate intervention ?at this time.? We will monitor/initiate medications and make changes as indicated.? The patient's likely length of stay 1-2 days. Coding Level of Care Code Acute Code for g Fwd Diagnoses PTSD (post-traumatic stress disorder) F43.10 Major depressive disorder, recurrent severe without psychotic features F33.2 Generalized epilepsy G40.309
[2023-01-31] MEDS: prazosin 1 mg Capsule 4 MG PO (20:04)
[2023-01-31] MEDS: quetiapine 100 mg Tablet PO (20:04)
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
[2023-01-31 20:37] VITALS: BP 129/85; PULSE 93; RESP 16; TEMP 36.4; O2SAT 97
[2023-02-01] MEDS: haloperidol 5 mg Tablet PO (01:38)
--- NOTE | 2023-02-01 01:40 | PC.NURSE ---
PT UP TO NURSES STATION, STATES HE IS UNABLE TO SLEEP AND HE IS ANXIOUS. HALDOL 5 MG GIVEN ORDERED FOR ANXIETY. PT WENT BACK TO ROOM TO TRY AND REST.
--- NOTE | 2023-02-01 03:32 | PC.NURSE ---
PT REPORTS ONLY SLEEPING 2 HOURS SINCE I TOOK THAT HALDOL. I JUST CAN'T SLEEP. STATED TO PT HE MAY BE UNABLE TO SLEEP DUE TO HIS SON BEING IN HALFWAY AND WORRYING ABOUT DEALING WITH THAT WHEN HE GETS HOME, WELL BEING DISCHARGED TOMORROW. PT STATES YEAH THAT COULD BE IT. PT OFFERED MEDICATIONS TO ASSIST WITH ANXIETY BUT PT DECLINED STATING HE WOULD JUST GO TO HIS ROOM AND LAY DOWN AND SEE IF MAYBE HE COULD FALL ASLEEP. SUPPORT VOICED.
[2023-02-01] MEDS: OLANZapine 5 mg ODT PO ×2 (04:17→11:30)
[2023-02-01 06:00] VITALS: BP 92/60; PULSE 102; RESP 18; TEMP 36.6; O2SAT 93
[2023-02-01] MEDS: propranolol 20 mg Tablet 10 MG PO (08:05)
[2023-02-01] MEDS: duloxetine 30 mg Capsule PO (08:05)
[2023-02-01] MEDS: multivitamin therapeutic Tablet 1 TAB PO (08:05)
[2023-02-01] MEDS: sertraline 50 mg Tablet 25 MG PO (08:05)
[2023-02-01] MEDS: thiamine 100 mg Tablet PO (08:05)
[2023-02-01] MEDS: folic acid 1 mg Tablet PO (08:05)
[2023-02-01] MEDS: pantoprazole DR 40 mg Tablet PO (08:05)
[2023-02-01] MEDS: divalproex DR 250 mg Tablet 750 MG PO (08:06)
[2023-02-01] MEDS: nicotine 2 mg Gum BUCCAL (08:35)
[2023-02-01] MEDS: hyDROXYzine 25 mg Capsule 50 MG PO (08:56)
--- NOTE | 2023-02-01 08:59 | PC.NURSE ---
Patient reports anxiety and depression related to being discharged and his son being arrested yesterday. Administered 50mg Vistaril to patient. Patient told to notify nurse if medication not helpful in 45 mintues to one hour. Understanding verbalized.
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
[2023-02-01 14:22] VITALS: BP 92/60; PULSE 102; RESP 18; TEMP 36.6; O2SAT 93
== END 2023-02-01 15:09 | disposition home or self-care (01) | DRG 885 ==
LOC: ER 13:46 → NP 14:35
PROVIDERS: Admitting Provider Psychiatry & Neurology Psychiatry; Emergency Provider Family Medicine; PCP Nurse Practitioner Family; Visit Provider Psychiatry & Neurology Psychiatry
DX: F33.2 Major depressive disorder, recurrent severe without psychotic features (principal); R45.851 Suicidal ideations; Z62.810 Personal history of physical and sexual abuse in childhood; F17.220 Nicotine dependence, chewing tobacco, uncomplicated; F43.10 Post-traumatic stress disorder, unspecified; G40.309 Generalized idiopathic epilepsy and epileptic syndromes, not intractable, without status epilepticus; R45.84 Anhedonia; Z81.8 Family history of other mental and behavioral disorders
CPT/HCPCS: 36415; 80053; 80307; 85025; 96372; 97150; 97165; 99285; J1071

== ENCOUNTER 2023-03-09 06:22 | Outpatient (CLI) | payer BC, MEDICAID, SELFPAY ==
--- NOTE | 2023-03-09 06:30 | CT_ITS ---
WS: [id number] CT PARANASAL SINUSES HISTORY: Pain and pressure, runny nose. TECHNIQUE: Contiguous 2.5 mm axial images obtained through the sinuses. Images are reconstructed in s agittal and coronal planes. All CT scans at [facility] use at least one of these dose optimiz ation techniques: automated exposure control; mA and/or kV adjustment per patient size (includes targ eted exams where dose is matched to clinical indication); or iterative reconstruction. DLP: 860.95 mGy.cm COMPARISON: None available. Frontal sinuses: Normal. Sphenoid sinus: Normal. Ethmoid sinuses: Normal. Maxillary sinus: Normal. No air-fluid levels or mucoperiosteal thickening. Ostiomeatal unit: Normal. Likely patent ostiomeatal units. Very minimal RIGHT deviation of the septum with a tiny bony spur to the RIGHT. Soft tissues are normal. Normal orbits and globes. Visualized br ain is negative. IMPRESSION: 1. No air-fluid levels or sinus disease. 2. Widely patent ostiomeatal unit.
== END 2023-03-09 06:23 | disposition home or self-care (01) ==
LOC: RAD 06:22
PROVIDERS: PCP Nurse Practitioner Family; Visit Provider Otolaryngology
DX: J32.9 Chronic sinusitis, unspecified (principal)
CPT/HCPCS: 70486

== ENCOUNTER → 2023-04-04 16:51 | Outpatient (BNVA) | payer BC, SELFPAY | PROVIDERS: PCP Nurse Practitioner Family; Visit Provider Nurse Practitioner Family | DX: I10 Essential (primary) hypertension (principal); J01.00 Acute maxillary sinusitis, unspecified; F64.0 Transsexualism; Z79.899 Other long term (current) drug therapy; T78.40XA Allergy, unspecified, initial encounter; T78.40XD Allergy, unspecified, subsequent encounter | CPT/HCPCS: 80053 ==

== ENCOUNTER → 2023-05-04 07:50 | Outpatient (BNVA) | payer BC, SELFPAY | PROVIDERS: PCP Nurse Practitioner Family; Visit Provider Obstetrics & Gynecology | DX: N93.9 Abnormal uterine and vaginal bleeding, unspecified (principal) | CPT/HCPCS: 76830 ==

== ENCOUNTER → 2023-05-20 10:41 | Outpatient (BNVA) | payer BC, MEDICAID, SELFPAY | PROVIDERS: PCP Nurse Practitioner Family; Referring Provider Nurse Practitioner Family; Visit Provider Nurse Practitioner | DX: M17.11 Unilateral primary osteoarthritis, right knee (principal); S83.206A Unspecified tear of unspecified meniscus, current injury, right knee, initial encounter; X58.XXXA Exposure to other specified factors, initial encounter | CPT/HCPCS: 73560; 73565 ==

== ENCOUNTER 2023-06-02 10:07 | Day surgery (SDC) | payer BC, MEDICAID, SELFPAY ==
[2023-06-02] VITALS (11 sets, daily range): BP systolic 115–138; BP diastolic 82–111; PULSE 75–94; RESP 16–24; TEMP 36.3–36.8; O2SAT 93–100; BMI 30.2
--- NOTE | 2023-06-02 05:25 | P.HP_ITS ---
Same Day Surgery H&P Indication for Procedure/HPI DATE OF PROCEDURE: June 02, 2023 CHIEF COMPLAINT/INDICATIONFOR SURGICAL PROCEDURE: abnormal uterine bleeding PREOP DIAGNOSIS: abnormal uterine bleeding PLANNED PROCEDURE: Operation Date: 06/02/23 12:25 Proposed Procedures p Hysteroscopy, endometrial sampling, possible endometrial polypectomy 97313, Pap [id number],N93.9,Z12.4(Not Applicable) - Kwasi Ramirez MD s Poss Poylpectomy(Not Applicable) - Kwasi Ramirez MD s Exam Under Anesthesia(Not Applicable) - Kwasi Ramirez MD 37 y.o. transgender man on testosterone therapy x ten years began to have abnormal uterine bleeding recently now scheduled for hysteroscopy, endometrial sampling, possible endometrial polypectomy Medications/Allergies* Home Medications Medication Instructions Recorded Confirmed Type montelukast 10 mg tablet 10 mg PO QAM cough 01/28/23 06/01/23 History (Singulair) Allergies/Adverse Reactions Allergy/AdvReac Type Severity Reaction Status Date / Time clindamycin Allergy Mild ADR-Gastrointestinal Verified 06/01/23 13:50 Upset carbamazepine [From Tegretol] Allergy RASH Verified 06/01/23 13:50 cyclobenzaprine Allergy RASH Verified 06/01/23 13:50 [From Flexeril] nalbuphine [From Nubain] Allergy RASH Verified 06/01/23 13:50 tizanidine Allergy Unknown Verified 06/01/23 13:50 zolpidem [From Ambien] Allergy RASH Verified 06/01/23 13:50 Pertinent History/Comorbid Conditions* Medical History (Updated 05/20/23 @ 17:42 by FANNY Pascual) Positive Yu test of right knee Generalized anxiety disorder with panic attacks Bipolar II disorder hypomanic with mixed features Post-traumatic stress disorder, chronic Nicotine dependence, other tobacco product, with other nicotine-induced dis orders Cannabis use disorder, severe, dependence Allergic rhinitis due to allergen Maxillary sinusitis Cough COVID-19 URI with cough and congestion Abdominal pain History of Helicobacter pylori infection Borderline personality disorder Gender dysphoria Psychiatric care Personal history of pyloric stenosis Migraine headache Generalized epilepsy Degenerative arthritis of spine Pyloric stenosis Pneumonitis Surgical History (Updated 04/13/22 @ 09:00 by Eric Finch MD) S/P cholecystectomy H/O esophagogastroduodenoscopy (09/30/21) History of adenectomy Hx of tonsillectomy Family History (Updated 02/14/20 @ 09:18 by Yenni Day LPN) Cancer Social History Smoking and tobacco/nicotine status: current every day tobacco/nicotine user smokeless tobacco Smokeless tobacco user: chewing tobacco Smokeless tobacco details: one can/day. Quit status (tobacco/nicotine): has tried quititng Number of times tried to quit tobacco: 4 Second hand smoke exposure: No Alcohol intake: current Alcohol intake frequency: few times a week Alcohol type: beer and hard liquor Substance/Drug Use: former Date of last use: September 2021. Current occupational status: unemployed Do you think of yourself as: Lesbian/Dos Santos/Homosexual Current gender identity: Male Pertinent Exam Findings alert, oriented x 3, clear to auscultation bilaterally and regular rate & rhythm Recommendations Surgery/Procedure today Coding Level of Care Code Acute Code for Chg Fwd Time Spent (min) 10
[2023-06-02] MEDS: sodium chloride 0.9% 1,000 ML 30 ML IV (11:22)
--- NOTE | 2023-06-02 11:46 | ANES.PREANE2 ---
Pre-Anesthetic Assessment Height/Weight: Height 1.68 m Weight 84.822 kg Temp Pulse Resp BP Pulse Ox O2 Del Method 97.3 F L 75 18 115/82 95 Room Air 06/02/23 11:06 06/02/23 11:06 06/02/23 11:06 06/02/23 11:06 06/02/23 11:06 06/02/23 11:07 Preop Diagnosis: abnormal uterine bleeding Operation Date: 06/02/23 12:25 Proposed Procedures p Hysteroscopy, endometrial sampling, possible endometrial polypectomy 98640, Pap [id number],N93.9,Z12.4(Not Applicable) - Kwasi Ramirez MD s Poss Poylpectomy(Not Applicable) - Kwasi Ramirez MD s Exam Under Anesthesia(Not Applicable) - Kwasi Ramirez MD Familial anesthetic complications: none Was Beta Candis taken within 24 hours: N/A Was Clonidine taken within 24 hours: N/A Last intake: Intake Last Liquid Date 06/01/23 Last Liquid Time 10:45 Last Solid Date 06/01/23 Last Solid Time 10:45 Social Tobacco (chews) and No alcohol Exam alert, oriented x 3, clear to auscultation bilaterally and regular rate & rhythm Airway Mallampati: Class II Dentition: chipped Neuropsych Seizure Anesthetic Plan ASA status: 2 Anesthesia: General Risk of > 500 ml blood loss (7ml/kg in children): No Medications/Allergies Home Medications Medication Instructions Recorded Confirmed Last Taken Type albuterol sulfate 90 mcg/actuation 2 puff inhalation QID PRN 02/03/22 06/01/23 05/25/23 Rx aerosol inhaler (ProAir HFA) shortness of breath or wheezing #8.5 grams divalproex 500 mg tablet,extended 500 mg PO BID #60 tabs 09/16/22 06/01/23 05/31/23 Rx release 24 hr (Depakote ER) ondansetron 8 mg disintegrating 8 mg PO Q8H PRN nausea and 10/19/22 06/01/23 04/26/23 Rx tablet vomiting #90 tabs cyclobenzaprine 10 mg tablet 10 mg PO TID PRN muscle spasm #30 12/24/22 06/01/23 04/20/23 Rx tabs testosterone cypionate 200 mg/mL 200 mg IM Q7D #10 mL 01/24/23 06/01/23 05/27/23 Rx intramuscular oil montelukast 10 mg tablet 10 mg PO QAM cough 01/28/23 06/01/23 05/31/23 History (Singulair) levocetirizine 5 mg tablet (Xyzal) 5 mg PO DAILY 90 days #90 tabs 02/15/23 06/01/23 05/31/23 Rx divalproex 250 mg tablet,delayed See Rx Instructions .Route 02/28/23 06/01/23 05/31/23 Rx release .COMPLEX #60 tabs lisinopril 10 mg tablet See Rx Instructions .Route 02/28/23 06/01/23 05/31/23 Rx .COMPLEX #30 tabs propranolol 10 mg tablet See Rx Instructions .Route 02/28/23 06/01/23 05/31/23 Rx .COMPLEX #60 tabs sumatriptan succinate 50 mg tablet See Rx Instructions .Route 02/28/23 06/01/23 05/31/23 Rx .COMPLEX #9 tabs needle (disp) 20 G 20 gauge x 1 #100 ea 03/07/23 05/20/23 Unknown Rx (BD Regular Bevel [place]) needle (disp) 22 G 22 gauge x 1 #100 ea 03/07/23 05/20/23 Unknown Rx (CareTouch Hypodermic Needle) syringe (disposable) 3 mL (BD Slip #200 ea 03/07/23 05/20/23 Unknown Rx Tip Syringe) prazosin 2 mg capsule 4 mg (2 x 2 mg) PO BEDTIME #60 caps 04/07/23 06/01/23 05/31/23 Rx diclofenac sodium 50 mg 50 mg PO BID 30 days #60 tabs 04/21/23 06/01/23 05/31/23 Rx tablet,delayed release aripiprazole 15 mg tablet (Abilify) 15 mg PO .morning #30 tabs 05/09/23 06/01/23 05/31/23 Rx Allergies Allergy/AdvReac Type Severity Reaction Status Date / Time clindamycin Allergy Mild ADR-Gastrointestinal Verified 06/02/23 10:58 Upset carbamazepine [From Tegretol] Allergy RASH Verified 06/02/23 10:58 cyclobenzaprine Allergy RASH Verified 06/02/23 10:58 [From Flexeril] nalbuphine [From Nubain] Allergy RASH Verified 06/02/23 10:58 tizanidine Allergy Unknown Verified 06/02/23 10:58 zolpidem [From Ambien] Allergy RASH Verified 06/02/23 10:58 Current Medications Generic Name Dose Route Start Last Admin Trade Name Freq PRN Reason Stop Dose Admin Sodium Chloride 1,000 mls @ 30 mls/hr 06/02/23 11:00 06/02/23 11:22 Sodium Chloride 0.9% IV 06/03/23 10:59 30 mls/hr .Q24H KRISHNA Administration PFSH Anesthesia Medical History (Updated 05/20/23 @ 17:42 by RACH Pascual) Positive Yu test of right knee Generalized anxiety disorder with panic attacks Bipolar II disorder hypomanic with mixed features Post-traumatic stress disorder, chronic Nicotine dependence, other tobacco product, with other nicotine-induced disorders Cannabis use disorder, severe, dependence Allergic rhinitis due to allergen Maxillary sinusitis Cough COVID-19 URI with cough and congestion Abdominal pain History of Helicobacter pylori infection Borderline personality disorder Gender dysphoria Psychiatric care Personal history of pyloric stenosis Migraine headache Generalized epilepsy Degenerative arthritis of spine Pyloric stenosis Pneumonitis Surgical History S/P cholecystectomy H/O esophagogastroduodenoscopy (09/30/21) History of adenectomy Hx of tonsillectomy Family History Other Cancer Social History Smoking and tobacco/nicotine status: current every day tobacco/nicotine user smokeless tobacco Smokeless tobacco user: chewing tobacco Smokeless tobacco details: one can/day. Quit status (tobacco/nicotine): has tried quititng Number of times tried to quit tobacco: 4 Second hand smoke exposure: No Alcohol intake: current Alcohol intake frequency: few times a week Alcohol type: beer and hard liquor Substance/Drug Use: former Date of last use: September 2021. Current occupational status: unemployed Do you think of yourself as: Lesbian/Dos Santos/Homosexual Current gender identity: Male Data Anesthesia Cardiac Studies: Echocardiogram 05/24/22
--- NOTE | 2023-06-02 11:50 | W.PM.OPSUD ---
Surgery/Procedure H&P Update DATE OF PROCEDURE: June 02, 2023 DATE H&P PERFORMED: 06/02/23 H&P UPDATE INFORMATION: I have reviewed H&P completed within last 30 days and I have examined patient prior to procedure PREOP DIAGNOSIS: abnormal uterine bleeding PLANNED PROCEDURE: Operation Date: 06/02/23 12:25 Proposed Procedures p Hysteroscopy, endometrial sampling, possible endometrial polypectomy 22378, Pap [id number],N93.9,Z12.4(Not Applicable) - Kwasi Ramirez MD s Poss Poylpectomy(Not Applicable) - Kwasi Ramirez MD s Exam Under Anesthesia(Not Applicable) - Kwasi Ramirez MD
--- NOTE | 2023-06-02 15:35 | PM.OP ---
Operative Report Date of procedure: June 02, 2023 Pre-op diagnosis: abnormal uterine bleeding Post-op diagnosis: same Post-op findings: normal endometrial cavity No polyps / fibroids Minimal endometrial tissue Procedure done: hysteroscopy curettage of uterus Specimens removed/disposition: endometrial curettings pap smear Surgeon: Kwasi Ramirez MD Anesthesia: MAC Estimated blood loss (mL): 0 Complications: none Condition: stable Disposition: PACU Brief History: 37 y.o. with abnormal uterine bleeding, daily spotting, after 10 years of no bleeding Procedure: Informed consent signed. Patient was taken to the operating room. Anesthesia was induced. Patient was placed in dorsolithotomy position, Pap smear was done, then was prepped and draped for hysteroscopy. A bivalve speculum was placed in the vagina. The anterior lip of the cervix was grasped with a sharp-toothed tenaculum. The cervix was serially dilated with Hegar dilators. . A hysteroscope was placed into the endometrial cavity. The endometrial cavity was seen to be normal. There were no polyps or fibroids. There was a minimal amount of endometrial tissue. The hysteroscope was then removed. Endometrial curettage was done with a sharp curette. Endometrial tissue was sent to pathology. The sharp-toothed tenaculum was removed. There was no bleeding from the endometrial cavity or cervix. The patient was then placed supine and awakened and taken to the PACU. Postop condition: stable EBL: none Sponge and instruments counts were normal x 2 Complications: none
[2023-06-02] MEDS: ondansetron 2 mg/ML SDV 2 mL 4 MG IVP ×2 (16:00→16:27)
[2023-06-02] MEDS: diphenhydrAMINE 50 mg/mL SDV 1mL 12.5 MG IVP (16:43)
[2023-06-02] MEDS: morphine 4 mg/mL SDV 1 mL IVP (16:45)
--- NOTE | 2023-06-02 17:15 | ANE.PACU2 ---
Inpatient post-anesthesia follow up: Airway intact: Yes Vital signs: Temperature 98.3 F Pulse Rate 84 Respiratory Rate 18 Blood Pressure 124/96 Pulse Oximetry 95 Oxygen Delivery Me thod Room Air Oxygen Flow Rate 8 Fraction of Inspir ed Oxygen Hydration adequate: Yes Nausea and vomiting: No Pain level: 1 Mental status: Baseline
[2023-06-15 11:58] LABS: Lmp: NONE GIVEN; Prev. Pap: NONE GIVEN; Source: Cervix
[2023-06-15 11:59] LABS: Report Status: FINAL
== END 2023-06-02 17:13 | disposition home or self-care (01) ==
PROVIDERS: PCP Nurse Practitioner Family; Visit Provider Obstetrics & Gynecology
PROC: 0UJD8ZZ Inspection of Uterus and Cervix, Via Natural or Artificial Opening Endoscopic (ICD-10-PCS; CPT 58555; principal; 2023-06-02 12:15)
PROC: (CPT 58558; 2023-06-02 12:15)
PROC: (CPT 58558; 2023-06-02 12:15)
DX: N93.9 Abnormal uterine and vaginal bleeding, unspecified (principal); F64.8 Other gender identity disorders; F17.220 Nicotine dependence, chewing tobacco, uncomplicated
CPT/HCPCS: 58558; 81025; 88175; 88305; J1100; J1200; J1885; J2250; J2270; J2405; J2704; J3010; J7030

== ENCOUNTER 2023-06-14 09:06 | Outpatient (CLI) | payer BC, MEDICAID, SELFPAY ==
--- NOTE | 2023-06-14 09:30 | MR_ITS ---
WS: [id number] MRI RIGHT KNEE NONCONTRAST TECHNIQUE: Axial PD, coronal PD fat sat, coronal PD, sagittal PD, and sagittal PD fat-sat images obta ined. CLINICAL INFORMATION: right knee pain. positive meniscal exam. COMPARISON: None. FINDINGS: Distal quadriceps and patella tendons are intact. Hypertrophic patella. Normal ACL and PCL. Normal sita ne marrow signal in the femoral condyles and tibial plateau. Normal bone marrow signal in the fibular head. Mild chronic thinning of the medial and lateral meniscus. No acute appearing meniscal tears. A dvanced chondromalacia for a patient this age. Grade III chondromalacia patella. No subchondral edema. Medial and lateral patellar retinaculum appear intact. Normal popliteal fossa. Normal medial and lateral collateral ligaments. Normal popliteus. IMPRESSION: 1. Normal ACL and PCL. 2. Mild chronic thinning of the medial and lateral meniscus. No acute appearing meniscal tears. 3. Grade III chondromalacia patella advanced for patient this age. 4. Medial and lateral collateral ligaments are intact. 5. Normal popliteal fossa. Outbridge grading: grade III: partial-thickness cartilage loss with focal ulceration
== END 2023-06-14 09:07 | disposition home or self-care (01) ==
LOC: RAD 09:07
PROVIDERS: PCP Nurse Practitioner Family; Visit Provider Nurse Practitioner
DX: S83.206A Unspecified tear of unspecified meniscus, current injury, right knee, initial encounter (principal); X58.XXXA Exposure to other specified factors, initial encounter; M17.11 Unilateral primary osteoarthritis, right knee; M22.41 Chondromalacia patellae, right knee
CPT/HCPCS: 73721

== ENCOUNTER → 2023-06-23 13:03 | Outpatient (BNVA) | payer SELFPAY | PROVIDERS: PCP Nurse Practitioner Family; Visit Provider Nurse Practitioner Family | DX: N18.31 Chronic kidney disease, stage 3a (principal) | CPT/HCPCS: 80053; 85025 ==

== ENCOUNTER 2023-07-31 16:33 | Emergency (ER) | payer BC, MEDICAID, SELFPAY ==
[2023-07-31 16:40] VITALS: BP 110/77; PULSE 95; RESP 18; TEMP 36.6; O2SAT 97; BMI 29.0
[2023-07-31 17:34] LABS: Basophils % 0.6 %; Eosinophils # 0.1 10^3/uL (0.0-0.8); Hematocrit 40.9 % (36-47); Lymphocytes # 2.2 10^3/uL (0.8-4.8); Mean Corpuscular HGB Conc 35.9 g/dL (30-55); Mean Corpuscular Hemoglobin 33.9 pg (27-33); Mean Corpuscular Volume 94.5 fl (85-98); Mean Platelet Volume 10.8 fL (7.4-10.4); Monocytes # 0.4 10^3/uL (0.2-0.9); Monocytes % 6.1 %; Nucleated Red Blood Cells % 0 %; Platelet Count 116 10^3/cmm (157-399); Red Blood Count 4.33 10^6/uL (3.85-5.65); White Blood Count 6.94 10^3/uL (3.29-11.43)
[2023-07-31 17:46] LABS: HCG, Serum Qual Negative (Negative)
[2023-07-31 17:48] LABS: Albumin Level 3.9 g/dL (3.5-5.2); Alkaline Phosphatase 49 U/L (35-105); Blood Urea Nitrogen 24 mg/dL (6-20); Calcium 8.9 mg/dL (8.5-10.5); Carbon Dioxide 30 mmol/L (22-29); Chloride 102 mmol/L (98-107); Globulin 2.5 g/dL (1.3-4.6); Glomerular Filtration Rate 62.1 mL/min (90-130); Glucose 95 mg/dL (65-115); Lipase 52 U/L (13-60); Osmolality Calculated 294 mOsm/kg (285-295); Sodium 140 mmol/L (136-145); Total Bilirubin 0.2 mg/dL (0.15-1.2); Total Protein 6.4 g/dL (6.6-8.7)
[2023-07-31 17:49] LABS: Creatinine Clr Calc Pharmacy 82.1709
[2023-07-31 17:50] LABS: Anion Gap 12.6 (5-19); Potassium 4.6 mmol/L (3.5-5.1)
[2023-07-31 17:59] LABS: Alanine Aminotransferase < 5 U/L (0-33); Aspartate Amino Transferase 5 U/L (0-32)
== END 2023-07-31 18:40 | disposition left against medical advice (07) ==
PROVIDERS: Emergency Medicine; Emergency Provider Family Medicine; PCP Nurse Practitioner Family
DX: Z53.21 Procedure and treatment not carried out due to patient leaving prior to being seen by health care provider (principal)
CPT/HCPCS: 36415; 80053; 83690; 84703; 85025

== ENCOUNTER 2023-08-25 09:30 | Observation (INO) | payer BC, MEDICAID, SELFPAY ==
[2023-08-25] VITALS (16 sets, daily range): BP systolic 99–124; BP diastolic 65–85; PULSE 71–93; RESP 12–18; TEMP 36.1–36.9; O2SAT 95–100; BMI 30.2
--- NOTE | 2023-08-25 00:05 | P.HP_ITS ---
Same Day Surgery H&P Indication for Procedure/HPI DATE OF PROCEDURE: August 25, 2023 CHIEF COMPLAINT/INDICATIONFOR SURGICAL PROCEDURE: abnormal uterine bleeding PREOP DIAGNOSIS: abnormal uterine bleeding PLANNED PROCEDURE: Operation Date: 08/25/23 07:00 Proposed Procedures p Laparoscopic Assist Vaginal Hysterectomy/with bilateral salpingo-oophorectom y(Not Applicable) - Kwasi Ramirez MD s Possible Total Vaginal Hysterectomy with bilateral salpingo-oophorectomy(Not Applicable) - Kwasi Ramirez MD s Possible Total Abdominal Hysterectomy with bilateral salpingo-oophorectomy(Not Applicable) - Kwasi Ramirez MD 37 y.o. 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 Has uterus and ovaries On testosterone since 2012 h/o bilateral mastectomy no bleeding or spotting since 2012 until December 2022 when patient began to have irregular spotting and bleeding h/o hysteroscopy, endometrial sampling June 02, 2023 Findings: normal endometrial cavity Minimal endometrial tissue Pathology: benign endocervical tissue No endometrium present Returns for followup Still having occasional spotting Now wants hysterectomy and removal of ovaries due to bleeding and patient?s transition to male gender Medications/Allergies* Home Medications Medication Instructions Recorded Confirmed Type montelukast 10 mg tablet 10 mg PO QAM cough 01/28/23 08/24/23 History (Singulair) diclofenac sodium 1 % topical gel 2 g topical QID 08/02/23 08/24/23 History diphenhydramine HCl 25 mg capsule 25 mg PO BEDTIME PRN sleep 08/02/23 08/24/23 History (Benadryl) aripiprazole 15 mg tablet 15 mg PO DAILY 08/24/23 08/24/23 History fluticasone fur. 100 mcg-umeclid 1 inh inhalation DAILY 08/24/23 08/24/23 History 62.5 mcg-vilant 25 mcg inhalat.powder (Trelegy Ellipta) levocetirizine 5 mg tablet 5 mg PO DAILY 08/24/23 08/24/23 History Allergies/Adverse Reactions Allergy/AdvReac Type Severity Reaction Status Date / Time clindamycin Allergy Mild ADR-Gastrointestinal Verified 08/24/23 08:46 Upset carbamazepine [From Tegretol] Allergy RASH Verified 08/24/23 08:46 cyclobenzaprine Allergy RASH Verified 08/24/23 08:46 [From Flexeril] nalbuphine [From Nubain] Allergy RASH Verified 08/24/23 08:46 tizanidine Allergy Unknown Verified 08/24/23 08:46 zolpidem [From Ambien] Allergy RASH Verified 08/24/23 08:46 Pertinent History/Comorbid Conditions* Medical History (Updated 08/25/23 @ 00:03 by Kwasi Ramirez MD) Maxillary sinusitis Recurrent right knee instability Intolerance of drug 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 Positive Yu test of right knee Generalized anxiety disorder with panic attacks Bipolar II disorder hypomanic with mixed features Post-traumatic stress disorder, chronic Nicotine dependence, other tobacco product, with other nicotine-induced disorders Cannabis use disorder, severe, dependence Allergic rhinitis due to allergen Cough COVID-19 URI with cough and congestion Abdominal pain History of Helicobacter pylori infection Borderline personality disorder Psychiatric care Personal history of pyloric stenosis Migraine headache Generalized epilepsy Degenerative arthritis of spine Pyloric stenosis Pneumonitis Surgical History (Updated 04/13/22 @ 09:00 by Eric Finch MD) S/P cholecystectomy H/O esophagogastroduodenoscopy (09/30/21) History of adenectomy Hx of tonsillectomy Family History (Updated 02/14/20 @ 09:18 by Yenni Day LPN) Cancer Social History Smoking and tobacco/nicotine status: current every day tobacco/nicotine user smokeless tobacco Smokeless tobacco user: chewing tobacco Smokeless tobacco details: one can/day. Quit status (tobacco/nicotine): has tried quititng Number of times tried to quit tobacco: 4 Second hand smoke exposure: No Alcohol intake: current Alcohol intake frequency: few times a week Alcohol type: beer and hard liquor Substance/Drug Use: former Date of last use: September 2021. Current occupational status: unemployed Do you think of yourself as: Lesbian/Dos Santos/Homosexual Current gender identity: Male Pertinent Exam Findings alert, oriented x 3, clear to auscultation bilaterally and regular rate & rhythm Recommendations Surgery/Procedure today Coding Level of Care Code Acute Code for Chg Fwd Time Spent (min) 20
[2023-08-25] MEDS: sodium chloride 0.9% 1,000 ML 30 ML IV (06:28)
[2023-08-25] MEDS: scopolamine 1.5 Patch 1 PATCH TRANSDERMA (06:29)
[2023-08-25 06:41] LABS: OR HCG Qualitative Urine Negative (Negative)
--- NOTE | 2023-08-25 06:41 | ANES.PREANE2 ---
Pre-Anesthetic Assessment Height/Weight: Height 1.68 m Weight 85.049 kg Temp Pulse Resp BP Pulse Ox O2 Del Method 97.0 F L 71 17 124/65 97 Room Air 08/25/23 06:07 08/25/23 06:07 08/25/23 06:07 08/25/23 06:07 08/25/23 06:07 08/25/23 06:23 Preop Diagnosis: abnormal uterine bleeding Operation Date: 08/25/23 07:00 Proposed Procedures p Laparoscopic Assist Vaginal Hysterectomy/with bilateral salpingo-oophorectomy(Not Applicable) - Kwasi Ramirez MD s Possible Total Vaginal Hysterectomy with bilateral salpingo-oophorectomy(Not Applicable) - Kwasi Ramirez MD s Possible Total Abdominal Hysterectomy with bilateral salpingo-oophorectomy(Not Applicable) - Kwasi Ramirez MD Familial anesthetic complications: None Was Beta Candis taken within 24 hours: N/A Was Clonidine taken within 24 hours: N/A Last intake: Intake Last Liquid Date 08/24/23 Last Liquid Time 22:30 Last Solid Date 08/24/23 Last Solid Time 22:30 Social Tobacco (chews) and No alcohol Exam alert, oriented x 3, clear to auscultation bilaterally and regular rate & rhythm Airway Mallampati: Class I Dentition: chipped Pulmonary Chronic Obstructive Pulmonary Disease and Sleep Apnea CV/HEM Hypertension GI Gastroesophageal Reflux Disease Neuropsych Seizure Anesthetic Plan ASA status: 3 Anesthesia: General Risk of > 500 ml blood loss (7ml/kg in children): No Medications/Allergies Home Medications Medication Instructions Recorded Confirmed Last Taken Type ondansetron 8 mg disintegrating 8 mg PO Q8H PRN nausea and 10/19/22 08/24/23 04/26/23 Rx tablet vomiting #90 tabs testosterone cypionate 200 mg/mL 200 mg IM Q7D #10 mL 01/24/23 08/25/23 05/27/23 Rx intramuscular oil montelukast 10 mg tablet 10 mg PO QAM cough 01/28/23 08/25/23 08/24/23 08:00 History (Singulair) needle (disp) 20 G 20 gauge x 1 #100 ea 03/07/23 08/02/23 Unknown Rx (BD Regular Bevel [place]) needle (disp) 22 G 22 gauge x 1 #100 ea 03/07/23 08/02/23 Unknown Rx (CareTouch Hypodermic Needle) syringe (disposable) 3 mL (BD Slip #200 ea 03/07/23 08/02/23 Unknown Rx Tip Syringe) Hinged knee brace, RIGHT #1 ea 06/29/23 08/02/23 Unknown Rx loratadine 10 mg tablet (Claritin) 10 mg PO DAILY 90 days #90 tabs 07/13/23 08/25/23 08/24/23 08:00 Rx diclofenac sodium 1 % topical gel 2 g topical QID 08/02/23 08/24/23 Unknown History paliperidone 6 mg tablet,extended 12 mg (2 x 6 mg) PO QAM #60 tabs 08/02/23 08/25/23 08/24/23 08:00 Rx release 24 hr (Invega) prazosin 2 mg capsule 4 mg (2 x 2 mg) PO BEDTIME #60 caps 08/02/23 08/25/23 08/24/23 21:00 Rx propranolol 10 mg tablet 10 mg PO TID #90 tabs 08/02/23 08/25/23 08/24/23 08:00 Rx aripiprazole 15 mg tablet 15 mg PO DAILY 08/24/23 08/25/23 08/24/23 08:00 History fluticasone fur. 100 mcg-umeclid 1 inh inhalation DAILY 08/24/23 08/25/23 Unknown History 62.5 mcg-vilant 25 mcg inhalat.powder (Trelegy Ellipta) levocetirizine 5 mg tablet 5 mg PO DAILY 08/24/23 08/25/23 08/24/23 History divalproex 250 mg tablet,delayed 250 mg PO BID 08/25/23 08/25/23 08/24/23 22:00 History release divalproex 500 mg tablet,extended 500 mg PO BID 08/25/23 08/25/23 08/24/23 22:30 History release 24 hr lisinopril 10 mg tablet 10 mg PO DAILY 08/25/23 08/25/23 08/24/23 08:00 History sumatriptan succinate 50 mg tablet 50 mg PO PRN PRN Headache 08/25/23 08/25/23 08/18/23 History Allergies Allergy/AdvReac Type Severity Reaction Status Date / Time clindamycin Allergy Mild ADR-Gastrointestinal Verified 08/25/23 06:11 Upset carbamazepine [From Tegretol] Allergy RASH Verified 08/25/23 06:11 cyclobenzaprine Allergy RASH Verified 08/25/23 06:11 [From Flexeril] nalbuphine [From Nubain] Allergy RASH Verified 08/25/23 06:11 tizanidine Allergy Unknown Verified 08/25/23 06:11 zolpidem [From Ambien] Allergy RASH Verified 08/25/23 06:11 Current Medications Generic Name Dose Route Start Last Admin Trade Name Freq PRN Reason Stop Dose Admin Sodium Chloride 1,000 mls @ 30 mls/hr 08/25/23 06:00 08/25/23 06:28 Sodium Chloride 0.9% IV 08/26/23 05:59 30 mls/hr .Q24H KRISHNA Administration PFSH Anesthesia Medical History (Updated 08/25/23 @ 00:03 by Kwasi Ramirez MD) Maxillary sinusitis Recurrent right knee instability Intolerance of drug 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 Positive Yu test of right knee Generalized anxiety disorder with panic attacks Bipolar II disorder hypomanic with mixed features Post-traumatic stress disorder, chronic Nicotine dependence, other tobacco product, with other nicotine-induced disorders Cannabis use disorder, severe, dependence Allergic rhinitis due to allergen Cough COVID-19 URI with cough and congestion Abdominal pain History of Helicobacter pylori infection Borderline personality disorder Psychiatric care Personal history of pyloric stenosis Migraine headache Generalized epilepsy Degenerative arthritis of spine Pyloric stenosis Pneumonitis Surgical History S/P cholecystectomy H/O esophagogastroduodenoscopy (09/30/21) History of adenectomy Hx of tonsillectomy Family History Other Cancer Social History Smoking and tobacco/nicotine status: current every day tobacco/nicotine user smokeless tobacco Smokeless tobacco user: chewing tobacco Smokeless tobacco details: one can/day. Quit status (tobacco/nicotine): has tried quititng Number of times tried to quit tobacco: 4 Second hand smoke exposure: No Alcohol intake: current Alcohol intake frequency: few times a week Alcohol type: beer and hard liquor Substance/Drug Use: former Date of last use: September 2021. Current occupational status: unemployed Do you think of yourself as: Lesbian/Dos Santos/Homosexual Current gender identity: Male Data Anesthesia Cardiac Studies: Echocardiogram 05/24/22
--- NOTE | 2023-08-25 06:52 | P.HPUD_ITS ---
Surgery/Procedure H&P Update DATE OF PROCEDURE: August 25, 2023 DATE H&P PERFORMED: 08/25/23 H&P UPDATE INFORMATION: I have reviewed H&P completed within last 30 days, I have examined patient prior to procedure and No changes to prior documentation PREOP DIAGNOSIS: abnormal uterine bleeding PLANNED PROCEDURE: Operation Date: 08/25/23 07:00 Proposed Procedures p Laparoscopic Assist Vaginal Hysterectomy/with bilateral salpingo- oophorectomy(Not Applicable) - Kwasi Ramirez MD s Possible Total Vaginal Hysterectomy with bilateral salpingo-oophorectomy(Not Applicable) - Kwasi Ramirez MD s Possible Total Abdominal Hysterectomy with bilateral salpingo-oophorectomy(Not Applicable) - Kwasi Ramirez MD
[2023-08-25] MEDS: ceFAZolin 2,000 MG in sodium chloride 0.9% (plus) 50 ML 100 MG IV (07:02)
[2023-08-25] MEDS: BUPivacaine 0.5% INJ 30 mL XX (07:49)
[2023-08-25] MEDS: BUPivacaine liposome 13.3 mg/mL SDV 10 mL 266 MG INFILTRATI (07:50)
--- NOTE | 2023-08-25 10:05 | PM.OP ---
Operative Report Date of procedure: August 25, 2023 Pre-op diagnosis: abnormal uterine bleeding Post-op diagnosis: same Post-op findings: normal uterus, tubes, and ovaries Procedure done: Laparoscopic assisted vaginal hysterectomy Bilateral salpingo-oophorectomy Implants: none Specimens removed/disposition: uterus, tubes, and ovaries Surgeon: Denny Guidry MD Performance Reporter: Kwasi Ramirez MD Anesthesia: General Estimated blood loss (mL): 600 Complications: none Condition: stable Disposition: floor Brief History: 37 y.o. 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 Has uterus and ovaries On testosterone since 2012 no bleeding or spotting since 2012 until December 2022 when patient began to have irregular spotting and bleeding h/o hysteroscopy, endometrial sampling June 02, 2023 Findings: normal endometrial cavity Minimal endometrial tissue Pathology: benign endocervical tissue No endometrium present has continued to have daily spotting now scheduled for hysterectomy and removal of ovaries due to bleeding Procedure: Informed consent was obtained, confirming the procedures with the patient prior to surgery. The patient was taken to the operating room, placed supine on the table. General endotracheal anesthesia was induced. Time-out review, including the procedures, was carried out and agreed to. The patient was placed in dorsolithotomy position for laparoscopic surgery. The abdomen and perineum were prepped and draped in the usual sterile fashion. A estevez catheter was placed which drained clear urine. A Zumi uterine elevator was placed via the cervix for manipulation of the uterus. An umbilical skin incision was made measuring approximately 1 cm. A Veress needle was inserted. After confirming intraperitoneal entry, a pneumoperitoneum was achieved. The Veress needle was removed. A trocar with sheath was placed. A laparoscope was inserted and used to visualize the pelvic organs. Normal uterus, tubes, and ovaries were seen. Two additional skin incisions were made measuring 0.5 cm each in the suprapubic and left lower quadrant. 5 mm trocars with sheaths were inserted via these incisions under laparoscopic visualization. A Ligasure device and endograsper were placed. The Ligasure device was used to divide the round ligaments on both sides followed by the uteroovarian ligaments slightly lateral to the ovaries. The left and right suspensory ligaments attaching the ovaries to the pelvic sidewall were then coagulated and divided, removing the bilateral ovaries and tubes. No bleeding was seen. It was then decided to proceed vaginally to complete the vaginal hysterectomy portion of the procedure. The pneumoperitoneum was allowed to escape. The Zumi was removed. A vaginal Bookwalter retractor was placed. The cervicovaginal junction was incised and the anterior and posterior cul-de-sacs were entered without any injury to the underlying organs including the bowel and the bladder. The uterine vessels on both sides were then divided and coagulated without any difficulties. The uterus, tubes, and ovaries were removed. Additional stitches of O-Vicryl were used to control bleeding from the vascular stumps. The vaginal cuff was then closed using a running suture of O-Vicryl. The uterosacral ligaments were suspended. The pneumoperitoneum was re-instituted and the pelvis was examined using the laparoscope to confirm good hemostasis. Following this, all instruments were removed from the abdomen after the pneumoperitoneum was allowed to escape. The laparoscopic skin incisions were then closed using 4-O skin sutures. The patient was placed supine and taken to the recovery room. Postoperative condition stable EBL: 600 cc Complications: none To PACU in good condition
--- NOTE | 2023-08-25 10:10 | ANE.PACU2 ---
Inpatient post-anesthesia follow up: Airway intact: Yes Vital signs: Temperature 97.8 F Pulse Rate 81 Respiratory Rate 16 Blood Pressure 103/78 Pulse Oximetry 95 Oxygen Delivery Me thod Room Air Oxygen Flow Rate 6 Fraction of Inspir ed Oxygen Hydration adequate: Yes Nausea and vomiting: No Pain level: 1 Mental status: Baseline
[2023-08-25] MEDS: ketorolac 30 mg/mL INJ IVP ×3 (10:34→22:27)
[2023-08-25] MEDS: HYDROcodone-acetaminophen 5-325 mg Tablet PO ×2 (13:09→19:40)
[2023-08-25] MEDS: ondansetron 2 mg/ML SDV 2 mL 4 MG IVP (14:02)
[2023-08-25] MEDS: morphine 4 mg/mL SDV 1 mL IVP (17:59)
[2023-08-25] MEDS: docusate sodium 100 mg Capsule PO (18:00)
[2023-08-25] MEDS: dextrose 5%-lactated ringers 1,000 ML 125 ML IV (19:43)
[2023-08-26] MEDS: simethicone 80 mg Chew PO (00:45)
[2023-08-26] MEDS: HYDROcodone-acetaminophen 5-325 mg Tablet PO ×2 (01:56→08:11)
[2023-08-26 05:00] VITALS: BP 105/69; PULSE 80; RESP 18; O2SAT 98
[2023-08-26 05:24] LABS: Mean Corpuscular HGB Conc 33.9 g/dL (30-55); Mean Corpuscular Hemoglobin 32.9 pg (27-33); Mean Corpuscular Volume 96.9 fl (85-98); Platelet Count 95 10^3/cmm (157-399); Red Blood Count 2.89 10^6/uL (3.85-5.65); Red Cell Distribution Width 12.7 % (12.1-15.1); White Blood Count 7.86 10^3/uL (3.29-11.43)
[2023-08-26] MEDS: docusate sodium 100 mg Capsule PO (08:11)
[2023-08-26] MEDS: ibuprofen 800 mg tablet PO (10:04)
[2023-08-26 11:25] VITALS: BP 107/72; PULSE 74; TEMP 36.9; O2SAT 97
[2023-08-26 13:10] VITALS: BP 114/75; PULSE 82; RESP 16; TEMP 36.6; O2SAT 96
--- NOTE | 2023-08-26 13:10 | P.PN_ITS ---
TELECOMMUNICATIONS ANALYST Subjective 2 Subjective: Interval history: c/o mild abdominal pain, relieved with pain medications eating, voiding, ambulating well no bleeding / discharge Vitals/I&O/Wt Last Vital Signs Temp 98 F 08/26/23 13:10 Pulse 82 08/26/23 13:10 Resp 16 08/26/23 13:10 BP 114/75 08/26/23 13:10 Pulse Ox 96 08/26/23 13:10 O2 Del Method Room Air 08/26/23 11:25 O2 Flow Rate 6 08/25/23 09:32 Physical Exam 2 Narrative: Comfortable, in no distress Awake, alert Afebrile, VS normal Lungs: clear Cor: RRR Abd: soft, nondistended, nontender Laparoscopic incisions clean and dry Ext: normal Urinary Catheter Management: Palumbo: Cath Placed During This Visit: yes, but has since been removed by the nurse Reason for Continuing Indwelling Catheter: Decision to DC Catheter Urinary Catheter Date of Insertion: 08/25/23 Urinary Catheter Time of Insertion: 07:38 Date Urinary Catheter Removed: 08/26/23 Time Urinary Catheter Discontinued: 05:00 Data 08/26/23 05:17 A&P Assessment and plan (1) Status post hysterectomy with oophorectomy: s/p laparoscopic-assisted vaginal hysterectomy, bilateral salpingo-oophorectomy POD #1 Doing well Plan discharge to home Call / return if fever, chills, abdominal pain, bleeding f/u in one week Attestations 2 Medical Necessity Statement*: patient s/p laparoscopic-assisted vaginal hysterectomy, bilateral salpingo- oophorectomy; plan discharge to home today Coding Level of Care Code Acute Code for Chg Fwd Diagnoses Status post hysterectomy with oophorectomy Z90.710; Z90.721 Time Spent (min) 20
--- NOTE | 2023-08-26 13:15 | P.DS_ITS ---
Discharge Providers SIMPLEX PRINTER INSTALLER Date of Admission: 08/25/23 09:30 Date of Discharge: 08/26/23 Attending Provider at Admission: Kwasi Ramirez MD Attending Provider at Discharge: Kwasi Ramirez MD Consults: none Primary SIMPLEX PRINTER INSTALLER: Kwasi Ramirez MD Primary Care Provider: Dolly Sauceda NP Diagnoses at Discharge Discharge Diagnosis (1) Status post hysterectomy with oophorectomy: Details from hospital stay: patient underwent laparoscopic-assisted vaginal hysterectomy, bilateral salpingo-oophorectomy without any complications did well postop was discharged to home on first post-operative day Status: Acute Reason for Visit Reason for Visit: N93.9 Hospital Course Hospital Course patient underwent laparoscopic-assisted vaginal hysterectomy, bilateral salpingo-oophorectomy without any complications did well postop Physical Exam Narrative: Comfortable, in no distress Awake, alert Afebrile, VS normal Lungs: clear Cor: RRR Abd: soft, nondistended, nontender Laparoscopic incisions clean and dry Ext: normal Urinary Catheter Management: Palumbo: Cath Placed During This Visit: yes, but has since been removed by the nurse Reason for Continuing Indwelling Catheter: Decision to DC Catheter Urinary Catheter Date of Insertion: 08/25/23 Urinary Catheter Time of Insertion: 07:38 Date Urinary Catheter Removed: 08/26/23 Time Urinary Catheter Discontinued: 05:00 History History History 2 Term 1 1 Miscarriages/Ectopic 0 Living Children 2 Discharge Data Studies Completed and Pending Completed Studies During Hospitalization Category Date Time Status Pathology: Surgical [PTH] Routine Pth 08/25/23 08:50 Completed Laboratory Results WBC 7.86 10^3/uL (3.29-11.43) 08/26/23 05:17 RBC 2.89 10^6/uL (3.85-5.65) L 08/26/23 05:17 Hgb 9.50 g/dL (11.27-16.99) L 08/26/23 05:17 Hct 28.0 % (36-47) L 08/26/23 05:17 MCV 96.9 fl (85-98) 08/26/23 05:17 MCH 32.9 pg (27-33) 08/26/23 05:17 MCHC 33.9 g/dL (30-55) 08/26/23 05:17 RDW 12.7 % (12.1-15.1) 08/26/23 05:17 Plt Count 95 10^3/cmm (157-399) L 08/26/23 05:17 MPV 11.0 fL (7.4-10.4) H 08/26/23 05:17 Urine HCG, Qual Negative (Negative) 08/25/23 06:40 Blood Type A Positive 08/25/23 06:20 Rho(D) Type Rh positive 08/25/23 06:20 Antibody Screen Negative 08/25/23 06:20 Procedures Performed laparoscopic-assisted vaginal hysterectomy, bilateral salpingo-oophorectomy Vitals Last Vital Signs Temp 98 F 08/26/23 13:10 Pulse 82 08/26/23 13:10 Resp 16 08/26/23 13:10 BP 114/75 08/26/23 13:10 Pulse Ox 96 08/26/23 13:10 O2 Del Method Room Air 08/26/23 11:25 O2 Flow Rate 6 08/25/23 09:32 Results Labs OB ([facility]): Blood Type A Positive 08/25/23 Antibody Screen Negative 08/25/23 Hct 29.8 % (36-47) L 08/27/23 Hgb 10.10 g/dL (11.27-16.99) L 08/27/23 Rho(D) Type Rh positive 08/25/23 Plt Count 99 10^3/cmm (157-399) L 08/27/23 HIV 1&2 Ab & HIV 1 Ag Non-reactive (Non-Reactiv) 05/24/22 TSH 1.64 uIU/mL (0.27-4.20) 05/24/22 Hemoglobin A1c 5.4 % (4.0-6.0) 06/20/23 HCG, Qual Negative (Negative) 07/31/23 Micro Urine Specimen 05/23/22 Pap Smear Interpret See comment 06/02/23 Discharge Plan Discharge Patient Disposition: Home Condition: Stable Prescriptions: Continued loratadine [Claritin] 10 mg tablet 10 mg PO DAILY 90 Days Qty: 90 1RF (DME) Hinged knee brace, RIGHT See Rx Instructions .Route .MEDSUPPLY Qty: 1 0RF Rx Instructions: As directed diclofenac sodium 1 % gel 2 g topical QID Rx Instructions: apply to single elbow, wrist or hand; for hand includes palm/fingers/back of hand prazosin 2 mg capsule 4 mg PO BEDTIME Qty: 60 3RF Rx Instructions: Take two capsules at bedtime propranolol 10 mg tablet 10 mg PO TID Qty: 90 2RF Rx Instructions: Take one tablet at 6 am, noon, and 6 pm testosterone cypionate 200 mg/mL oil 200 mg IM Q7D Qty: 10 0RF Patient Comments: On Hold september Rx Instructions: on Fridays (DME) CareTouch Hypodermic Needle 22 gauge x 1 needle See Rx Instructions .Route Qty: 100 2RF Rx Instructions: As directed (DME) BD Regular Bevel [place] 20 gauge x 1 needle See Rx Instructions .Route Qty: 100 2RF Rx Instructions: As directed (DME) syringe (disposable) [BD Slip Tip Syringe] 3 mL syringe See Rx Instructions .Route Qty: 200 3RF Rx Instructions: As directed montelukast [Singulair] 10 mg tablet 10 mg PO QAM levocetirizine 5 mg Tablet 5 mg PO DAILY Trelegy Ellipta 100-62.5-25 mcg Blister With Device 1 inh INHALATION DAILY sumatriptan succinate 50 mg tablet 50 mg PO PRN PRN (Reason: Headache) Rx Instructions: TAKE 1 TABLET BY MOUTH ONCE DAILY NEEDED FOR HEADACHE lisinopril 10 mg tablet 10 mg PO DAILY Rx Instructions: Take 1 tablet by mouth once daily No Action divalproex 250 mg tablet,delayed release (DR/EC) 250 mg PO BID Qty: 60 5RF Rx Instructions: Take one tablet twice per day with 500 mg tablets, total dose 750 mg BID divalproex 500 mg tablet extended release 24 hr 500 mg PO BID Qty: 60 5RF Rx Instructions: Take one tablet twice per day with 250 mg tablet, total dose 750 mg BID paliperidone [Invega] 3 mg tablet extended release 24hr 3 mg PO QAM Qty: 30 3RF Rx Instructions: Take one tablet every morning with 6 mg tab, total dose 9 mg paliperidone [Invega] 6 mg tablet extended release 24hr 6 mg PO QAM Qty: 30 3RF Rx Instructions: Take one tablet every morning with 3 mg tablet, total dose 9 mg nystatin-triamcinolone 100,000-0.1 unit/g-% cream 1 applic topical TID Qty: 60 0RF Discharge Orders: Discharge Order (Routine); Ordered 08/26/23 Ordered By: Kwasi Ramirez Discharge Diet: Usual diet Discharge Activity: Increase activity as tolerated Patient Instructions: Opioid Safety (DC), Hysterectomy (DC), Laparoscopic Hysterectomy (DC), OB Discharge Report, OB Laproscopic Surgery - [facility], OB Food/Drug Interaction Guide, Opioid Safety Discharge Attestations SIMPLEX PRINTER INSTALLER Time Spent in Discharge Care*: less than 30 min Coding Level of Care Code Acute Code for Chg Fwd Diagnoses Status post hysterectomy with oophorectomy Z90.710; Z90.721 Time Spent (min) 20
== END 2023-08-26 13:15 | disposition home or self-care (01) ==
LOC: OBGYN 09:32
PROVIDERS: Anesthesiology; Admitting Provider Obstetrics & Gynecology; PCP Nurse Practitioner Family; Visit Provider Obstetrics & Gynecology
PROC: 0UT9FZZ Resection of Uterus, Via Natural or Artificial Opening With Percutaneous Endoscopic Assistance (ICD-10-PCS; CPT 58552; principal; 2023-08-25 07:00)
DX: N93.9 Abnormal uterine and vaginal bleeding, unspecified (principal); J44.9 Chronic obstructive pulmonary disease, unspecified; I10 Essential (primary) hypertension; K21.9 Gastro-esophageal reflux disease without esophagitis; F64.0 Transsexualism; F17.220 Nicotine dependence, chewing tobacco, uncomplicated
CPT/HCPCS: 58552; 36415; 81025; 85027; 86850; 86900; 88307; C9290; G0378; J0690; J1885; J2270; J2405; J2704; J3010; J3490; J7030; J7121

== ENCOUNTER 2023-08-27 18:26 | Emergency (ER) | payer BC, MEDICAID, SELFPAY ==
[2023-08-27 18:34] VITALS: BP 110/72; PULSE 83; RESP 17; TEMP 36.7; O2SAT 97; BMI 30.2
[2023-08-27 19:36] LABS: Bilirubin Urine Neg (Negative); Blood Urine 2+ (Negative); Glucose Urine UA Norm (Normal); Ketones Urine Negative (Negative); Leukocyte Esterase Urine Negative (Negative); Nitrate Urine Negative (Negative); Protein Urine Neg (Negative); Specific Gravity, Urine 1.005 (1.005-1.030); Urine Appearance Hazy (CLEAR); Urine Color Dark Yellow (Yellow); Urobilinogen Urine 1 mg/dL (Negative); pH Urine 7 (5-7)
[2023-08-27 19:37] LABS: Add Urine Microscopic? YES; Bacteria Urine TRACE /hpf; WBC Urine 0-4 /hpf (0-5)
--- NOTE | 2023-08-27 19:39 | CTR_ITS ---
PROCEDURE INFORMATION: Exam: CT Abdomen And Pelvis With Contrast Exam date and time: 08/27/2023 8:02 PM Age: 37 years old Clinical indication: Abdominal pain; Localized; Prior surgery; Surgery date: Post-operative (0-2 days); Surgery type: Hysterectomy two days ago. Gb; Patient HX: C/O lower abd/pelvic pain. TECHNIQUE: Imaging protocol: Computed tomography of the abdomen and pelvis with contrast. Radiation optimization: All CT scans at this facility use at least one of these dose optimization techniques: automated exposure control; mA and/or kV adjustment per patient size (includes targeted exams where dose is matched to clinical indication); or iterative reconstruction. Contrast material: OMNI 350; Contrast volume: 100 ml; Contrast route: INTRAVENOUS (IV); COMPARISON: CT abdomen pelvis w con* [id number] 07/22/2021 7:05 PM RADIATION DOSE METRICS: Total DLP (mGy-cm): 880.95 FINDINGS: Liver: Normal. No mass. Gallbladder and bile ducts: The gallbladder has been removed. Pancreas: Normal. No ductal dilation. Spleen: Normal. No splenomegaly. Adrenal glands: Normal. No mass. Kidneys and ureters: Normal. No hydronephrosis. Stomach and bowel: Unremarkable. No obstruction. No mucosal thickening. Appendix: A normal appendix is identified. Intraperitoneal space: There is a small amount of free fluid in the pelvis with minimal internal complexity. The free fluid collection measures 7.1 x 3.9 cm in the transverse/AP dimensions. Vasculature: Unremarkable. No abdominal aortic aneurysm. Lymph nodes: There are multiple nonspecific lymph nodes in the mesentery. There are no mesenteric lymph nodes of pathologic dimensions. There is a diffuse inflammatory stranding throughout the central mesentery as well. Urinary bladder: Unremarkable as visualized. Reproductive: Status post hysterectomy. There is minimal hazy stranding in the hysterectomy operative bed. Bones/joints: There are degenerative changes across the L5-S1 level. Soft tissues: Unremarkable. CT/CT abdomen pelvis w con* [id number] IMPRESSION: 1. There is a small amount of free fluid in the pelvis with minimal internal complexity. This may be postoperative in nature with the internal complexity representing chronic hemorrhagic products. Infection/developing abscess cannot be excluded. Please correlate clinically. 2. There are multiple nonspecific lymph nodes in the mesentery. There are no mesenteric lymph nodes of pathologic dimensions. There is a diffuse inflammatory stranding throughout the central mesentery as well. These findings are nonspecific, and most likely represent an adenitis/mesenteritis.
--- NOTE | 2023-08-27 19:41 | ED_ITS ---
HPI - Abdominal Pain 2 General: Chief Complaint: Abdominal Pain Stated Complaint: Light Headed\N Time Seen by Provider: 08/27/23 19:31 History of Present Illness: 37-year-old born female presents 2 days after hysterectomy surgery with oophorectomy on . The patient was doing well until having a bowel movement this evening, and when straining developed significant suprapubic and left lower quadrant pain. The patient vomited once. No diarrhea. No vaginal or rectal bleeding. No fever. 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 Positive Yu test of right knee Generalized anxiety disorder with panic attacks Bipolar II disorder hypomanic with mixed features Post-traumatic stress disorder, chronic Nicotine dependence, other tobacco product, with other nicotine-induced disorders Cannabis use disorder, severe, dependence Allergic rhinitis due to allergen Cough COVID-19 URI with cough and congestion Abdominal pain History of Helicobacter pylori infection Borderline personality disorder Psychiatric care Personal history of pyloric stenosis Migraine headache Generalized epilepsy Degenerative arthritis of spine Pyloric stenosis Pneumonitis Surgical History S/P cholecystectomy H/O esophagogastroduodenoscopy (09/30/21) History of adenectomy Hx of tonsillectomy Family History Other Cancer Social History Smoking and tobacco/nicotine status: current every day tobacco/nicotine user smokeless tobacco Smokeless tobacco user: chewing tobacco Smokeless tobacco details: one can/day. Quit status (tobacco/nicotine): has tried quititng Number of times tried to quit tobacco: 4 Second hand smoke exposure: No Alcohol intake: current Alcohol intake frequency: few times a week Alcohol type: beer and hard liquor Substance/Drug Use: former Date of last use: September 2021. Current occupational status: unemployed Do you think of yourself as: Lesbian/Dos Santos/Homosexual Current gender identity: Male Physical Exam 2 Const: COMMON NORMALS: no acute distress GENERAL APPEARANCE: cooperative; not ill appearing and not frail appearing HENMT: COMMON NORMALS: normocephalic, atraumatic and Normal external nose present HEAD & SCALP: normocephalic and atraumatic FACE & SINUS: normal facial exam and face symmetric NOSE: Normal external nose present Eye: COMMON NORMALS: Equal, round and reactive pupils present and EOMs intact bilaterally PUPIL: Yes Equal, round and reactive pupils present Neck/C-Spine: GENERAL: Yes trachea midline Chest: CHEST: Yes Symmetrical chest wall rise Resp: COMMON NORMALS: normal respiratory effort, No retractions, No use of accessory muscles and clear to auscultation bilaterally AUSCULTATION: clear to auscultation bilaterally Cardio: COMMON NORMALS: regular rate and regular rhythm RATE: regular rate RHYTHM: regular rhythm GI: COMMON NORMALS: Normal to inspection, nondistended, normoactive bowel sounds present and Soft to palpation PALPATION: Yes Soft to palpation, Yes Tenderness to palpation present (GI) Details: LLQ and Yes Guarding due to palpation present (GI) Extremity: COMMON NORMALS: no pedal edema Neuro: [place] COMA SCALE: document GCS findings [place] coma scale eye opening: Spontaneous [place] coma scale verbal response: Orientated [place] coma scale motor response: Obey commands [place] coma scale total score: 15 S ENSORY EXAM: Yes extremities (intact) Psych: COMMON NORMALS: speech normal SPEECH: Yes normal speech Skin: COMMON NORMALS: no rashes or lesions noted GENERAL SKIN EXAM: no rashes or lesions noted Course 2 Vital Signs: Vital signs: Vital Signs Temperature 98.1 F 08/27/23 18:34 Pulse Rate 83 08/27/23 18:34 Respiratory Rate 17 08/27/23 18:34 Blood Pressure 110/72 08/27/23 18:34 Pulse Oximetry 97 08/27/23 18:34 Oxygen Delivery Me thod Room Air 08/27/23 18:34 MDM - Abdominal Pain Medical Decision Making 37-year-old born female patient is status post hysterectomy. Abdominal pain at 2 days. Hemoglobin is 10 which is stable from yesterday. White blood cell count is 4.5. CRP is 3. Urinalysis is negative. CT shows a small amount of free fluid likely postoperative with some lymph nodes. Pain control, close outpatient follow-up. Return for worsening. Lab Data 08/27/23 19:55 08/27/23 19:55 Labs/Radiology: Radiology Impressions Abdomen/Pelvis CT 08/27/23 19:39 IMPRESSION: 1. There is a small amount of free fluid in the pelvis with minimal internal complexity. This may be postoperative in nature with the internal complexity representing chronic hemorrhagic products. Infection/developing abscess cannot be excluded. Please correlate clinically. 2. There are multiple nonspecific lymph nodes in the mesentery. There are no mesenteric lymph nodes of pathologic dimensions. There is a diffuse inflammatory stranding throughout the central mesentery as well. These findings are nonspecific, and most likely represent an adenitis/mesenteritis. Laboratory Results WBC 4.55 10^3/uL (3.29-11.43) 08/27/23 19:55 RBC 3.05 10^6/uL (3.85-5.65) L 08/27/23 19:55 Hgb 10.10 g/dL (11.27-16.99) L 08/27/23 19:55 Hct 29.8 % (36-47) L 08/27/23 19:55 MCV 97.7 fl (85-98) 08/27/23 19:55 MCH 33.1 pg (27-33) H 08/27/23 19:55 MCHC 33.9 g/dL (30-55) 08/27/23 19:55 RDW 12.7 % (12.1-15.1) 08/27/23 19:55 Plt Count 99 10^3/cmm (157-399) L 08/27/23 19:55 MPV 10.9 fL (7.4-10.4) H 08/27/23 19:55 Neut % (Auto) 46.0 % 08/27/23 19:55 Lymph % (Auto) 38.9 % 08/27/23 19:55 [place] % (Auto) 8.8 % 08/27/23 19:55 Eos % (Auto) 5.5 % 08/27/23 19:55 Baso % (Auto) 0.4 % 08/27/23 19:55 Neut # (Auto) 2.09 10^3/uL (1.8-7.7) 08/27/23 19:55 Lymph # (Auto) 1.8 10^3/uL (0.8-4.8) 08/27/23 19:55 [place] # (Auto) 0.4 10^3/uL (0.2-0.9) 08/27/23 19:55 Eos # (Auto) 0.3 10^3/uL (0.0-0.8) 08/27/23 19:55 Baso # (Auto) 0.0 10^3/uL (0.0-0.1) 08/27/23 19:55 Nucleated RBC % (auto) 0 % 08/27/23 19:55 Nucleated RBCs # 0.0 /100WBC 08/27/23 19:55 Sodium 139 mmol/L (136-145) 08/27/23 19:55 Potassium 4.6 mmol/L (3.5-5.1) 08/27/23 19:55 Chloride 105 mmol/L (98-107) 08/27/23 19:55 Carbon Dioxide 27 mmol/L (22-29) 08/27/23 19:55 Anion Gap 11.6 (5-19) 08/27/23 19:55 BUN 19 mg/dL (6-20) 08/27/23 19:55 Creatinine 0.9 mg/dL (0.5-0.9) 08/27/23 19:55 GFR Calculation 70.1 mL/min (90-130) L 08/27/23 19:55 Glucose 91 mg/dL (65-115) 08/27/23 19:55 Calculated Osmolality 290 mOsm/kg (285-295) 08/27/23 19:55 Lactic Acid 0.7 mmol/L (0.5-2.2) 08/27/23 19:55 Calcium 7.7 mg/dL (8.5-10.5) L 08/27/23 19:55 Total Bilirubin 0.4 mg/dL (0.15-1.2) 08/27/23 19:55 AST 478 U/L (0-32) H 08/27/23 19:55 ALT 502 U/L (0-33) H 08/27/23 19:55 Alkaline Phosphatase 142 U/L (35-105) H 08/27/23 19:55 C-Reactive Protein 3.0 mg/L (0.0-4.9) 08/27/23 19:55 Total Protein 5.3 g/dL (6.6-8.7) L 08/27/23 19:55 Albumin 3.4 g/dL (3.5-5.2) L 08/27/23 19:55 Globulin 1.9 g/dL (1.3-4.6) 08/27/23 19:55 Urine Color Dark yellow (Yellow) 08/27/23 19:15 Urine Appearance Hazy (CLEAR) A 08/27/23 19:15 Urine pH 7 (5-7) 08/27/23 19:15 Ur Specific [place] 1.005 (1.005-1.030) 08/27/23 19:15 Urine Protein Neg (Negative) 08/27/23 19:15 Urine Glucose (UA) Norm (Normal) 08/27/23 19:15 Urine Ketones Negative (Negative) 08/27/23 19:15 Urine Blood 2+ (Negative) H 08/27/23 19:15 Urine Nitrate Negative (Negative) 08/27/23 19:15 Urine Bilirubin Neg (Negative) 08/27/23 19:15 Urine Urobilinogen 1 mg/dL (Negative) H 08/27/23 19:15 Ur Leukocyte Esterase Negative (Negative) 08/27/23 19:15 Urine RBC 5-10 /hpf (0-2) H 08/27/23 19:15 Urine WBC 0-4 /hpf (0-5) H 08/27/23 19:15 Ur Squamous Epith Cells 5-10 /hpf (0-5) H 08/27/23 19:15 Amorphous Sediment Not Reportable 08/27/23 19:15 Urine Bacteria Trace /hpf (NONE) 08/27/23 19:15 All radiology interpretation(s) finalized by discharge Discharge Plan Discharge Patient Disposition: Home Clinical Impression: Abdominal pain Condition: Stable Prescriptions: No Action ondansetron 8 mg tablet,disintegrating 8 mg PO Q8H PRN (Reason: nausea and vomiting) Qty: 90 0RF loratadine [Claritin] 10 mg tablet 10 mg PO DAILY 90 Days Qty: 90 1RF (DME) Hinged knee brace, RIGHT See Rx Instructions .Route .MEDSUPPLY Qty: 1 0RF Rx Instructions: As directed diclofenac sodium 1 % gel 2 g topical QID Rx Instructions: apply to single elbow, wrist or hand; for hand includes palm/fingers/back of hand paliperidone [Invega] 6 mg tablet extended release 24hr 12 mg PO QAM Qty: 60 3RF Rx Instructions: Take two tablets every morning prazosin 2 mg capsule 4 mg PO BEDTIME Qty: 60 3RF Rx Instructions: Take two capsules at bedtime propranolol 10 mg tablet 10 mg PO TID Qty: 90 2RF Rx Instructions: Take one tablet at 6 am, noon, and 6 pm testosterone cypionate 200 mg/mL oil 200 mg IM Q7D Qty: 10 0RF Rx Instructions: on Fridays (DME) CareTouch Hypodermic Needle 22 gauge x 1 needle See Rx Instructions .Route Qty: 100 2RF Rx Instructions: As directed (DME) BD Regular Bevel Red Level 20 gauge x 1 needle See Rx Instructions .Route Qty: 100 2RF Rx Instructions: As directed (DME) syringe (disposable) [BD Slip Tip Syringe] 3 mL syringe See Rx Instructions .Route Qty: 200 3RF Rx Instructions: As directed montelukast [Singulair] 10 mg tablet 10 mg PO QAM aripiprazole 15 mg Tablet 15 mg PO DAILY levocetirizine 5 mg Tablet 5 mg PO DAILY Trelegy Ellipta 100-62.5-25 mcg Blister With Device 1 inh INHALATION DAILY divalproex 250 mg tablet,delayed release (DR/EC) 250 mg PO BID Rx Instructions: TAKE 1 TABLET BY MOUTH TWICE DAILY FOR 30 DAYS TAKE WITH 500 MG TABLET TWICE DAILY TO EQUAL 750 MG DOSE sumatriptan succinate 50 mg tablet 50 mg PO PRN PRN (Reason: Headache) Rx Instructions: TAKE 1 TABLET BY MOUTH ONCE DAILY NEEDED FOR HEADACHE lisinopril 10 mg tablet 10 mg PO DAILY Rx Instructions: Take 1 tablet by mouth once daily divalproex 500 mg tablet extended release 24 hr 500 mg PO BID Rx Instructions: Take 1 tablet by mouth twice daily hydrocodone-acetaminophen 10-300 mg tablet 1 tab PO BID PRN (Reason: pain) Qty: 14 0RF Discharge Orders: Discharge ED (Routine); Ordered 08/27/23 Ordered By: Gallo Michelle Referrals: Dolly Sauceda NP [Primary Care Provider] - Kwasi Ramirez MD [Physician] - 1-3 days Patient Instructions: Abdominal Pain (ED), Opioid Safety, Pain Management Activity Restrictions/Additional Instructions: Follow a liquid diet for the next 24 hours. Use medication at home for pain control. Return for fever greater than 100, vomiting liquids or medications, other concerning symptoms. Call your doctor on Tuesday and let them know you were seen here Coding Level of Care Code ED Programming Instructor for Taylor Saul
[2023-08-27 20:01] LABS: Basophils % 0.4 %; Eosinophils # 0.3 10^3/uL (0.0-0.8); Eosinophils % 5.5 %; Hematocrit 29.8 % (36-47); Lymphocytes # 1.8 10^3/uL (0.8-4.8); Lymphocytes % 38.9 %; Mean Corpuscular HGB Conc 33.9 g/dL (30-55); Mean Corpuscular Hemoglobin 33.1 pg (27-33); Mean Corpuscular Volume 97.7 fl (85-98); Mean Platelet Volume 10.9 fL (7.4-10.4); Monocytes # 0.4 10^3/uL (0.2-0.9); Monocytes % 8.8 %; Neutrophils # 2.09 10^3/uL (1.8-7.7); Nucleated Red Blood Cells % 0 %; Platelet Count 99 10^3/cmm (157-399); Red Blood Count 3.05 10^6/uL (3.85-5.65); Red Cell Distribution Width 12.7 % (12.1-15.1); White Blood Count 4.55 10^3/uL (3.29-11.43)
[2023-08-27] MEDS: morphine 4 mg/mL SDV 1 mL IVP (20:01)
[2023-08-27] MEDS: sodium chloride 0.9% 1,000 ML 999 ML IV (20:01)
[2023-08-27] MEDS: ondansetron 2 mg/ML SDV 2 mL 4 MG IVP (20:01)
[2023-08-27] MEDS: iohexol 350 mg/mL 500 mL Btl (per mL) IV (20:02)
[2023-08-27 20:25] LABS: Alanine Aminotransferase 502 U/L (0-33); Albumin Level 3.4 g/dL (3.5-5.2); Alkaline Phosphatase 142 U/L (35-105); Anion Gap 11.6 (5-19); Aspartate Amino Transferase 478 U/L (0-32); Blood Urea Nitrogen 19 mg/dL (6-20); Calcium 7.7 mg/dL (8.5-10.5); Carbon Dioxide 27 mmol/L (22-29); Chloride 105 mmol/L (98-107); Creatinine Clr Calc Pharmacy 93.0002; Globulin 1.9 g/dL (1.3-4.6); Glomerular Filtration Rate 70.1 mL/min (90-130); Glucose 91 mg/dL (65-115); Osmolality Calculated 290 mOsm/kg (285-295); Potassium 4.6 mmol/L (3.5-5.1); Sodium 139 mmol/L (136-145); Total Bilirubin 0.4 mg/dL (0.15-1.2); Total Protein 5.3 g/dL (6.6-8.7)
[2023-08-27 20:26] LABS: Lactic Sepsis W/Reflex 0.7 mmol/L (0.5-2.2)
[2023-08-27] MEDS: ketorolac 30 mg/mL INJ IVP (21:32)
== END 2023-08-27 21:49 | disposition home or self-care (01) ==
PROVIDERS: Emergency Provider Emergency Medicine; PCP Nurse Practitioner Family
DX: R10.32 Left lower quadrant pain (principal); F17.220 Nicotine dependence, chewing tobacco, uncomplicated; Z90.710 Acquired absence of both cervix and uterus
CPT/HCPCS: 74177; 80053; 81001; 83605; 85025; 86140; 96361; 96374; 96375; 99285; J1885; J2270; J2405; J7030; Q9967

== ENCOUNTER 2023-09-14 13:30 | Outpatient (CLI) | payer BC, MEDICAID, SELFPAY ==
[2023-09-14 13:44] VITALS: PULSE 101; RESP 18; O2SAT 98
[2023-09-14] MEDS: albuterol 2.5 mg/3 mL Neb INHALATION (13:44)
[2023-09-14 13:48] VITALS: PULSE 96
== END 2023-09-14 13:31 | disposition home or self-care (01) ==
LOC: RT 13:31
PROVIDERS: PCP Nurse Practitioner Family; Visit Provider Internal Medicine Pulmonary Disease
DX: R06.02 Shortness of breath (principal)
CPT/HCPCS: 94060; 94726; 94729; J7613

== ENCOUNTER → 2023-09-15 11:35 | Outpatient (BNVA) | payer BC, MEDICAID, SELFPAY | PROVIDERS: PCP Nurse Practitioner Family; Visit Provider Nurse Practitioner Family | DX: N39.0 Urinary tract infection, site not specified (principal); I10 Essential (primary) hypertension; F41.1 Generalized anxiety disorder; F41.0 Panic disorder [episodic paroxysmal anxiety]; R74.8 Abnormal levels of other serum enzymes | CPT/HCPCS: 80053; 84443; 85025 ==

== ENCOUNTER → 2023-11-18 11:49 | Outpatient (BNVA) | payer OTHER, SELFPAY ==
[2023-11-18 11:40] VITALS: BP 124/85; BMI 31.1
== END ==
PROVIDERS: PCP Nurse Practitioner Family; Visit Provider Nurse Practitioner Family
DX: R73.9 Hyperglycemia, unspecified (principal); I10 Essential (primary) hypertension
CPT/HCPCS: 83036; 85025

== ENCOUNTER 2023-12-02 10:54 | Emergency (ER) | payer BC, MEDICAID, SELFPAY ==
[2023-11-18 11:40] VITALS: BP 124/85; BMI 31.1
[2023-12-02 10:58] VITALS: BP 128/86; PULSE 74; RESP 18; TEMP 36.4; O2SAT 99; BMI 33.2
--- NOTE | 2023-12-02 11:17 | W.ED.ABDPA2 ---
HPI - Abdominal Pain General: Chief Complaint: Abdominal Pain Stated Complaint: abd pain Time Seen by Provider: 12/02/23 10:56 History of Present Illness: 37-year-old female who identifies as male who presents emergency room with right lower quadrant abdominal pain. He says that pain started couple days ago but became very severe this morning at 3. He is had some nausea and vomiting. No fevers. No chest pain. No altered mental status. Said he had similar pain a while back and they told him his appendix was inflamed but did not have surgery at that time. Review of Systems Narrative: Constitutional symptoms: Negative except as documented in HPI. Skin symptoms: Negative except as documented in HPI. Eye symptoms: Negative except as documented in HPI. ENMT symptoms: Negative except as documented in HPI. Respiratory symptoms: Negative except as documented in HPI. Cardiovascular symptoms: Negative except as documented in HPI. Gastrointestinal symptoms: Negative except as documented in HPI. Genitourinary symptoms: Negative except as documented in HPI. Musculoskeletal symptoms: Negative except as documented in HPI. Neurologic symptoms: Negative except as documented in HPI. Psychiatric symptoms: Negative except as documented in HPI. Endocrine symptoms: Negative except as documented in HPI. 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 Positive Yu test of right knee Generalized anxiety disorder with panic attacks Bipolar II disorder hypomanic with mixed features Post-traumatic stress disorder, chronic Nicotine dependence, other tobacco product, with other nicotine-induced disorders Cannabis use disorder, severe, dependence Allergic rhinitis due to allergen Cough COVID-19 URI with cough and congestion Abdominal pain History of Helicobacter pylori infection Borderline personality disorder Psychiatric care Personal history of pyloric stenosis Migraine headache Generalized epilepsy Degenerative arthritis of spine Pyloric stenosis Pneumonitis Surgical History Status post hysterectomy with oophorectomy S/P cholecystectomy H/O esophagogastroduodenoscopy (09/30/21) History of adenectomy Hx of tonsillectomy Family History Other Cancer Social History Smoking and tobacco/nicotine status: former use of tobacco/nicotine Quit status (tobacco/nicotine): has quit using Year quit tobacco: 2023 Former quit date comment: 1 ppd X 32 years Second hand smoke exposure: Yes Alcohol intake: current Alcohol intake frequency: holidays/special occasions only Alcohol type: beer Substance/Drug Use: former Date of last use: 07.18.23 Former substance use details: marijuana Adopted: No Caregiver/support person: No Lives independently: Yes Household members: spouse, family and children Housing: House Marital status: Marital status details: 2 years Number of children: 2 Number of grandchildren: 0 Highest education level completed: Some College, No Degree service: No Current occupational status: employed 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 Skin: Warm, dry. Head: Normocephalic, atraumatic. Neck: Supple, trachea midline. Eye: Extraocular movements are intact. Ears, nose, mouth and throat: mucosa moist. Cardiovascular: Regular, Normal peripheral perfusion. Respiratory: Lungs are clear to auscultation, respirations are non-labored, breath sounds are equal, Symmetrical chest wall expansion. Gastrointestinal: Soft, moderate right lower quadrant pain to palpation, Non distended Musculoskeletal: Normal ROM, no deformity. Neurological: Alert and oriented, No focal neurological deficit observed. Psychiatric: Cooperative, appropriate mood & affect. Course Vital Signs: Vital signs: Vital Signs Temperature 97.6 F 12/02/23 10:58 Pulse Rate 74 12/02/23 10:58 Respiratory Rate 18 12/02/23 10:58 Blood Pressure 128/86 12/02/23 10:58 Pulse Oximetry 99 12/02/23 10:58 MDM - Abdominal Pain Medical Decision Making Medical decision making: Differential diagnosis for this patient with right lower quadrant abdominal pain including but not limited to and based on the above HPI, review of systems and physical exam: Ureterolithiasis. Urinary tract infection. Appendicitis. colitis. small bowel obstruction. Crohn's flare. Pancreatitis. Cholelithiasis or cholecystitis. Hepatitis. Diverticulitis. Constipation. ovarian cyst. ovarian torsion Workup: Orders were placed to evaluate differential diagnosis based on the above differential, HPI and exam: Lab Review: Laboratory results were reviewed and interpreted by myself the emergency room physician. Lab work is unremarkable. No leukocytosis. CRP is negative. Pain and creatinine are not elevated above baseline. No anemia. No urinary tract infection. CT of the abdomen pelvis with contrast: No evidence of appendicitis. Diverticulosis without diverticulitis. Some mild constipation. She has had a cholecystectomy. This was reviewed and interpreted by myself the emergency room physician. I also reviewed the radiology report. I reviewed the patient's medical record Reexamination: Patient remained stable. No change in her vitals. No increased work of breathing. No altered mental status. She still has pain in her right lower quadrant. Ordering some Toradol and some Zofran and some fluids. Also going to start with some mag citrate to see if constipation is causing her pain Assessment and plan: Abdominal pain Dehydration Nausea and vomiting Constipation ?Normal saline bolus, IV Toradol, IV Zofran and p.o. mag citrate - Discharged home - Discussed findings and plan with patient. Answered any questions. - All laboratory values were reviewed and interpreted personally by myself, the ER physician - All imaging was reviewed and interpreted personally by myself, the ER physician. - Evaluation and treatment of this problem were appropriate in the emergency setting Lab Data 12/02/23 11:25 12/02/23 11:25 Labs/Radiology: Radiology Impressions Abdomen/Pelvis CT 12/02/23 11:48 IMPRESSION: 1. Normal appendix in the RIGHT lower quadrant. No evidence of acute appendicitis. 2. Mild diffuse fatty infiltration of the liver. 3. Prior cholecystectomy. 4. Prior hysterectomy. 5. A few sigmoid diverticuli. No evidence of acute diverticulitis. 6. Mild constipation in the RIGHT colon and proximal transverse colon. 7. A few tiny nonobstructing parenchymal and calyceal tip calculi. Laboratory Results WBC 5.13 10^3/uL (3.29-11.43) 12/02/23 11:25 RBC 4.03 10^6/uL (3.85-5.65) 12/02/23 11:25 Hgb 13.00 g/dL (11.27-16.99) 12/02/23 11:25 Hct 37.9 % (36-47) 12/02/23 11:25 MCV 94.0 fl (85-98) 12/02/23 11:25 MCH 32.3 pg (27-33) 12/02/23 11:25 MCHC 34.3 g/dL (30-55) 12/02/23 11:25 RDW 12.1 % (12.1-15.1) 12/02/23 11:25 Plt Count 175 10^3/cmm (157-399) 12/02/23 11:25 MPV 10.1 fL (7.4-10.4) 12/02/23 11:25 Neut % (Auto) 49.3 % 12/02/23 11:25 Lymph % (Auto) 36.1 % 12/02/23 11:25 Lamar % (Auto) 9.7 % 12/02/23 11:25 Eos % (Auto) 4.1 % 12/02/23 11:25 Baso % (Auto) 0.4 % 12/02/23 11:25 Neut # (Auto) 2.53 10^3/uL (1.8-7.7) 12/02/23 11:25 Lymph # (Auto) 1.9 10^3/uL (0.8-4.8) 12/02/23 11:25 Lamar # (Auto) 0.5 10^3/uL (0.2-0.9) 12/02/23 11:25 Eos # (Auto) 0.2 10^3/uL (0.0-0.8) 12/02/23 11:25 Baso # (Auto) 0.0 10^3/uL (0.0-0.1) 12/02/23 11:25 Nucleated RBC % (auto) 0 % 12/02/23 11:25 Nucleated RBCs # 0.0 /100WBC 12/02/23 11:25 Sodium 144 mmol/L (136-145) 12/02/23 11:25 Potassium 4.6 mmol/L (3.5-5.1) 12/02/23 11:25 Chloride 110 mmol/L (98-107) H 12/02/23 11:25 Carbon Dioxide 23 mmol/L (22-29) 12/02/23 11:25 Anion Gap 15.6 (5-19) 12/02/23 11:25 BUN 16 mg/dL (6-20) 12/02/23 11:25 Creatinine 1.1 mg/dL (0.5-0.9) H 12/02/23 11:25 GFR Calculation 55.6 mL/min (90-130) L 12/02/23 11:25 Glucose 90 mg/dL (65-115) 12/02/23 11:25 Calculated Osmolality 299 mOsm/kg (285-295) H 12/02/23 11:25 Calcium 8.9 mg/dL (8.5-10.5) 12/02/23 11:25 Total Bilirubin 0.2 mg/dL (0.15-1.2) 12/02/23 11:25 AST 12 U/L (0-32) 12/02/23 11:25 ALT 11 U/L (0-33) 12/02/23 11:25 Alkaline Phosphatase 70 U/L (35-105) 12/02/23 11:25 C-Reactive Protein 3.0 mg/L (0.0-4.9) 12/02/23 11:25 Total Protein 6.6 g/dL (6.6-8.7) 12/02/23 11:25 Albumin 4.0 g/dL (3.5-5.2) 12/02/23 11:25 Globulin 2.6 g/dL (1.3-4.6) 12/02/23 11:25 Lipase 42 U/L (13-60) 12/02/23 11:25 Urine Color Cancelled 12/02/23 11:28 Urine Color Yellow (Yellow) 12/02/23 11:28 Urine Appearance Cancelled 12/02/23 11:28 Urine Appearance Clear (CLEAR) 12/02/23 11:28 Urine pH 6.5 (5-7) 12/02/23 11:28 Urine pH Cancelled 12/02/23 11:28 Ur Specific Lutz 1.017 (1.005-1.030) 12/02/23 11:28 Ur Specific Lutz Cancelled 12/02/23 11:28 Urine Protein Cancelled 12/02/23 11:28 Urine Protein Negative (Negative) 12/02/23 11:28 Urine Glucose (UA) Cancelled 12/02/23 11:28 Urine Glucose (UA) Negative (Normal) 12/02/23 11:28 Urine Ketones Cancelled 12/02/23 11:28 Urine Ketones Negative (Negative) 12/02/23 11:28 Urine Blood Cancelled 12/02/23 11:28 Urine Blood Negative (Negative) 12/02/23 11:28 Urine Nitrate Cancelled 12/02/23 11:28 Urine Nitrate Negative (Negative) 12/02/23 11:28 Urine Bilirubin Cancelled 12/02/23 11:28 Urine Bilirubin Negative (Negative) 12/02/23 11:28 Prot Sulfosalicylic Acd Cancelled 12/02/23 11:28 Urine Urobilinogen 1.0 mg/dL (Negative) 12/02/23 11:28 Urine Urobilinogen Cancelled 12/02/23 11:28 Ur Leukocyte Esterase Cancelled 12/02/23 11:28 Ur Leukocyte Esterase Trace (Negative) A 12/02/23 11:28 Urine RBC 0-2 /hpf (0-2) 12/02/23 11:28 Urine RBC Cancelled 12/02/23 11:28 Urine WBC 0-5 /hpf (0-5) 12/02/23 11:28 Urine WBC Cancelled 12/02/23 11:28 Ur Squamous Epith Cells 0-5 /hpf (0-5) 12/02/23 11:28 Ur Squamous Epith Cells Cancelled 12/02/23 11:28 Ur Transition Epith Cell Cancelled 12/02/23 11:28 Ur Renal Epithelial Cell Cancelled 12/02/23 11:28 Calcium Oxalate Crystal Cancelled 12/02/23 11:28 Uric Acid Crystals Cancelled 12/02/23 11:28 Triple Phos Crystals Cancelled 12/02/23 11:28 Other Crystals Cancelled 12/02/23 11:28 Amorphous Sediment Cancelled 12/02/23 11:28 Amorphous Sediment Not Reportable 12/02/23 11:28 Urine Bacteria Cancelled 12/02/23 11:28 Urine Bacteria None seen /hpf (NONE) 12/02/23 11:28 Hyaline Casts 0-4 /lpf H 12/02/23 11:28 Hyaline Casts Cancelled 12/02/23 11:28 Fine Granular Casts Cancelled 12/02/23 11:28 Coarse Granular Casts Cancelled 12/02/23 11:28 RBC Casts Cancelled 12/02/23 11:28 Other Casts Cancelled 12/02/23 11:28 Urine Mucus Cancelled 12/02/23 11:28 Urine Trichomonas Cancelled 12/02/23 11:28 Urine Yeast Cancelled 12/02/23 11:28 Urine Sperm Cancelled 12/02/23 11:28 Ur Oval Fat Bodies Cancelled 12/02/23 11:28 All radiology interpretation(s) finalized by discharge Discharge Plan Discharge Patient Disposition: Home Clinical Impression: Constipation, Gastroenteritis, Dehydration Condition: Stable Prescriptions: New ondansetron 8 mg tablet,disintegrating 8 mg PO .q6 PRN (Reason: nausea and vomiting) Qty: 14 0RF diclofenac sodium 50 mg tablet,delayed release (DR/EC) 50 mg PO BID PRN (Reason: pain) Qty: 14 0RF Miralax 17 gram/dose powder 17 g PO DAILY Qty: 510 0RF Rx Instructions: Take 1-2 scoops daily for the next 3 months to keep stools soft No Action (DME) Hinged knee brace, RIGHT See Rx Instructions .Route .MEDSUPPLY Qty: 1 0RF Rx Instructions: As directed diclofenac sodium 1 % gel 2 g topical QID PRN (Reason: JOINT PAIN) Rx Instructions: apply to single elbow, wrist or hand; for hand includes palm/fingers/back of hand paliperidone [Invega] 6 mg tablet extended release 24hr 12 mg PO QAM Qty: 60 3RF prazosin 2 mg capsule 4 mg PO BEDTIME Qty: 60 6RF acamprosate 333 mg tablet,delayed release (DR/EC) 333 mg PO BID Qty: 60 3RF Rx Instructions: Take one tablet twice per day-administer with mid-day and evening meals rizatriptan [Maxalt-[employer]INE [employer]PERATOR] 10 mg tablet,disintegrating See Rx Instructions PO .COMPLEX Qty: 10 0RF Rx Instructions: take 1 tab at onset of headache; if no relief may repeat 1 tab after at least 2 hrs; max = 3 tabs/24 hr PO Saxenda 3 mg/0.5 mL (18 mg/3 mL) pen injector See Rx Instructions SUBCUT .COMPLEX Qty: 15 0RF Rx Instructions: inject subcutaneously once daily: week 1 = 0.6 mg; week 2 = 1.2 mg; week 3 = 1.8 mg; week 4 = 2.4 mg; then 3 mg daily SUBCUT divalproex 500 mg tablet extended release 24 hr 500 mg PO BID Qty: 60 5RF montelukast [Singulair] 10 mg tablet 10 mg PO QAM levocetirizine 5 mg Tablet 5 mg PO DAILY Trelegy Ellipta 100-62.5-25 mcg Blister With Device 1 inh INHALATION DAILY lisinopril 10 mg tablet 10 mg PO DAILY Hold Instructions: decreased bp topiramate 25 mg tablet 25 mg PO DAILY propranolol 10 mg tablet 10 mg PO BID benztropine 1 mg tablet 1 mg PO QAM Discharge Orders: Discharge ED (Routine); Ordered 12/02/23 Ordered By: Yee Paredes Referrals: Dolly Sauceda NP [Primary Care Provider] - Discharge Diet: Advance as tolerated Discharge Activity: Increase activity as tolerated Patient Instructions: Abdominal Pain (ED) Activity Restrictions/Additional Instructions: Thank you for choosing [facility] for your healthcare needs today. Please realize this is an emergency room and that we are providing you with a medical screening exam and this may not be complete and all inclusive of all the testing and or work up that you may need to determine your ailment or severity of your illness. You have been screened and evaluated and felt safe for discharge. Health conditions do change or evolve sometimes and as such it is important that you follow up with your Primary Doctor to be re checked, 3-5 days is a general good time frame for follow up. You are always welcome to return to the ED for re assessment if your symptoms are worsening or you have new concerns Coding Level of Care Code ED Manager Product Management for Taylor Saul
[2023-12-02 11:30] LABS: Basophils % 0.4 %; Eosinophils # 0.2 10^3/uL (0.0-0.8); Eosinophils % 4.1 %; Hematocrit 37.9 % (36-47); Lymphocytes # 1.9 10^3/uL (0.8-4.8); Lymphocytes % 36.1 %; Mean Corpuscular HGB Conc 34.3 g/dL (30-55); Mean Corpuscular Hemoglobin 32.3 pg (27-33); Mean Platelet Volume 10.1 fL (7.4-10.4); Monocytes # 0.5 10^3/uL (0.2-0.9); Monocytes % 9.7 %; Neutrophils # 2.53 10^3/uL (1.8-7.7); Neutrophils % 49.3 %; Nucleated Red Blood Cells % 0 %; Platelet Count 175 10^3/cmm (157-399); Red Blood Count 4.03 10^6/uL (3.85-5.65); Red Cell Distribution Width 12.1 % (12.1-15.1); White Blood Count 5.13 10^3/uL (3.29-11.43)
[2023-12-02 11:48] LABS: Alanine Aminotransferase 11 U/L (0-33); Alkaline Phosphatase 70 U/L (35-105); Anion Gap 15.6 (5-19); Aspartate Amino Transferase 12 U/L (0-32); Blood Urea Nitrogen 16 mg/dL (6-20); Calcium 8.9 mg/dL (8.5-10.5); Carbon Dioxide 23 mmol/L (22-29); Chloride 110 mmol/L (98-107); Creatinine Clr Calc Pharmacy 79.8647; Globulin 2.6 g/dL (1.3-4.6); Glomerular Filtration Rate 55.6 mL/min (90-130); Glucose 90 mg/dL (65-115); Lipase 42 U/L (13-60); Osmolality Calculated 299 mOsm/kg (285-295); Potassium 4.6 mmol/L (3.5-5.1); Sodium 144 mmol/L (136-145); Total Bilirubin 0.2 mg/dL (0.15-1.2); Total Protein 6.6 g/dL (6.6-8.7)
--- NOTE | 2023-12-02 11:48 | CT_ITS ---
WS: [id number] CT ABDOMEN PELVIS TECHNIQUE: Contrast-enhanced CT of the abdomen and pelvis with coronal and sagittal reformatted image s. CLINICAL INFORMATION: RLQ abdominal pain COMPARISON: CT 08/27/2023 DLP: 932.[address] scans at [facility] use at least one of these dose optimization techniques: automated e xposure control; mA and/or kV adjustment per patient size (includes targeted exams where dose is matc hed to clinical indication); or iterative reconstruction. FINDINGS: Diffuse fatty infiltration of the liver. Prior cholecystectomy. Normal portal vein and splenic vein. Normal GE junction. Normal spleen. Lung bases are well aerated. Normal pancreatic parenchymal enhance ment. Normal caliber abdominal aorta. Celiac and SMA are patent. Adrenal glands are normal. No hydronephrosis. Tiny bilateral nonobstructing renal parenchymal and berta yceal tip calculi. Pelvic phleboliths. Tiny fat-containing umbilical hernia. Prior hysterectomy. A few sigmoid diverticu li. No evidence of acute diverticulitis. Mild RIGHT colon constipation. Normal appendix. No evidence of acute appendicitis. Disc space narrowing L5-S1. CT/CT abdomen pelvis w con* [id number] IMPRESSION: 1. Normal appendix in the RIGHT lower quadrant. No evidence of acute appendici tis. 2. Mild diffuse fatty infiltration of the liver. 3. Prior cholecystectomy. 4. Prior hysterectomy. 5. A few sigmoid diverticuli. No evidence of acute diverticulitis. 6. Mild constipation in the RIGHT colon and proximal transverse colon. 7. A few tiny nonobstructing parenchymal and calyceal tip calculi.
[2023-12-02 11:56] LABS: Bilirubin Urine Negative (Negative); Blood Urine Negative (Negative); Glucose Urine UA Negative (Normal); Ketones Urine Negative (Negative); Leukocyte Esterase Urine Trace (Negative); Nitrate Urine Negative (Negative); Protein Urine Negative (Negative); Specific Gravity, Urine 1.017 (1.005-1.030); Urine Appearance Clear (CLEAR); Urine Color Yellow (Yellow); pH Urine 6.5 (5-7)
[2023-12-02 12:00] LABS: Bacteria Urine None Seen /hpf; Hyaline Casts Urine 0-4 /lpf; RBC Urine 0-2 /hpf (0-2); Squamous Epithelial Cell Urine 0-5 /hpf (0-5); WBC Urine 0-5 /hpf (0-5)
[2023-12-02 12:03] LABS: Add Urine Culture? No
[2023-12-02] MEDS: iohexol 350 mg/mL 500 mL Btl (per mL) IV (12:21)
[2023-12-02] MEDS: ketorolac 30 mg/mL INJ IVP (13:22)
[2023-12-02] MEDS: sodium chloride 0.9% 1,000 ML 999 ML IV (13:23)
[2023-12-02] MEDS: ondansetron 2 mg/ML SDV 2 mL 4 MG IVP (13:23)
[2023-12-02] MEDS: magnesium citrate Btl 296 mL PO (13:25)
== END 2023-12-02 14:49 | disposition home or self-care (01) ==
PROVIDERS: Physician Assistant; Emergency Provider Emergency Medicine; PCP Nurse Practitioner Family
DX: K59.00 Constipation, unspecified (principal); K52.9 Noninfective gastroenteritis and colitis, unspecified; E86.0 Dehydration; Z87.891 Personal history of nicotine dependence; Z79.890 Hormone replacement therapy; F64.0 Transsexualism
CPT/HCPCS: 36415; 74177; 80053; 81001; 83690; 85025; 86140; 96361; 96374; 96375; 99285; J1885; J2405; J7030; Q9967

== ENCOUNTER → 2024-01-05 11:47 | Outpatient (BNVA) | payer BC, SELFPAY ==
[2023-11-18 11:40] VITALS: BP 124/85; BMI 31.1
== END ==
PROVIDERS: Visit Provider Psychiatry & Neurology Neurology
DX: G40.909 Epilepsy, unspecified, not intractable, without status epilepticus (principal); G40.309 Generalized idiopathic epilepsy and epileptic syndromes, not intractable, without status epilepticus
CPT/HCPCS: 80164; 82565; 82977; 83615; 84450; 84460

== ENCOUNTER → 2024-06-11 14:39 | Outpatient (BNVA) | payer BC, SELFPAY ==
[2024-02-06 08:26] VITALS: BP 124/85; BMI 31.1
== END ==
PROVIDERS: Visit Provider Nurse Practitioner Psychiatric/Mental Health
DX: Z79.899 Other long term (current) drug therapy (principal)
CPT/HCPCS: 80053; 80061; 80164; 83036; 83721

== ENCOUNTER → 2024-07-04 14:09 | Outpatient (BNVA) | payer BC, MEDICAID, SELFPAY ==
[2024-07-04 09:09] VITALS: BP 124/85; BMI 31.1
== END ==
PROVIDERS: PCP Nurse Practitioner Family; Visit Provider Nurse Practitioner Family
DX: R10.9 Unspecified abdominal pain (principal); R53.83 Other fatigue
CPT/HCPCS: 74018; 80053; 81003; 82306; 82607; 83735; 84443; 85025

== ENCOUNTER 2024-08-30 15:33 | Emergency (ER) | payer BC, MEDICAID, SELFPAY ==
[2024-07-04 09:09] VITALS: BP 124/85; BMI 31.1
[2024-08-30 15:42] VITALS: BP 126/86; PULSE 76; RESP 20; TEMP 36.7; O2SAT 94
--- NOTE | 2024-08-30 17:19 | W.ED.NAVMDI ---
HPI - Nausea/Vomiting/Diarrhea General: Chief complaint: Nausea/Vomiting/Diarrhea Stated complaint: blood in stools Time Seen by Provider: 08/30/24 17:02 Source: patient and family Mode of arrival: ambulatory Limitations: no limitations History of Present Illness: This patient made his way to the emergency department because he is concerned about possible blood in his stools. He states that approximately 2 hours of loose stools in the last of those was bloody and character. He stated was blood mixed with the stool as well as blood in the water. He states that it was painless. He states that he has had prior history of hemorrhoids but did not feel any masses or other concerns when he wiped. He states his initial stool today was not hard and he did not strain at stool. He states that he is drank monsters today which is not unusual for him and usually drinks anywhere from 2-4 or more daily. He denies any concomitant abdominal pain. He denies any fevers chills lightheadedness near syncope etc. He states that he has not been exposed to any infectious disease. There is no diarrhea related illness at home. Associated symtoms: Denies chest pain, dysuria, epistaxis, headache(s) or syncope Related Data Home Medications ?Medication ?Instructions ?Recorded ?Confirmed fluticasone fur. 100 mcg-umeclid 1 inh inhalation DAILY 08/24/23 07/25/24 62.5 mcg-vilant 25 mcg inhalat.powder (Trelegy Ellipta) levocetirizine 5 mg tablet 5 mg PO DAILY 08/24/23 07/25/24 lisinopril 10 mg tablet 10 mg PO DAILY 08/25/23 07/25/24 Held on 10/07/23. Instructions: decreased bp syringe with needle 3 mL 22 x 1 #100 ea 01/04/24 07/25/24 1/2 polyethylene glycol 3350 17 17 g PO DAILY PRN 06/08/24 07/25/24 gram/dose oral powder (Miralax) testosterone cypionate 200 mg/mL 200 mg IM ONCE 07/02/24 07/25/24 intramuscular oil Previous Rx's ?Medication ?Instructions ?Recorded Hinged knee brace, RIGHT #1 ea 06/29/23 ondansetron 8 mg disintegrating 8 mg PO .q6 PRN nausea and 12/02/23 tablet vomiting #14 tabs montelukast 10 mg tablet 10 mg PO QAM 90 days #90 tabs 12/23/23 (Singulair) rizatriptan 10 mg disintegrating See Rx Instructions PO .COMPLEX 12/23/23 tablet (Maxalt-SUPERVISOR BELT AND LINK ASSEMBLY) #30 tabs topiramate 25 mg tablet 25 mg PO DAILY 90 days #90 tabs 12/23/23 thiamine HCl (vitamin B1) 100 mg 100 mg PO DAILY #30 tabs 01/04/24 tablet propranolol 10 mg tablet 10 mg PO BID 90 days #180 tabs 06/08/24 cholecalciferol (vitamin D3) 1,250 50,000 unit PO .once weekly #12 07/09/24 mcg (50,000 unit) capsule caps acamprosate 333 mg tablet,delayed 333 mg PO BID #180 tabs 07/20/24 release benztropine 1 mg tablet 1 mg PO QAM #90 tabs 07/20/24 divalproex 500 mg tablet,extended 500 mg PO BID #180 tabs 07/20/24 release 24 hr paliperidone 6 mg tablet,extended 12 mg (2 x 6 mg) PO QAM #180 tabs 07/20/24 release 24 hr (Invega) prazosin 2 mg capsule 4 mg (2 x 2 mg) PO BEDTIME #180 07/20/24 caps Allergies Allergy/AdvReac Type Severity Reaction Status Date / Time sulfamethoxazole (From Allergy Intermediate nausea, Verified 07/20/24 09:05 Bactrim) vomiting, diarrhea trimethoprim (From Bactrim) Allergy Intermediate nausea, Verified 07/20/24 09:05 vomiting, diarrhea clindamycin Allergy Mild ADR-Gastrointestinal Verified 07/20/24 09:05 Upset carbamazepine (From Tegretol) Allergy RASH Verified 07/20/24 09:05 cyclobenzaprine (From Allergy RASH Verified 07/20/24 09:05 Flexeril) nalbuphine (From Nubain) Allergy RASH Verified 07/20/24 09:05 tizanidine Allergy Unknown Verified 07/20/24 09:05 zolpidem (From Ambien) Allergy RASH Verified 07/20/24 09:05 Review of Systems Const: Denies: fever(s) or chills ENMT: Denies: throat pain, odynophagia, bleeding gums or epistaxis Card: Denies: chest pain, syncope or pre-syncope Resp: Denies: dyspnea, productive cough or non-productive cough GI: Reports: hematochezia; Denies: abdominal pain, vomiting, hematemesis or melena : Denies: flank pain, difficulty urinating, dysuria or urinary frequency Musc: Denies: neck pain, back pain, extremity pain or extremity swelling Neuro: Denies: headache(s), numbness in extremities or weakness in extremities Caleb/Lymph: Denies: easy bruising or easy bleeding PFSH ED PFSH: Medical History Alcohol use disorder, severe, dependence Maxillary sinusitis Recurrent right knee instability Intolerance of drug 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 Positive Yu test of right knee Generalized anxiety disorder with panic attacks Bipolar II disorder hypomanic with mixed features Post-traumatic stress disorder, chronic Nicotine dependence, other tobacco product, with other nicotine-induced disorders Cannabis use disorder, severe, dependence Allergic rhinitis due to allergen Cough COVID-19 URI with cough and congestion Abdominal pain History of Helicobacter pylori infection Borderline personality disorder Psychiatric care Personal history of pyloric stenosis Migraine headache Generalized epilepsy Degenerative arthritis of spine Pyloric stenosis Pneumonitis Surgical History Status post hysterectomy with oophorectomy S/P cholecystectomy H/O esophagogastroduodenoscopy (09/30/21) History of adenectomy Hx of tonsillectomy Family History Other Cancer Social History Smoking and tobacco/nicotine status: former use of tobacco/nicotine Quit status (tobacco/nicotine): has quit using Year quit tobacco: 2023 Former quit date comment: 1 ppd X 32 years Second hand smoke exposure: Yes Alcohol intake: former Substance/Drug Use: former Date of last use: 07.18.23 Former substance use details: marijuana Adopted: No Caregiver/support person: No Lives independently: Yes Household members: spouse, family and children Housing: House Marital status: Marital status details: 2 years Number of children: 2 Number of grandchildren: 0 Highest education level completed: Some College, No Degree service: No Current occupational status: employed 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 Const: COMMON NORMALS: no acute distress and patient oriented x3 GENERAL APPEARANCE: cooperative and comfortable NUTRITIONAL APPEARANCE: overweight HENMT: COMMON NORMALS: normocephalic, Normal nasal mucous membranes and turbinates present, moist oral mucous membranes and oropharynx normal HEAD & SCALP: normocephalic NOSE: Normal nasal mucous membranes and turbinates present Eye: COMMON NORMALS: Equal, round and reactive pupils present, EOMs intact bilaterally and conjunctivae normal CONJUNCTIVA: Yes conjunctivae normal PUPIL: Yes Equal, round and reactive pupils present Neck/C-Spine: COMMON NORMALS: full ROM, no lymphadenopathy and supple Chest: COMMONS NORMALS: normal inspection of the chest Resp: COMMON NORMALS: normal respiratory effort, No retractions and clear to auscultation bilaterally AUSCULTATION: clear to auscultation bilaterally Cardio: COMMON NORMALS: regular rate, regular rhythm, No murmurs present (Cardio) and Peripheral pulses 2+ throughout RATE: regular rate RHYTHM: regular rhythm PERIPHERAL PULSES: Peripheral pulses 2+ throughout GI: COMMON NORMALS: Normal to inspection, nondistended, normoactive bowel sounds present INSPECTION: No Laceration(s) present (GI) RECTAL EXAM: Yes visual inspection normal, Yes normal sphincter tone, Yes heme negative stool, No hemorrhoids, No Laceration(s) present (GI), No Anal fissure(s) present and No mass OTHER: He has mild tenderness in the right side of his abdomen as well as mild tenderness in the epigastrium without rebound or guarding. : COMMON NORMALS: Yes no CVA tenderness BLADDER/KIDNEY EXAM: Yes no CVA tenderness Back/Pelvis: COMMON NORMALS: no CVA tenderness, thoracic and lumbar spine normal to inspection, no thoracic nor lumbar tenderness and thoraco-lumbar ROM normal Extremity: COMMON NORMALS: normal to inspection, full ROM, capillary refill normal and no calf tenderness Neuro: COMMON NORMALS: patient oriented x3, moves all extremities, no focal motor deficits and no sensory deficits noted Skin: COMMON NORMALS: no rashes or lesions noted, no wounds, turgor normal and no petechiae GENERAL SKIN EXAM: no rashes or lesions noted and turgor normal Course Reevaluation(s): Reevaluation #1: Patient was reevaluated. He states he had another stool that was loose but not runny that had red substance within the stool as well. As there was no red liquid or blood floating on the water when he had his bowel movement. Repeat examination reveals him to have palpable tenderness in his right lower quadrant. I think at this point we need to go ahead and proceed with imaging to ensure that he does not have other intra-abdominal pathology. Time: 18:28 Reevaluation #2: Discussed reassuring findings on CT scan as well as all his other ancillary studies. He remains very stable clinically without any evidence of surgical abdomen etc. I discussed the fact that we are unclear of his as to the etiology of whether he is passing blood and if he is why etc. He does not appear to be unstable with any active bleeding or any other findings on CT scan. He was guaiac negative and without any obvious findings on his rectal exam to suggest fissure external bleeding hemorrhoids etc. Discussed options and I think the reasonable thing to do is allow him to be discharged to observation at home with return precautions. Both he and family voiced understanding. He will also likely need colonoscopy in the future because he does have a family history of polyps. Time: 20:10 Vital Signs: Vital signs: Vital Signs Temperature 98.0 F 08/30/24 15:42 Pulse Rate 67 08/30/24 20:00 Respiratory Rate 16 08/30/24 20:00 Blood Pressure 143/88 08/30/24 20:00 Pulse Oximetry 96 08/30/24 20:00 Oxygen Delivery Me thod Room Air 08/30/24 20:00 MDM - Nausea/Vomiting/Diarrhea Medical Decision Making Patient presented to the emergency department as noted in the HPI. Prior history of hemorrhoids as noted but no trauma to his rectum, history of bleeding dyscrasias, no use of nonsteroidals or antiplatelet agents or anticoagulant agents. His clinical exam revealed nonspecific right abdominal tenderness but no peritoneal signs or evidence of suggest a surgical abdomen. Rectal examination revealed no fissures hemorrhoids or tears and he was guaiac negative on examination. Initially he was observed while awaiting a blood count. His blood count was reassuring but he had another episode of stool with red coloring in it which was unclear whether was blood or not. Additional testing was done including imaging which was reassuring. He remained stable while in the emergency department with normal vital signs etc. and again no evidence to suggest a surgical abdomen. Unclear as to the etiology of his presentation regarding whether he is actually having blood in his stool or some other colored substance. He is very clinically stable and no evidence at this time to suggest an ongoing emergency medical condition so we will plan on observing at home with close follow-up. He is amenable to that process and voices understanding of the return precautions. Lab Data I reviewed the patient's lab results. 08/30/24 17:37 08/30/24 17:37 Radiology Impressions Abdomen/Pelvis CT 08/30/24 18:26 IMPRESSION: 1. No acute abnormality. 2. Bilateral nonobstructing nephrolithiasis. Laboratory Results WBC 5.43 10^3/uL (3.29-11.43) 08/30/24 17:37 RBC 4.67 10^6/uL (3.85-5.65) 08/30/24 17:37 Hgb 14.90 g/dL (11.27-16.99) 08/30/24 17:37 Hct 42.4 % (37-53) 08/30/24 17:37 MCV 90.8 fl (82-101) 08/30/24 17:37 MCH 31.9 pg (27-33) 08/30/24 17:37 MCHC 35.1 g/dL (30-55) 08/30/24 17:37 RDW 13.1 % (12.1-15.1) 08/30/24 17:37 Plt Count 154 10^3/cmm (157-399) L 08/30/24 17:37 MPV 10.6 fL (7.4-10.4) H 08/30/24 17:37 Neut % (Auto) 51.4 % 08/30/24 17:37 Lymph % (Auto) 35.4 % 08/30/24 17:37 Mcculloch % (Auto) 7.0 % 08/30/24 17:37 Eos % (Auto) 5.3 % 08/30/24 17:37 Baso % (Auto) 0.7 % 08/30/24 17:37 Neut # (Auto) 2.79 10^3/uL (1.8-7.7) 08/30/24 17:37 Lymph # (Auto) 1.9 10^3/uL (0.8-4.8) 08/30/24 17:37 Mcculloch # (Auto) 0.4 10^3/uL (0.2-0.9) 08/30/24 17:37 Eos # (Auto) 0.3 10^3/uL (0.0-0.8) 08/30/24 17:37 Baso # (Auto) 0.0 10^3/uL (0.0-0.1) 08/30/24 17:37 Nucleated RBC % (auto) 0 % 08/30/24 17:37 Nucleated RBCs # 0.0 /100WBC 08/30/24 17:37 Sodium 142 mmol/L (136-145) 08/30/24 17:37 Potassium 4.2 mmol/L (3.5-5.1) 08/30/24 17:37 Chloride 108 mmol/L (98-107) H 08/30/24 17:37 Carbon Dioxide 23 mmol/L (22-29) 08/30/24 17:37 Anion Gap 15.2 (5-19) 08/30/24 17:37 BUN 12 mg/dL (6-20) 08/30/24 17:37 Creatinine 1.0 mg/dL (0.7-1.2) 08/30/24 17:37 GFR Calculation 83.2 mL/min (90-130) L 08/30/24 17:37 Glucose 89 mg/dL (65-115) 08/30/24 17:37 Calculated Osmolality 293 mOsm/kg (285-295) 08/30/24 17:37 Calcium 9.7 mg/dL (8.5-10.5) 08/30/24 17:37 Total Bilirubin 0.5 mg/dL (0.15-1.2) 08/30/24 17:37 AST 14 U/L (0-40) 08/30/24 17:37 ALT 16 U/L (0-41) 08/30/24 17:37 Alkaline Phosphatase 74 U/L (40-130) 08/30/24 17:37 Total Protein 7.1 g/dL (6.6-8.7) 08/30/24 17:37 Albumin 4.5 g/dL (3.5-5.2) 08/30/24 17:37 Globulin 2.6 g/dL (1.3-4.6) 08/30/24 17:37 All radiology interpretation(s) finalized by discharge Discharge Plan Discharge Patient Disposition: Home Clinical Impression: Hematochezia Diarrhea Qualifiers: Diarrhea type: unspecified type Qualified Code(s): R19.7 - Diarrhea, unspecified Condition: Stable Prescriptions: No Action (DME) syringe with needle 3 mL 22 x 1 1/2 syringe See Rx Instructions .ROUTE .MEDSUPPLY Qty: 100 Rx Instructions: As directed thiamine HCl (vitamin B1) 100 mg tablet 100 mg PO DAILY Qty: 30 5RF testosterone cypionate 200 mg/mL oil 200 mg IM ONCE Miralax 17 gram/dose powder 17 g PO DAILY PRN Rx Instructions: Take 1-2 scoops daily for the next 3 months to keep stools soft propranolol 10 mg tablet 10 mg PO BID 90 Days Qty: 180 2RF Rx Instructions: Take one tablet twice per day (DME) Hinged knee brace, RIGHT See Rx Instructions .Route .MEDSUPPLY Qty: 1 0RF Rx Instructions: As directed benztropine 1 mg tablet 1 mg PO QAM Qty: 90 2RF Rx Instructions: Take one tablet every morning divalproex 500 mg tablet extended release 24 hr 500 mg PO BID Qty: 180 2RF Rx Instructions: Take one tablet twice per day paliperidone [Invega] 6 mg tablet extended release 24hr 12 mg PO QAM Qty: 180 2RF Rx Instructions: Take two tablets every morning prazosin 2 mg capsule 4 mg PO BEDTIME Qty: 180 2RF Rx Instructions: Take two capsules at bedtime acamprosate 333 mg tablet,delayed release (DR/EC) 333 mg PO BID Qty: 180 2RF Rx Instructions: Take one tablet twice per day-administer with mid-day and evening meals rizatriptan [Maxalt-SUPERVISOR BELT AND LINK ASSEMBLY] 10 mg tablet,disintegrating See Rx Instructions PO .COMPLEX Qty: 30 1RF Rx Instructions: take 1 tab at onset of headache; if no relief may repeat 1 tab after at least 2 hrs; max = 3 tabs/24 hr PO topiramate 25 mg tablet 25 mg PO DAILY 90 Days Qty: 90 1RF montelukast [Singulair] 10 mg tablet 10 mg PO QAM 90 Days Qty: 90 1RF cholecalciferol (vitamin D3) 1,250 mcg (50,000 unit) capsule 50,000 unit PO .once weekly Qty: 12 0RF levocetirizine 5 mg Tablet 5 mg PO DAILY Trelegy Ellipta 100-62.5-25 mcg Blister With Device 1 inh INHALATION DAILY lisinopril 10 mg tablet 10 mg PO DAILY ondansetron 8 mg tablet,disintegrating 8 mg PO .q6 PRN (Reason: nausea and vomiting) Qty: 14 0RF Discharge Orders: Discharge ED (Routine); Ordered 08/30/24 Ordered By: Denny Dunn Referrals: Tatiana Gutiérrez FNP [Primary Care Provider, Family Practice] Discharge Diet: Usual diet Discharge Activity: Resume usual activity Patient Instructions: Opioid Safety, Pain Management Activity Restrictions/Additional Instructions: As we discussed while you are in the emergency department we do not have any findings this evening that suggest a serious condition however some disease process can continue to evolve over time so it is important that if your symptoms do not resolve, worsen or new symptoms develop of concern as we discussed you should return to the emergency department for reevaluation. We advised that you may eat and drink normally but we do advise that you do not have any thing with red food coloring, tomato sauce, or other red substances until this symptom resolves. You will need to follow-up with your doctor in the next 2 weeks if you are doing well to discuss possible additional testing such as colonoscopy etc. Print Language: Vietnamese Coding Level of Care Code ED [employer] for Taylor Saul
[2024-08-30 17:46] LABS: Basophils % 0.7 %; Eosinophils # 0.3 10^3/uL (0.0-0.8); Eosinophils % 5.3 %; Hematocrit 42.4 % (37-53); Lymphocytes # 1.9 10^3/uL (0.8-4.8); Lymphocytes % 35.4 %; Mean Corpuscular HGB Conc 35.1 g/dL (30-55); Mean Corpuscular Hemoglobin 31.9 pg (27-33); Mean Corpuscular Volume 90.8 fl (82-101); Mean Platelet Volume 10.6 fL (7.4-10.4); Monocytes # 0.4 10^3/uL (0.2-0.9); Neutrophils # 2.79 10^3/uL (1.8-7.7); Neutrophils % 51.4 %; Nucleated Red Blood Cells % 0 %; Platelet Count 154 10^3/cmm (157-399); Red Blood Count 4.67 10^6/uL (3.85-5.65); Red Cell Distribution Width 13.1 % (12.1-15.1); White Blood Count 5.43 10^3/uL (3.29-11.43)
--- NOTE | 2024-08-30 18:26 | CTR_ITS ---
PROCEDURE INFORMATION: Exam: CT Abdomen And Pelvis With Contrast Exam date and time: 08/30/2024 6:37 PM Age: 38 years old Clinical indication: Abdominal pain; Localized; Right lower quadrant (rlq); Prior surgery; Surgery date: 6+ months; Surgery type: Gb; Additional info: Right sided pain with hematochesia TECHNIQUE: Imaging protocol: Computed tomography of the abdomen and pelvis with contrast. Radiation optimization: All CT scans at this facility use at least one of these dose optimization techniques: automated exposure control; mA and/or kV adjustment per patient size (includes targeted exams where dose is matched to clinical indication); or iterative reconstruction. Contrast material: OMNIPAQUE 350; Contrast volume: 100 ml; Contrast route: INTRAVENOUS (IV); COMPARISON: CT abdomen pelvis w con* [id number] 12/02/2023 12:19 PM RADIATION DOSE METRICS: Total DLP (mGy-cm): 870.03 FINDINGS: Liver: Normal. No mass. Gallbladder and biliary ducts: The gallbladder is surgically absent. Pancreas: Normal. No ductal dilation. Spleen: Normal. No splenomegaly. Adrenal glands: Normal. No mass. Kidneys and ureters: Bilateral nonobstructing nephrolithiasis. Otherwise, the kidneys are unremarkable. Stomach and bowel: Scattered colon diverticula. No inflammatory change identified involving the GI tract. No signs of bowel obstruction. Appendix: The appendix is normal. Intraperitoneal space: Unremarkable. No free air. No significant fluid collection. Vasculature: Unremarkable. No abdominal aortic aneurysm. Lymph nodes: Unremarkable. No enlarged lymph nodes. Urinary bladder: Unremarkable as visualized. Reproductive: The uterus is surgically absent. Bones/joints: Mild degenerative changes involve the spine. No acute bony abnormality. Soft tissues: Unremarkable. CT/CT abdomen pelvis w con* [id number] IMPRESSION: 1. No acute abnormality. 2. Bilateral nonobstructing nephrolithiasis.
[2024-08-30] MEDS: iohexol 350 mg/mL 500 mL Btl (per mL) IV (18:43)
[2024-08-30 18:46] VITALS: BP 135/98; PULSE 87; O2SAT 96
[2024-08-30 18:56] LABS: Alanine Aminotransferase 16 U/L (0-41); Albumin Level 4.5 g/dL (3.5-5.2); Alkaline Phosphatase 74 U/L (40-130); Anion Gap 15.2 (5-19); Aspartate Amino Transferase 14 U/L (0-40); Blood Urea Nitrogen 12 mg/dL (6-20); Calcium 9.7 mg/dL (8.5-10.5); Carbon Dioxide 23 mmol/L (22-29); Chloride 108 mmol/L (98-107); Creatinine Clr Calc Pharmacy 105.1107; Globulin 2.6 g/dL (1.3-4.6); Glomerular Filtration Rate 83.2 mL/min (90-130); Glucose 89 mg/dL (65-115); Osmolality Calculated 293 mOsm/kg (285-295); Potassium 4.2 mmol/L (3.5-5.1); Sodium 142 mmol/L (136-145); Total Bilirubin 0.5 mg/dL (0.15-1.2); Total Protein 7.1 g/dL (6.6-8.7)
[2024-08-30 19:33] VITALS: BP 137/95; PULSE 61; RESP 16; O2SAT 96
[2024-08-30 20:00] VITALS: BP 143/88; PULSE 67; RESP 16; O2SAT 96
[2024-08-30 20:22] VITALS: BP 143/88; PULSE 57; RESP 16; O2SAT 94
== END 2024-08-30 20:21 | disposition home or self-care (01) ==
PROVIDERS: Emergency Provider Emergency Medicine; PCP Nurse Practitioner Family
DX: K92.1 Melena (principal); R19.7 Diarrhea, unspecified; Z87.891 Personal history of nicotine dependence
CPT/HCPCS: 36415; 74177; 80053; 85025; 99285

== ENCOUNTER 2024-10-09 16:24 | Emergency (ER) | payer BC, MEDICAID, SELFPAY ==
[2024-10-08 13:04] VITALS: BP 140/82; BMI 31.7
[2024-10-09 16:32] VITALS: BP 122/86; PULSE 75; RESP 17; TEMP 36.7; O2SAT 96; BMI 31.6
--- NOTE | 2024-10-09 16:56 | ECG_ITS ---
[employer] w/ Test Date: 2024-10-09 Pat Name: Van Mckinley Department: Room: Gender: Male Claim Approver: : 1985 Requested By: Brice Linder Order Number: [id number] Fischer MD: Angelica Campos M.D. Measurements Intervals [place] Rate: 52 P: 45 GA: 106 QRS: 48 QRSD: 89 T: 74 QT: 394 QTc: 368 Interpretive Statements SINUS BRADYCARDIA WITH SHORT GA INTERVAL POSSIBLE LEFT ATRIAL ENLARGEMENT [-0.1mV P-WAVE IN V1/V2] MODERATE ST DEPRESSION [0.05+ mV ST DEPRESSION] Compared to ECG 08/08/2022 16:52:19 ST (T wave) deviation now present Sinus rhythm no longer present Electronically Signed On 10-10-2024 21:49:12 CDT by Angelica Campos M.D. [email or web address]
--- NOTE | 2024-10-09 17:07 | ED_ITS ---
HPI - Headache 2 General: Chief Complaint: Headache Stated Complaint: dizzy, n/v, SALMERON Time Seen by Provider: 10/09/24 16:55 History of Present Illness: 38-year-old presents emergency room left frontal headache began yesterday tried several [id number] medications. Prescription migraine medication with no relief it caused photophobia and photophobia as well as nausea and vomiting. No recent head trauma no fever sweats or chills Associated symptoms: Deny chest pain, fever(s) or rash Related Data Home Medications ?Medication ?Instructions ?Recorded ?Confirmed fluticasone fur. 100 mcg-umeclid 1 inh inhalation MARIXA Y 08/24/23 09/03/24 62.5 mcg-vilant 25 mcg inhalat.powder (Trelegy Ellipta) levocetirizine 5 mg tablet 5 mg PO DAILY 08/24/2309/23 lisinopril 10 mg tablet 10 mg PO DAILY 08/25/2309/23 Held on 10/07/23. Instructions: decreased bp syringe with needle 3 mL 22 x 1 #100 ea 01/04/2409/03 1/2 polyethylene glycol 3350 17 17 g PO DAILY PRN 06/08/24 09/03/24 gram/dose oral powder (Miralax) testosterone cypionate 200 mg/mL 200 mg IM ONCE 09/03/24 intramuscular oil Previous Rx's ?Medication ?Instructions ?Recorded Hinged knee brace, RIGHT #1 ea 06/29/23 ondansetron 8 mg disintegrating 8 mg PO .q6 PRN nausea and 12/02/23 tablet vomiting #14 tabs montelukast 10 mg tablet 10 mg PO QAM 90 days #90 tab s 12/23/23 (Singulair) rizatriptan 10 mg disintegrating See Rx Instructions P O .COMPLEX 12/23/23 tablet (Maxalt-[employer]) #30 tabs topiramate 25 mg tablet 25 mg PO DAILY 90 days #90 t abs 12/23/23 thiamine HCl (vitamin B1) 100 mg 100 mg PO DAILY #30 t abs 01/04/24 tablet propranolol 10 mg tablet 10 mg PO BID 90 days #180 ta bs 06/08/24 acamprosate 333 mg tablet,delayed 333 mg PO BID #180 t abs 07/20/24 release benztropine 1 mg tablet 1 mg PO QAM #90 tabs 5 divalproex 500 mg tablet,extended 500 mg PO BID #180 t abs 07/20/24 release 24 hr paliperidone 6 mg tablet,extended 12 mg (2 x 6 mg) PO QAM #180 tabs 07/20/24 release 24 hr (Invega) hydroxyzine pamoate 50 mg capsule 50 mg PO BID PRN anx iety #60 caps 09/03/24 prazosin 2 mg capsule 6 mg (3 x 2 mg) PO BEDTIME # 180 09/03/24 caps cholecalciferol (vitamin D3) 1,250 See Rx Instructions .Route 09/25/24 mcg (50,000 unit) capsule .COMPLEX #12 caps promethazine 25 mg tablet 25 mg PO Q6H PRN nausea and 10/09/24 vomiting #20 tabs Allergies Allergy/AdvReac Type Severity Reaction Status Date / Time sulfamethoxazole (From Allergy Intermediate nausea, Verified 09/03/24 12:56 Bactrim) vomiting, diarrhea trimethoprim (From Bactrim) Allergy Intermediate nausea, Verified 09/03/24 12:56 vomiting, diarrhea clindamycin Allergy Mild ADR-Gastrointestinal Verified 09/03/24 12:56 Upset carbamazepine (From Tegretol) Allergy RASH Verified 09/03/24 12:56 cyclobenzaprine (From Allergy RASH Verified 09/03/24 12:56 Flexeril) nalbuphine (From Nubain) Allergy RASH Verified 09/03/24 12:56 tizanidine Allergy Unknown Verified 09/03/24 12:56 zolpidem (From Ambien) Allergy RASH Verified 09/03/24 12:56 Review of Systems 2 Const: Denies: fever(s) or chills Card: Denies: chest pain Resp: Denies: dyspnea GI: Denies: abdominal pain : Denies: dysuria, urinary frequency or urinary urgency Musc: Denies: neck pain or back pain Skin/Breast: Denies: rash PFSH ED 2 PFSH: Medical History Alcohol use disorder, severe, dependence Maxillary sinusitis Recurrent right knee instability Intolerance of drug 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 Positive Yu test of right knee Generalized anxiety disorder with panic attacks Bipolar II disorder hypomanic with mixed features Post-traumatic stress disorder, chronic Nicotine dependence, other tobacco product, with other nicotine-induced disorders Cannabis use disorder, severe, dependence Allergic rhinitis due to allergen Cough COVID-19 URI with cough and congestion Abdominal pain History of Helicobacter pylori infection Borderline personality disorder Psychiatric care Personal history of pyloric stenosis Migraine headache Generalized epilepsy Degenerative arthritis of spine Pyloric stenosis Pneumonitis Surgical History Status post hysterectomy with oophorectomy S/P cholecystectomy H/O esophagogastroduodenoscopy (09/30/21) History of adenectomy Hx of tonsillectomy Family History Other Cancer Social History Smoking and tobacco/nicotine status: former use of tobacco/nicotine Quit status (tobacco/nicotine): has quit using Year quit tobacco: 2023 Former quit date comment: 1 ppd X 32 years Second hand smoke exposure: Yes Alcohol intake: former Substance/Drug Use: former Date of last use: 07.18.23 Former substance use details: marijuana Adopted: No Caregiver/support person: No Lives independently: Yes Household members: spouse, family and children Housing: House Marital status: Marital status details: 2 years Number of children: 2 Number of grandchildren: 0 Highest education level completed: Some College, No Degree service: No Current occupational status: employed 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[employer], [employer]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 Pets and animals: Yes Pets & animals: cat(s), dog(s) and snake(s) Leisure activites: music, games, fishing and other Leisure activities details: shopping, go to the river Sexually active: Yes Current gender identity: Trans [id number] Cherri/Mu-Ism: None Special cherri needs: Yes Agree to transfusion: No Physical Exam 2 Const: GENERAL APPEARANCE: cooperative ORIENTATION/CONSCIOUSNESS: Yes awake, Yes oriented to person, Yes oriented to place and Yes oriented to time HENMT: COMMON NORMALS: normocephalic, atraumatic and hearing grossly normal bilaterally HEAD & SCALP: normocephalic and atraumatic Resp: COMMON NORMALS: normal respiratory effort, No retractions, No use of accessory muscles and clear to auscultation bilaterally AUSCULTATION: clear to auscultation bilaterally Cardio: COMMON NORMALS: regular rate, regular rhythm and No murmurs present (Cardio) RATE: regular rate RHYTHM: regular rhythm GI: COMMON NORMALS: Soft to palpation and No hepatosplenomegaly present A USCULTATION: Yes normoactive bowel sounds PALPATION: Yes Soft to palpation, No Tenderness to palpation present (GI), No Guarding due to palpation present (GI) and Yes No hepatosplenomegaly present Extremity: COMMON NORMALS: normal to inspection, capillary refill normal, no clubbing, cyanosis or edema, no calf tenderness and no pedal edema Neuro: SENSORIUM/ORIENTATION: Yes oriented to person, Yes oriented to place and Yes oriented to time Skin: COMMON NORMALS: no rashes or lesions noted GENERAL SKIN EXAM: no rashes or lesions noted Course 2 Vital Signs: Vital signs: Vital Signs Temperature 98.1 F 10/09/24 16:32 Pulse Rate 49 L 10/09/24 18:07 Respiratory Rate 16 10/09/24 18:07 Blood Pressure 150/109 10/09/24 18:07 Pulse Oximetry 96 10/09/24 18:07 Oxygen Delivery Me thod Room Air 10/09/24 16:32 MDM - Headache Medical Decision Making Headache improved with medications given will discharge home can use promethazine as needed along with Tylenol or ibuprofen. If has persistent recurrent headaches follow-up with primary care to review management of headaches consider migraine prophylaxis medications Medical Records I reviewed the patient's medical records. Lab Data I reviewed the patient's lab results. 10/09/24 17:17 10/09/24 17:17 Laboratory Results WBC 5.73 10^3/uL (3.29-11.43) 10/09/24 17:17 RBC 4.75 10^6/uL (3.85-5.65) 10/09/24 17:17 Hgb 15.10 g/dL (11.27-16.99) 10/09/24 17:17 Hct 46.2 % (37-53) 10/09/24 17:17 MCV 97.3 fl (82-101) 10/09/24 17:17 MCH 31.8 pg (27-33) 10/09/24 17:17 MCHC 32.7 g/dL (30-55) 10/09/24 17:17 RDW 12.6 % (12.1-15.1) 10/09/24 17:17 Plt Count 110 10^3/cmm (157-399) L 10/09/24 17:17 MPV 12.2 fL (7.4-10.4) H 10/09/24 17:17 Neut % (Auto) 54.8 % 10/09/24 17:17 Lymph % (Auto) 34.6 % 10/09/24 17:17 [place] % (Auto) 8.0 % 10/09/24 17:17 Eos % (Auto) 1.9 % 10/09/24 17:17 Baso % (Auto) 0.5 % 10/09/24 17:17 Neut # (Auto) 3.14 10^3/uL (1.8-7.7) 10/09/24 17:17 Lymph # (Auto) 2.0 10^3/uL (0.8-4.8) 10/09/24 17:17 [place] # (Auto) 0.5 10^3/uL (0.2-0.9) 10/09/24 17:17 Eos # (Auto) 0.1 10^3/uL (0.0-0.8) 10/09/24 17:17 Baso # (Auto) 0.0 10^3/uL (0.0-0.1) 10/09/24 17:17 Nucleated RBC % (auto) 0 % 10/09/24 17:17 Nucleated RBCs # 0.0 /100WBC 10/09/24 17:17 Sodium 140 mmol/L (136-145) 10/09/24 17:17 Potassium 4.0 mmol/L (3.5-5.1) 10/09/24 17:17 Chloride 107 mmol/L (98-107) 10/09/24 17:17 Carbon Dioxide 20 mmol/L (22-29) L 10/09/24 17:17 Anion Gap 17.0 (5-19) 10/09/24 17:17 BUN 9 mg/dL (6-20) 10/09/24 17:17 Creatinine 1.0 mg/dL (0.7-1.2) 10/09/24 17:17 GFR Calculation 83.2 mL/min (90-130) L 10/09/24 17:17 Glucose 94 mg/dL (65-115) 10/09/24 17:17 Calculated Osmolality 288 mOsm/kg (285-295) 10/09/24 17:17 Calcium 9.2 mg/dL (8.5-10.5) 10/09/24 17:17 Urine Color Yellow (Yellow) 10/09/24 17:45 Urine Appearance Cloudy (CLEAR) A 10/09/24 17:45 Urine pH 7.0 (5-7) 10/09/24 17:45 Ur Specific [place] 1.016 (1.005-1.030) 10/09/24 17:45 Urine Protein Trace (Negative) A 10/09/24 17:45 Urine Glucose (UA) Negative (Normal) 10/09/24 17:45 Urine Ketones Trace (Negative) 10/09/24 17:45 Urine Blood Negative (Negative) 10/09/24 17:45 Urine Nitrate Negative (Negative) 10/09/24 17:45 Urine Bilirubin Negative (Negative) 10/09/24 17:45 Urine Urobilinogen 1.0 mg/dL (Negative) 10/09/24 17:45 Ur Leukocyte Esterase 3+ (Negative) A 10/09/24 17:45 Urine RBC 0-2 /hpf (0-2) 10/09/24 17:45 Urine WBC >100 /hpf (0-5) H 10/09/24 17:45 Ur Squamous Epith Cells 0-5 /hpf (0-5) 10/09/24 17:45 Amorphous Sediment Not Reportable 10/09/24 17:45 Urine Bacteria None seen /hpf (NONE) 10/09/24 17:45 Hyaline Casts 0.40 /lpf 10/09/24 17:45 Influenza A (PCR) Negative (Negative) 10/09/24 17:45 Influenza Type B (PCR) Negative (Negative) 10/09/24 17:45 RSV (PCR) Negative (Negative) 10/09/24 17:45 SARS-CoV-2 (PCR) Negative (Negative) 10/09/24 17:45 No radiology studies performed this visit Discharge Plan Discharge Patient Disposition: Home Clinical Impression: Migraine headache Condition: Stable Prescriptions: New promethazine 25 mg tablet 25 mg PO Q6H PRN (Reason: nausea and vomiting) Qty: 20 0RF No Action (DME) syringe with needle 3 mL 22 x 1 1/2 syringe See Rx Instructions .ROUTE .MEDSUPPLY Qty: 100 Rx Instructions: As directed thiamine HCl (vitamin B1) 100 mg tablet 100 mg PO DAILY Qty: 30 5RF testosterone cypionate 200 mg/mL oil 200 mg IM ONCE Miralax 17 gram/dose powder 17 g PO DAILY PRN Rx Instructions: Take 1-2 scoops daily for the next 3 months to keep stools soft propranolol 10 mg tablet 10 mg PO BID 90 Days Qty: 180 2RF Rx Instructions: Take one tablet twice per day (DME) Hinged knee brace, RIGHT See Rx Instructions .Route .MEDSUPPLY Qty: 1 0RF Rx Instructions: As directed benztropine 1 mg tablet 1 mg PO QAM Qty: 90 2RF Rx Instructions: Take one tablet every morning divalproex 500 mg tablet extended release 24 hr 500 mg PO BID Qty: 180 2RF Rx Instructions: Take one tablet twice per day paliperidone [Invega] 6 mg tablet extended release 24hr 12 mg PO QAM Qty: 180 2RF Rx Instructions: Take two tablets every morning acamprosate 333 mg tablet,delayed release (DR/EC) 333 mg PO BID Qty: 180 2RF Rx Instructions: Take one tablet twice per day-administer with mid-day and evening meals prazosin 2 mg capsule 6 mg PO BEDTIME Qty: 180 2RF Rx Instructions: Take three capsules at bedtime hydroxyzine pamoate 50 mg capsule 50 mg PO BID PRN (Reason: anxiety) Qty: 60 3RF Rx Instructions: May take one capsule twice per day as needed for anxiety rizatriptan [Maxalt-[employer]] 10 mg tablet,disintegrating See Rx Instructions PO .COMPLEX Qty: 30 1RF Rx Instructions: take 1 tab at onset of headache; if no relief may repeat 1 tab after at least 2 hrs; max = 3 tabs/24 hr PO topiramate 25 mg tablet 25 mg PO DAILY 90 Days Qty: 90 1RF montelukast [Singulair] 10 mg tablet 10 mg PO QAM 90 Days Qty: 90 1RF cholecalciferol (vitamin D3) 1,250 mcg (50,000 unit) capsule See Rx Instructions .ROUTE .COMPLEX Qty: 12 0RF Dose Instruction: Take 1 capsule by mouth once a week Rx Instructions: Take 1 capsule by mouth once a week levocetirizine 5 mg Tablet 5 mg PO DAILY Avery Ellipta 100-62.5-25 mcg Blister With Device 1 inh INHALATION DAILY lisinopril 10 mg tablet 10 mg PO DAILY ondansetron 8 mg tablet,disintegrating 8 mg PO .q6 PRN (Reason: nausea and vomiting) Qty: 14 0RF Discharge Orders: Discharge ED (Routine); Ordered 10/09/24 Ordered By: Brice Nolen Referrals: Tatiana Gutiérrez FNP [Primary Care Provider, Family Practice] Discharge Diet: Usual diet Discharge Activity: Increase activity as tolerated Patient Instructions: Opioid Safety, Pain Management Activity Restrictions/Additional Instructions: Thank you for choosing [facility] for your healthcare needs today. It is very important that you follow up as instructed or that you return to the Emergency Department should you have concerns or if your condition changes or worsens in any way. Stand Alone Forms: Work/School Release Print Language: Slovenian Coding Level of Care Code ED Chief Credit Officer for Taylor Saul
[2024-10-09] MEDS: sodium chloride 0.9% 1,000 ML 999 ML IV (17:21)
[2024-10-09] MEDS: dihydroergotamine 1 mg/mL Inj IVP (17:22)
[2024-10-09 17:24] LABS: Basophils % 0.5 %; Eosinophils # 0.1 10^3/uL (0.0-0.8); Eosinophils % 1.9 %; Hematocrit 46.2 % (37-53); Lymphocytes % 34.6 %; Mean Corpuscular HGB Conc 32.7 g/dL (30-55); Mean Corpuscular Hemoglobin 31.8 pg (27-33); Mean Corpuscular Volume 97.3 fl (82-101); Mean Platelet Volume 12.2 fL (7.4-10.4); Monocytes # 0.5 10^3/uL (0.2-0.9); Neutrophils # 3.14 10^3/uL (1.8-7.7); Neutrophils % 54.8 %; Nucleated Red Blood Cells % 0 %; Platelet Count 110 10^3/cmm (157-399); Red Blood Count 4.75 10^6/uL (3.85-5.65); Red Cell Distribution Width 12.6 % (12.1-15.1); White Blood Count 5.73 10^3/uL (3.29-11.43)
[2024-10-09] MEDS: dexamethasone 10 mg/mL INJ IM (17:24)
[2024-10-09] MEDS: prochlorperazine 10 mg/2 mL Inj IVP (17:24)
[2024-10-09] MEDS: ketorolac 30 mg/mL INJ IVP (17:25)
[2024-10-09] MEDS: diphenhydrAMINE 50 mg/mL SDV 1mL IVP (17:26)
[2024-10-09 17:34] VITALS: BP 146/97; PULSE 53; RESP 16; O2SAT 98
[2024-10-09 17:36] VITALS: BP 139/101; BP 146/97; BP 153/103; PULSE 52; PULSE 54; PULSE 67
[2024-10-09 17:54] LABS: Bilirubin Urine Negative (Negative); Blood Urine Negative (Negative); Glucose Urine UA Negative (Normal); Ketones Urine Trace (Negative); Leukocyte Esterase Urine 3+ (Negative); Nitrate Urine Negative (Negative); Protein Urine Trace (Negative); Specific Gravity, Urine 1.016 (1.005-1.030); Urine Appearance Cloudy (CLEAR); Urine Color Yellow (Yellow)
[2024-10-09 17:59] LABS: Slide Review Slide Review Perform
[2024-10-09 18:00] LABS: Add Urine Microscopic? YES; Bacteria Urine None Seen /hpf; RBC Urine 0-2 /hpf (0-2); Squamous Epithelial Cell Urine 0-5 /hpf (0-5); WBC Urine >100 /hpf (0-5)
[2024-10-09 18:07] VITALS: BP 150/109; PULSE 49; RESP 16; O2SAT 96
[2024-10-09 18:26] LABS: Add Urine Culture? Yes
[2024-10-09 18:30] LABS: Influenza A NEGATIVE (Negative); Influenza B NEGATIVE (Negative); Respiratory Syncytial Virus Ce NEGATIVE (Negative); SARS-CoV-2 PCR NEGATIVE (Negative)
[2024-10-09 18:34] LABS: Blood Urea Nitrogen 9 mg/dL (6-20); Calcium 9.2 mg/dL (8.5-10.5); Carbon Dioxide 20 mmol/L (22-29); Chloride 107 mmol/L (98-107); Creatinine Clr Calc Pharmacy 103.5834; Glomerular Filtration Rate 83.2 mL/min (90-130); Glucose 94 mg/dL (65-115); Osmolality Calculated 288 mOsm/kg (285-295); Sodium 140 mmol/L (136-145)
== END 2024-10-09 18:18 | disposition home or self-care (01) ==
PROVIDERS: Emergency Provider Family Medicine; PCP Nurse Practitioner Family
DX: G43.909 Migraine, unspecified, not intractable, without status migrainosus (principal); G40.409 Other generalized epilepsy and epileptic syndromes, not intractable, without status epilepticus; R42 Dizziness and giddiness; Z79.899 Other long term (current) drug therapy; Z79.890 Hormone replacement therapy; Z87.891 Personal history of nicotine dependence; Z11.52 Encounter for screening for COVID-19
CPT/HCPCS: 36415; 80048; 81001; 85025; 87086; 87637; 93005; 96361; 96372; 96374; 96375; 99284; J0780; J1100; J1110; J1200; J1885; J7030

== ENCOUNTER → 2025-01-01 14:16 | Outpatient (BNVA) | payer BC, MEDICAID, SELFPAY ==
[2024-10-08 13:04] VITALS: BP 140/82; BMI 31.7
== END ==
PROVIDERS: PCP Nurse Practitioner Family; Visit Provider Nurse Practitioner Family
DX: I10 Essential (primary) hypertension (principal)
CPT/HCPCS: 80053; 82306; 85025

== ENCOUNTER → 2025-01-17 10:35 | Outpatient (BNVA) | payer BC, MEDICAID, SELFPAY ==
[2024-10-08 13:04] VITALS: BP 140/82; BMI 31.7
== END ==
PROVIDERS: PCP Nurse Practitioner Family; Visit Provider Nurse Practitioner Family
DX: S93.402A Sprain of unspecified ligament of left ankle, initial encounter (principal); Y99.9 Unspecified external cause status
CPT/HCPCS: 73610

== ENCOUNTER 2025-04-26 12:54 | Emergency (ER) | payer SELFPAY ==
[2024-10-08 13:04] VITALS: BP 140/82; BMI 31.7
--- OUTSIDE RECORDS SUMMARY | 2025-04-26 12:59 | XMS_ITS | Clinical Summary ---
Author Organization [facility] Facility Address [address] [place] [id number] Care Team Providers Care Raw Silk Grader Name Role Phone Yarelis Lentz MD Primary Care Provider [phone] Social History Tobacco Use Types Packs/Day Years Used Date Smoking Tobacco: Never Assessed Sex and Gender Information Value Date Recorded Sex Assigned at Not on file Legal Sex Male 10:56 AM EST Gender Identity Not on file Sexual Orientation Not on file Plan of Treatment Health Maintenance Due Date Last Done Comments Hepatitis B Vaccine (1 of 3 - 19+ 3-dose series) 12/10/2003 Influenza Vaccine (#1) 2024 Pneumococcal Vaccine: Peds ( 0 to 5 Years) and At-Risk Patients (6 to 49 Years) Aged Out No longer eligible b ased on patient's age to complete this topic Insurance [facility] ([id number]) Care Teams Raw Silk Grader Relationship Specialty Start Date End Date Yarelis Lentz MD [id number] [place] [address] PCP - General Family Medicine 1/16/23
--- OUTSIDE RECORDS SUMMARY | 2025-04-26 12:59 | XMS_ITS | Continuity of Care Document ---
Author Organization SHAKEEL Naidu [facility] [place] Jose Alejandro, Gen, [facility] ([facility]) Address [address] [place] [address] Assessment No assessment recorded. Plan of Treatment Reminders Order Date Submit Date Provider Last Modified By Organization Details Last Modified Time Details Appointments None recorded. Lab urinalysis , dipstick 2024 025 [facility] ([facility]), [address] [place], [address], 5 14:17:41 culture, urine 2024 025 [place] [facility], [address] [place] [address], [facility] [address] [place], [address], 5 00:53:28 Referral None recorded. Procedures None recorded. Surgeries None recorded. Imaging None recorded. Medication Orders baclofen 5 mg tablet 2024 025 [facility], [address] [place], [address], 5 14:27:44 Patient TargetsNo targets recorded. Patient InstructionsNo instructions recorded. Reason for Referral None Reported. Results Created Date Observation Date Name Description Value Unit Range Abnormal Flag Note LastModifiedBy Organization Detail LastModifiedTime 04/19/20 25 04/20/2025 CULTU RE, URINE , ROUTI NE culture, urine, routine SEE NOTE CULTU RE, URINE , ROUTI NE Micro Numbe r: [id number] Test Statu s: Final Speci men Sourc e: Urine , clean catch Speci men Quali ty: Adequ ate Resul t: Mixed genit al jimmie isola mathieu. These super ficia l bacte jamie are not indic ative of a urina ry tract infec tion. No furth er organ ism ident ifica tion is warra nted on this speci men. If clini tang indic ated, recol lect clean -catc h, mid-s tream urine and trans tequila immed iatel y to Urine Cultu re Trans port Tube. Not Available [facility] [address] [place], [address], 04/21/2025 00:53:28 04/19/2004/19/2025 urina lysis , dipst ick Leukocytes Large Not Available [facility] [address] [place], [address], 04/19/2025 14:09:07 04/19/20 25 04/19/2025 urina lysis , dipst ick Nitrite negati ve Not Available [facility] ([facility]) [address] [place], [address], 04/19/2025 14:09:07 04/19/20 25 04/19/2025 urina lysis , dipst ick Urobilinogen .2 Not Available [facility] ([facility]) [address] [place], [address], 04/19/2025 14:09:07 04/19/20 25 04/19/2025 urina lysis , dipst ick Protein Negati ve Not Available [facility] ([facility]) [address] [place], [address], 04/19/2025 14:09:07 04/19/20 25 04/19/2025 urina lysis , dipst ick pH 7.0 Not Available [facility] ([facility]) [address] [place], [address], 04/19/2025 14:09:07 04/19/20 25 04/19/2025 urina lysis , dipst ick Blood Hemoly zed: Trace Not Available [facility] ([facility]) [address] [place], [address], 04/19/2025 14:09:07 04/19/20 25 04/19/2025 urina lysis , dipst ick Specific [place] 1.020 Not Available [facility] ( [facility]) [address] [place], [address], 04/19/2025 14:09:07 04/19/20 25 04/19/2025 urina lysis , dipst ick Ketone Negati ve Not Available [facility] ([facility]) [address] [place], [address], 04/19/2025 14:09:07 04/19/20 25 04/19/2025 urina lysis , dipst ick Bilirubin Negati ve Not Available [facility] ([facility]) [address] [place], [address], 04/19/2025 14:09:07 04/19/20 25 04/19/2025 urina lysis , dipst ick Glucose Negati ve Not Available [facility] ([facility]) [address] [place], [address], 04/19/2025 14:09:07 04/19/20 25 04/19/2025 urina lysis , dipst ick Appearance Slight ly Cloudy Not Available [facility] ([facility]) [address] [place], [address], 04/19/2025 14:09:07 04/19/20 25 04/19/2025 urina lysis , dipst ick Color Yellow Not Available [facility] ([facility]) [address] [place], [address], 04/19/2025 14:09:07 Result Notes None recorded. Problems Name Problem SNOMED Code Status Onset Date Resolution Date Notes Provider Name and Address Organization Details Recorded Time Epilepsy 66696935 Active 2021 EPILEPSY; Recorded 06/26/2021 11:41AM by Lala Livingston CMT, Office Visit; Promoted; acuity set as *; Not Available [facility] 3 03:16:10 Pyloric stenosis 031927978 Active 2021 PYLORIC STENOSIS; 06/26/2021 11:41AM by Lala Livingston CMT, Office Visit; Promoted; acuity set as *; Not Available [facility] 3 03:16:22 Marijuana user 980256874 Active 2021 MARIJUANA USER; 06/26/2021 11:41AM by Lala Livingston CMT, Office Visit; Promoted; acuity set as *; Not Available [facility] 3 03:16:22 Post-trau matic stress disorder 94112860 Active 2021 PTSD (POST-TRAU MATIC STRESS DISORDER); 06/26/2021 11:41AM by Lala Livingston CMT, Office Visit; Promoted; acuity set as *; Not Available [facility] 3 03:16:22 Attention deficit hyperacti vity disorder 052091446 Active 2021 ADHD; 06/26/2021 11:41AM by Lala Livingston CMT, Office Visit; Promoted; acuity set as *; Not Available [facility] 3 03:16:24 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 Medical Equipment None Reported. Allergies Allergen ID Allergen Name Allergen Category Reaction Reaction Severity Criticality Documentation Date Start Date Code Code System Note Provider Name and Address Organization Details Recorded Time 81697 cyclobenz aprine hydrochlo ride medicatio n Not available Not available Not available 11/27/2022 73696 RxNorm Comme nt: Recor ded 08/19 12:19 PM by Nena leo CMT, Histo rical Summa ry; Promo mathieu; Signi mel ce: *; Reaso n: Drug aller gy; ; Not Available [facility] 3 02:23:52 49160 menthol / methyl salicylat e medicatio n Not available Not available Not available 11/27/2022 72980 7 RxNorm Comme nt: Recor ded 08/19 12:19 PM by Nena leo CMT, Histo rical Summa ry; Promo mathieu; Signi mel ce: *; Reaso n: Drug aller gy; ; Not Available [facility] 3 02:23:52 26297 Ambien medicatio n Not available Not available Not available 11/27/2022 63636 5 RxNorm Comme nt: Recor ded 08/19 12:19 PM by Nena leo CMT, Histo rical Summa ry; Promo mathieu; Signi ficjulio césar ce: *; Reaso n: Drug aller gy; ; Not Available [facility] 3 02:23:52 16958 Tegretol medicatio n Not available Not available Not available 11/27/2022 9 RxNorm Comme nt: Recor ded 08/19 12:19 PM by Nena leo CMT, Histo rical Summa ry; Promo mathieu; Signi mel ce: *; Reaso n: Drug aller gy; ; Not Available [facility] 3 02:23:52 07535 Zanaflex medicatio n Not available Not available Not available 11/27/2022 58028 6 RxNorm Comme nt: Recor ded 08/19 12:19 PM by Amand a Taylo r, CMT, Histo rical Summa ry; Promo mathieu; Sugey leal ce: *; Reaso n: Drug aller gy; ; Not Available [facility] 3 02:23:52 47813 carbamaze pine medicatio n rash Not available low 04/19/20252021 2002 RxNorm Not Available [employer] - prod 13:55:37 87611 cyclobenz aprine medicatio n rash Not available low 04/19/20252020 14119 RxNorm Other React ion(s ): Other (See Comme nts) I black out Not Available [employer] - prod 13:55:37 12447 nalbuphin e medicatio n rash Not available low 04/19/20252015 7238 RxNorm Other React ion(s ): Hallu cinat ion Not Available [employer] - prod 13:55:37 05461 sulfameth oxazole / trimethop rim medicatio n rash Not available low 04/19/20252023 37238 RxNorm Not Available [employer] - prod 13:55:37 55986 tizanidin e medicatio n anxiety Not available high 04/19/20252020 56785 RxNorm I black out Not Available [employer] - prod 13:55:37 51505 zolpidem medicatio n rash Not available high 04/19/20252018 59716 RxNorm Proje ctile vomit unrec ogniz ed react ion (text : Nause a and Vomit ing, code: 93178 [id number]) (from exter nal sourc e) Not Available [employer] - prod 13:55:37 Medications Name Sig Start Date Stop Date Status Note LastModified by Organization Details LastModified Time benzonata te 200 mg capsule TAKE 1 CAPSULE BY MOUTH THREE TIMES DAILY active Not Available Not Available No t Available meloxicam 15 mg tablet TAKE 1 TABLET BY MOUTH ONCE DAILY 04/19 completed Not Available Not Available Not Available naltrexon e 50 mg tablet TAKE 1 TABLET BY MOUTH ONCE DAILY IN THE MORNING 04/19 completed Not Available Not Available Not Available prednison e 20 mg tablet Take 2 tablets every day by oral route for 5 days. 11/21 completed Not Available Not Available Not Available hydroxyzi ne pamoate 50 mg capsule TAKE 1 CAPSULE BY MOUTH TWICE DAILY NEEDED FOR ANXIETY active Not Available Not Available No t Available topiramat e 25 mg tablet TAKE 1 TABLET BY MOUTH ONCE DAILY active Not Available Not Available No t Available hydrocodo ne 10 mg-acetam inophen 325 mg tablet TAKE ONE TABLET BY MOUTH TWICE DAILY NEEDED FOR PAIN 11/09 completed Not Available Not Available Not Available BD Regular Bevel [place] 18 gauge x 1 USE ONCE WEEKLY TO DRAW UP TESTOSTE LISBET active Not Available Not Available No t Available propranol ol 10 mg tablet TAKE 1 TABLET BY MOUTH THREE TIMES DAILY FOR 90 DAYS active Not Available Not Available No t Available amoxicill in 875 mg tablet TAKE 1 TABLET BY MOUTH TWICE DAILY FOR 7 DAYS 11/18 completed Not Available Not Available Not Available rizatript an 10 mg disintegr ating tablet TAKE 1 TABLET BY MOUTH AT ONSET OF HEADACHE ; IF NO RELIEF MAY REPEAT 1 TABLET AFTER AT LEAST 2 HOURS; MAX DOSE OF 3 TABS/24 HOURS active Not Available Not Available No t Available trazodone 150 mg tablet TAKE 1 TABLET BY MOUTH AT BEDTIME NEEDED FOR SLEEP/IN SOMNIA active Not Available Not Available No t Available lisinopri l 10 mg tablet daily 04/19 completed DOC CS/smf; 88427; Recorded 02/17/20 21 4:13PM by Chata Reyes RN (Authori zed through Fernando Hair DO), Refill Request; Refill Quantity : 0; Not Available Not Available Not Available divalproe x ER 500 mg tablet,ex tended release 24 hr TAKE 1 TABLET BY MOUTH TWICE DAILY active Not Available Not Available No t Available benztropi ne 1 mg tablet TAKE 1 TABLET BY MOUTH IN THE MORNING active Not Available Not Available No t Available BD Luer-Gwendolyn Syringe 3 mL 25 gauge x 1 USE DIRECTED active Not Available Not Available No t Available sertralin e 25 mg tablet TAKE 1 TABLET BY MOUTH ONCE DAILY IN THE MORNING active Not Available Not Available No t Available azelastin e 137 mcg (0.1 %) nasal spray USE 2 SPRAY(S) IN EACH NOSTRIL TWICE DAILY FOR 14 DAYS 11/09 completed Not Available Not Available Not Available testoster one cypionate 200 mg/mL intramusc ular oil INJECT 0.5ML (100MG) SUBCUTAN EOUSLY INSTURCT ED EVERY 14 DAYS active Not Available Not Available No t Available ondansetr on 4 mg disintegr ating tablet DISSOLVE 1 TABLET IN MOUTH EVERY 8 HOURS NEEDED FOR NAUSEA AND VOMITING active Not Available Not Available No t Available fluticaso ne propionat e 50 mcg/actua tion nasal spray,sushil pension [place] 2 sprays every day by intranas al route in the morning. 2024 active Not Available Not Available Not Avai lable prazosin 2 mg capsule TAKE 3 CAPSULES BY MOUTH AT BEDTIME active Not Available Not Available No t Available clindamyc in 1 % lotion APPLY A THIN LAYER TO AFFECTED AREA EVERY MORNING active Not Available Not Available No t Available divalproe x ER 250 mg tablet,ex tended release 24 hr TAKE 1 TABLET BY MOUTH TWICE DAILY / MUST MAKE APPOINTM ENT active Not Available Not Available No t Available acamprosa te 333 mg tablet,de layed release TAKE 2 TABLETS BY MOUTH TWICE DAILY WITH MID-DAY AND EVENING MEALS active Not Available Not Available No t Available Depakote active Not Available Not Avai lable Not Available hydroxyzi ne HCl active Not Available Not Available Not Available propranol ol 06/18 completed Not Available Not Available Not Available [facility] 11/09 completed Not Available Not Available Not Available prazosin 04/19 completed Not Available Not Available Not Available trazodone 04/19 completed Not Available Not Available Not Available buspirone two times daily 06/18 completed Recorded 06/26/19 22 12:13PM by GINETTE Buckner, Office Visit; Refill Quantity : 180; Tablet; Not Available Not Available Not Available Depo-Test osterone every week 11/09 completed [facility]; 0; Recorded 06/26/19 22 12:11PM by Corin M. Russ, PRORATION CLERK, Office Visit; Not Available Not Available Not Available topiramat e 06/18 completed Not Available Not Available Not Available acamprosa te 06/18 completed Not Available Not Available Not Available paliperid one ER 6 mg tablet,ex tended release 24 hr TAKE 2 TABLETS BY MOUTH IN THE MORNING active Not Available Not Available No t Available paliperid one 06/18 completed Not Available Not Available Not Available cholecalc iferol (vitamin D3) 1,250 mcg (50,000 unit) capsule TAKE 1 CAPSULE BY MOUTH ONCE A WEEK active Not Available Not Available No t Available amlodipin e besylate (bulk) daily 06/18 completed Recorded 06/26/19 12:13PM by GINETTE Buckner, Office Visit; Refill Quantity : 90; Tablet; Not Available Not Available Not Available azelastin e 137 mcg-fluti casone 50 mcg/spray nasal spray [place] 1 spray twice a day by intranas al route. 2024 active Not Available Not Available Not Avai lable Anoro Ellipta 62.5 mcg-25 mcg/actua tion powder for inhalatio n INHALE 1 PUFF BY MOUTH ONCE DAILY active Not Available Not Available No t Available baclofen 5 mg tablet Take 1 tablet 3 times a day by oral route as needed. 2024 active Not Available Not Available Not Avai lable Zepbound 2.5 mg/0.5 mL subcutane ous pen injector INJECT 2.5 MG (0.5 ML) SUBCUTAN EOUSLY WEEKLY 04/19 completed Not Available Not Available Not Available Vitals Date Recorded Body height Body mass index (BMI) Body weight Oxygen saturation Heart rate Respiratory rate Body temperature Systolic And Diastolic Provider Name and Address Organization Details Last Updated DateTime 5 167.64 cm 30.4 kg/m2 43173.7 7 g 96 % 76 /min 20 /min 98.6 [degF] 128/76 mm[Hg] FORTINO RUVALCABA [facility] 5 14:07:04 Social History Question Answer Notes LastModified by Organizat ion Details LastModified Time Tobacco Smoking Status Current Every Day Smoker Jo nasc[place] - [facility] 11/09/2024 12:10:56 What Was The Date Of Your Most Recent Tobacco Screening? 04/19/2025 [email or web address] Information not available 04/19/2025 Sex: Unknown Functional Status Question Answer Note LastModified by Organizat ion Details LastModified Time Do you or have you ever used any other forms of tobacco or nicotine? Yes [email or web address] Information not available 03/10/2025 Do you or have you ever used smokeless tobacco? Currently chews tobacco [email or web address] Information not available 03/10/2025 Do you or have you ever used any nicotine-free cigarettes, vape, or chewing tobacco? No [email or web address] Information not available 03/10/2025 Mental Status None recorded. Family History Nothing Reported. Medical History No medical history recorded. Past Encounters Encounter ID Performer Location Encounter Start Date Encounter Closed Date Diagnosis/Indication Diagnosis SNOMED-CT Code Diagnosis ICD10 Code Diagnosis IMO Codes Diagnosis Note [id number] GINETTE CHOWDARY [facility] ([facility]) [address] [place] [address] 04/19/2025 13:54:37 04/19/2025 17:00:22 Flank pain 279917513 R10.A3 734665 Increase po fluids. Will send culture. Spasm of back muscles 20 [id number] M62.830 078723 Pain is in the lower back with spasm noted on exam. Will give rx for baclofen. Discussed stretching the back. RTC with any new or worsening symptoms. Health Concerns Section Related Observation LastModified by Organization Detai ls LastModified Time None Recorded Concern Status LastModified by Organization Details LastModified Time None Recorded Payers None recorded. Notes Date Note Type Note Provider Name and Address Organization Details Recorded Time 04/19/2025 text/html Back PainReporte d by PatientHPIFor location, patient reportsno radiation. For quality, patient reportstender. For context, patient reportsatraumatic. For associated symptoms, patient reportsno fever(blood in urine this morning).Patient states that he has pain in the bilateral lower back. Improved with heating pad last night. Patient denies any injury or lifting prior to the back pain. Pain has been present since yesterday while driving to [facility].ROS as noted in the HPI Walk-in FRANKI THOMAS, GINETTE [address] [place], [address], [facility] [place] [facility] 04/19/2025 14:27:51
--- OUTSIDE RECORDS SUMMARY | 2025-04-26 12:59 | XMS_ITS | Clinical Summary ---
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
--- OUTSIDE RECORDS SUMMARY | 2025-04-26 12:59 | XMS_ITS | Encounter Summary ---
Author Organization [employer] [facility] Address [address] [place] [address] Phone Care Team Providers Care Termite Technician Name Role Phone Yarelis Lentz MD Primary Care Provider [phone] Encounter Details Date Type Department Care Team (Late st Contact Info) Description 05/17/2022 Orders Only [facility] [address] [place] [address] Chronic kidney disease stage 3A (HCC) Social History Tobacco Use Types Packs/Day Years Used Date Smoking Tobacco: Never Assessed Sex and Gender Information Value Date Recorded Sex Assigned at Not on file Legal Sex Male 10:56 AM EST Gender Identity Not on file Sexual Orientation Not on file documented as of this encounter Plan of Treatment Not on file documented as of this encounter Visit Diagnoses Diagnosis Chronic kidney disease stage 3A (HCC) documented in this encounter Care Teams Termite Technician Relationship Specialty Start Date End Date Yarelis Lentz MD [address] [facility] [place], [place] [id number] PCP - General Family Medicine 05/17/22 documented as of this encounter
--- OUTSIDE RECORDS SUMMARY | 2025-04-26 12:59 | XMS_ITS | Continuity of Care Document ---
Author Organization SHAKEEL Callahan [facility] [place], [facility] ([facility]) Address [address] [place] [address] Assessment No assessment recorded. Plan of Treatment Reminders Order Date Submit Date Provider Last Modified By Organization Details Last Modified Time Details Appointments None recorded. Lab respiratory pathogens DNA and RNA panel, PCR, nasopharynx 2024 [email or web address] [facility] ([facility]), [address] [place], [address], 11:55:32 Referral None recorded. Procedures None recorded. Surgeries None recorded. Imaging None recorded. Medication Orders benzonatate 200 mg capsule 2024 [facility] [place], [address], 5 11:57:10 fluticasone propionate 50 mcg/actuati on nasal spray,suspe nsion 2024 025 [facility] [address] [place], [address], 5 11:57:13 Patient TargetsNo targets recorded. Patient InstructionsNo instructions recorded. Reason for Referral None Reported. Results Created Date Observation Date Name Description Value Unit Range Abnormal Flag Note LastModifiedBy Organization Detail LastModifiedTime 03/10/2003/10/2025 respi rator y patho gens DNA and RNA panel , PCR, nasop haryn x Covid negati ve Not Available [facility] ([facility]) [address] [place], [address], 03/10/2025 11:28:46 03/10/2003/10/2025 respi rator y patho gens DNA and RNA panel , PCR, nasop haryn x Rhinovirus negati ve Not Available [facility] ([facility]) [address] [place], [address], 03/10/2025 11:28:46 03/10/2003/10/2025 respi rator y patho gens DNA and RNA panel , PCR, nasop haryn x Influenza A negati ve Not Available [facility] ([facility]) [address] [place], [address], 03/10/2025 11:28:46 03/10/2003/10/2025 respi rator y patho gens DNA and RNA panel , PCR, nasop haryn x Influenza B negati ve Not Available [facility] ([facility]) [address] [place], [address], 03/10/2025 11:28:46 03/10/2003/10/2025 respi rator y patho gens DNA and RNA panel , PCR, nasop haryn x RSV negati ve Not Available [facility] ([facility]) [address] [place] [address], [address], 03/10/2025 11:28:46 Result Notes None recorded. Problems Name Problem SNOMED Code Status Onset Date Resolution Date Notes Provider Name and Address Organization Details Recorded Time Epilepsy 26087969 Active 2021 EPILEPSY; Recorded 06/26/2021 11:41AM by Lala Livingston CMT, Office Visit; Promoted; acuity set as *; Not Available [facility] 3 03:16:10 Pyloric stenosis 049727314 Active 2021 PYLORIC STENOSIS; 06/26/2021 11:41AM by Lala Livingston CMT, Office Visit; Promoted; acuity set as *; Not Available [facility] 3 03:16:22 Marijuana user 591005831 Active 2021 MARIJUANA USER; 06/26/2021 11:41AM by Lala Livingston CMT, Office Visit; Promoted; acuity set as *; Not Available [facility] 3 03:16:22 Post-trau matic stress disorder 96790788 Active 2021 PTSD (POST-TRAU MATIC STRESS DISORDER); 06/26/2021 11:41AM by Lala Livingston CMT, Office Visit; Promoted; acuity set as *; Not Available [facility] 3 03:16:22 Attention deficit hyperacti vity disorder 659072142 Active 2021 ADHD; 06/26/2021 11:41AM by Lala Livingston CMT, Office Visit; Promoted; acuity set as *; Not Available [facility] 3 03:16:24 Disorder of endocrine system 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 Medical Equipment None Reported. Allergies Allergen ID Allergen Name Allergen Category Reaction Reaction Severity Criticality Documentation Date Start Date Code Code System Note Provider Name and Address Organization Details Recorded Time 81417 cyclobenz aprine hydrochlo ride medicatio n Not available Not available Not available 11/27/2022 58605 RxNorm Comme nt: Recor ded 08/19 12:19 PM by Nena leo CMT, Histo rical Summa ry; Promo mathieu; Signi mel ce: *; Reaso n: Drug aller gy; ; Not Available [facility] 3 02:23:52 43913 menthol / methyl salicylat e medicatio n Not available Not available Not available 11/27/2022 78944 7 RxNorm Comme nt: Recor ded 08/19 12:19 PM by Nena leo CMT, Histo rical Summa ry; Promo mathieu; Signi fican ce: *; Reaso n: Drug aller gy; ; Not Available [facility] 3 02:23:52 60894 Ambien medicatio n Not available Not available Not available 11/27/2022 18007 5 RxNorm Comme nt: Recor ded 08/19 12:19 PM by Nena leo CMT, Histo rical Summa ry; Promo mathieu; Signi fican ce: *; Reaso n: Drug aller gy; ; Not Available [facility] 3 02:23:52 07618 Tegretol medicatio n Not available Not available Not available 11/27/2022 9 RxNorm Comme nt: Recor ded 08/19 12:19 PM by Nena leo CMT, Histo rical Summa ry; Promo mathieu; Signi fican ce: *; Reaso n: Drug aller gy; ; Not Available [facility] 3 02:23:52 67537 Zanaflex medicatio n Not available Not available Not available 11/27/2022 85597 6 RxNorm Comme nt: Recor ded 08/19 12:19 PM by Nena leo CMT, Histo rical Summa ry; Promo mathieu; Signi fican ce: *; Reaso n: Drug aller gy; ; Not Available [facility] 3 02:23:52 96930 carbamaze pine medicatio n rash Not available low 04/19/20252021 RxNorm Not Available [employer] - External Data Service - prod 5 13:55:37 37897 cyclobenz aprine medicatio n rash Not available low 04/19/20252020 32541 RxNorm Other React ion(s ): Other (See Comme nts) I black out Not Available [employer] Data Service - prod 13:55:37 94042 nalbuphin e medicatio n rash Not available low 04/19/20252015 7238 RxNorm Other React ion(s ): Hallu cinat ion Not Available [employer] Data [employer] - prod 13:55:37 61164 sulfameth oxazole / trimethop rim medicatio n rash Not available low 04/19/20252023 72284 RxNorm Not Available [employer] Data [employer] - prod 13:55:37 96060 tizanidin e medicatio n anxiety Not available high 04/19/20252020 35230 RxNorm I black out Not Available [facility] [employer] Data [employer] - [facility] 13:55:37 80634 zolpidem medicatio n rash Not available high 04/19/20252018 56995 RxNorm Proje ctile vomit unrec ogniz ed react ion (text : Nause a and Vomit ing, code: 43813 000) (from exter nal sourc e) Not Available [employer] - [facility] 13:55:37 Medications Name Sig Start Date Stop [...] Not Available Not Available BD Regular Bevel [place] 18 gauge x 1 USE ONCE WEEKLY [...] mg tablet daily 04/19 completed DOC CS/smf; 32959; Recorded 02/17/20 21 4:13PM by Chata Reyes RN (Authori manuelito through Fernando Hair DO), Refill Request; Refill [...] e 50 mcg/actua tion nasal spray,sushil pension Hiram 2 sprays every day by intranas al [...] eld; 0; Recorded 06/26/19 22 12:11PM by GINETTE Buckner, Office Visit; Not Available Not Available Not [...] besylate (bulk) daily 06/18 completed Recorded 06/26/19 22 12:13PM by GINETTE Buckner, Office Visit; Refill Quantity : 90; Tablet; Not Available Not Available Not Available azelastin e 137 mcg-fluti casone 50 mcg/spray nasal spray Hiram 1 spray twice a day by intranas [...] height Body mass index (BMI) Body weight Respiratory rate Oxygen saturation Heart rate Body temperature Systolic And Diastolic Provider Name and Address Organization Details Last Updated DateTime 167.64 cm 31.2 kg/m2 47321.4 3 g 17 /min 95 % 86 /min 98.2 [degF] 136/80 mm[Hg] PAULIE GARZA [facility] 11:24:27 Social History Question Answer Notes LastModified by pyco Details LastModified Time Tobacco Smoking Status Current Every Day Smoker Jo nascimento [facility] 11/09/2024 12:10:56 What Was The Date Of Your Most Recent Tobacco Screening? 04/19/2025 [email or web address] Information not available 04/19/2025 Sex: Unknown Functional Status Question Answer Note LastModified by pyco Details LastModified Time Do you or have you ever used any other forms of tobacco or nicotine? Yes [email or web address] Information not available 03/10/2025 Do you or have you ever used smokeless tobacco? Currently chews tobacco [email or web address] Information not available 03/10/2025 Do you or have you ever used any nicotine-free cigarettes, vape, or chewing tobacco? No [email or web address] Information not available 03/10/2025 Mental Status None recorded. Family History Nothing Reported. Medical History No medical history recorded. Past Encounters Encounter ID Performer Location Encounter Start Date Encounter Closed Date Diagnosis/Indication Diagnosis SNOMED-CT Code Diagnosis ICD10 Code Diagnosis IMO Codes Diagnosis Note [id number] GINETTE CHOWDARY [facility] ([facility]) [address] [place] [address] 03/10/2025 11:10:34 03/10/2025 12:50:45 Acute upper respiratory infection 17989301 J06.9 713991 Increase po fluids. Rest. May use otc meds as needed for symptoms. Return to clinic with any new or worsening symptoms. Health Concerns Section Related Observation LastModified by Organization Detai ls LastModified Time None Recorded Concern Status LastModified by Organization Details LastModified Time None Recorded Payers Encounter Date Sequence Insurance Name Policy Number Policy Barkley Covered Member ID Barkley Member ID Guarantor Name 03/10/2025 1 [employer] [place]AC[place] - [place]MO) [id number] Van Mckinley [id number] Van Mckinley Notes Date Note Type Note Provider Name and Address Organization Details Recorded Time 03/10/2025 text/html ROS as noted in the HPI walk-in; PCP Corin Solano Patient c/o upper respiratory symptoms for the last 3 days. Congestion, productive cough, drainage. No fever. Sore throat from coughing. No known ill contact. Has been using nyquil and dayquil. GINETTE CHOWDARY [address] [place], [address], [facility], Gen 03/10/2025 11:57:56
--- OUTSIDE RECORDS SUMMARY | 2025-04-26 12:59 | XMS_ITS | Clinical Summary ---
Author Organization [facility] Address [address] [address] Phone Care Team Providers Care Sql Report Writer Name Role Phone Non-Staff, Physician Primary Care Provider Unava ilable Allergies Active Allergy Reactions Criticality Noted Date Comments Carbamazepine Rash Low 12/17/2021 Cyclobenzaprine Other (See Comments) 10/21/2020 I black out Cyclobenzaprine Rash Low 12/17/2021 Nalbuphine Hallucination Low 09/11/2015 Nalbuphine Rash Low 12/17/2021 Sulfamethoxazole-Trimeth oprim Rash Low 12/02/2023 Tizanidine Other (See Comments) 10/21/2020 I black out Tizanidine Syncope Medium 12/17/2021 Zolpidem Nausea and Vomiting Medium 01/09/2019 Projectile vomit Zolpidem Rash Low 12/17/2021 Medications phenazopyridin e 200 mg tablet Take 1 Tablet (200 mg) by mouth 3 times daily. 9 Tablet 0 9 Active lisinopriL (PRINIVIL) 10 mg tablet Take 10 mg by mouth 2 times daily. 9 Active buprenorphine- nalOXone (SUBOXONE FILM) 4-[address] under tongue daily. 9 Active PARoxetine HCl (PAXIL) 20 mg tablet Take 20 mg by mouth daily. 9 Active ondansetron (ZOFRAN ODT) 4 mg Tablet, Rapid Dissolve Take 1 Tablet (4 mg) by mouth every 6 hours as needed for Nausea. 15 Tablet 0 1 Active HYDROcodone-ac etaminophen (NORCO) 5-325 mg tabletIndicati ons:RUQ abdominal pain Take 1 Tablet by mouth every 4 hours as needed for Pain. Do not drive, operate machinery, work at heights, or make important decisions while taking Medication may cause you to be dizzy or drowsey Medication may cause constipation take 2 usho-nrz-hcjpiar stool softeners daily while taking. Max Daily Amount: 6 Tablets 10 Tablet 0 1 Active testosterone cypionate (DEPO-TESTOSTE LISBET) 200 mg/mL Oil Inject 0.2 mL by intramuscular injection every 7 days. 7 Active amLODIPine (NORVASC) 10 mg tablet Take 1 Tablet (10 mg) by mouth daily. 30 Tablet 1 7 Active ARIPiprazole (ABILIFY) 10 mg tablet Take 1 Tablet (10 mg) by mouth daily. 30 Tablet 1 7 Active OXcarbazepine (TRILEPTAL) 600 mg tablet Take 1 Tablet (600 mg) by mouth 2 times daily. 60 Tablet 1 7 Active divalproex (DEPAKOTE) 500 mg delayed release tablet Take 500 mg by mouth 2 times daily. 2 Active testosterone cypionate (DEPO-TESTOSTE LISBET) 200 mg/mL Oil Inject 100 mg by intramuscular injection every 7 days. 2 Active fluticasone-um eclidinium-hector anterol (Trelegy Ellipta) 100-62.5-25 mcg Disk with Device Take 1 Puff by inhalation daily. Active benztropine (COGENTIN) 1 mg tablet Take 1 mg by mouth 2 times daily. Active propranoloL (INDERAL) 10 mg tablet Take 10 mg by mouth 2 times daily. Active acamprosate (CAMPRAL) 333 mg Tablet, Delayed Release (E.C.) Take 333 mg by mouth 2 times daily. Active topiramate (TOPAMAX) 25 mg tablet Take 25 mg by mouth daily. Active prazosin (MINIPRESS) 2 mg capsule Take 2 mg by mouth daily at bedtime. Active montelukast (SINGULAIR) 10 mg tablet Take 10 mg by mouth daily at bedtime. Active loratadine (CLARITIN) 10 mg tablet Take 10 mg by mouth daily. Active levocetirizine (XYZAL) 5 mg tablet Take 5 mg by mouth late in the day. Active paliperidone (INVEGA) 6 mg Extended Release 24 hour tablet Take 12 mg by mouth daily. Active ondansetron (ZOFRAN ODT) 4 mg Tablet, Rapid Dissolve Take 1 Tablet (4 mg) by mouth every 6 hours as needed for Nausea/Emesis. Dissolve tablet on top of tongue, then swallow with saliva. 4 Tablet 4 Active HYDROcodone-ac etaminophen (NORCO) 5-325 mg tabletIndicati ons:Abdominal pain, acute, right lower quadrant Take 1 Tablet by mouth every 4 hours as needed for Pain, Moderate. 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 Acute cystitis with hematuria Benign hypertension Encounters Date Type Department Care Team Description 04/16/2025 External Device Data [facility] ABSTRACTION Provider, Abstract 04/09/2025 External Device Data [facility] Provider, Abstract 04/09/2025 External Device Data [facility] Provider, Abstract 04/09/2025 External Device Data [facility]CTION Provider, Abstract 03/12/2025 External Device Data [facility]CTION Provider, Abstract 03/12/2025 External Device Data [facility]STRACTION Provider, Abstract 03/05/2025 External Device Data [facility] ABSTRACTION Provider, Abstract 02/20/2025 External Device Data [facility] ABSTRACTION Provider, Abstract 02/12/2025 External Device Data [facility] ABSTRACTION Provider, Abstract 02/12/2025 External Device Data [facility] ABSTRACTION Provider, Abstract from Last 3 Months Immunizations Immunization Administration Dates Next Due (ADACEL/BOOSTRIX)(10 YR UP) TDAP VACCINE, 0.5ML, IM 08/09/2016 Family History Medical History Relation Name Comments Amblyopia Mother Healthy Mother Blindness Other Breast Cancer Paternal Aunt Breast Cancer Paternal Grandmother Cataract Neg Hx Detachment/Tears Neg Hx Diabetes Neg Hx Glaucoma Neg Hx Macular Degen Neg Hx Strabismus Neg Hx Relation Name Status Comments Father Alive Mother Alive Other Paternal Aunt Paternal Grandmother Social History Tobacco Use Types Packs/Day Years Used Date Smoking Tobacco: Former Cigarettes Smokeless Tobacco: Current Chew Tobacco Cessation:Ready to Q uit: Not Asked; Counseling Given: Not Answered Alcohol Use Standard Drinks/Week Comments Not Currently 0 (1 standard drink = 0.6 oz pur e alcohol) Feeling Safe Answer Date Recorded Are you in a relationship wi th someone who hurts you emotionally and/or physically? No 01/12/2025 Comments Unknown Sex and Gender Information Value Date Recorded Sex Assigned at Not on file Legal Sex Male 9:49 AM CDT Gender Identity Not on file Sexual Orientation Not on file Last Filed Vital Signs Vital Sign Reading Time Taken Comments Blood Pressure 107/76 01/12/2025 2:30 PM CDT Pulse 69 01/12/2025 2:30 PM CDT Temperature 36.7 C (98 F) 01/12/2025 11:41 AM CDT Respiratory Rate 16 01/12/2025 2:00 PM CDT Oxygen Saturation 97% 01/12/2025 2:30 PM CDT Inhaled Oxygen Concentration - - Weight 97.8 kg (215 lb 9.6 oz) 12/02/2023 10:54 PM CDT Height 167.6 cm (5' 6 ) 12/02/2023 10:54 PM CDT Body Mass Index 34.8 12/02/2023 10:54 PM CDT Plan of Treatment Upcoming Encounters Date Type Department Care Team (Late st Contact Info) Description 09/25/2025 9:00 AM CDT Office Visit [facility] [place] [facility] [address] [address] Kristel Ryan MD [address] [facility] [address] [place] [address] Health Maintenance Due Date Last Done Comments Pre-Diabetes and Diabetes Screening 1984 HEPATITIS B VACCINES (1 of 3 - 19+ 3-dose series) 12/10/2003 INFLUENZA VACCINE (#1) 2024 DTAP/TDAP/TD VACCINES (3 - Td or Tdap) 07/09/2031, 08/09/2016 HPV VACCINES (No Doses Required) Completed Insurance [facility] MEDICAID [facility] MEDICAID Care Teams Sql Report Writer Relationship Specialty Start Date End Date Non-Staff, Physician NO ADDRESS ON FILE PCP - General 10/21/20
--- OUTSIDE RECORDS SUMMARY | 2025-04-26 12:59 | XMS_ITS | Data Portability ---
Author Organization SHAKEEL Naidu [facility], Gen, [facility] Address [address] [address] Assessment No assessment recorded. Plan of Treatment Reminders Order Date Submit Date Provider Last Modified By Organization Details Last Modified Time Details Appointments None recorded. Lab urinalysis, dipstick 2024 025 [facility] ([facility]), [address] [place], [address], 14:17:41 culture, urine 2024 025 KAMIAH [facility], [address] [place] [address], dg [address] [place], [address], 00:53:28 respiratory pathogens DNA and RNA panel, PCR, nasopharynx [address] ([facility]), [address] [place], [address], 11:55:32 Referral None recorded. Procedures None recorded. Surgeries None recorded. Imaging None recorded. Medication Orders baclofen 5 mg tablet 2024 025 [facility], [address] [place], [address], 5 14:27:44 benzonatate 200 mg capsule 2024 025 [facility], [address] [place], [address], 5 11:57:10 fluticasone propionate 50 mcg/actuati on nasal spray,suspe nsion 2024 025 [facility], [address] [place], [address], 5 11:57:13 prednisone 20 mg tablet 2024 025 [facility], [address] [place], [address], 5 05:01:50 azelastine 137 mcg-flutica sone 50 mcg/spray nasal spray 2024 025 [facility], [address] [place], [address], 5 12:26:55 prednisone 20 mg tablet 2024 025 [facility], [address] [place], [address], 5 05:01:50 azelastine 137 mcg (0.1 %) nasal spray 2024 025 [facility], [address] [place] [address], [address], 12:08:02 Patient TargetsNo targets recorded. Patient InstructionsNo instructions recorded. Reason for Referral None Reported. Results Created Date Observation Date Name Description Value Unit Range Abnormal Flag Note LastModifiedBy Organization Detail LastModifiedTime 03/10/2003/10/2025 respi rator y patho gens DNA and RNA panel , PCR, nasop haryn x Covid negati ve Not Available [facility] ([facility]) [address] [place] [address], [address], 03/10/2025 11:28:46 03/10/20 25 03/10/2025 respi rator y patho gens DNA and RNA panel , PCR, nasop haryn x Rhinovirus negati ve Not Available [facility] ([facility]) [address] [place], [address], 03/10/2025 11:28:46 03/10/20 25 03/10/2025 respi rator y patho gens DNA and RNA panel , PCR, nasop haryn x Influenza A negati ve Not Available [facility] ([facility]) [address] [place] [address], [address], 03/10/2025 11:28:46 03/10/20 25 03/10/2025 respi rator y patho gens DNA and RNA panel , PCR, nasop haryn x Influenza B negati ve Not Available [facility] ([facility]) [address] [place] [address], [address], 03/10/2025 11:28:46 03/10/20 25 03/10/2025 respi rator y patho gens DNA and RNA panel , PCR, nasop haryn x RSV negati ve Not Available [facility] ([facility]) [address] [place] [address], [address], 03/10/2025 11:28:46 04/19/20 25 04/20/2025 CULTU RE, URINE , ROUTI NE culture, urine, routine SEE NOTE CULTU RE, URINE , ROUTI NE Micro Numbe r: [id number] Test Statu s: Final Speci men [...] Cultu re Trans port Tube. Not Available [facility] [address] [place], [address], 04/21/2025 00:53:28 04/19/20 25 04/19/2025 urina lysis , dipst ick Leukocytes Large Not Available [facility] [address] [place], [address], 04/19/2025 14:09:07 04/19/20 25 04/19/2025 urina lysis , dipst ick Nitrite negati ve Not Available [facility] ([facility]) [address] [place], [address], 04/19/2025 14:09:07 04/19/20 25 04/19/2025 urina lysis , dipst ick Urobilinogen .2 Not Available [facility] ([facility]) [address] [place] [address], [address], 04/19/2025 14:09:07 04/19/20 25 04/19/2025 urina lysis , dipst ick Protein Negati ve Not Available [facility] ([facility]) [address] [place], [address], 04/19/2025 14:09:07 04/19/20 25 04/19/2025 urina lysis , dipst ick pH 7.0 Not Available [facility] ([facility]) [address] [place] [address], [address], 04/19/2025 14:09:07 04/19/20 25 04/19/2025 urina lysis , dipst ick Blood Hemoly zed: Trace Not Available [facility] ([facility]) [address] [place] [address], [address], 04/19/2025 14:09:07 04/19/20 25 04/19/2025 urina lysis , dipst ick Specific [place] 1.020 Not Available [facility] ( [facility]) [address] [place], [address], 04/19/2025 14:09:07 04/19/20 25 04/19/2025 urina lysis , dipst ick Ketone Negati ve Not Available [facility] ([facility]) [address] [place], [address], 04/19/2025 14:09:07 04/19/20 25 04/19/2025 urina lysis , dipst ick Bilirubin Negati ve Not Available [facility] ([facility]) [address] [place], [address], 04/19/2025 14:09:07 04/19/2004/19/2025 urina lysis , dipst ick Glucose Negati ve Not Available [facility] ([facility]) [address] [place], [address], 04/19/2025 14:09:07 04/19/2004/19/2025 urina lysis , dipst ick Appearance Slight ly Cloudy Not Available [facility] ([facility]) [address] [place], [address], 04/19/2025 14:09:07 04/19/2004/19/2025 urina lysis , dipst ick Color Yellow Not Available [facility] ([facility]) [address] [place], [address], 04/19/2025 14:09:07 Result Notes None recorded. Problems Name Problem SNOMED Code Status Onset Date Resolution Date Notes Provider Name and Address Organization Details Recorded Time Epilepsy 89409915 Active 2021 EPILEPSY; Recorded 06/26/2021 11:41AM by Lala Livingston CMT, Office Visit; Promoted; acuity set as *; Not Available [facility] 3 03:16:10 Pyloric stenosis 446294020 Active 2021 PYLORIC STENOSIS; 06/26/2021 11:41AM by Lala Livingston CMT, Office Visit; Promoted; acuity set as *; Not Available [facility] 3 03:16:22 Marijuana user 448571134 Active 2021 MARIJUANA USER; 06/26/2021 11:41AM by Lala Livingston CMT, Office Visit; Promoted; acuity set as *; Not Available [facility] 3 03:16:22 Post-trau matic stress disorder 34434588 Active 2021 PTSD (POST-TRAU MATIC STRESS DISORDER); 06/26/2021 11:41AM by Lala Livingston CMT, Office Visit; Promoted; acuity set as *; Not Available [facility] 3 03:16:22 Attention deficit hyperacti vity disorder 905878096 Active 2021 ADHD; 06/26/2021 11:41AM by Lala Livingston CMT, Office Visit; Promoted; acuity set as *; Not Available [facility] 3 03:16:24 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 Medical Equipment None Reported. Allergies Allergen ID Allergen Name Allergen Category Reaction Reaction Severity Criticality Documentation Date Start Date Code Code System Note Provider Name and Address Organization Details Recorded Time 97892 cyclobenz aprine hydrochlo ride medicatio n Not available Not available Not available 11/27/2022 64577 RxNorm Comme nt: Recor ded 08/19 12:19 PM by Nena leo CMT, Histo rical Summa [place]; Promo mathieu; Signi fican ce: *; Reaso n: Drug aller gy; ; Not Available [facility] 3 02:23:52 63401 menthol / methyl salicylat e medicatio n Not available Not available Not available 11/27/2022 88652 7 RxNorm Comme nt: Recor ded 08/19 12:19 PM by Nena leo CMT, Histo rical Summa [place]; Promo mathieu; Signi fican ce: *; Reaso n: Drug aller gy; ; Not Available [facility] 3 02:23:52 65911 Ambien medicatio n Not available Not available Not available 11/27/2022 63536 5 RxNorm Comme nt: Recor ded 08/19 12:19 PM by Nena leo CMT, Histo rical Summa ry; Promo mathieu; Signi fican ce: *; Reaso n: Drug aller gy; ; Not Available [facility] 3 02:23:52 79221 Tegretol medicatio n Not available Not available Not available 11/27/2022 9 RxNorm Comme nt: Recor ded 08/19 12:19 PM by Nena leo CMT, Histo rical Summa ry; Promo mathieu; Signi fican ce: *; Reaso n: Drug aller gy; ; Not Available [facility] 3 02:23:52 64720 Zanaflex medicatio n Not available Not available Not available 11/27/2022 09533 6 RxNorm Comme nt: Recor ded 08/19 12:19 PM by Nena leo CMT, Histo rical Summa ry; Promo mathieu; Signi fican ce: *; Reaso n: Drug aller gy; ; Not Available [facility] 3 02:23:52 25909 carbamaze pine medicatio n rash Not available low 04/19/20252021 RxNorm Not Available [employer] - [employer] - prod 5 13:55:37 96074 cyclobenz aprine medicatio n rash Not available low 04/19/20252020 72544 RxNorm Other React ion(s ): Other (See Comme nts) I black out Not Available [employer] Data [employer] - prod 13:55:37 91547 nalbuphin e medicatio n rash Not available low 04/19/20252015 7238 RxNorm Other React ion(s ): Hallu cinat ion Not Available [employer] - prod 13:55:37 60891 sulfameth oxazole / trimethop rim medicatio n rash Not available low 04/19/20252023 06969 RxNorm Not Available [employer] - prod 13:55:37 18715 tizanidin e medicatio n anxiety Not available high 04/19/20252020 13320 RxNorm I black out Not Available [employer] Service - prod 13:55:37 49587 zolpidem medicatio n rash Not available high 04/19/20252018 65811 RxNorm Proje ctile vomit unrec ogniz ed react ion (text : Nause a and Vomit ing, code: 98994 000) (from exter nal sourc e) Not Available [employer] - prod 13:55:37 Medications Name [...] Not Available Not Available BD Regular Bevel [place] 18 gauge x 1 USE ONCE WEEKLY [...] mg tablet daily 04/19 completed DOC CS/smf; 42437; Recorded 02/17/20 4:13PM by Chata Reyes RN (Authori zed [...] e 50 mcg/actua tion nasal spray,sushil pension [place] 2 sprays every day by intranas al [...] [place]; 0; Recorded 06/26/19 12:11PM by GINETTE Buckner, Office Visit; Not [...] 137 mcg-fluti casone 50 mcg/spray nasal spray [place] 1 spray twice a day by intranas [...] (BMI) Body weight Oxygen saturation Heart rate Body temperature Systolic And Diastolic Provider Name and Address Organization Details Last Updated DateTime 5 167.64 cm 34.6 kg/m2 75538.5 7 g 95 % 71 /min 97.9 [degF] 138/72 mm[Hg] [facility] 5 12:15:47 Date Recorded Body height Body mass index (BMI) Body weight Body temperature Heart rate Oxygen saturation Systolic And Diastolic Provider Name and Address Organization Details Last Updated DateTime 5 167.64 cm 32.2 kg/m2 89140.2 8 g 97.9 [degF] 64 /min 97 % 142/78 mm[Hg] [facility] 5 12:13:20 Date Recorded Body height Body mass index (BMI) Body weight Respiratory rate Oxygen saturation Heart rate Body temperature Systolic And Diastolic Provider Name and Address Organization Details Last Updated DateTime 5 167.64 cm 31.2 kg/m2 76772.4 3 g 17 /min 95 % 86 /min 98.2 [degF] 136/80 mm[Hg] PAULIE GARZA [facility] 5 11:24:27 Date Recorded Body height Body mass index (BMI) Body weight Oxygen saturation Heart rate Respiratory rate Body temperature Systolic And Diastolic Provider Name and Address Organization Details Last Updated DateTime 5 167.64 cm 30.4 kg/m2 94083.7 7 g 96 % 76 /min 20 /min 98.6 [degF] 128/76 mm[Hg] FORTINO RUVALCABA [facility] 5 14:07:04 Social History Question Answer Notes LastModified by Zawattat ion Details LastModified Time Tobacco Smoking Status Current Every Day Smoker Jo Keith nascimento [facility] 11/09/2024 12:10:56 What Was The Date Of Your Most Recent Tobacco Screening? 04/19/2025 [email or web address] Information not available 04/19/2025 Sex: Unknown Functional Status Question Answer Note LastModified by [employer] ion Details LastModified Time Do you or have you ever used any other forms of tobacco or nicotine? Yes [email or web address] Information not available 03/10/2025 Do you or have you ever used smokeless tobacco? Currently chews tobacco [email or web address] Information not available 03/10/2025 Do you or have you ever used any nicotine-free cigarettes, vape, or chewing tobacco? No [email or web address] Information not available 03/10/2025 Mental Status None recorded. Family History Nothing Reported. Medical History No medical history recorded. Past Encounters Encounter ID Performer Location Encounter Start Date Encounter Closed Date Diagnosis/Indication Diagnosis SNOMED-CT Code Diagnosis ICD10 Code Diagnosis IMO Codes Diagnosis Note [id number] GINETTE OQUENDO [facility] ([facility]) [address] [place] [address] 06/18/2024 12:05:27 06/18/2024 13:16:33 Middle ear effusion 8601182008 H74.8X9 Discussed use of prescribed medication s in addition to a decongesta nt. If you develop fever or worsening symptoms then return for re-evaluat ion. [id number] BLAKE JUAREZ [facility] ([facility]) [address] [place] [address] 11/09/2024 12:04:32 11/13/2024 12:21:14 Bilateral earache 478180276 H92.03 9526028 Discussed use of prednisone and nasal spray. If symptoms worsen then return for re-evaluat ion. may use otc for symptom management [id number] GINETTE CHOWDARY [facility] ([facility]) [address] [place] [phone] 03/10/2025 11:10:34 03/10/2025 12:50:45 Acute upper respiratory infection 73928712 J06.9 618243 Increase po fluids. Rest. May use otc meds as needed for symptoms. Return to clinic with any new or worsening symptoms. [id number] GINETTE CHOWDARY [facility] ([facility]) [address] [place] [address] 04/19/2025 13:54:37 04/19/2025 17:00:22 Flank pain 169941539 R10.A3 648134 Increase po fluids. Will send culture. Spasm of back muscles 20 7526885 M62.830 367031 Pain is in the lower back with spasm noted on exam. Will give rx for baclofen. Discussed stretching the back. RTC with any new or worsening symptoms. Health Concerns Section Related Observation LastModified by Organization Detai ls LastModified Time None Recorded Concern Status LastModified by Organization Details LastModified Time None Recorded Advance Directives Directive None Recorded Payers Insurance Date Sequence Insurance Name Policy Number Policy Barkley Covered Member ID Barkley Member ID Guarantor Name 04/22/2025 1 [employer] [place]MED[place]AC[place] - HMO[place] [id number] Van Mckinley [id number] Van Mckinley 03/10/2025 1 [place] Van Mckinley [id number] Van Mckinley Notes Date Note Type Note Provider Name and Address Organization Details Recorded Time 06/18/2024 text/html ROS as noted in the HPI walk in ptPt has bilateral ear pain, sinus drainage, runny nose and started getting a cough. The ears feel full and have pressure. Symptoms started 2-3 days. Denies fever or body aches. has not taken any otc meds. BLAKE JUAREZ [employer] [address] [place] [address], [phone], [facility] 06/18/2024 14:19:18 11/09/2024 text/html ROS as noted in the HPI walk in ptPT is having bilateral ear pain, nasal congestion and scratchy throat for 3 days. Denies fever, cough. Has not taken any otc meds for this. is eating/drinking normally. remains active. BLAKE JUAREZ [address], [phone], [facility] 11/11/2024 14:19:21 03/10/2025 text/html ROS as noted in the HPI walk-in; PCP Corin Solano Patient c/o upper respiratory symptoms for the last 3 days. Congestion, productive cough, drainage. No fever. Sore throat from coughing. No known ill contact. Has been using nyquil and dayquil. FRANKI THOMASGINETTE [address] [place] [address], [phone], [facility] 03/10/2025 11:57:56 04/19/2025 text/html Back PainReporte d by PatientHPIFor [...] been present since yesterday while driving to [facility].ROS as noted in the HPI Walk-in FRANKI THOMASGINETTE [address] [place] [address], [phone], [facility], LJuniorLFrancisco. 04/19/2025 14:27:51
[2025-04-26 13:30] VITALS: BP 150/76; PULSE 64; RESP 14; TEMP 36.6; O2SAT 99; BMI 29.9
[2025-04-26 15:01] VITALS: BP 129/78
--- NOTE | 2025-04-26 15:09 | CTR_ITS ---
PROCEDURE INFORMATION: Exam: CT Abdomen And Pelvis Without Contrast Exam date and time: 04/26/2025 3:15 PM Age: 39 years old Clinical indication: Abdominal pain; Other: Bilateral flank pain; Additional info: Bilateral flank pain, HX of stones, hesitancy/pressure TECHNIQUE: Imaging protocol: Computed tomography of the abdomen and pelvis without contrast. Radiation optimization: All CT scans at this facility use at least one of these dose optimization techniques: automated exposure control; mA and/or kV adjustment per patient size (includes targeted exams where dose is matched to clinical indication); or iterative reconstruction. COMPARISON: CT abdomen pelvis w con* [id number] 08/30/2024 6:37 PM RADIATION DOSE METRICS: Total DLP (mGy-cm): 814.53 FINDINGS: Lungs: Areas of reticulation and linear scar versus atelectasis noted in the lung bases. Liver: Stable subcentimeter hepatic cysts. Prior cholecystectomy. Gallbladder and biliary ducts: No biliary dilatation. Pancreas: No significant pancreatic pathology. Spleen: No significant splenic pathology. Adrenal glands: No significant adrenal pathology. Kidneys and ureters: Multiple bilateral renal calculi measuring up to 4 mm again noted. No evidence of ureteral calculus or upper tract obstruction. Stomach and bowel: No significant pathology. Appendix: Appendix within normal limits. Intraperitoneal space: No ascites. Vasculature: No abdominal aortic aneurysm. Lymph nodes: No evidence of lymphadenopathy. Urinary bladder: Bladder is incompletely distended limiting assessment of the wall with no definite pathology demonstrated. Stable small rounded fluid attenuation structure of the anterior bladder on series 3, image 189 possibly representing a small urachal diverticulum. Reproductive: Prior hysterectomy. No significant adnexal pathology. Bones/joints: Marked L5-S1 degenerative disc disease. Soft tissues: Small fat containing umbilical hernia. CT/CT kidney stone [id number] IMPRESSION: No acute pathology. Bilateral nonobstructive renal calculi and other minor findings described above.
[2025-04-26 15:18] LABS: Glucose Urine UA Negative (Normal); Nitrate Urine Negative (Negative); Specific Gravity, Urine 1.015 (1.005-1.030)
--- NOTE | 2025-04-26 15:23 | W.ED.BACK ---
HPI - Back Pain/Injury General: Chief Complaint: Back Pain/Injury Stated Complaint: lower back pain, hard to urinate Time Seen by Provider: 04/26/25 14:24 Source: patient Mode of arrival: ambulatory Limitations: no limitations History of Present Illness: Patient is a 39-year-old biological female who presents to the emergency department complaining of bilateral flank pain for a week. She reports that she has a history of kidney stones, this feels similar but has never persisted for a week like they have today. Also notes that last night began having symptoms of hesitancy with urination, stating that when she went to urinate she felt pressure and that it was difficult to urinate. No blood however, and no dysuria. No fevers or chills. No nausea or vomiting. No abdominal pain or chest pain. No shortness of breath. Vitals are stable at this time she is nontoxic-appearing. Has not taken any medications. MD elicited complaint: other (Bilateral flank pain) Pertinent past history: kidney stones Onset (ago): week(s) (1) Timing: constant Severity: similar to previous episodes Associated symptoms: Deny abdominal pain, chills, dysuria, fatigue, fever(s), hematuria, nausea or vomiting Related Data Home Medications ?Medication ?Instructions ?Recorded ?Confirmed syringe with needle 3 mL 22 x 1 #100 ea 01/04/24 03/19/2505/03 testosterone cypionate 200 mg/mL 200 mg IM ONCE 07/02/24 03/19/25 intramuscular oil Previous Rx's ?Medication ?Instructions ?Recorded topiramate 25 mg tablet 25 mg PO DAILY 90 days #90 tabs 12/23/23 meloxicam 15 mg tablet 15 mg PO DAILY #7 tabs 01/17/25 acamprosate 333 mg tablet,delayed 666 mg (2 x 333 mg) PO BID #120 02/14/25 release tabs benztropine 1 mg tablet 1 mg PO QAM #30 tabs 02/14/25 divalproex 500 mg tablet,extended 500 mg PO BID #60 tabs 02/14/25 release 24 hr prazosin 2 mg capsule 6 mg (3 x 2 mg) PO BEDTIME #90 caps 02/14/25 propranolol 10 mg tablet 10 mg PO TID 90 days #90 tabs 02/14/25 sertraline 25 mg tablet (Zoloft) 25 mg PO .morning #30 tabs 02/14/25 trazodone 150 mg tablet 150 mg PO BEDTIME PRN 02/14/25 sleep/insomnia #30 tabs rizatriptan 10 mg disintegrating See Rx Instructions PO .COMPLEX 02/20/25 tablet (Maxalt-SAIL FINISHER MACHINE) #10 tabs diclofenac sodium 1 % topical gel 2 g topical QID #50 grams 02/27/25 umeclidinium 62.5 mcg-vilanterol 1 inh inhalation DAILY #60 ea 02/27/25 25 mcg/actuation powdr for inhalation (Anoro Ellipta) ondansetron 4 mg disintegrating 4 mg PO Q8H PRN nausea and 02/28/25 tablet vomiting #20 tabs tirzepatide (weight loss) 2.5 2.5 mg (0.5 mL) SUBCUT .weekly #2 03/19/25 mg/0.5 mL subcutaneous pen mL injector (Zepbound) Allergies Allergy/AdvReac Type Severity Reaction Status Date / Time sulfamethoxazole (From Allergy Intermediate nausea, Verified 04/26/25 13:37 Bactrim) vomiting, diarrhea trimethoprim (From Bactrim) Allergy Intermediate nausea, Verified 04/26/25 13:37 vomiting, diarrhea clindamycin Allergy Mild ADR-Gastrointestinal Verified 04/26/25 13:37 Upset carbamazepine (From Tegretol) Allergy RASH Verified 04/26/25 13:37 cyclobenzaprine (From Allergy RASH Verified 04/26/25 13:37 Flexeril) nalbuphine (From Nubain) Allergy RASH Verified 04/26/25 13:37 tizanidine Allergy Unknown Verified 04/26/25 13:37 zolpidem (From Ambien) Allergy RASH Verified 04/26/25 13:37 Review of Systems General: Reports: 10 or more systems reviewed and unremarkable except in HPI and below Const: Denies: fever(s), chills or fatigue Eyes: Denies: change in vision ENMT: Denies: throat pain, ear or mastoid pain or nasal discharge Card: Denies: chest pain, palpitations, swelling of feet/ankles or lightheadedness Resp: Denies: dyspnea, productive cough or wheezing GI: Denies: abdominal pain, nausea, vomiting, diarrhea or constipation : Reports: flank pain and difficulty voiding; Denies: dysuria, hematuria, vaginal bleeding or vaginal discharge Musc: Denies: neck pain, back pain or joint pain Skin/Breast: Denies: rash Neuro: Denies: headache(s), numbness in extremities or weakness in extremities PFSH ED PFSH: Medical History Alcohol use disorder, severe, dependence Maxillary sinusitis Recurrent right knee instability Intolerance of drug 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 Positive Yu test of right knee Generalized anxiety disorder with panic attacks Bipolar II disorder hypomanic with mixed features Post-traumatic stress disorder, chronic Nicotine dependence, other tobacco product, with other nicotine-induced disorders Cannabis use disorder, severe, dependence Allergic rhinitis due to allergen Cough COVID-19 URI with cough and congestion Abdominal pain History of Helicobacter pylori infection Borderline personality disorder Psychiatric care Personal history of pyloric stenosis Migraine headache Generalized epilepsy Degenerative arthritis of spine Pyloric stenosis Pneumonitis Surgical History Status post hysterectomy with oophorectomy S/P cholecystectomy H/O esophagogastroduodenoscopy (09/30/21) History of adenectomy Hx of tonsillectomy Family History Other Cancer Social History Smoking and tobacco/nicotine status: current every day tobacco/nicotine user (vape) smokeless tobacco Smokeless tobacco user: chewing tobacco Smokeless tobacco details: 15 pouches a day Quit status (tobacco/nicotine): has quit using Year quit tobacco: 2023 Former quit date comment: 1 ppd X 32 years Second hand smoke exposure: Yes Alcohol intake: former Substance/Drug Use: former Date of last use: 07.18.23 Former substance use details: marijuana Adopted: No Caregiver/support person: No Lives independently: Yes Household members: spouse, family and children Housing: House Marital status: Marital status details: 2 years Number of children: 2 Number of grandchildren: 0 Highest education level completed: Some College, No Degree service: No Current occupational status: employed 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 Pets and animals: Yes Pets & animals: cat(s), dog(s) and snake(s) Leisure activites: music, games, fishing and other Leisure activities details: shopping, go to the river Sexually active: Yes Current gender identity: Trans [id number] Cherri/Holiness: None Special cherri needs: Yes Agree to transfusion: No Physical Exam Const: COMMON NORMALS: no acute distress, average body habitus, patient oriented x3, no limitations, healthy appearing, alert and well nourished GENERAL APPEARANCE: cooperative and comfortable ORIENTATION/CONSCIOUSNESS: Yes awake OTHER: Nontoxic Neck/C-Spine: COMMON NORMALS: full ROM, supple and no meningeal signs Resp: COMMON NORMALS: normal respiratory effort, No retractions, No use of accessory muscles and clear to auscultation bilaterally AUSCULTATION: clear to auscultation bilaterally, no crackles, no rales, no rhonchi and no wheezes Cardio: COMMON NORMALS: regular rate, regular rhythm, No gallops present (Cardio), No clicks present (Cardio), No murmurs present (Cardio) and No rub (Cardio) RATE: regular rate RHYTHM: regular rhythm GI: COMMON NORMALS: Normal to inspection, nondistended, normoactive bowel sounds present, Soft to palpation, non-tender and no masses AUSCULTATION: Yes normoactive bowel sounds PALPATION: Yes Soft to palpation and No Guarding due to palpation present (GI) : BLADDER/KIDNEY EXAM: Yes CVA tenderness Back/Pelvis: GENERAL BACK: Yes CVA tenderness CVA tenderness: bilateral (Right worse than left) Extremity: COMMON NORMALS: normal to inspection and full ROM Neuro: COMMON NORMALS: patient oriented x3, moves all extremities, no focal motor deficits and no sensory deficits noted SENSORIUM/ORIENTATION: Yes alert MENINGEAL SIGNS: Yes no meningeal signs Psych: COMMON NORMALS: mental status grossly normal, cooperative and speech normal SPEECH: Yes normal speech Skin: COMMON NORMALS: no rashes or lesions noted GENERAL SKIN EXAM: no rashes or lesions noted Course Vital Signs: Vital signs: Vital Signs Temperature 97.9 F 04/26/25 13:30 Pulse Rate 64 04/26/25 13:30 Respiratory Rate 14 04/26/25 13:30 Blood Pressure 129/78 04/26/25 15:01 Pulse Oximetry 99 04/26/25 13:30 Oxygen Delivery Me thod Room Air 04/26/25 13:30 MDM - Back Pain/Injury Medical Decision Making Patient presented stating he was having symptoms of possible kidney stone, however a weeks worth of bilateral back pain rating towards the flank. Urinary symptom of hesitancy with urination but no burning or bleeding. Blood work is all unremarkable, urine white blood cells slightly increased with leukocytes, but negative bacteria and negative nitrate. No sick systemic symptoms of fever or chills. Abdomen pelvis CT showing no acute pathology. Suspect musculoskeletal back pain, will treat with IV Toradol here in the ED and encouraged symptomatic therapy for home. Gave return cautions of which they verbalized understanding. Labs 04/26/25 16:01 04/26/25 16:01 Radiology Impressions Abdomen/Pelvis CT 04/26/25 15:09 IMPRESSION: No acute pathology. Bilateral nonobstructive renal calculi and other minor findings described above. Laboratory Results WBC 6.14 10^3/uL (3.29-11.43) 04/26/25 16:01 RBC 4.29 10^6/uL (3.85-5.65) 04/26/25 16:01 Hgb 13.80 g/dL (11.27-16.99) 04/26/25 16:01 Hct 40.8 % (36-47) 04/26/25 16:01 MCV 95.1 fl (85-98) 04/26/25 16:01 MCH 32.2 pg (27-33) 04/26/25 16:01 MCHC 33.8 g/dL (30-55) 04/26/25 16:01 RDW 12.2 % (12.1-15.1) 04/26/25 16:01 Plt Count 136 10^3/cmm (157-399) L 04/26/25 16:01 MPV 11.1 fL (7.4-10.4) H 04/26/25 16:01 Neut % (Auto) 48.8 % 04/26/25 16:01 Lymph % (Auto) 38.1 % 04/26/25 16:01 [place] % (Auto) 7.2 % 04/26/25 16:01 Eos % (Auto) 4.9 % 04/26/25 16:01 Baso % (Auto) 0.7 % 04/26/25 16:01 Neut # (Auto) 3.00 10^3/uL (1.8-7.7) 04/26/25 16:01 Lymph # (Auto) 2.3 10^3/uL (0.8-4.8) 04/26/25 16:01 [place] # (Auto) 0.4 10^3/uL (0.2-0.9) 04/26/25 16:01 Eos # (Auto) 0.3 10^3/uL (0.0-0.8) 04/26/25 16:01 Baso # (Auto) 0.0 10^3/uL (0.0-0.1) 04/26/25 16:01 Nucleated RBC % (auto) 0 % 04/26/25 16:01 Nucleated RBCs # 0.0 /100WBC 04/26/25 16:01 Sodium 140 mmol/L (136-145) 04/26/25 16:01 Potassium 4.2 mmol/L (3.5-5.1) 04/26/25 16:01 Chloride 106 mmol/L (98-107) 04/26/25 16:01 Carbon Dioxide 27 mmol/L (22-29) 04/26/25 16:01 Anion Gap 11.2 (5-19) 04/26/25 16:01 BUN 7 mg/dL (6-20) 04/26/25 16:01 Creatinine 1.0 mg/dL (0.5-0.9) H 04/26/25 16:01 GFR Calculation 61.4 mL/min (90-130) L 04/26/25 16:01 Glucose 82 mg/dL (65-115) 04/26/25 16:01 Calculated Osmolality 287 mOsm/kg (285-295) 04/26/25 16:01 Calcium 8.2 mg/dL (8.5-10.5) L 04/26/25 16:01 Total Bilirubin 0.2 mg/dL (0.15-1.2) 04/26/25 16:01 AST 12 U/L (0-32) 04/26/25 16:01 ALT 12 U/L (0-33) 04/26/25 16:01 Alkaline Phosphatase 49 U/L (35-105) 04/26/25 16:01 Total Protein 5.7 g/dL (6.6-8.7) L 04/26/25 16:01 Albumin 3.8 g/dL (3.5-5.2) 04/26/25 16:01 Globulin 1.9 g/dL (1.3-4.6) 04/26/25 16:01 HCG, Qual Negative (Negative) 04/26/25 16:01 Urine Color Yellow (Yellow) 04/26/25 14:57 Urine Appearance Clear (CLEAR) 04/26/25 14:57 Urine pH 7.0 (5-7) 04/26/25 14:57 Ur Specific [place] 1.015 (1.005-1.030) 04/26/25 14:57 Urine Protein Negative (Negative) 04/26/25 14:57 Urine Glucose (UA) Negative (Normal) 04/26/25 14:57 Urine Ketones Negative (Negative) 04/26/25 14:57 Urine Blood Negative (Negative) 04/26/25 14:57 Urine Nitrate Negative (Negative) 04/26/25 14:57 Urine Bilirubin Negative (Negative) 04/26/25 14:57 Urine Urobilinogen 1.0 mg/dL (Negative) 04/26/25 14:57 Ur Leukocyte Esterase 2+ (Negative) A 04/26/25 14:57 Urine RBC 0-2 /hpf (0-2) 04/26/25 14:57 Urine WBC 21-50 /hpf (0-5) H 04/26/25 14:57 Ur Squamous Epith Cells 0-5 /hpf (0-5) 04/26/25 14:57 Amorphous Sediment Not Reportable 04/26/25 14:57 Urine Bacteria None seen /hpf (NONE) 04/26/25 14:57 Hyaline Casts 0-4 /lpf H 04/26/25 14:57 All radiology interpretation(s) finalized by discharge Discharge Plan Discharge Patient Disposition: Home Clinical Impression: Musculoskeletal back pain Condition: Stable Prescriptions: No Action (DME) syringe with needle 3 mL 22 x 1 1/2 syringe See Rx Instructions .ROUTE .MEDSUPPLY Qty: 100 Rx Instructions: As directed testosterone cypionate 200 mg/mL oil 200 mg IM ONCE acamprosate 333 mg tablet,delayed release (DR/EC) 666 mg PO BID Qty: 120 6RF Rx Instructions: Take two tablets twice per day-administer with mid-day and evening meals benztropine 1 mg tablet 1 mg PO QAM Qty: 30 6RF Rx Instructions: Take one tablet every morning divalproex 500 mg tablet extended release 24 hr 500 mg PO BID Qty: 60 6RF Rx Instructions: Take one tablet twice per day prazosin 2 mg capsule 6 mg PO BEDTIME Qty: 90 6RF Rx Instructions: Take three capsules at bedtime propranolol 10 mg tablet 10 mg PO TID 90 Days Qty: 90 6RF Rx Instructions: Take one tablet three times per day sertraline [Zoloft] 25 mg tablet 25 mg PO .morning Qty: 30 6RF Rx Instructions: Take one tablet every morning trazodone 150 mg tablet 150 mg PO BEDTIME PRN (Reason: sleep/insomnia) Qty: 30 6RF Rx Instructions: Take one tablet at bedtime as needed for sleep/insomnia diclofenac sodium 1 % gel 2 g topical QID Qty: 50 0RF Rx Instructions: apply to single elbow, wrist or hand; for hand includes palm/fingers/back of hand rizatriptan [Maxalt-SAIL FINISHER MACHINE] 10 mg tablet,disintegrating See Rx Instructions PO .COMPLEX Qty: 10 12RF Rx Instructions: take 1 tab at onset of headache; if no relief may repeat 1 tab after at least 2 hrs; max = 3 tabs/24 hr PO meloxicam 15 mg tablet 15 mg PO DAILY Qty: 7 0RF Zepbound 2.5 mg/0.5 mL pen injector 2.5 mg SUBCUT .weekly Qty: 2 2RF topiramate 25 mg tablet 25 mg PO DAILY 90 Days Qty: 90 1RF umeclidinium-vilanterol [Anoro Ellipta] 62.5-25 mcg/actuation blister with device 1 inh inhalation DAILY Qty: 60 0RF ondansetron 4 mg tablet,disintegrating 4 mg PO Q8H PRN (Reason: nausea and vomiting) Qty: 20 0RF Discharge Orders: Discharge ED (Routine); Ordered 04/26/25 Ordered By: Govind Kimble Referrals: Tatiana Gutiérrez FNP [Primary Care Provider, Family Practice] Patient Instructions: Patient Portal & Carter Instructions Activity Restrictions/Additional Instructions: Discharge Instructions: Back Pain Your Diagnosis: Musculoskeletal Back Pain You came to the hospital today with back pain that you were concerned might be kidney stones. We performed a CT scan of your kidneys and lab work including urinalysis and blood tests. These tests ruled out kidney stones and other serious causes of back pain. Your back pain is most likely due to muscle or joint strain (musculoskeletal back pain). What to Expect: The good news is that most people with musculoskeletal back pain improve significantly within the first few weeks. Many people notice substantial improvement within 6 weeks, and most have minimal or no pain by 3 months. Your body has a natural ability to heal from this type of back pain. Treatment at Home: Stay Active: Continue your normal daily activities as much as you can tolerate. Staying active helps you recover faster than bed rest. You may need to modify some activities temporarily, but avoid prolonged bed rest. Heat Therapy: Apply heat to your back for 20 minutes several times daily. You can use a heating pad, warm towel, or heat wrap. This can help reduce pain and improve your range of motion. Medications: - Take [id number]-vvuckal nonsteroidal anti-inflammatory drugs (NSAIDs) such as ibuprofen or naproxen as directed on the package, unless you have been told not to take these medications - Use the lowest effective dose for the shortest time needed - Avoid taking these medications if you have kidney disease, stomach ulcers, or other conditions that make NSAIDs unsafe for you Other Options That May Help: - Massage therapy - Acupuncture - Gentle stretching and movement When to Seek Immediate Medical Attention: Return to the emergency department or call 911 if you develop any of these warning signs: - Loss of bowel or bladder control - Numbness in your groin or inner thigh area (saddle area) - New weakness in your legs - Fever - Severe or worsening leg weakness Follow-Up Care: Contact your primary care provider if: - Your pain is not improving after 4-6 weeks - Your pain is getting worse despite treatment - You develop new symptoms Important Reminders: - Most back pain improves on its own with time and self-care - Staying active is better than bed rest - Heat and [id number] anti-inflammatory medications can help manage your pain - You do not need imaging or additional tests at this time since we have ruled out serious causes If you have any questions or concerns, please contact your primary care provider. Print Language: South Korean Coding Level of Care Code ED Drying Machine Tender for Taylor Saul
[2025-04-26 15:25] LABS: Add Urine Microscopic? YES
[2025-04-26] MEDS: morphine 4 mg/mL SDV 1 mL IVP (15:35)
[2025-04-26 16:09] LABS: Hematocrit 40.8 % (36-47); Hemoglobin 13.80 g/dL (11.27-16.99); Mean Corpuscular HGB Conc 33.8 g/dL (30-55); Mean Corpuscular Hemoglobin 32.2 pg (27-33); Mean Corpuscular Volume 95.1 fl (85-98); Nucleated Red Blood Cells % 0 %; Platelet Count 136 10^3/cmm (157-399); Red Blood Count 4.29 10^6/uL (3.85-5.65); White Blood Count 6.14 10^3/uL (3.29-11.43)
[2025-04-26 16:19] LABS: HCG, Serum Qual Negative (Negative)
[2025-04-26 16:23] LABS: Alanine Aminotransferase 12 U/L (0-33); Albumin Level 3.8 g/dL (3.5-5.2); Alkaline Phosphatase 49 U/L (35-105); Anion Gap 11.2 (5-19); Aspartate Amino Transferase 12 U/L (0-32); Blood Urea Nitrogen 7 mg/dL (6-20); Calcium 8.2 mg/dL (8.5-10.5); Carbon Dioxide 27 mmol/L (22-29); Chloride 106 mmol/L (98-107); Globulin 1.9 g/dL (1.3-4.6); Glucose 82 mg/dL (65-115); Osmolality Calculated 287 mOsm/kg (285-295); Potassium 4.2 mmol/L (3.5-5.1); Sodium 140 mmol/L (136-145); Total Protein 5.7 g/dL (6.6-8.7)
[2025-04-26] MEDS: ondansetron 2 mg/ML SDV 2 mL 4 MG IVP (16:33)
[2025-04-26 17:01] VITALS: BP 130/85
== END 2025-04-26 17:01 | disposition home or self-care (01) ==
PROVIDERS: Emergency Provider Physician Assistant; PCP Nurse Practitioner Family
DX: M54.89 Other dorsalgia (principal); F17.220 Nicotine dependence, chewing tobacco, uncomplicated
CPT/HCPCS: 36415; 74176; 80053; 81001; 84703; 85025; 87086; 96361; 96374; 96375; 99285; J1885; J2270; J2405; J7030